=== PATIENT | female | born 1940 | race Caucasian/White ===

== ENCOUNTER 2020-06-03 08:56 | Outpatient (REF) | payer MEDICARE, SELFPAY ==
--- NOTE | 2020-06-03 | US_ITS ---
EXAMINATION: US THYROID CLINICAL INFORMATION: Multinodular goiter. COMPARISON: Ultrasound soft tissue head/neck thyroid dated 10/15/2015 and 11/29/2012. TECHNIQUE: Linear transducer arboleda-scale and color Doppler examination with attention to the region of the thyroid. FINDINGS: SIZE: Measurements of the thyroid lobes and nodules are given in sagittal, anteroposterior and transverse dimensions respectively. Right Thyroid Lobe: 4.9 x 1.8 x 1.1 cm, volume 5.1 mL. Previously 4.0 x 1.1 x 1.1 cm, volume 2.5 mL. Parenchyma: The gland echotexture is heterogeneous. Thyroid vascularity is increased. Left Thyroid Lobe: 4.8 x 1.6 x 1.6 cm, volume 6.4 mL. Previously 4.8 x 1.4 x 1.6 cm, volume 5.8 mL. Parenchyma: The gland echotexture is heterogeneous. Thyroid vascularity is increased. Isthmus: 0.8 cm in maximum AP dimension. Previously 0.5 cm. RIGHT THYROID LOBE: There are 3 nodules seen. 1. Location: Superior. Size: 0.5 x 0.4 x 0.4 cm. Previous: 0.5 x 0.3 x 0.4 cm. Nodule characteristics: Heterogeneously smooth margins. No intranodular flow. Microcalcification. 2. Location: Middle/inferior/medial. Size: 0.5 x 0.3 x 0.5 cm. Previous: 0.5 x 0.3 x 0.5 cm. Nodule characteristics: Complex cystic/hypoechoic with smooth margins. No internal calcification. Intranodular flow is present. 3. Location: Inferior. Size: 2.5 x 1.6 x 1.6 cm. Previous: 0.5 x 0.4 x 0.5 cm. Nodule characteristics: Hyperechoic with central cystic area. Smooth margins. No internal calcification. There is intranodular flow. Of note, the previous evaluation likely solely measured the cystic area which is unchanged. ISTHMUS: There are 3 nodules seen. 1. Location: Inferior. Size: 0.9 x 0.7 x 0.9 cm. Previous: New since the previous study. Nodule characteristics: Heterogeneous with smooth margins and hypoechoic rind. No internal calcification. Intranodular flow present. 2. Location: Inferior. Size: 0.6 x 0.5 x 0.5 cm. Previous: 0.5 x 0.4 x 0.4 cm. Nodule characteristics: Heterogeneously smooth margins. No intranodular flow. Macrocalcification. 3. Location: Inferior. Size: 2.1 x 1.6 x 1.7 cm. Previous: Lucency previous study. Nodule characteristics: Heterogeneous with smooth margins. No internal calcification. Intranodular flow present.. LEFT THYROID LOBE: There are 3 nodules seen. 1. Location: Superior/middle. Size: 1.5 x 1.1 x 1.2 cm. Previous: 1.3 x 1.0 x 1.0 cm. Nodule characteristics: Heterogeneously smooth margins. No internal calcification. Intranodular flow present. 2. Location: Inferior/medial. Size: 1.0 x 0.9 x 1.1 cm. Previous: 0.9 x 0.9 x 1.0 cm. Nodule characteristics: Heterogeneously isoechoic with smooth margins. No internal calcification. There is intranodular flow. 3. Location: Inferior. Size: 1.0 x 0.9 x 1.0 cm. Previous: 0.8 x 0.8 x 0.8 cm. Nodule characteristics: Heterogeneously isoechoic with smooth margins. No internal calcification. There is intranodular flow. NODES: No lymphadenopathy is seen in the tissue surrounding the thyroid gland. IMPRESSION: Multinodular heterogeneous thyroid gland. The previously described nodules are without significant change from previous imaging. There are additional nodules characterized on the current study which may have been present previously but not characterized given the diffuse complex nature of this thyroid gland. Overall there is likely no significant change. If clinically indicated, fine-needle aspiration could be performed of the largest isthmus nodule measuring 2.1 cm. Alternatively, nuclear medicine examination could be performed to evaluate the composition of the nodules to determine if there is an appropriate nodule for sampling.
[2020-06-08 00:01] LABS: N-Telopeptide 28 (see note); NTXCreaRU 70 mg/dL (20-275)
== END 2020-06-03 08:57 | disposition home or self-care (01) ==
LOC: HO.HMGCX 08:56
PROVIDERS: PCP Internal Medicine; Visit Provider Internal Medicine Endocrinology, Diabetes & Metabolism
DX: E04.2 Nontoxic multinodular goiter (principal); M81.0 Age-related osteoporosis without current pathological fracture
CPT/HCPCS: 76536; 82523

== ENCOUNTER 2020-08-18 12:17 | Outpatient (REF) | payer MEDICARE, SELFPAY ==
--- NOTE | 2020-08-18 | XR_ITS ---
EXAMINATION: RIGHT SHOULDER AND RIGHT HIP. CLINICAL INFORMATION: Increasing pain. COMPARISON: None TECHNIQUE: 2 views right hip and 4 views right shoulder. FINDINGS: Right shoulder: The glenohumeral joint space is maintained. Loss of AC joint space with minimal inferior spurring. No visible acute fracture, lytic or sclerotic process seen. The soft tissues are normal. Right hip: There is no visible acute fracture, dislocation or subluxation seen. The joint space is maintained. The soft tissues are normal. XR/XR shoulder RT min 2V IMPRESSION: Mild degenerative changes AC joint. No acute fracture or dislocation right shoulder. Unremarkable right hip exam.
--- NOTE | 2020-08-18 | XR_ITS ---
EXAMINATION: RIGHT SHOULDER AND RIGHT HIP. CLINICAL INFORMATION: Increasing pain. COMPARISON: None TECHNIQUE: 2 views right hip and 4 views right shoulder. FINDINGS: Right shoulder: The glenohumeral joint space is maintained. Loss of AC joint space with minimal inferior spurring. No visible acute fracture, lytic or sclerotic process seen. The soft tissues are normal. Right hip: There is no visible acute fracture, dislocation or subluxation seen. The joint space is maintained. The soft tissues are normal. XR/XR hip RT min 2V IMPRESSION: Mild degenerative changes AC joint. No acute fracture or dislocation right shoulder. Unremarkable right hip exam.
== END 2020-08-18 12:18 | disposition home or self-care (01) ==
LOC: HO.HMGCX 12:17
PROVIDERS: PCP Internal Medicine; Visit Provider Internal Medicine
DX: M25.551 Pain in right hip (principal); M25.511 Pain in right shoulder
CPT/HCPCS: 73030; 73502

== ENCOUNTER 2021-01-05 13:13 | Outpatient (REF) | payer MEDICARE, SELFPAY ==
--- NOTE | ~2021-01-05 | XR_ITS ---
EXAMINATION: RIGHT SHOULDER AND RIGHT HUMERUS. CLINICAL INFORMATION: Status post fall with pain. COMPARISON: Right shoulder 08/18/2020 TECHNIQUE: 2 views right shoulder. 2 views right humerus. FINDINGS: Shoulder: There is a nondisplaced fracture right proximal humerus which does not extend to the articular surface. The glenohumeral joint space in AC joint space is maintained normal. Right humerus: There is a nondisplaced comminuted fracture right humeral neck without extension to the articular surface. Rest of the right humerus is intact. The soft tissues are normal. XR/XR shoulder RT min 2V IMPRESSION: Comminuted right humeral neck fracture without extension are clear surface. The glenohumeral joint space and the AC joint space is intact. Rest of the humerus is unremarkable.
--- NOTE | ~2021-01-05 | XR_ITS ---
EXAMINATION: RIGHT SHOULDER AND RIGHT HUMERUS. CLINICAL INFORMATION: Status post fall with pain. COMPARISON: Right shoulder 08/18/2020 TECHNIQUE: 2 views right shoulder. 2 views right humerus. FINDINGS: Shoulder: There is a nondisplaced fracture right proximal humerus which does not extend to the articular surface. The glenohumeral joint space in AC joint space is maintained normal. Right humerus: There is a nondisplaced comminuted fracture right humeral neck without extension to the articular surface. Rest of the right humerus is intact. The soft tissues are normal. XR/XR humerus RT IMPRESSION: Comminuted right humeral neck fracture without extension are clear surface. The glenohumeral joint space and the AC joint space is intact. Rest of the humerus is unremarkable.
== END 2021-01-05 13:14 | disposition home or self-care (01) ==
LOC: HO.HMGCX 13:13
PROVIDERS: PCP Internal Medicine; Visit Provider Internal Medicine
DX: M25.511 Pain in right shoulder (principal); M79.631 Pain in right forearm
CPT/HCPCS: 73030; 73060

== ENCOUNTER → 2021-01-07 08:50 | Outpatient (BNVA) | payer MEDICARE, SELFPAY | PROVIDERS: Visit Provider Physician Assistant | DX: S42.201A Unspecified fracture of upper end of right humerus, initial encounter for closed fracture (principal) | CPT/HCPCS: 99202 ==

== ENCOUNTER 2021-01-29 07:19 | Outpatient (REF) | payer MEDICARE, SELFPAY ==
--- NOTE | ~2021-01-29 | XR_ITS ---
EXAMINATION: XR SHOULDER, RIGHT CLINICAL INFORMATION: Proximal right humeral fracture. COMPARISON: 01/05/2021 and studies dating back to 08/18/2020. TECHNIQUE: 2 views of the right shoulder. FINDINGS: Proximal right humerus fracture again identified which shows approximately 2 mm of medial displacement of the distal fracture fragment without significant change in appearance from study of 01/05/2021 of the alignment. No dislocation is evident. There is some mild periosteal new bone formation present; however, I cannot say that there is a definite bony union as of yet. There is osteopenia of the proximal humerus. XR/XR shoulder RT min 2V IMPRESSION: Healing right proximal humeral fracture without significant change in alignment.
== END 2021-01-29 07:20 | disposition home or self-care (01) ==
LOC: HO.HOSX 07:19
PROVIDERS: Visit Provider Physician Assistant
DX: S42.201D Unspecified fracture of upper end of right humerus, subsequent encounter for fracture with routine healing (principal)
CPT/HCPCS: 73030; 99212

== ENCOUNTER 2021-02-26 08:05 | Outpatient (REF) | payer MEDICARE, SELFPAY ==
--- NOTE | ~2021-02-26 | XR_ITS ---
EXAMINATION: XR SHOULDER, RIGHT CLINICAL INFORMATION: Fracture COMPARISON: Previous x-ray 01/29/2021 TECHNIQUE: Two views of the right shoulder. FINDINGS: There is a comminuted fracture of the right proximal humerus. Fracture appears nondisplaced on the AP view. There may be mild anterior displacement of the humeral shaft with respect to the head seen on the Y-view. Fracture lines are still seen. There is no significant bony callus formation. Bony structures are unremarkable. XR/XR shoulder RT min 2V IMPRESSION: No change in the comminuted right proximal humerus fracture from previous exams.
== END 2021-02-26 08:06 | disposition home or self-care (01) ==
LOC: HO.HOSX 08:05
PROVIDERS: Visit Provider Physician Assistant
DX: S42.201D Unspecified fracture of upper end of right humerus, subsequent encounter for fracture with routine healing (principal); M25.511 Pain in right shoulder
CPT/HCPCS: 73030; 99212

== ENCOUNTER 2021-04-08 08:15 | Outpatient (REF) | payer MEDICARE, SELFPAY ==
--- NOTE | ~2021-04-08 | XR_ITS ---
EXAMINATION: XR SHOULDER, RIGHT CLINICAL INFORMATION: Pain COMPARISON: 02/26/2021 TECHNIQUE: AP external rotation, Grashey, scapular Y, and axillary views of the right shoulder. FINDINGS: No fracture is again noted with the fracture line slightly less evident on the current study suggesting notable healing. There is no evidence for any acute abnormality joint spaces preserved. XR/XR shoulder RT min 2V IMPRESSION: Endosteal healing with the known fracture less evident on the current study. No new findings otherwise.
== END 2021-04-08 08:16 | disposition home or self-care (01) ==
LOC: HO.HOSX 08:15
PROVIDERS: Visit Provider Orthopaedic Surgery
DX: S42.209D Unspecified fracture of upper end of unspecified humerus, subsequent encounter for fracture with routine healing (principal); X58.XXXD Exposure to other specified factors, subsequent encounter
CPT/HCPCS: 73030; 99212

== ENCOUNTER 2021-06-14 09:00 | Outpatient (RCR) | payer MEDICARE, SELFPAY ==
--- NOTE | 2021-01-13 13:38 | MHC.PT.EP ---
[facility] [place] Office [place] [facility] [place] [facility] [address] Shekhar Bell [address] [phone] F: [phone] F: [phone] F: [phone] F: [phone] Physical Therapy Plan of Care Date of Evaluation: Date of Surgery: Diagnosis: upnspecified fracture of upper end of R humerus Assessment: 80 y/o RHD female referred to PT s/p R nondisplaced humeral fracture on 01/04/2021. Of note, PMH significant for osteoporosis, Parkinson's, and HTN. 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 Examination shows moderate-significant ecchymosis R UE from shoulder to wrist, decreased R shoulder PROM, decreased elbow extension A/PROM, sensation intact and strength not tested due to precautions. She will be driving with her daughter to [place] to bring her sister back home (recently had a CVA) from 01/17-01/26/21. We reviewed humeral fracture precautions extensively. Recommend PT 2x/week for 10 weeks to address impairments, implement HEP, and optimize functional mobility. PT called ortho and left message for any specific restrictions, otherwise will use [facility] Non-operative proximal humeral fx rehab protocol. Frequency and Duration: The patient will be seen 2x/week for 10 weeks Short Term Goals: 4 weeks 1. I with HEP 2. Demonstrate R shoulder AAROM flexion to 120 3. 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 I with HEP and self management of sx 2. Pt will be able to actively reach into overhead cabinet with R UE to get coffee mug 3. Pt will be able to perform grooming with B UE and pain < 3/10 Treatment Plan: Modalities to reduce pain, spasms and effusion. Manual therapy to restore motion and function. Therapeutic exercise to improve strength and flexibility. Neuromuscular re-education for posture and balance. Therapeutic activities to return to functional activities of daily living. Electronically signed by: Denise Manzo PT Please sign and return to therapist. Thank you for your referral.
--- NOTE | 2021-06-14 10:06 | MHC.PT.DC ---
[facility] [place] Office [place] Office [place] Office [address] Shekhar Bell [address] [phone] F: [phone] F: [phone] F: [phone] F: [phone] Physical Therapy Discharge Report Diagnosis: unspecified fracture of upper end of R humerus Date of Surgery: NA Date of Evaluation: 01/13/21 Date of Discharge: 06/14/21 Treatments to Date: 32 Cancellations to Date: 0 No Shows to Date: 0 Discharge Status: Achieved Goals Improved Function Independent with HEP Discharge Summary: Pt has made excellent progress in regards to AROM, pain, and function. She is I with HEP and no further questions. She is d/c from HEP secondary to meeting all goals, SPADI 5/130, I with HEP, and improved function. Electronically signed by: Denise Manzo PT Please sign and return to therapist. Thank you for your referral.
== END 2021-06-14 10:06 | disposition home or self-care (01) ==
LOC: HO.PTCHIC 09:00
PROVIDERS: PCP Internal Medicine; Visit Provider Physician Assistant
DX: S42.201A Unspecified fracture of upper end of right humerus, initial encounter for closed fracture (principal)
CPT/HCPCS: 97110; 97140; 97161

== ENCOUNTER 2021-07-02 09:22 | Outpatient (REF) | payer MEDICARE, SELFPAY ==
--- NOTE | ~2021-07-02 | XR_ITS ---
EXAMINATION: XR CHEST CLINICAL INFORMATION: Weight loss. History of breast cancer. Rule out metastatic disease. COMPARISON: Previous chest x-ray June 2018 TECHNIQUE: 2 views of the chest were obtained. FINDINGS: The cardiac and mediastinal contours are stable. There is left apical pleural thickening that appears unchanged. The lungs are clear. There is no pleural effusion or pneumothorax. There are degenerative changes of the spine. XR/XR chest 2V IMPRESSION: No evidence for acute disease in the chest.
[2021-07-02 10:50] LABS: MANUAL DIFF FLAG NO
[2021-07-02 10:57] LABS: Basophils Percent Auto 0.2 % (0-2); Eosinophils Absolute Auto 0.2 X10*3/uL (0.0-0.4); Eosinophils Percent Auto 4.2 % (0-4); Hemoglobin 11.8 g/dl (12.0-16.0); Imm Gran Abs Auto 0.01 X10*3/uL (0.00-0.03); Imm Gran Pct Auto 0.2 % (0.0-0.4); Lymphocytes Absolute Auto 1.3 X10*3/uL (1.2-4.9); Lymphocytes Percent Auto 31.7 % (20-40); Mean Corpuscular HGB Conc 33.7 g/dl (31.0-35.0); Mean Corpuscular Volume 94.9 fL (80.0-98.0); Mean Platelet Volume 10.9 fL (9.4-12.3); Monocytes Absolute Auto 0.4 X10*3/uL (0.1-1.2); Monocytes Percent Auto 8.7 % (2-11); Neutrophils Absolute Auto 2.2 x10*3/uL (2.0-8.3); Platelet Count 184 X10*3/uL (160-400); Red Blood Count 3.69 X10*6/uL (4.20-5.50); Red Cell Distribution Width 11.9 % (11.0-16.0)
[2021-07-02 11:45] LABS: Alanine Aminotransferase 9 U/L (0-31); Albumin Level 4.4 g/dL (3.5-5.0); Alkaline Phosphatase 62 U/L (39-117); Anion Gap 15 (12-20); Aspartate Amino Transferase 31 U/L (5-31); Bilirubin Total 0.9 mg/dL (0.0-1.0); Blood Urea Nitrogen 16 mg/dL (9-16); C Reactive Protein 0.04 mg/dL (< or = 0.50); Calcium 9.7 mg/dL (8.4-10.2); Carbon Dioxide 31 mmol/L (22-29); Chloride 99 mmol/L (96-108); Estimated Glomerular Filt Rate > 60; Glucose Random 93 mg/dL (60-115); Iron 86 mcg/dL (30-160); Percent Iron Saturation 24 % (15-50); Potassium 3.5 mmol/L (3.3-5.1); Sodium 141 mmol/L (135-145); Total Iron Binding Capacity 352 mcg/dL (228-428); Total Protein 6.8 g/dL (6.5-8.0); Unsaturated Iron Binding 266 ug/dL
[2021-07-02 11:49] LABS: Appearance Urine CLEAR; Color Urine YELLOW; Glucose Urine UA NEG (NEG); Leukocyte Esterase Urine NEG (NEG); Nitrite Urine NEG (NEG); Urine Blood NEG (NEG); Urine Ketones NEG (NEG); Urine Protein NEG (NEG-TRACE)
[2021-07-02 11:51] LABS: Erythrocyte Sedimentation Rate 5 MM/HR (0-20)
[2021-07-02 12:09] LABS: Ferritin 362 ng/mL (10-250); TSH reflex Free T4 0.79 uIU/mL (0.32-4.0)
[2021-07-02 12:19] LABS: Folate > 20.0 ng/mL (> or = 4.0); Vitamin B12 644 pg/mL (200-900)
[2021-07-04 16:12] LABS: Gliadin Deamidated IgA Ab <1.0 U/mL; Gliadin Deamidated IgG Ab <1.0 U/mL; Transglutaminase Ab IgG <1.0 U/mL; Transglutaminase IgA <1.0 U/mL
[2021-07-05 13:11] LABS: IgA 73 mg/dL (70-320); IgG 828 mg/dL (600-1540); IgM 61 mg/dL (50-300)
[2021-07-05 21:47] LABS: Immunoglobulin G Subclass 1 404 mg/dL (382-929); Immunoglobulin G Subclass 2 200 mg/dL (241-700); Immunoglobulin G Subclass 3 16 mg/dL (22-178); Immunoglobulin G Subclass 4 17.9 mg/dL (4-86); Immunoglobulin G Total 701 mg/dL (600-1540)
[2021-07-06 02:32] LABS: Zinc 65 mcg/dL (60-130)
[2021-07-06 14:42] LABS: Vitamin A 74 mcg/dL (38-98)
[2021-07-06 22:07] LABS: Histamine Plasma 2.7 ng/mL (< OR = 1.8)
[2021-07-07 16:17] LABS: Vitamin C 1.6 mg/dL (0.3-2.7)
[2021-07-08 06:26] LABS: Calcitonin <2 pg/mL (<=5)
[2021-07-08 22:41] LABS: Gastrin <15 pg/mL (<=100)
== END 2021-07-02 09:23 | disposition home or self-care (01) ==
LOC: HO.LAB 09:22
PROVIDERS: PCP Internal Medicine; Referring Provider Internal Medicine; Visit Provider Internal Medicine Gastroenterology
DX: K75.81 Nonalcoholic steatohepatitis (NASH) (principal); G89.29 Other chronic pain; R10.33 Periumbilical pain; R63.4 Abnormal weight loss; R19.7 Diarrhea, unspecified; G20 Parkinson's disease; R30.0 Dysuria; Z85.3 Personal history of malignant neoplasm of breast
CPT/HCPCS: 36415; 71046; 80053; 81003; 82180; 82308; 82607; 82728; 82746; 82784; 82941; 83088; 83516; 83520; 83540; 84443; 84590; 84630; 85025; 85652; 86140; Q3014

== ENCOUNTER 2021-07-13 07:30 | Outpatient (REF) | payer MEDICARE, SELFPAY ==
--- NOTE | ~2021-07-13 | CT_ITS ---
EXAMINATION: CT ABDOMEN AND PELVIS WITH CONTRAST CLINICAL INFORMATION: Abnormal weight loss. COMPARISON: Previous CT of the abdomen and pelvis September 2009. TECHNIQUE: Multidetector volumetric images were obtained from the superior aspect of the liver through the pubic symphysis following administration 85 mL of Omnipaque 350 intravenous contrast. Sagittal and coronal reformatted images were obtained on the technologist's workstation. Oral contrast: Yes This CT examination was performed using dose optimization techniques as appropriate, variously including the following: *Automated exposure control *Adjustment of mA and/or kV according to patient size (this includes techniques or standardized protocols for targeted exams where dose is matched to indication/reason for exam; i.e. extremities or head) *Use of iterative reconstruction technique DLP: 178 mGy-cm FINDINGS: LUNG BASES: The visualized lung bases are unremarkable. LIVER, GALLBLADDER, AND BILIARY TREE: The liver is normal in size, shape and attenuation. There is a 1.3 cm low-attenuation lesion high in the left lobe of the liver axial image 9 series 3 suggestive of a cyst. This is minimally increased from 9 mm in size September 2009. No other focal liver lesion is seen. The gallbladder has been removed. There is mild dilatation of the main pancreatic duct measuring 8 mm. This is similar to September 2009 exam and may be normal postcholecystectomy. PANCREAS: The main pancreatic duct appears tortuous. There is mild dilatation of the main pancreatic duct measuring 4 mm in the head of the pancreas. Stable. There is a small low-attenuation probably cystic lesion in the neck of the pancreas measuring 3 mm axial image 24 series 3. Stable from 2010 exam as well. The pancreas is otherwise unremarkable. SPLEEN: Unremarkable. ADRENAL GLANDS: Unremarkable. KIDNEYS AND URETERS: The kidneys are normal in size, shape, and attenuation. No hydronephrosis, hydroureter, or calculi seen. No perinephric stranding. BLADDER: Unremarkable. GASTROINTESTINAL TRACT: Evaluation of the bowel is limited due to paucity of fat. Small and large bowel appears unremarkable. The appendix is unremarkable. The stomach is empty and not well evaluated. ABDOMINAL WALL: No significant hernia is appreciated. LYMPH NODES: Normal. VASCULAR: There is evidence of atherosclerotic disease. PELVIC VISCERA: Unremarkable. OSSEOUS STRUCTURES: There is curvature of the lumbar spine to the right with degenerative changes. There are degenerative changes at the hip joints. CT/CT abdomen pelvis w con IMPRESSION: Limited exam due to paucity of fat. Liver cyst slightly increased from 2010 exam. Postcholecystectomy. Mild dilatation of the common bile duct which may be normal postcholecystectomy. Mild dilatation of the main pancreatic duct in the head of the pancreas and small 3-4 mm probable cyst or cystic lesion in the neck of the pancreas. These findings are stable from 2010 exam. Atherosclerotic disease. Fleischner guidelines were followed.
[2021-07-13] MEDS: Barium Sulfate Oral (Vanilla) 450 ML ORAL.SUSP 900 ML PO (10:34)
[2021-07-13] MEDS: iohexoL 350 MG/ML 100 ML INFUS..BTL IV (10:34)
== END 2021-07-13 07:31 | disposition home or self-care (01) ==
LOC: HO.CT 07:30
PROVIDERS: Visit Provider Internal Medicine Gastroenterology
DX: R19.7 Diarrhea, unspecified (principal); R63.4 Abnormal weight loss; Z85.3 Personal history of malignant neoplasm of breast
CPT/HCPCS: 74177; Q9967

== ENCOUNTER 2021-07-13 08:09 | Outpatient (REF) | payer MEDICARE, SELFPAY ==
[2021-07-17 20:41] LABS: Calprotectin, Fecal 142 mcg/g
[2021-07-18 05:58] LABS: Fecal Fat Qualitative Normal (Normal)
[2021-07-20 19:52] LABS: Pancreatic Elastase-1 430 mcg/g
== END 2021-07-13 08:10 | disposition home or self-care (01) ==
LOC: HO.LNP 08:09
PROVIDERS: Visit Provider Internal Medicine Gastroenterology
DX: R19.7 Diarrhea, unspecified (principal)
CPT/HCPCS: 82656; 82705; 83993; 87329

== ENCOUNTER → 2021-07-27 10:10 | Outpatient (BNVA) | payer MEDICARE, SELFPAY | PROVIDERS: PCP Internal Medicine; Referring Provider Internal Medicine; Visit Provider Internal Medicine Gastroenterology | DX: R19.7 Diarrhea, unspecified (principal); R63.4 Abnormal weight loss | CPT/HCPCS: 99212 ==

== ENCOUNTER 2021-10-13 11:57 | Outpatient (REF) | payer MEDICARE, SELFPAY ==
[2021-10-13 13:09] LABS: Free T4 (Free Thyroxine) 1.34 ng/dL (0.71-1.85); Thyroid Stimulating Hormone 0.53 uIU/mL (0.32-4.0)
[2021-10-14 07:01] LABS: Triiodothyronine T3 Free 2.6 pg/mL (2.3-4.2)
== END 2021-10-13 11:58 | disposition home or self-care (01) ==
LOC: HO.LAB 11:57
PROVIDERS: PCP Internal Medicine; Referring Provider Internal Medicine Endocrinology, Diabetes & Metabolism; Visit Provider Internal Medicine
DX: R53.83 Other fatigue (principal)
CPT/HCPCS: 36415; 84439; 84443; 84481

== ENCOUNTER 2021-11-11 11:10 | Outpatient (REF) | payer MEDICARE, SELFPAY ==
[2021-11-11 12:45] LABS: Cortisol Random 20.9 ug/dL
[2021-11-11 14:37] LABS: Vitamin D 25-OH Total 59.8 ng/mL (>30)
== END 2021-11-11 11:11 | disposition home or self-care (01) ==
LOC: HO.LAB 11:10
PROVIDERS: PCP Internal Medicine; Visit Provider Internal Medicine Endocrinology, Diabetes & Metabolism
DX: M81.0 Age-related osteoporosis without current pathological fracture (principal); R63.4 Abnormal weight loss
CPT/HCPCS: 36415; 82306; 82533

== ENCOUNTER 2021-11-11 11:21 | Day surgery (SDC) | payer MEDICARE, SELFPAY ==
[2021-11-08 09:54] VITALS: BMI 16.1
--- NOTE | 2021-11-10 10:32 | HO.ANESPROP2 ---
Documented by User: Shalini Caraballo NP 11/10/21 10:35 HPI - Anesthesia Eval Consult details Narrative: 81yo F for Upper Endoscopy and Colonoscopy *Mult med allergies* PMFSH Active Problems Active Problems: All Active Problems (Updated 08/16/21 @ 16:35 by Harjinder John MD) Fracture of proximal end of right humerus (Acute) Fracture of proximal humerus with routine healing (Acute) Weight loss (Acute) History of breast cancer (Acute) Diarrhea (Acute) Nausea & vomiting (Acute) Past Medical History Medical History Fracture, wrist, open High blood pressure History of gastrectomy Parkinson disease Surgical History Surgical History H/O pyloroplasty H/O vagotomy History of esophagogastroduodenoscopy (EGD) Hx of arthroscopic knee surgery Hx of cholecystectomy Hx of colonoscopy Hx of hysterectomy Social History Social History Patient Tobacco Use Status: Never used Tobacco Use of substances other than those prescribed or required for medical reasons: No Are you DNR?: No Advance Directives: No Advance Directives Information Provided: Yes Current occupational status: retired Current occupation: rt handed Meds Allergies Allergy/AdvReac Type Severity Reaction Status Date / Time pregabalin [From LYRICA] Allergy Severe CONFUSION Verified 07/27/21 10:19 gabapentin [GABAPENTIN] Allergy Intermediate NAUSEA/VOMI Verified 07/27/21 10:19 TING clarithromycin [From BIAXIN] AdvReac Intermediate NAUSEA & Verified 07/27/21 10:19 VOMITING codeine [CODEINE] AdvReac Intermediate NAUSEA & Verified 07/27/21 10:19 VOMITING fentanyl [From DURAGESIC] AdvReac Intermediate NAUSEA/VOMI Verified 07/27/21 10:19 TING levofloxacin [From LEVAQUIN] AdvReac Intermediate NAUSEA & Verified 07/27/21 10:19 VOMITING Home Medications Medication Instructions Recorded Confirmed Last Taken Type lorazepam 0.5 mg tablet (Ativan) 0.5 mg PO BEDTIME PRN 01/07/21 Unknown History propranolol 80 mg tablet 40 mg PO BID 01/07/21 Unknown History ibuprofen 800 mg tablet 800 mg PO TID 04/08/21 Unknown History carbidopa 25 mg-levodopa 100 mg 1 tab PO TID 07/27/21 Unknown History tablet lorazepam 1 mg tablet 1 mg PO TID 07/27/21 Unknown History losartan 100 1 tab PO DAILY 07/27/21 Unknown History mg-hydrochlorothiazide 25 mg tablet Exam Exam Date and Time: November 10, 2021 1032 Height,Weight and Vital Signs: Height 5 ft 6 in Weight 45.359 kg Pertinent Lab Results Pertinent Lab Results: Laboratory Tests 07/02/21 07/02/21 10:48 10:48 WBC 4.0 L Hgb 11.8 L Hct 35.0 L Plt Count 184 Sodium 141 Potassium 3.5 Chloride 99 Carbon Dioxide 31 H BUN 16 Creatinine 0.84 Assessment and Plan Assessment Anesthesia Assessment: Chart Reviewed Documented by User: Melany Scott MD 11/11/21 11:54 PMFSH Past Medical History Medical History Fracture, wrist, open High blood pressure History of gastrectomy Parkinson disease Functional capacity: independent ambulation Patient : No Family History Family history of problems with anesthesia: No Surgical History Surgical History H/O pyloroplasty H/O vagotomy History of esophagogastroduodenoscopy (EGD) Hx of arthroscopic knee surgery Hx of cholecystectomy Hx of colonoscopy Hx of hysterectomy History of Problems with Anesthesia: No Social History Social History Patient Tobacco Use Status: Never used Tobacco Use of substances other than those prescribed or required for medical reasons: No Are you DNR?: No Advance Directives: No Advance Directives Information Provided: Yes Current occupational status: retired 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 occupation: rt handed Meds Allergies Allergy/AdvReac Type Severity Reaction Status Date / Time pregabalin [From LYRICA] Allergy Severe CONFUSION Verified 07/27/21 10:19 gabapentin [GABAPENTIN] Allergy Intermediate NAUSEA/VOMI Verified 07/27/21 10:19 TING clarithromycin [From BIAXIN] AdvReac Intermediate NAUSEA & Verified 07/27/21 10:19 VOMITING codeine [CODEINE] AdvReac Intermediate NAUSEA & Verified 07/27/21 10:19 VOMITING fentanyl [From DURAGESIC] AdvReac Intermediate NAUSEA/VOMI Verified 07/27/21 10:19 TING levofloxacin [From LEVAQUIN] AdvReac Intermediate NAUSEA & Verified 07/27/21 10:19 VOMITING Home Medications Medication Instructions Recorded Confirmed Last Taken Type lorazepam 0.5 mg tablet (Ativan) 0.5 mg PO BEDTIME PRN 01/07/21 Unknown History propranolol 80 mg tablet 40 mg PO BID 01/07/21 Unknown History ibuprofen 800 mg tablet 800 mg PO TID 04/08/21 Unknown History carbidopa 25 mg-levodopa 100 mg 1 tab PO TID 07/27/21 Unknown History tablet lorazepam 1 mg tablet 1 mg PO TID 07/27/21 Unknown History losartan 100 1 tab PO DAILY 07/27/21 Unknown History mg-hydrochlorothiazide 25 mg tablet Exam Airway Mallampati Class: II TM Dist: >3cm Neck ROM: Full Heart: RRR Lungs: CTA Assessment and Plan Final Anesthetic Review Family History of Problems with Anesthesia: No History of Problems with Anesthesia: No ASA Class: III Final Preanesthetic Review: Meds/Allgs Chart Reviewed and Consent Obtained/Reviewed Patient Risk: Low Procedure Risk: Low Anesthetic Plan Anesthetic Plan: MAC: Disposition: Standard PACU
[2021-11-11 11:29] VITALS: BMI 14.0
--- NOTE | 2021-11-11 11:38 | MHC.SHP ---
Pre-Procedural Eval Section A Date of Service: 11/11/21 Section B Chief Complaint: Diarrhea, Weight loss Relevant Family History (Specify if Yes): No Relevant Social History: None Present Medications: see Short Stay Collaborative assessment Medical History: Significant History (Fracture, wrist, open High blood pressure History of gastrectomy Parkinson disease) History of Previous Operations: Relevant previous surgery/procedure and date(s) (H/O pyloroplasty H/O vagotomy History of esophagogastroduodenoscopy (EGD) Hx of arthroscopic knee surgery Hx of cholecystectomy Hx of colonoscopy Hx of hysterectomy) Allergies: Allergies Allergy/AdvReac Type Severity Reaction Status Date / Time pregabalin [From LYRICA] Allergy Severe CONFUSION Verified 07/27/21 10:19 gabapentin [GABAPENTIN] Allergy Intermediate NAUSEA/VOMI Verified 07/27/21 10:19 TING clarithromycin [From BIAXIN] AdvReac Intermediate NAUSEA & Verified 07/27/21 10:19 VOMITING codeine [CODEINE] AdvReac Intermediate NAUSEA & Verified 07/27/21 10:19 VOMITING fentanyl [From DURAGESIC] AdvReac Intermediate NAUSEA/VOMI Verified 07/27/21 10:19 TING levofloxacin [From LEVAQUIN] AdvReac Intermediate NAUSEA & Verified 07/27/21 10:19 VOMITING Review of Systems Sugical H&P ROS: Negative: Constitution, Cardiovascular, Respiratory, Neurological, Psychiatric, Hem-Onc, Allergic/Immunologic, Gastrointestinal, Genitourinary, Musculoskeletal, Integumentary, Endocrine and Eyes/Ears/Nose/Throat Exam Surgical H&P Exam: Normal: HEENT, Normal: Heart, Normal: Lungs, Normal: Extremities, Normal: Abdomen, Normal: Skin and Normal: Neurological Plan Diagnosis/Plan: Unchanged I have reviewed the history and physical and performed a pertinent physical examination on my patient. No changes have occurred unless specified.
[2021-11-11 11:52] VITALS: BP 129/43; PULSE 54; RESP 16; TEMP 36.9; O2SAT 99
[2021-11-11] MEDS: Lactated Ringers 1,000 ML 100 ML IVCONT (12:00)
--- NOTE | 2021-11-11 12:13 | PM.OP ---
Brief Operative Note Date of Service: 11/11/21 Pre-op diagnosis: diarrhea, weight loss Post-op diagnosis: same Procedure: see op note Surgeon: Harjinder John MD Anesthesia: MAC Was an Foreign Languages Department Chair used for this Procedure?: No Estimated blood loss (mL): 0 Condition: stable Disposition: PACU
--- NOTE | 2021-11-11 12:24 | W.PM.OPN ---
Operative Note Operative Note Date of Service: 11/11/21 Narrative: Operative Information Procedure Description: EGD, Colonoscopy FLEXIBLE TRANSORAL UPPER GASTROINTESTINAL ENDOSCOPY AND COLONOSCOPY PROCEDURE NOTE UPPER ENDOSCOPY Consent: Indications for the procedure and potential complications of bleeding, perforation, reaction to medications and missed diagnosis were discussed with the patient and informed consent was obtained. Instrument: Olympus GIF H 190 J mid size upper endoscope Monitoring: Vital signs and clinical assessment, continuous EKG monitoring, Pulse oximetry, Carbon Dioxide monitoring and blood pressure monitoring were done throughout the procedure. Procedure: The patient was placed in the left lateral decubitis position and pre-procedure medications were administered and a bite block was placed. The endoscope was inserted into the mouth and advanced under direct vision to the third part of duodenum. A careful inspection was made as the upper endoscope was withdrawn including a retroflexed examination of the proximal stomach; Findings and interventions are described below. Findings: Larynx:normal Esophagus: GE junction at 38 cm, diaphragm hiatus at 38 cm, normal mucosa Stomach: Inflammed mucosa with diffuse erythema. Biopsies were obtained. Grade 2 flap valve on retroflexed examination of the cardia. psot surgical changes consistent with bilroth type I anatomy noted. 9-10 mm sessile polyp lesion at anastomosis, removed with cold snare and then one clip applied for hemostasis Duodenum: Normal bulb and descending duodenum, bx taken Intervention: Biopsies as noted above COLONOSCOPY Instrument: Olympus variable stiffness pediatric scope 190L Colonoscopy Monitoring: Vital signs and clinical assessment, continuous EKG monitoring, Pulse oximetry, Carbon Dioxide monitoring and blood pressure monitoring were done throughout the procedure. Colon withdrawal time was 9 minutes. Procedure: The patient was placed in the left lateral decubitis position and pre-procedure medications were administered. After a digital rectal examination of the ano-rectum, the video colonoscope was inserted into the rectum and advanced through the colon to the cecum/TI. The colonoscope was slowly withdrawn in a retrograde panoramic fashion and the colon mucosa was carefully examined including a retroflexed view of the rectum. Findings and interventions are described below. Procedure Difficulty:easy Findings: Terminal Ileum-normal, bx taken Random colon bx taken Cecum:normal Ascending Colon: normal Transverse Colon -normal Descending Colon:normal Sigmoid Colon: normal Rectum: Retroflexion with small internal hemorrhoids, grade I Anorectum - normal Colon preparation: [place] Bowel Preparation Scale Right colon; 3 Transverse colon: 3 Left colon; 3 (0 = Unprepared colon segment with mucosa not seen due to solid stool that cannot be cleared. 1 = Portion of mucosa of the colon segment seen, but other areas of the colon segment not well seen due to staining, residual stool and/or opaque liquid. 2 = Minor amount of residual staining, small fragments of stool and/or opaque liquid, but mucosa of colon segment seen well. 3 = Entire mucosa of colon segment seen well with no residual staining, small fragments of stool or opaque liquid) Impression and Post Procedure Diagnosis: Endoscopy Findings: gastritis gastric polyp Colonoscopy Findings: internal hemorrhoids Plan: Await Pathology results Repeat Colonoscopy for screening not indicated given age unless for other clinical indications. High fiber diet leaflet avoid straining at stool, epsom salts and sitz bath, anusol supps or cream ?trial of urosdiol for bile acid related gastric reflux Above findings were reviewed with the patient and relevant handouts were provided if indicated.
[2021-11-11 12:59] VITALS: BP 99/57; PULSE 68; RESP 16; TEMP 36.2; O2SAT 100
[2021-11-11 13:14] VITALS: BP 130/58; PULSE 63; RESP 16; TEMP 36.1; O2SAT 100
--- NOTE | 2021-11-11 14:13 | HO.POSTANES ---
Post Anesthesia Evaluation Post Anesthesia Evaluation Vital Signs: Vital Signs Temp Pulse Resp BP Pulse Ox 11/11/21 13:14 97 F 63 16 130/58 L 100 11/11/21 12:59 97.1 F 68 16 99/57 L 100 11/11/21 11:52 98.5 F 54 16 129/43 L 99 Anesthesia: Monitored Mental Status: Awake Pain Control: Satisfactory Nausea/Vomiting: None Hydration: Adequate Anesthesia-Related Issues: No Anes. Related Issues
== END 2021-11-11 13:40 | disposition home or self-care (01) ==
PROVIDERS: PCP Internal Medicine; Visit Provider Internal Medicine Gastroenterology
PROC: (CPT 45380; principal; 2021-11-11 12:40)
DX: K64.0 First degree hemorrhoids (principal); R63.4 Abnormal weight loss; Z68.1 Body mass index [BMI] 19.9 or less, adult; K29.50 Unspecified chronic gastritis without bleeding; K31.7 Polyp of stomach and duodenum; Z90.3 Acquired absence of stomach [part of]; K44.9 Diaphragmatic hernia without obstruction or gangrene; I10 Essential (primary) hypertension; G20 Parkinson's disease; Z79.899 Other long term (current) drug therapy; Z88.1 Allergy status to other antibiotic agents; Z88.8 Allergy status to other drugs, medicaments and biological substances; Z90.49 Acquired absence of other specified parts of digestive tract; Z98.890 Other specified postprocedural states
CPT/HCPCS: 45380; 43251; 43239; 88305; 88342

== ENCOUNTER → 2021-11-15 13:32 | Outpatient (BNVA) | payer MEDICARE, SELFPAY | PROVIDERS: PCP Internal Medicine; Referring Provider Internal Medicine; Visit Provider Internal Medicine Gastroenterology | DX: R68.81 Early satiety (principal); R63.4 Abnormal weight loss; R19.7 Diarrhea, unspecified | CPT/HCPCS: 99212 ==

== ENCOUNTER → 2021-12-02 09:31 | Outpatient (BNVA) | payer MEDICARE, SELFPAY | PROVIDERS: PCP Internal Medicine; Visit Provider Dietitian, Registered | DX: R63.4 Abnormal weight loss (principal) | CPT/HCPCS: 97802 ==

== ENCOUNTER → 2021-12-24 10:28 | Outpatient (BNVA) | payer MEDICARE, SELFPAY | PROVIDERS: PCP Internal Medicine; Visit Provider Dietitian, Registered | DX: R63.6 Underweight (principal); Z68.1 Body mass index [BMI] 19.9 or less, adult; R63.4 Abnormal weight loss; Z71.3 Dietary counseling and surveillance | CPT/HCPCS: 97803 ==

== ENCOUNTER → 2021-12-30 07:55 | Outpatient (REF) | payer MEDICARE, SELFPAY ==
--- NOTE | ~2021-12-30 | NM_ITS ---
EXAMINATION: RADIONUCLIDE SOLID FOOD GASTRIC EMPTYING 4-HOUR STUDY CLINICAL INFORMATION: Early satiety. COMPARISON: No previous gastric emptying study is available for comparison. TECHNIQUE: A standard meal consisting of 4 oz of Egg Beaters brand tagged with 770 microcuries Tc-99m Sulfur Colloid, 8 oz water and 2 slices of toast with jelly was administered orally to the patient. Images were obtained using a dual head gamma camera in the anterior and posterior projections over of the stomach immediately post ingestion and at hourly intervals up to 3 hours post ingestion. Images were not obtained at 4 hours due to the minimal retention at 3 hours. The anterior and posterior counts at each time interval were averaged using the geometric mean and expressed as percentage of the immediate post ingestion counts. FINDINGS: There is good visualization of activity in the stomach immediately post ingestion. As the study progresses, there is good clearance of activity from the stomach and visualization of progressively increasing small bowel activity. By the end of the study, there is almost no retention noted in the stomach. Retention in the stomach at each time interval was: 1 hour 6% (normal 37%-90%) 2 hours 3% (normal 30%-60%) 3 hours 2% 4 hours (Not Obtained) (normal 0%-10%) NM/NM gastric emptying study IMPRESSION: No abnormal retention of solid food is noted. Gastric emptying is more rapid than normal, a finding of uncertain clinical significance.
== END ==
LOC: HO.NUCMED 07:55
PROVIDERS: PCP Internal Medicine; Visit Provider Internal Medicine Gastroenterology
DX: R68.81 Early satiety (principal)
CPT/HCPCS: 78264; A9541

== ENCOUNTER → 2022-01-24 10:40 | Outpatient (BNVA) | payer MEDICARE, SELFPAY | PROVIDERS: PCP Internal Medicine; Referring Provider Internal Medicine; Visit Provider Internal Medicine Gastroenterology | DX: Z13.89 Encounter for screening for other disorder (principal) | CPT/HCPCS: Q3014 ==

== ENCOUNTER 2022-01-31 12:10 | Outpatient (REF) | payer MEDICARE, SELFPAY ==
--- NOTE | ~2022-01-31 | XR_ITS ---
EXAMINATION: XR SHOULDER, RIGHT CLINICAL INFORMATION: Right shoulder pain after fall COMPARISON: Right shoulder 04/08/2021 and 01/05/2021 TECHNIQUE: AP external rotation, Grashey, scapular Y, and axillary views of the right shoulder. FINDINGS: Interval healing of previously seen comminuted right humeral neck fracture. There is no shoulder dislocation or recurrent fracture seen. No new fractures are seen. XR/XR shoulder RT min 2V IMPRESSION: No acute finding right shoulder
== END 2022-01-31 12:11 | disposition home or self-care (01) ==
LOC: HO.HMGCX 12:10
PROVIDERS: Visit Provider Internal Medicine
DX: M25.511 Pain in right shoulder (principal); Z91.81 History of falling
CPT/HCPCS: 73030

== ENCOUNTER → 2022-03-29 10:45 | Outpatient (BNVA) | payer MEDICARE, SELFPAY | PROVIDERS: PCP Internal Medicine; Visit Provider Dietitian, Registered | DX: R63.4 Abnormal weight loss (principal); Z98.84 Bariatric surgery status; Z71.3 Dietary counseling and surveillance | CPT/HCPCS: 97803 ==

== ENCOUNTER → 2022-07-01 10:08 | Outpatient (BNVA) | payer MEDICARE, SELFPAY | PROVIDERS: PCP Internal Medicine; Visit Provider Internal Medicine Gastroenterology | DX: R63.4 Abnormal weight loss (principal); R19.7 Diarrhea, unspecified | CPT/HCPCS: 99212 ==

== ENCOUNTER 2022-10-09 17:04 | Emergency (ER) | payer MEDICARE, SELFPAY ==
--- NOTE | ~2022-10-09 | CT_ITS ---
EXAMINATION: CT ABDOMEN AND PELVIS WITH CONTRAST CLINICAL INFORMATION: Lower abdominal pain COMPARISON: 07/13/2021 TECHNIQUE: Multidetector volumetric images were obtained from the superior aspect of the liver through the pubic symphysis following administration 85 mL of Omnipaque 350 intravenous contrast. Sagittal and coronal reformatted images were obtained on the technologist's workstation. Oral contrast: No This CT examination was performed using dose optimization techniques as appropriate, variously including the following: *Automated exposure control *Adjustment of mA and/or kV according to patient size (this includes techniques or standardized protocols for targeted exams where dose is matched to indication/reason for exam; i.e. extremities or head) *Use of iterative reconstruction technique DLP: 278 mGy-cm FINDINGS: LUNG BASES: The visualized lung bases are unremarkable. LIVER, GALLBLADDER, AND BILIARY TREE: Liver cyst minimally more prominent. No new lesions. Mild prominence of the biliary ductal system. Gallbladder surgically absent. Prominence of the intrahepatic and extra hepatic biliary ductal radicals similar. PANCREAS: Pancreatic duct is prominent within the head extending to the neck unchanged. No stones or focal lesion seen. No inflammatory changes. SPLEEN: Unremarkable. ADRENAL GLANDS: Unremarkable. KIDNEYS AND URETERS: The kidneys are normal in size, shape, and attenuation. No hydronephrosis, hydroureter, or calculi seen. No perinephric stranding. BLADDER: Unremarkable. GASTROINTESTINAL TRACT: No definite inflammatory changes. No obstruction. ABDOMINAL WALL: No significant hernia is appreciated. LYMPH NODES: Normal. VASCULAR: Unremarkable. PELVIC VISCERA: Atrophic versus surgically absent. OSSEOUS STRUCTURES: Unremarkable. CT/CT abdomen pelvis w IV con IMPRESSION: No definite abnormality to explain patient's symptoms. Chronic findings as above. Fleischner guidelines were followed.
[2022-10-09 17:13] VITALS: BP 182/65; PULSE 63; RESP 18; TEMP 36.8; O2SAT 97; BMI 15.1
--- NOTE | 2022-10-09 17:15 | ED.GENADULT ---
HPI - General Adult General Chief complaint: Abdominal Pain <JESS Lawson - Last Filed: 10/09/22 17:17> Stated complaint: abd pain <JESS Lawson - Last Filed: 10/09/22 17:17> Time Seen by Provider: 10/09/22 17:49 <JESS Lawson - Last Filed: 10/09/22 17:17> Source: patient, family, RN notes reviewed and old records reviewed <Ryan Sesay - Last Filed: 10/09/22 20:42> Mode of arrival: ambulatory <Ryan Sesay - Last Filed: 10/09/22 20:42> Limitations: no limitations <Ryan Sesay - Last Filed: 10/09/22 20:42> History of Present Illness HPI narrative: 82-year-old male presents for evaluation of diffuse abdominal pain. Patient reports that her symptoms started about 4 hours prior to arrival. She was eating at times She states this started as generalized abdominal pain but now seem to radiate to the left abdomen. She denies any associated symptoms including nausea, vomiting diarrhea, constipation. Patient reports that her bowel habits are fairly labile at baseline. She reports it can be normal for her to have up to 15 bowel movements per day. S denies any black or bloody stool. Patient reports multiple previous abdominal surgeries including cholecystectomy, gastrectomy. Patient rates her pain as 10/10, sharp, constant. She states this positions maker pain worse She denies any chest pain, shortness of breath <Ryan Sesay - Last Filed: 10/09/22 20:42> Related Data Home medications: Home Medications Medication Instructions Recorded Confirmed lorazepam 0.5 mg tablet (Ativan) 0.5 mg PO BEDTIME PRN 01/07/21 carbidopa 25 mg-levodopa 100 mg 1 tab PO TID 07/27/21 tablet losartan 100 1 tab PO DAILY 07/27/21 mg-hydrochlorothiazide 25 mg tablet propranolol 80 mg tablet 80 mg PO BID 01/24/22 alendronate 70 mg tablet 70 mg PO QWEEK 07/01/22 hydrochlorothiazide 25 mg tablet 25 mg PO DAILY 07/01/22 lorazepam 1 mg tablet 1 mg PO TID PRN 07/01/22 potassium chloride 10 mEq 10 meq PO DAILY 07/01/22 tablet,extended release Previous Rx's Medication Instructions Recorded Magic Mouthwash 10 ml PO QID #240 mL 11/18/21 Diphen/Lido/Antacid 1:1:1 240 mL suspension psyllium husk (with sugar) 3.4 1 tbsp PO BID #60 ea 01/24/22 gram oral powder packet (Metamucil (with sugar)) colesevelam 3.75 gram oral powder 3,750 mg PO DAILY #30 ea 02/09/22 packet (WelChol) omeprazole 40 mg capsule,delayed 40 mg PO DAILY #90 caps 04/13/22 release ursodiol 500 mg tablet 500 mg PO BID #180 tabs 05/05/22 aluminum-mag hydroxide-simethicone 10 ml PO QID PRN abdominal pain 10/09/22 200 mg-200 mg-20 mg/5 mL oral susp #355 mL (Maalox Advanced) <JESS Lawson - Last Filed: 10/09/22 17:17> Allergies/adverse reactions: Allergies Allergy/AdvReac Type Severity Reaction Status Date / Time pregabalin [From LYRICA] Allergy Severe CONFUSION Verified 07/01/22 10:11 gabapentin [GABAPENTIN] Allergy Intermediate NAUSEA/VOMI Verified 07/01/22 10:11 TING clarithromycin [From BIAXIN] AdvReac Intermediate NAUSEA & Verified 07/01/22 10:11 VOMITING codeine [CODEINE] AdvReac Intermediate NAUSEA & Verified 07/01/22 10:11 VOMITING fentanyl [From DURAGESIC] AdvReac Intermediate NAUSEA/VOMI Verified 07/01/22 10:11 TING levofloxacin [From LEVAQUIN] AdvReac Intermediate NAUSEA & Verified 07/01/22 10:11 VOMITING <JESS Lawson - Last Filed: 10/09/22 17:17> Review of Systems Constitutional: Constitutional: Reports as per HPI, Denies chills and Denies fatigue <Ryan Sesay - Last Filed: 10/09/22 20:42> Cardiovascular: Cardiovascular: Denies chest pain and Denies dyspnea <Ryan Sesay - Last Filed: 10/09/22 20:42> Respiratory: Respiratory: Denies cough and Denies dyspnea <Ryan Sesay - Last Filed: 10/09/22 20:42> Gastrointestinal: Gastrointestinal: Reports abdominal pain, Denies constipation and Denies vomiting <Ryan Sesay - Last Filed: 10/09/22 20:42> Genitourinary: Genitourinary: Denies dysuria <Ryan Sesay - Last Filed: 10/09/22 20:42> Endocrine: Endocrine: Denies fatigue <Ryan Sesay - Last Filed: 10/09/22 20:42> [facility] Past Medical History Attestation statement: The following information was validated with the patient. <Ryan Sesay - Last Filed: 10/09/22 20:42> Source: old records reviewed, obtained from family and nursing notes reviewed <Ryan Sesay - Last Filed: 10/09/22 20:42> Medical History: Medical History Fracture, wrist, open High blood pressure History of gastrectomy Parkinson disease <JESS Lawson - Last Filed: 10/09/22 17:17> Surgical History: Surgical History H/O pyloroplasty H/O vagotomy History of esophagogastroduodenoscopy (EGD) Hx of arthroscopic knee surgery Hx of cholecystectomy Hx of colonoscopy Hx of hysterectomy <JESS Lawson - Last Filed: 10/09/22 17:17> Social History Social History: Social History Alcohol intake: former Patient Tobacco Use Status: Never used Tobacco Smoked in Last 30 Days: No Use of substances other than those prescribed or required for medical reasons: No Advance Directives: No Advance Directives Information Provided: Yes Current occupational status: retired Current occupation: rt handed <JESS Lawson - Last Filed: 10/09/22 17:17> Physical Exam ED Vital Signs: Vital Signs - 24 hr 10/09/22 17:13 10/09/22 18:33 Temperature 98.2 F Pulse Rate 63 Respiratory Rate 18 20 Blood Pressure 182/65 H Pulse Oximetry 97 Oxygen Delivery Method Room Air BMI result Body Mass Index 15.1 <JESS Lawson - Last Filed: 10/09/22 17:17> Vital Signs - 24 hr 10/09/22 17:13 10/09/22 18:33 Temperature 98.2 F Pulse Rate 63 Respiratory Rate 18 20 Blood Pressure 182/65 H Pulse Oximetry 97 Oxygen Delivery Method Room Air BMI result Body Mass Index 15.1 <Ryan JimBuzz - Last Filed: 10/09/22 20:42> Const General: healthy appearing, comfortable, no acute distress, alert and awake <Ryan OFarrar - Last Filed: 10/09/22 20:42> Nutritional Appearance: well nourished <Ryan Farrar - Last Filed: 10/09/22 20:42> Orientation/consciousness: patient oriented x3 <Ryan JimFarrar - Last Filed: 10/09/22 20:42> Eyes Eyelids: Yes eyelids normal <Ryan JimBuzz - Last Filed: 10/09/22 20:42> Conjunctivae: conjunctivae normal <Ryan OFarrar - Last Filed: 10/09/22 20:42> Sclerae: sclerae normal <Ryan Buzz - Last Filed: 10/09/22 20:42> Corneas: corneas normal <Ryan Farrar - Last Filed: 10/09/22 20:42> Pupils: Equal, round and reactive pupils present <Ryan OFarrar - Last Filed: 10/09/22 20:42> EOM: EOMs intact bilaterally <Ryan OFarrar - Last Filed: 10/09/22 20:42> Resp Effort & Inspection: normal respiratory effort, able to speak in complete sentences, no audible wheezes and not labored <Ryan OBuzz - Last Filed: 10/09/22 20:42> GI Other: Abdomen is soft, diffusely tender with rebound. There is no distention, no pulsatile masses or palpable masses at all. <Ryan OFarrar - Last Filed: 10/09/22 20:42> Palpation (GI): Soft to palpation and Tenderness to palpation present (GI) in the epigastrum, in the LLQ, in the LUQ, in the RUQ and with rebound tenderness <Ryan Sesay - Last Filed: 10/09/22 20:42> Auscultation: normoactive bowel sounds <Ryan Sesay - Last Filed: 10/09/22 20:42> Skin General skin exam: no rashes or lesions noted and elasticity normal <Ryan Sesay - Last Filed: 10/09/22 20:42> Lesions: no lesions <Ryandonna Sesay - Last Filed: 10/09/22 20:42> Rashes: no rashes <Ryandonna Sesay - Last Filed: 10/09/22 20:42> Neuro General: patient oriented x3 <Ryan Sesay - Last Filed: 10/09/22 20:42> Cranial nerves: Yes Equal, round and reactive pupils present <Ryan Sesay - Last Filed: 10/09/22 20:42> Extrem General: Yes full ROM <Ryan Sesay Last Filed: 10/09/22 20:42> Course Course Course Narrative: This is an RME: Additional HPI, ROS, PE not included below will be deferred to primary provider. 82-year-old female presenting with diffuse abdominal pain since 01:00 o'clock, sudden in onset, started after eating peanuts. No history of diverticulitis. Denies nausea vomiting, fevers, chills, chest pain, shortness of breath, headache, vision changes, dizziness. Physical exam with diffuse tenderness. Plan laboratory studies, imaging, urine. <JESS Lawson - Last Filed: 10/09/22 17:17> Reevaluation(s) Reevaluation #1: Patient reports that her pain is gone after receiving fentanyl 25 mcg IV. On further discussion, the patient reports that her partial gastrectomy due to stomach ulcers many years ago. She reports having had a burning esophageal pain several times over the last month, limiting in her severe upper abdominal pain today. Her symptoms are most likely related to peptic ulcer disease. She takes omeprazole 40 mg daily. We will encourage her to increase the omeprazole to 40 mg b.i.d. for the next week, Maalox for breakthrough pain she will follow-up with her GI doctor. The patient's labs were reassuring, CT scan unremarkable. This was all discussed with the patient. She is patient's EKG was sinus rhythm without ischemic changes as well and a troponin was negative. <Ryan Sesay - Last Filed: 10/09/22 20:42> Time: 20:37 <Ryan Sesay - Last Filed: 10/09/22 20:42> Medications Administered Discontinued Medications Generic Name Dose Route Start Last Admin Trade Name Freq PRN Reason Stop Dose Admin Fentanyl 25 mcg 10/09/22 18:12 10/09/22 18:33 Fentanyl Citrate/Pf 100 Mcg/2 Ml Vial IVPUSH 10/09/22 18:13 25 mcg ONCE ONE Administration Protocol Sodium Chloride 500 mls @ 500 mls/hr 10/09/22 18:12 10/09/22 20:14 Ns IV 10/09/22 19:11 Infused .Q1H STA Infusion Iohexol 100 ml 10/09/22 19:39 10/09/22 19:39 Iohexol 350 Mg/Ml 100 Ml Infus..Btl IV 10/09/22 19:40 85 ml ONCE ONE Administration Ondansetron HCl 4 mg 10/09/22 18:12 10/09/22 18:33 Ondansetron Hcl 4 Mg/2 Ml Vial IVPUSH 10/09/22 18:13 4 mg ONCE ONE Administration <JESS Lawson - Last Filed: 10/09/22 17:17> Medications Administered Discontinued Medications Generic Name Dose Route Start Last Admin Trade Name Freq PRN Reason Stop Dose Admin Fentanyl 25 mcg 10/09/22 18:12 10/09/22 18:33 Fentanyl Citrate/Pf 100 Mcg/2 Ml Vial IVPUSH 10/09/22 18:13 25 mcg ONCE ONE Administration Protocol Sodium Chloride 500 mls @ 500 mls/hr 10/09/22 18:12 10/09/22 20:14 Ns IV 10/09/22 19:11 Infused .Q1H STA Infusion Iohexol 100 ml 10/09/22 19:39 10/09/22 19:39 Iohexol 350 Mg/Ml 100 Ml Infus..Btl IV 10/09/22 19:40 85 ml ONCE ONE Administration Ondansetron HCl 4 mg 10/09/22 18:12 10/09/22 18:33 Ondansetron Hcl 4 Mg/2 Ml Vial IVPUSH 10/09/22 18:13 4 mg ONCE ONE Administration <Ryan Sesay - Last Filed: 10/09/22 20:42> Medical Decision Making Medical Decision Making MDM Narrative: 82-year-old male presents for evaluation of sudden onset severe abdominal pain. Her pain was initially diffuse, epigastric but now radiating/lateralizing to the left. She is fairly hypertensive on arrival to 182/65. It is possible this is related to the patient's discomfort, or there is some concern for aortic dissection given her sudden onset of severe pain. We had a CT scan of the abdomen and pelvis. A troponin was ordered, EKG was ordered. A lactate was also added on due to concern for ischemic bowel. The patient has had multiple previous abdominal surgeries. Also some concern for small bowel obstruction. (This time. Patient was hesitant to receive analgesia but is quite uncomfortable. She reports a history of adverse reactions to opiates with nausea vomiting and lightheadedness. She agreed to trial a low-dose of fentanyl we will give her Zofran as well. <Ryan Sesay - Last Filed: 10/09/22 20:42> Differential Diagnosis Small-bowel obstruction Ischemic bowel Constipation Colitis Diverticulitis Abdominal aortic aneurysm Aortic dissection ACS less likely <Ryan Sesay - Last Filed: 10/09/22 20:42> Lab Data Result Diagrams: 10/09/22 17:48 10/09/22 17:48 <JESS Lawson - Last Filed: 10/09/22 17:17> Labs: Lab Results 10/09/22 10/09/22 10/09/22 Range/Units 17:48 17:58 18:39 WBC 12.6 H (4.8-10.8) X10*3/uL RBC 4.29 (4.20-5.50) X10*6/uL Hgb 12.9 (12.0-16.0) g/dl Hct 40.2 (37.0-47.0) % MCV 93.7 (80.0-98.0) fL MCH 30.1 (27.0-33.0) pg MCHC 32.1 (31.0-35.0) g/dl RDW 12.4 (11.0-16.0) % Plt Count 217 (160-400) X10*3/uL MPV 11.2 (9.4-12.3) fL Immature Gran % (Auto) 0.2 (0.0-0.4) % Neut % (Auto) 81.3 H (45-73) % Lymph % (Auto) 10.1 L (20-40) % [place] % (Auto) 6.5 (2-11) % Eos % (Auto) 1.7 (0-4) % Baso % (Auto) 0.2 (0-2) % Lymph # (Auto) 1.3 (1.2-4.9) X10*3/uL [place] # (Auto) 0.8 (0.1-1.2) X10*3/uL Eos # (Auto) 0.2 (0.0-0.4) X10*3/uL Baso # (Auto) 0.0 (0.0-0.2) X10*3/uL Abs Immat Gran (auto) 0.03 (0.00-0.03) X10*3/uL Absolute Neuts (auto) 10.3 H (2.0-8.3) x10*3/uL Absolute Nucleated RBC 0.000 (0.0-0.012) X10*3/uL Nucleated RBC % (auto) 0.0 (0.0-0.2) /100WBC APTT (26.0-36.4) SEC Sodium 141 (135-145) mmol/L Potassium 3.6 (3.3-5.1) mmol/L Chloride 100 (96-108) mmol/L Carbon Dioxide 31 H (22-29) mmol/L Anion Gap 14 (12-20) BUN 19 H (9-16) mg/dL Creatinine 0.78 (0.5-1.4) mg/dL Estim Creat Clear Calc 36.1 Estimated GFR > 60 Random Glucose 94 (60-115) mg/dL Lactic Acid (0.5-2.0) mmol/L Calcium 9.0 D (8.4-10.2) mg/dL Magnesium 1.9 (1.6-2.6) mg/dL Total Bilirubin 0.9 (0.0-1.0) mg/dL AST 30 (5-31) U/L ALT < 6 (0-31) U/L Alkaline Phosphatase 63 (39-117) U/L Troponin I High Sens (<3.5-17.0) ng/L Total Protein 5.8 L (6.5-8.0) g/dL Albumin 3.9 (3.5-5.0) g/dL Lipase 22 (8-78) U/L Urine Color Urine Appearance Urine pH (5.0-9.0) Ur Specific [place] (1.005-1.025) Urine Protein (Neg-Trace) mg/dL Urine Glucose (UA) (Negative) mg/dL Urine Ketones (Negative) mg/dL Urine Blood (Negative) Urine Nitrite (Negative) Ur Leukocyte Esterase (Negative) COVID-19 (MARRY) Negative (Negative) COVID-19 Clin Com See Note Blood Type 10/09/22 10/09/22 10/09/22 Range/Units 18:39 18:39 18:39 WBC (4.8-10.8) X10*3/uL RBC (4.20-5.50) X10*6/uL Hgb (12.0-16.0) g/dl Hct (37.0-47.0) % MCV (80.0-98.0) fL MCH (27.0-33.0) pg MCHC (31.0-35.0) g/dl RDW (11.0-16.0) % Plt Count (160-400) X10*3/uL MPV (9.4-12.3) fL Immature Gran % (Auto) (0.0-0.4) % Neut % (Auto) (45-73) % Lymph % (Auto) (20-40) % [place] % (Auto) (2-11) % Eos % (Auto) (0-4) % Baso % (Auto) (0-2) % Lymph # (Auto) (1.2-4.9) X10*3/uL [place] # (Auto) (0.1-1.2) X10*3/uL Eos # (Auto) (0.0-0.4) X10*3/uL Baso # (Auto) (0.0-0.2) X10*3/uL Abs Immat Gran (auto) (0.00-0.03) X10*3/uL Absolute Neuts (auto) (2.0-8.3) x10*3/uL Absolute Nucleated RBC (0.0-0.012) X10*3/uL Nucleated RBC % (auto) (0.0-0.2) /100WBC APTT 28.1 (26.0-36.4) SEC Sodium (135-145) mmol/L Potassium (3.3-5.1) mmol/L Chloride (96-108) mmol/L Carbon Dioxide (22-29) mmol/L Anion Gap (12-20) BUN (9-16) mg/dL Creatinine (0.5-1.4) mg/dL Estim Creat Clear Calc Estimated GFR Random Glucose (60-115) mg/dL Lactic Acid 0.7 (0.5-2.0) mmol/L Calcium (8.4-10.2) mg/dL Magnesium (1.6-2.6) mg/dL Total Bilirubin (0.0-1.0) mg/dL AST (5-31) U/L ALT (0-31) U/L Alkaline Phosphatase (39-117) U/L Troponin I High Sens 4.0 (<3.5-17.0) ng/L Total Protein (6.5-8.0) g/dL Albumin (3.5-5.0) g/dL Lipase (8-78) U/L Urine Color Urine Appearance Urine pH (5.0-9.0) Ur Specific [place] (1.005-1.025) Urine Protein (Neg-Trace) mg/dL Urine Glucose (UA) (Negative) mg/dL Urine Ketones (Negative) mg/dL Urine Blood (Negative) Urine Nitrite (Negative) Ur Leukocyte Esterase (Negative) COVID-19 (MARRY) (Negative) COVID-19 Clin Com Blood Type 10/09/22 10/09/22 Range/Units 18:39 19:10 WBC (4.8-10.8) X10*3/uL RBC (4.20-5.50) X10*6/uL Hgb (12.0-16.0) g/dl Hct (37.0-47.0) % MCV (80.0-98.0) fL MCH (27.0-33.0) pg MCHC (31.0-35.0) g/dl RDW (11.0-16.0) % Plt Count (160-400) X10*3/uL MPV (9.4-12.3) fL Immature Gran % (Auto) (0.0-0.4) % Neut % (Auto) (45-73) % Lymph % (Auto) (20-40) % [place] % (Auto) (2-11) % Eos % (Auto) (0-4) % Baso % (Auto) (0-2) % Lymph # (Auto) (1.2-4.9) X10*3/uL [place] # (Auto) (0.1-1.2) X10*3/uL Eos # (Auto) (0.0-0.4) X10*3/uL Baso # (Auto) (0.0-0.2) X10*3/uL Abs Immat Gran (auto) (0.00-0.03) X10*3/uL Absolute Neuts (auto) (2.0-8.3) x10*3/uL Absolute Nucleated RBC (0.0-0.012) X10*3/uL Nucleated RBC % (auto) (0.0-0.2) /100WBC APTT (26.0-36.4) SEC Sodium (135-145) mmol/L Potassium (3.3-5.1) mmol/L Chloride (96-108) mmol/L Carbon Dioxide (22-29) mmol/L Anion Gap (12-20) BUN (9-16) mg/dL Creatinine (0.5-1.4) mg/dL Estim Creat Clear Calc Estimated GFR Random Glucose (60-115) mg/dL Lactic Acid (0.5-2.0) mmol/L Calcium (8.4-10.2) mg/dL Magnesium (1.6-2.6) mg/dL Total Bilirubin (0.0-1.0) mg/dL AST (5-31) U/L ALT (0-31) U/L Alkaline Phosphatase (39-117) U/L Troponin I High Sens (<3.5-17.0) ng/L Total Protein (6.5-8.0) g/dL Albumin (3.5-5.0) g/dL Lipase (8-78) U/L Urine Color Yellow Urine Appearance Clear Urine pH 5.5 (5.0-9.0) Ur Specific [place] 1.015 (1.005-1.025) Urine Protein Negative (Neg-Trace) mg/dL Urine Glucose (UA) Negative (Negative) mg/dL Urine Ketones 15 (Negative) mg/dL Urine Blood Negative (Negative) Urine Nitrite Negative (Negative) Ur Leukocyte Esterase Negative (Negative) COVID-19 (MARRY) (Negative) COVID-19 Clin Com Blood Type O Negative <JESS Lawson - Last Filed: 10/09/22 17:17> Lab Results 10/09/22 10/09/22 10/09/22 Range/Units 17:48 17:58 18:39 WBC 12.6 H (4.8-10.8) X10*3/uL RBC 4.29 (4.20-5.50) X10*6/uL Hgb 12.9 (12.0-16.0) g/dl Hct 40.2 (37.0-47.0) % MCV 93.7 (80.0-98.0) fL MCH 30.1 (27.0-33.0) pg MCHC 32.1 (31.0-35.0) g/dl RDW 12.4 (11.0-16.0) % Plt Count 217 (160-400) X10*3/uL MPV 11.2 (9.4-12.3) fL Immature Gran % (Auto) 0.2 (0.0-0.4) % Neut % (Auto) 81.3 H (45-73) % Lymph % (Auto) 10.1 L (20-40) % [place] % (Auto) 6.5 (2-11) % Eos % (Auto) 1.7 (0-4) % Baso % (Auto) 0.2 (0-2) % Lymph # (Auto) 1.3 (1.2-4.9) X10*3/uL [place] # (Auto) 0.8 (0.1-1.2) X10*3/uL Eos # (Auto) 0.2 (0.0-0.4) X10*3/uL Baso # (Auto) 0.0 (0.0-0.2) X10*3/uL Abs Immat Gran (auto) 0.03 (0.00-0.03) X10*3/uL Absolute Neuts (auto) 10.3 H (2.0-8.3) x10*3/uL Absolute Nucleated RBC 0.000 (0.0-0.012) X10*3/uL Nucleated RBC % (auto) 0.0 (0.0-0.2) /100WBC APTT (26.0-36.4) SEC Sodium 141 (135-145) mmol/L Potassium 3.6 (3.3-5.1) mmol/L Chloride 100 (96-108) mmol/L Carbon Dioxide 31 H (22-29) mmol/L Anion Gap 14 (12-20) BUN 19 H (9-16) mg/dL Creatinine 0.78 (0.5-1.4) mg/dL Estim Creat Clear Calc 36.1 Estimated GFR > 60 Random Glucose 94 (60-115) mg/dL Lactic Acid (0.5-2.0) mmol/L Calcium 9.0 D (8.4-10.2) mg/dL Magnesium 1.9 (1.6-2.6) mg/dL Total Bilirubin 0.9 (0.0-1.0) mg/dL AST 30 (5-31) U/L ALT < 6 (0-31) U/L Alkaline Phosphatase 63 (39-117) U/L Troponin I High Sens (<3.5-17.0) ng/L Total Protein 5.8 L (6.5-8.0) g/dL Albumin 3.9 (3.5-5.0) g/dL Lipase 22 (8-78) U/L Urine Color Urine Appearance Urine pH (5.0-9.0) Ur Specific [place] (1.005-1.025) Urine Protein (Neg-Trace) mg/dL Urine Glucose (UA) (Negative) mg/dL Urine Ketones (Negative) mg/dL Urine Blood (Negative) Urine Nitrite (Negative) Ur Leukocyte Esterase (Negative) COVID-19 (MARRY) Negative (Negative) COVID-19 Clin Com See Note Blood Type 10/09/22 10/09/22 10/09/22 Range/Units 18:39 18:39 18:39 WBC (4.8-10.8) X10*3/uL RBC (4.20-5.50) X10*6/uL Hgb (12.0-16.0) g/dl Hct (37.0-47.0) % MCV (80.0-98.0) fL MCH (27.0-33.0) pg MCHC (31.0-35.0) g/dl RDW (11.0-16.0) % Plt Count (160-400) X10*3/uL MPV (9.4-12.3) fL Immature Gran % (Auto) (0.0-0.4) % Neut % (Auto) (45-73) % Lymph % (Auto) (20-40) % [place] % (Auto) (2-11) % Eos % (Auto) (0-4) % Baso % (Auto) (0-2) % Lymph # (Auto) (1.2-4.9) X10*3/uL [place] # (Auto) (0.1-1.2) X10*3/uL Eos # (Auto) (0.0-0.4) X10*3/uL Baso # (Auto) (0.0-0.2) X10*3/uL Abs Immat Gran (auto) (0.00-0.03) X10*3/uL Absolute Neuts (auto) (2.0-8.3) x10*3/uL Absolute Nucleated RBC (0.0-0.012) X10*3/uL Nucleated RBC % (auto) (0.0-0.2) /100WBC APTT 28.1 (26.0-36.4) SEC Sodium (135-145) mmol/L Potassium (3.3-5.1) mmol/L Chloride (96-108) mmol/L Carbon Dioxide (22-29) mmol/L Anion Gap (12-20) BUN (9-16) mg/dL Creatinine (0.5-1.4) mg/dL Estim Creat Clear Calc Estimated GFR Random Glucose (60-115) mg/dL Lactic Acid 0.7 (0.5-2.0) mmol/L Calcium (8.4-10.2) mg/dL Magnesium (1.6-2.6) mg/dL Total Bilirubin (0.0-1.0) mg/dL AST (5-31) U/L ALT (0-31) U/L Alkaline Phosphatase (39-117) U/L Troponin I High Sens 4.0 (<3.5-17.0) ng/L Total Protein (6.5-8.0) g/dL Albumin (3.5-5.0) g/dL Lipase (8-78) U/L Urine Color Urine Appearance Urine pH (5.0-9.0) Ur Specific [place] (1.005-1.025) Urine Protein (Neg-Trace) mg/dL Urine Glucose (UA) (Negative) mg/dL Urine Ketones (Negative) mg/dL Urine Blood (Negative) Urine Nitrite (Negative) Ur Leukocyte Esterase (Negative) COVID-19 ([facility]) (Negative) COVID-19 Clin Com Blood Type 10/09/22 10/09/22 Range/Units 18:39 19:10 WBC (4.8-10.8) X10*3/uL RBC (4.20-5.50) X10*6/uL Hgb (12.0-16.0) g/dl Hct (37.0-47.0) % MCV (80.0-98.0) fL MCH (27.0-33.0) pg MCHC (31.0-35.0) g/dl RDW (11.0-16.0) % Plt Count (160-400) X10*3/uL MPV (9.4-12.3) fL Immature Gran % (Auto) (0.0-0.4) % Neut % (Auto) (45-73) % Lymph % (Auto) (20-40) % [place] % (Auto) (2-11) % Eos % (Auto) (0-4) % Baso % (Auto) (0-2) % Lymph # (Auto) (1.2-4.9) X10*3/uL [place] # (Auto) (0.1-1.2) X10*3/uL Eos # (Auto) (0.0-0.4) X10*3/uL Baso # (Auto) (0.0-0.2) X10*3/uL Abs Immat Gran (auto) (0.00-0.03) X10*3/uL Absolute Neuts (auto) (2.0-8.3) x10*3/uL Absolute Nucleated RBC (0.0-0.012) X10*3/uL Nucleated RBC % (auto) (0.0-0.2) /100WBC APTT (26.0-36.4) SEC Sodium (135-145) mmol/L Potassium (3.3-5.1) mmol/L Chloride (96-108) mmol/L Carbon Dioxide (22-29) mmol/L Anion Gap (12-20) BUN (9-16) mg/dL Creatinine (0.5-1.4) mg/dL Estim Creat Clear Calc Estimated GFR Random Glucose (60-115) mg/dL Lactic Acid (0.5-2.0) mmol/L Calcium (8.4-10.2) mg/dL Magnesium (1.6-2.6) mg/dL Total Bilirubin (0.0-1.0) mg/dL AST (5-31) U/L ALT (0-31) U/L Alkaline Phosphatase (39-117) U/L Troponin I High Sens (<3.5-17.0) ng/L Total Protein (6.5-8.0) g/dL Albumin (3.5-5.0) g/dL Lipase (8-78) U/L Urine Color Yellow Urine Appearance Clear Urine pH 5.5 (5.0-9.0) Ur Specific [place] 1.015 (1.005-1.025) Urine Protein Negative (Neg-Trace) mg/dL Urine Glucose (UA) Negative (Negative) mg/dL Urine Ketones 15 (Negative) mg/dL Urine Blood Negative (Negative) Urine Nitrite Negative (Negative) Ur Leukocyte Esterase Negative (Negative) COVID-19 (MARRY) (Negative) COVID-19 Clin Com Blood Type O Negative <Ryan Sesay - Last Filed: 10/09/22 20:42> Discharge Plan Discharge Clinical Impression: Peptic ulcer <JESS Lawson - Last Filed: 10/09/22 17:17> Patient Disposition: Home, Self-Care <JESS Lawson - Last Filed: 10/09/22 17:17> Instructions: Peptic Ulcer (ED) <JESS Lawson - Last Filed: 10/09/22 17:17> Additional Instructions: Your workup in the emergency room today was reassuring. This included blood work, EKG, imaging. Your cardiac workup was also negative. I feel your symptoms are most likely related to heartburn with her without stomach ulcers. Increase your omeprazole to 40 mg b.i.d. for the next week and take Maalox for breakthrough abdominal pain Follow-up with your GI doctor <JESS Lawson - Last Filed: 10/09/22 17:17> Prescriptions: New alum-mag hydroxide-simeth [Maalox Advanced] 200-200-20 mg/5 mL suspension 10 ml PO QID PRN (Reason: abdominal pain) Qty: 355 0RF Rx Instructions: administer between meals and at bedtime No Action Magic Mouthwash Diphen/Lido/Antacid 1:1:1 240 mL suspension 10 ml PO QID Qty: 240 0RF Rx Instructions: Lidocaine Viscous 2 % 80mL; diphenhydramine 12.5 mg/5 mL 80mL; aluminum-mag hydrox-simeth 232fs-276sv-50fc/5mL 80mL. colesevelam [WelChol] 3.75 gram powder in packet 3,750 mg PO DAILY Qty: 30 1RF Rx Instructions: must dilute powder in liquid before taking omeprazole 40 mg capsule,delayed release(DR/EC) 40 mg PO DAILY Qty: 90 3RF ursodiol 500 mg tablet 500 mg PO BID Qty: 180 3RF lorazepam [Ativan] 0.5 mg tablet 0.5 mg PO BEDTIME PRN propranolol 80 mg tablet 80 mg PO BID losartan-hydrochlorothiazide 100-25 mg tablet 1 tab PO DAILY carbidopa-levodopa 25-100 mg tablet 1 tab PO TID alendronate 70 mg tablet 70 mg PO QWEEK potassium chloride 10 mEq tablet extended release 10 meq PO DAILY hydrochlorothiazide 25 mg tablet 25 mg PO DAILY lorazepam 1 mg tablet 1 mg PO TID PRN Metamucil (with sugar) 3.4 gram powder in packet 1 tbsp PO BID Qty: 60 4RF <JESS Lawson - Last Filed: 10/09/22 17:17>
[2022-10-09 17:53] LABS: MANUAL DIFF FLAG NO
[2022-10-09 17:54] LABS: Basophils Percent Auto 0.2 % (0-2); Eosinophils Absolute Auto 0.2 X10*3/uL (0.0-0.4); Eosinophils Percent Auto 1.7 % (0-4); Hematocrit 40.2 % (37.0-47.0); Hemoglobin 12.9 g/dl (12.0-16.0); Imm Gran Abs Auto 0.03 X10*3/uL (0.00-0.03); Imm Gran Pct Auto 0.2 % (0.0-0.4); Lymphocytes Absolute Auto 1.3 X10*3/uL (1.2-4.9); Lymphocytes Percent Auto 10.1 % (20-40); Mean Corpuscular HGB Conc 32.1 g/dl (31.0-35.0); Mean Corpuscular Hemoglobin 30.1 pg (27.0-33.0); Mean Corpuscular Volume 93.7 fL (80.0-98.0); Mean Platelet Volume 11.2 fL (9.4-12.3); Monocytes Absolute Auto 0.8 X10*3/uL (0.1-1.2); Monocytes Percent Auto 6.5 % (2-11); Neutrophils Absolute Auto 10.3 x10*3/uL (2.0-8.3); Neutrophils Percent Auto 81.3 % (45-73); Platelet Count 217 X10*3/uL (160-400); Red Blood Count 4.29 X10*6/uL (4.20-5.50); Red Cell Distribution Width 12.4 % (11.0-16.0); White Blood Count 12.6 X10*3/uL (4.8-10.8)
--- NOTE | 2022-10-09 18:15 | ECG_ITS ---
Test Reason : ABDOMINAL PAIN Blood Pressure : / mmHG Vent. Rate : 057 BPM Atrial Rate : 057 BPM P-R Int : 200 ms QRS Dur : 072 ms QT Int : 460 ms P-R-T Axes : 066 033 053 degrees QTc Int : 447 ms Sinus bradycardia Otherwise normal ECG No previous ECGs available Referred By: Ryan Sesay Electronically Signed By:CAMILO LUDWIG
[2022-10-09 18:18] LABS: COVID-19 Test Negative (Negative); IDNOW Serial# 55D5AD1C
[2022-10-09 18:33] VITALS: RESP 20
[2022-10-09] MEDS: ondansetron HCL 4 MG/2 ML VIAL IVPUSH (18:33)
[2022-10-09] MEDS: fentaNYL citrate/PF 100 MCG/2 ML VIAL 25 MCG IVPUSH (18:33)
[2022-10-09] MEDS: 0.9 % Sodium Chloride 500 ML IV (18:37)
[2022-10-09 18:58] LABS: Lactic Acid 0.7 mmol/L (0.5-2.0)
[2022-10-09 18:59] LABS: Partial Thromboplastin Time 28.1 SEC (26.0-36.4)
[2022-10-09 19:09] LABS: Alanine Aminotransferase < 6 U/L (0-31); Albumin Level 3.9 g/dL (3.5-5.0); Alkaline Phosphatase 63 U/L (39-117); Anion Gap 14 (12-20); Aspartate Amino Transferase 30 U/L (5-31); Bilirubin Total 0.9 mg/dL (0.0-1.0); Blood Urea Nitrogen 19 mg/dL (9-16); Carbon Dioxide 31 mmol/L (22-29); Chloride 100 mmol/L (96-108); Creatinine Clr Calc Pharmacy 36.1; Estimated Glomerular Filt Rate > 60; Glucose Random 94 mg/dL (60-115); Lipase 22 U/L (8-78); Magnesium 1.9 mg/dL (1.6-2.6); Potassium 3.6 mmol/L (3.3-5.1); Sodium 141 mmol/L (135-145); Total Protein 5.8 g/dL (6.5-8.0)
[2022-10-09 19:28] LABS: Appearance Urine Clear; Color Urine Yellow; Glucose Urine UA Negative (Negative); Leukocyte Esterase Urine Negative (Negative); Nitrite Urine Negative (Negative); PH 5.5 (5.0-9.0); Specific Gravity - Urine 1.015 (1.005-1.025); Urine Blood Negative (Negative); Urine Ketones 15 mg/dL (Negative); Urine Protein Negative (Neg-Trace)
[2022-10-09] MEDS: iohexoL 350 MG/ML 100 ML INFUS..BTL IV (19:39)
== END 2022-10-09 20:58 | disposition home or self-care (01) ==
PROVIDERS: Physician Assistant; Emergency Provider Emergency Medicine; PCP Internal Medicine
DX: K27.9 Peptic ulcer, site unspecified, unspecified as acute or chronic, without hemorrhage or perforation (principal); R10.32 Left lower quadrant pain; Z20.822 Contact with and (suspected) exposure to COVID-19; Z20.828 Contact with and (suspected) exposure to other viral communicable diseases; Z79.899 Other long term (current) drug therapy
CPT/HCPCS: 36415; 74177; 80053; 81003; 83605; 83690; 83735; 84484; 85025; 85730; 86850; 86870; 86900; 86901; 87635; 93005; 99284; J2405; J3010; Q9967

== ENCOUNTER 2022-10-14 12:47 | Outpatient (REF) | payer MEDICARE, SELFPAY ==
[2022-10-14 12:58] LABS: MANUAL DIFF FLAG NO
[2022-10-14 13:30] LABS: Basophils Percent Auto 0.3 % (0-2); Eosinophils Absolute Auto 0.3 X10*3/uL (0.0-0.4); Eosinophils Percent Auto 3.9 % (0-4); Hematocrit 40.9 % (37.0-47.0); Hemoglobin 12.9 g/dl (12.0-16.0); Imm Gran Abs Auto 0.02 X10*3/uL (0.00-0.03); Imm Gran Pct Auto 0.3 % (0.0-0.4); Lymphocytes Absolute Auto 1.4 X10*3/uL (1.2-4.9); Lymphocytes Percent Auto 21.5 % (20-40); Mean Corpuscular HGB Conc 31.5 g/dl (31.0-35.0); Mean Corpuscular Hemoglobin 29.8 pg (27.0-33.0); Mean Corpuscular Volume 94.5 fL (80.0-98.0); Mean Platelet Volume 11.3 fL (9.4-12.3); Monocytes Absolute Auto 0.5 X10*3/uL (0.1-1.2); Monocytes Percent Auto 8.2 % (2-11); Neutrophils Absolute Auto 4.2 x10*3/uL (2.0-8.3); Neutrophils Percent Auto 65.8 % (45-73); Platelet Count 210 X10*3/uL (160-400); Red Blood Count 4.33 X10*6/uL (4.20-5.50); Red Cell Distribution Width 12.3 % (11.0-16.0); White Blood Count 6.4 X10*3/uL (4.8-10.8)
[2022-10-14 13:57] LABS: Cholesterol 212 mg/dL; Glucose Fasting 94 mg/dL (60-99); HDL Cholesterol 126 mg/dL; LDL Cholesterol Calculated 75 mg/dl; Triglycerides 59 mg/dL
[2022-10-14 14:16] LABS: Free T4 (Free Thyroxine) 1.51 ng/dL (0.71-1.85); Vitamin B12 239 pg/mL (200-900); Vitamin D 25-OH Total 38.5 ng/mL (>30)
== END 2022-10-14 12:48 | disposition home or self-care (01) ==
LOC: HO.LAB 12:47
PROVIDERS: PCP Internal Medicine; Visit Provider Internal Medicine
DX: R53.83 Other fatigue (principal); E78.5 Hyperlipidemia, unspecified; Z79.899 Other long term (current) drug therapy
CPT/HCPCS: 36415; 80061; 82306; 82607; 82947; 84439; 84443; 85025

== ENCOUNTER 2022-11-15 12:12 | Outpatient (REF) | payer MEDICARE, SELFPAY | END 2022-11-15 12:13 | disposition home or self-care (01) | LOC: HO.LAB 12:12 | PROVIDERS: PCP Internal Medicine; Visit Provider Internal Medicine | DX: Z86.2 Personal history of diseases of the blood and blood-forming organs and certain disorders involving the immune mechanism (principal) | CPT/HCPCS: 86900; 86901 ==

== ENCOUNTER → 2022-12-30 09:57 | Outpatient (BNVA) | payer MEDICARE, SELFPAY | PROVIDERS: PCP Internal Medicine; Visit Provider Internal Medicine Gastroenterology | DX: R19.7 Diarrhea, unspecified (principal) | CPT/HCPCS: 99212 ==

== ENCOUNTER 2023-04-10 14:52 | Outpatient (REF) | payer MEDICARE, SELFPAY ==
--- NOTE | ~2023-04-10 | XR_ITS ---
EXAMINATION: XR CERVICAL SPINE CLINICAL INFORMATION: Neck pain COMPARISON: None available. TECHNIQUE: 3 views of the cervical spine were obtained. FINDINGS: Bone alignment is normal. No fracture or dislocation. There is degenerative spondylosis and disc space narrowing from C4-C5 to C6-C7. Prevertebral soft tissues are normal. XR/XR cervical spine 3V IMPRESSION: Degenerative changes.
== END 2023-04-10 14:53 | disposition home or self-care (01) ==
LOC: HO.HMGCX 14:52
PROVIDERS: PCP Internal Medicine; Visit Provider Internal Medicine
DX: M19.90 Unspecified osteoarthritis, unspecified site (principal); M54.2 Cervicalgia
CPT/HCPCS: 72040

== ENCOUNTER 2023-04-20 12:29 | Outpatient (REF) | payer MEDICARE, SELFPAY ==
--- NOTE | ~2023-04-20 | MR_ITS ---
EXAMINATION: MR CERVICAL SPINE WITHOUT CONTRAST CLINICAL INFORMATION: Pain, with narrowing of disc space. COMPARISON: Plain films of the cervical spine 04/10/2023. Report of remote MRI scan of the cervical spine 07/09/2011. TECHNIQUE: MRI of the cervical spine was obtained using routine sequences without contrast. FINDINGS: VERTEBRAL BODIES AND PARASPINAL SOFT TISSUES: There is a mild levoscoliosis, demonstrated on prior imaging. There are mild anterolistheses of C2 on C3 and C7 on T1. There is multilevel narrowing of intervertebral disc height between C4-C5 and C6-C7. There are degenerative endplate contour changes at these levels with mild edematous signal. Fatty endplate signal changes are also demonstrated at C4-C5. Vertebral body heights are maintained, and no fractures are demonstrated. There are edematous signal changes in the right facets at C2-C3 and C3-C4. Overall, marrow signal is slightly heterogenous. The right lobe of the thyroid gland is not well demonstrated on these images. CERVICOMEDULLARY JUNCTION AND VISUALIZED POSTERIOR FOSSA: The craniocervical and posterior fossa structures are normal. Accounting for artifact, spinal cord signal appears normal. SPINAL LEVELS: C2-C3: There is severe right and mild left facet arthropathy. There is a shallow posterior disc protrusion, but there is no cord compression or central stenosis. There is mild right foraminal narrowing. C3-C4: There is severe right and mild to moderate left facet arthropathy. There is a small soft disc protrusion posteriorly in the midline which distorts the ventral thecal sac, but there is no cord compression. There is mild central stenosis. There are uncovertebral osteophytes and is moderate right and mild left foraminal narrowing. C4-C5: There is moderate right facet arthropathy with edema in the C4 facets as described above. The left facet joint appears normal. There is a broad-based posterior disc protrusion which is eccentrically more prominent centrally and toward the right and there is effacement of CSF around the cord with minimal flattening of the cord. There is mild to moderate central stenosis. There are uncovertebral osteophytes and there is severe right and moderate left foraminal narrowing. C5-C6: The facet joints appear normal. There is a central and left-sided soft disc protrusion without significant mass effect on the thecal sac and there is no central stenosis or cord compression. There are uncovertebral osteophytes and there is moderate right and mild left foraminal narrowing. C6-C7: The facet joints appear normal. There is a broad-based posterior disc protrusion with mild effacement of CSF ventral to the cord but there is no cord compression or central stenosis. There are uncovertebral osteophytes and there is moderate bilateral foraminal narrowing. C7-T1: The facet joints appear normal. Posterior disc contour is normal and there is no cord compression or central stenosis. The neural foramina are patent bilaterally. MR/MR cervical spine wo con IMPRESSION: 1. There are edematous signal changes in multiple facets in the upper cervical spine on the right, consistent with reactive degenerative changes. 2. At C4-C5 there is moderate right facet arthropathy. There is a broad-based posterior disc protrusion which is eccentrically more prominent centrally and toward the right. There is mild flattening of the cord and there is mild to moderate central stenosis. There is severe right and moderate left foraminal narrowing. 3. At C3-C4 there is facet arthropathy and there is a small soft disc protrusion posteriorly in the midline. There is mild central stenosis. There is moderate right and mild left foraminal narrowing. 4. At C5-C6 there is a central and left-sided soft disc protrusion without cord compression or central stenosis. There is moderate right and mild left foraminal narrowing. 5. At C6-C7 there is a broad-based posterior disc protrusion without cord compression or central stenosis. There is moderate bilateral foraminal narrowing.
== END 2023-04-20 12:30 | disposition home or self-care (01) ==
LOC: HO.MRI 12:29
PROVIDERS: PCP Internal Medicine; Visit Provider Internal Medicine
DX: M54.2 Cervicalgia (principal)
CPT/HCPCS: 72141

== ENCOUNTER 2023-05-05 13:05 | Outpatient (REF) | payer MEDICARE, SELFPAY ==
[2023-05-13 21:38] LABS: Lactoferrin, Fecal, Quant. 27.25 mcg/mL (<7.25)
== END 2023-05-05 13:06 | disposition home or self-care (01) ==
LOC: HO.LNP 13:05
PROVIDERS: Visit Provider Internal Medicine Gastroenterology
DX: K51.50 Left sided colitis without complications (principal)
CPT/HCPCS: 83631

== ENCOUNTER 2023-06-12 08:00 | Outpatient (REF) | payer MEDICARE, SELFPAY ==
[2023-06-12 12:02] LABS: Anion Gap 13 (12-20); Blood Urea Nitrogen 13 mg/dL (9-16); Calcium 9.1 mg/dL (8.4-10.2); Carbon Dioxide 30 mmol/L (22-29); Chloride 104 mmol/L (96-108); Estimated Glomerular Filt Rate > 60; Glucose Random 92 mg/dL (60-115); Potassium 3.7 mmol/L (3.3-5.1); Sodium 143 mmol/L (135-145)
== END 2023-06-12 08:01 | disposition home or self-care (01) ==
LOC: HO.HMGCLDS 08:00
PROVIDERS: PCP Internal Medicine; Visit Provider Internal Medicine Gastroenterology
DX: R19.7 Diarrhea, unspecified (principal)
CPT/HCPCS: 36415; 80048

== ENCOUNTER 2023-06-19 11:55 | Outpatient (REF) | payer MEDICARE, SELFPAY ==
--- NOTE | ~2023-06-19 | XR_ITS ---
EXAMINATION: XR KNEE, RIGHT XR KNEE, LEFT CLINICAL INFORMATION: Bilateral knee pain. History of left subchondroplasty. COMPARISON: 06/20/2016 bilateral knees, 12/21/2016 left knee. 11/14/2016 MRI left knee. TECHNIQUE: AP, lateral, tunnel and sunrise views of bilateral knees. FINDINGS: RIGHT KNEE: Mild medial joint space narrowing. Trace joint effusion. Small quadriceps enthesophyte. Tiny medial marginal osteophytes. LEFT KNEE: Moderate medial joint space narrowing with medial marginal osteophytes. Small quadriceps enthesophyte. Dense, sclerotic material in the proximal medial aspect of the tibia may correlate with subchondroplasty material identified on limited images of fluoroscopy of 12/21/2016. XR/XR knee LT 4V IMPRESSION: Mild degenerative changes left knee. Moderate degenerative changes left knee. Dense, sclerotic material in the proximal medial aspect of the tibia may correlate with subchondroplasty material identified on limited images of fluoroscopy of 12/21/2016. Correlation with clinical/surgical history recommended.
--- NOTE | ~2023-06-19 | XR_ITS ---
EXAMINATION: XR KNEE, RIGHT XR KNEE, LEFT CLINICAL INFORMATION: Bilateral knee pain. History of left subchondroplasty. COMPARISON: 06/20/2016 bilateral knees, 12/21/2016 left knee. 11/14/2016 MRI left knee. TECHNIQUE: AP, lateral, tunnel and sunrise views of bilateral knees. FINDINGS: RIGHT KNEE: Mild medial joint space narrowing. Trace joint effusion. Small quadriceps enthesophyte. Tiny medial marginal osteophytes. LEFT KNEE: Moderate medial joint space narrowing with medial marginal osteophytes. Small quadriceps enthesophyte. Dense, sclerotic material in the proximal medial aspect of the tibia may correlate with subchondroplasty material identified on limited images of fluoroscopy of 12/21/2016. XR/XR knee RT 4V IMPRESSION: Mild degenerative changes left knee. Moderate degenerative changes left knee. Dense, sclerotic material in the proximal medial aspect of the tibia may correlate with subchondroplasty material identified on limited images of fluoroscopy of 12/21/2016. Correlation with clinical/surgical history recommended.
[2023-06-19 12:11] LABS: MANUAL DIFF FLAG NO
[2023-06-19 12:34] LABS: Basophils Percent Auto 0.6 % (0-2); Eosinophils Absolute Auto 0.3 X10*3/uL (0.0-0.4); Eosinophils Percent Auto 5.6 % (0-4); Hematocrit 40.2 % (37.0-47.0); Hemoglobin 13.1 g/dl (12.0-16.0); Imm Gran Abs Auto 0.02 X10*3/uL (0.00-0.03); Imm Gran Pct Auto 0.4 % (0.0-0.4); Lymphocytes Absolute Auto 1.2 X10*3/uL (1.2-4.9); Lymphocytes Percent Auto 22.2 % (20-40); Mean Corpuscular HGB Conc 32.6 g/dl (31.0-35.0); Mean Corpuscular Hemoglobin 30.8 pg (27.0-33.0); Mean Corpuscular Volume 94.4 fL (80.0-98.0); Mean Platelet Volume 10.7 fL (9.4-12.3); Monocytes Absolute Auto 0.5 X10*3/uL (0.1-1.2); Monocytes Percent Auto 9.6 % (2-11); Neutrophils Absolute Auto 3.3 x10*3/uL (2.0-8.3); Neutrophils Percent Auto 61.6 % (45-73); Platelet Count 210 X10*3/uL (160-400); Red Blood Count 4.26 X10*6/uL (4.20-5.50); Red Cell Distribution Width 13.5 % (11.0-16.0); White Blood Count 5.3 X10*3/uL (4.8-10.8)
[2023-06-19 13:25] LABS: Alanine Aminotransferase 22 U/L (0-31); Albumin Level 4.2 g/dL (3.5-5.0); Alkaline Phosphatase 66 U/L (39-117); Anion Gap 15 (12-20); Aspartate Amino Transferase 40 U/L (5-31); Bilirubin Total 0.5 mg/dL (0.0-1.0); Blood Urea Nitrogen 16 mg/dL (9-16); Carbon Dioxide 28 mmol/L (22-29); Chloride 104 mmol/L (96-108); Cholesterol 192 mg/dL (<200); Estimated Glomerular Filt Rate > 60; Glucose Fasting 100 mg/dL (60-99); HDL Cholesterol 117 mg/dL (>40); LDL Cholesterol Calculated 64 mg/dL (<100); Potassium 3.5 mmol/L (3.3-5.1); Sodium 143 mmol/L (135-145); Triglycerides 55 mg/dL (<150)
[2023-06-19 13:26] LABS: Alanine Aminotransferase 21 U/L (0-31); Albumin Level 4.2 g/dL (3.5-5.0); Alkaline Phosphatase 65 U/L (39-117); Anion Gap 14 (12-20); Aspartate Amino Transferase 39 U/L (5-31); Bilirubin Total 0.5 mg/dL (0.0-1.0); Blood Urea Nitrogen 16 mg/dL (9-16); Calcium 9.9 mg/dL (8.4-10.2); Carbon Dioxide 29 mmol/L (22-29); Chloride 104 mmol/L (96-108); Estimated Glomerular Filt Rate > 60; Glucose Random 100 mg/dL (60-115); Phosphorus 3.4 mg/dL (2.7-4.5); Potassium 3.5 mmol/L (3.3-5.1); Sodium 143 mmol/L (135-145)
[2023-06-19 13:45] LABS: Free T4 (Free Thyroxine) 1.32 ng/dL (0.71-1.85); Thyroid Stimulating Hormone 0.86 uIU/mL (0.32-4.0)
[2023-06-21 02:39] LABS: Triiodothyronine T3 Free 2.6 pg/mL (2.3-4.2)
[2023-06-23 18:18] LABS: Parathyroid Hormone Related Pr 12 pg/mL (11-20)
== END 2023-06-19 11:56 | disposition home or self-care (01) ==
LOC: HO.XRAY 11:55
PROVIDERS: Internal Medicine Endocrinology, Diabetes & Metabolism; PCP Internal Medicine; Visit Provider Internal Medicine
DX: Z00.00 Encounter for general adult medical examination without abnormal findings (principal); M25.561 Pain in right knee; M25.562 Pain in left knee; E78.5 Hyperlipidemia, unspecified; Z98.890 Other specified postprocedural states; R73.9 Hyperglycemia, unspecified
CPT/HCPCS: 36415; 73564; 80053; 80061; 82306; 83519; 84100; 84439; 84443; 84481; 85025

== ENCOUNTER 2023-06-20 08:39 | Outpatient (REF) | payer MEDICARE, SELFPAY ==
--- NOTE | ~2023-06-20 | CT_ITS ---
EXAMINATION: CT ENTEROGRAPHY ABDOMEN AND PELVIS WITH CONTRAST CLINICAL INFORMATION: Periumbilical pain COMPARISON: Previous CT of the abdomen and pelvis most recent September 1999 TECHNIQUE: Study performed with oral VoLumen (1350 mL) and 480 mL of water to distend the abdomen. The patient was injected with 85 mL Omnipaque 350 intravenous contrast which was administered without adverse effect. Coronal and sagittal reformatted images were obtained at the technologist's workstation. This CT examination was performed using dose optimization techniques as appropriate, variously including the following: *Automated exposure control *Adjustment of mA and/or kV according to patient size (this includes techniques or standardized protocols for targeted exams where dose is matched to indication/reason for exam; i.e. extremities or head) *Use of iterative reconstruction technique DLP: 179 mGy-cm FINDINGS: GASTROINTESTINAL FINDINGS: Stomach: Well-distended and normal in appearance. Small intestine: Satisfactorily distended and normal in appearance. Large intestine: : Distal colon nondistended and difficult to evaluate. There is increased mucosal enhancement of the distal sigmoid colon and rectum and question mild wall thickening. The appendix is normal. Additional findings: No abnormal enhancement of the vasa recta or significant mesenteric or retroperitoneal lymphadenopathy is seen. No abdominal abscess or fistulous tract demonstrated. ABDOMINAL AND PELVIC CT FINDINGS: Liver, gallbladder, biliary tract: Small cyst high in the dome of the liver. The gallbladder is been removed. No intrahepatic biliary duct dilatation. Mild dilatation of the common bile duct similar to previous exams. Pancreas: Prominent main pancreatic duct in the head of the pancreas measuring 4 to 5 mm similar to previous exams Spleen: Normal Adrenal glands and kidneys: Normal Ureters and bladder: Normal Lymphovascular structures: No enlarged lymph nodes. Atherosclerotic disease. No aneurysm. Bones: Degenerative changes spine and hip joints. Erosive changes of the right posterior superior acetabulum and adjacent soft tissue small fluid collection probably representing joint effusion. There is a joint effusion left hip joint is well..This can be seen on old exams going back to 2020. This probably represents inflammatory arthritis. Mild lumbar scoliosis. Lung bases: Normal No hernia. CT/CT enterography IMPRESSION: Mucosal enhancement of the rectum and distal sigmoid colon and question mild wall thickening. This may represent proctocolitis. Small and large bowel is otherwise unremarkable. Stable liver and pancreatic findings from previous exams. Probable inflammatory arthritis at the right hip joint.
[2023-06-20] MEDS: iohexoL 350 MG/ML 100 ML INFUS..BTL IV (10:37)
== END 2023-06-20 08:40 | disposition home or self-care (01) ==
LOC: HO.CT 08:39
PROVIDERS: PCP Internal Medicine; Visit Provider Internal Medicine Gastroenterology
DX: R10.33 Periumbilical pain (principal)
CPT/HCPCS: 74177; Q9967

== ENCOUNTER 2023-08-11 09:05 | Outpatient (AMB) | payer MEDICARE, SELFPAY ==
--- NOTE | 2023-08-11 09:08 | A.OFFVIS_ITS ---
Intake Vital Signs 08/11/23 09:09 Height 5 ft 6 in Weight 94 lb BMI 15.2 BP 160/76 H Blood Pressure Location Lt brachial Position Sitting Pulse 69 Intake Visit Reasons: 6 month fu Intake Note: Mckenzie presents in the office as a 6 month follow up. CC: She states that she is wondering why she was given 4 abx a day. Digital Composer Required: No Allergies pregabalin [From LYRICA] Allergy (Severe, Verified 08/11/23 09:10) CONFUSION gabapentin [GABAPENTIN] Allergy (Intermediate, Verified 08/11/23 09:10) NAUSEA/VOMITING clarithromycin [From BIAXIN] Adverse Reaction (Intermediate, Verified 08/11/23 09:10) NAUSEA & VOMITING codeine [CODEINE] Adverse Reaction (Intermediate, Verified 08/11/23 09:10) NAUSEA & VOMITING fentanyl [From DURAGESIC] Adverse Reaction (Intermediate, Verified 08/11/23 09:10) NAUSEA/VOMITING levofloxacin [From LEVAQUIN] Adverse Reaction (Intermediate, Verified 08/11/23 09:10) NAUSEA & VOMITING HPI 6 month fu HPI Details 83 yr old f with hx of parkinsons and pr ior vagotomy, and partial gastrectomy 1974 who I am seeing for f/u for weight loss, colitis RECAP Since 10/2020 she has noted increasing weight loss had visited sister in [place] who had a stroke she has a restricted diet due to her prior surgeries, avoids fat foods she has lost about 10-15# she was having diarrhea for 40 yrs but started sinemet for PD 1 yr ago and since then the diarrhea has improved a lot she denies abdominal pain she says she otherwise feels good denies blood in stool no oil droplets or grease in stool, but can float takes ibuprofen prn once in a while CT scan ordered: 06/2021--liver cyst, mild dilated PD and CBC, stable, no acute findings or masses, degen spinal disease, atherosclerosis CXR: no acute pathology, or masses LABS: mild raised histamine, borderline HGB, WCC, histamine, raised fecal eboni, nml panc elastase, neg giardia, neg fecal fat, mild low IgG2, and 3, raised ferritin gastrin and calcitonin were nml rifaxmin never helped her neither did welchol or ursodiol she never felt benefit from ursodiol or welchol after eventually trying EGD/colonoscopy : 10/2021 Endoscopy Findings: gastritis--diffuse gastric polyp Colonoscopy Findings: internal hemorrhoids bx: neg for microscopic colitis GES: rapid emptying on study Fecal lactoferrin-- 04/2023--- 27--commenced on apriso --she did get short course of pred which she felt was very effective for her bowels and joints CTe: inflammatroy arthritis hip possible left sided colonic inflamamtion INTERIM: she is having formed stools she feels fiber was more helpful and started about 2 months ago, she is not convinved that mesalamine helped that much weight is stable appetite is good no nausea or vomiting no abdominal pain EXAM: GENERAL: The patient is well developed and nontoxic. VITAL SIGNS:see workflow HEENT: Nonicteric sclerae, PERRLA, EOMI. Oropharynx clear. Moist mucous membranes. Conjunctivae appear well perfused. No thyroid mass. CHEST: Chest wall is nontender. HEART: Regular rate and rhythm without murmurs. LUNGS: Clear to auscultation bilaterally. ABDOMEN: Soft, positive bowel sounds, tender epigastrium, no organomegaly.no flank tenderness SKIN: No rash, no excessive bruising, petechiae, or purpura. NEUROLOGIC: Cranial nerves II-XII intact without motor/sensory deficit. A/P: 1/ Weight loss, but weight stable at jojo und 100#, stool freq , had raised fecal inflammatory markers , nml TSH, lowish b12,stopped supplements--seems to have stablized now, ? subacute IBD 2/ inflammatory arthropathy ? related to 1/ above or other CTD PLAN: 1/ repeat fecal lacto 2/ cont apriso for meantime, might consi margarita remicade 3/ rheum referral, check CCP and RF, PEMA PFSH Medical History Fracture, wrist, open History of gastrectomy Parkinson disease High blood pressure Surgical History Hx of arthroscopic knee surgery Hx of hysterectomy H/O pyloroplasty H/O vagotomy Hx of cholecystectomy History of esophagogastroduodenoscopy (EGD) Hx of colonoscopy Social History Alcohol intake: former Comment: iv d/nicholas Patient Tobacco Use Status: Never used Tobacco Current occupational status: retired Current occupation: rt handed Physical Exam Vital Signs: Last Vital Signs Pulse 69 08/11/23 09:09 BP 160/76 H 08/11/23 09:09 BMI result Body Mass Index 15.2 Assessment & Plan Assessment & Plan (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 Today K51.50 - Left sided colitis without complications PEMA Reflex Titer and Pattern Today M19.90 - Unspecified osteoarthritis, unspecified site, R79.82 - Elevated C-reactive protein (CRP) Cyclic Citrullinated Peptide Today M19.90 - Unspecified osteoarthritis, unspecified site Complete Blood Count Auto Diff Today M19.90 - Unspecified osteoarthritis, unspecified site Comprehensive Met. Panel Today K75.81 - Nonalcoholic steatohepatitis (BOOKER), M19.90 - Unspecified osteoarthritis, unspecified site C Reactive Protein Today M19.90 - Unspecified osteoarthritis, unspecified site Rheumatoid Factor Today M19.90 - Unspecified osteoarthritis, unspecified site Referrals Rheumatology Referral M19.90 - Unspecified osteoarthritis, unspecified site Medications: Refilled mesalamine ER 1.5 grams (4 x 0.375 gram) PO QAM 120 caps 11RF Coding Level of Care Code Est Pt Level 3 (15526) Diagnoses Inflammatory arthropathy M19.90
[2023-08-11 09:09] VITALS: BP 160/76; PULSE 69; BMI 15.2
== END 2023-08-11 09:45 | disposition home or self-care (01) ==
PROVIDERS: PCP Internal Medicine; Visit Provider Internal Medicine Gastroenterology
DX: M19.90 Unspecified osteoarthritis, unspecified site (principal)
CPT/HCPCS: 99213

== ENCOUNTER 2023-08-11 09:05 | Outpatient (REF) | payer MEDICARE, SELFPAY ==
[2023-08-11 10:18] LABS: MANUAL DIFF FLAG NO
[2023-08-11 10:36] LABS: Basophils Percent Auto 0.4 % (0-2); Eosinophils Absolute Auto 0.2 X10*3/uL (0.0-0.4); Eosinophils Percent Auto 3.2 % (0-4); Hematocrit 42.3 % (37.0-47.0); Hemoglobin 13.6 g/dl (12.0-16.0); Imm Gran Abs Auto 0.05 X10*3/uL (0.00-0.03); Imm Gran Pct Auto 0.7 % (0.0-0.4); Lymphocytes Absolute Auto 1.2 X10*3/uL (1.2-4.9); Lymphocytes Percent Auto 16.1 % (20-40); Mean Corpuscular HGB Conc 32.2 g/dl (31.0-35.0); Mean Corpuscular Hemoglobin 31.3 pg (27.0-33.0); Mean Corpuscular Volume 97.2 fL (80.0-98.0); Mean Platelet Volume 10.4 fL (9.4-12.3); Monocytes Absolute Auto 0.8 X10*3/uL (0.1-1.2); Monocytes Percent Auto 11.4 % (2-11); Neutrophils Percent Auto 68.2 % (45-73); Platelet Count 206 X10*3/uL (160-400); Red Blood Count 4.35 X10*6/uL (4.20-5.50); Red Cell Distribution Width 12.7 % (11.0-16.0); White Blood Count 7.3 X10*3/uL (4.8-10.8)
[2023-08-11 11:19] LABS: Rheumatoid Factor < 13.0 IU/mL (<15.0)
[2023-08-11 11:22] LABS: Alanine Aminotransferase 28 U/L (0-31); Albumin Level 3.9 g/dL (3.5-5.0); Alkaline Phosphatase 58 U/L (39-117); Anion Gap 9 (12-20); Aspartate Amino Transferase 34 U/L (5-31); Bilirubin Total 0.5 mg/dL (0.0-1.0); Blood Urea Nitrogen 18 mg/dL (9-16); C Reactive Protein 0.17 mg/dL (< or = 0.50); Calcium 8.6 mg/dL (8.4-10.2); Carbon Dioxide 32 mmol/L (22-29); Chloride 107 mmol/L (96-108); Estimated Glomerular Filt Rate > 60; Glucose Random 86 mg/dL (60-115); Potassium 3.7 mmol/L (3.3-5.1); Sodium 144 mmol/L (135-145); Total Protein 6.4 g/dL (6.5-8.0)
[2023-08-15 15:22] LABS: Anti Nuclear Antibody Screen NEGATIVE (NEGATIVE)
[2023-08-16 11:54] LABS: Cyclic Citrullinated Peptide <16 UNITS
== END 2023-08-11 09:06 | disposition home or self-care (01) ==
LOC: HO.LAB 09:05
PROVIDERS: PCP Internal Medicine; Visit Provider Internal Medicine Gastroenterology
DX: R79.82 Elevated C-reactive protein (CRP) (principal); K75.81 Nonalcoholic steatohepatitis (NASH); M19.90 Unspecified osteoarthritis, unspecified site
CPT/HCPCS: 36415; 80053; 85025; 86038; 86140; 86200; 86431; 99212

== ENCOUNTER 2023-08-13 16:48 | Inpatient (IN) | payer MEDICARE, SELFPAY ==
--- NOTE | ~2023-08-13 | CT_ITS ---
CT head/brain wo IV con CLINICAL INFORMATION: Reason for Exam Mental status change COMPARISON: No prior CT scan available for comparison. TECHNIQUE: Department standard protocol. This CT examination was performed using dose optimization techniques as appropriate, variously including the following: *Automated exposure control *Adjustment of mA and/or kV according to patient size (this includes techniques or standardized protocols for targeted exams where dose is matched to indication/reason for exam; i.e. extremities or head) *Use of iterative reconstruction technique DLP: 578 mGy-cm FINDINGS: CEREBRAL HEMISPHERES: There is no evidence of intra-axial or extra-axial mass, hemorrhage or acute infarct. BRAIN PARENCHYMA: Normal arboleda-white matter differentiation. SUBDURAL SPACE: No bleed. BASAL GANGLIA AND PINEAL GLAND: Unremarkable VENTRICLES: Symmetric and normal in size. CEREBELLUM AND BRAINSTEM: No space-occupying mass, hemorrhage or acute infarct. CEREBELLOPONTINE ANGLES: No lesion found. ORBITS: No intraorbital mass. VESSELS: Unremarkable SKULL BASE: Unremarkable INCLUDED SINUSES AT SKULL BASE: Clear SKULL AND SKIN: No fracture or bone lesion found. CT/CT head/brain wo IV con IMPRESSION: No CT evidence of intracranial space-occupying mass, bleed or infarct. Normal CT scan does not rule out the possibility of hyperacute infarct in the first 12 hours. If patient symptoms persist may consider correlation with MRI, which is more sensitive for early acute infarct.
--- NOTE | ~2023-08-13 | XR_ITS ---
EXAMINATION: XR CHEST CLINICAL INFORMATION: Altered mental status. COMPARISON: Chest 07/02/2021 TECHNIQUE: Frontal view of the chest was obtained. FINDINGS: The lungs are well-expanded and clear of acute process. There is a nipple shadow in the left lower lobe simulating a nodule. Heart size and pulmonary vascularity is normal. No gross bony abnormality seen. XR/XR chest 1V IMPRESSION: No acute cardiopulmonary process seen.
[2023-08-13 17:02] VITALS: BP 147/78; PULSE 90; O2SAT 97
[2023-08-13 17:09] VITALS: BP 190/92; PULSE 90; RESP 18; TEMP 39.1; O2SAT 98; BMI 34.1
--- NOTE | 2023-08-13 17:09 | ECG_ITS ---
Test Reason : ALTERED MENTAL STSTUS Blood Pressure : / mmHG Vent. Rate : 081 BPM Atrial Rate : 081 BPM P-R Int : 182 ms QRS Dur : 066 ms QT Int : 374 ms P-R-T Axes : 073 014 062 degrees QTc Int : 434 ms Normal sinus rhythm Possible Left atrial enlargement Inferior infarct , age undetermined Abnormal ECG When compared with ECG of 09-OCT-2022 19:16, Inferior infarct is now Present Referred By: Guanako Thompson Electronically Signed By:SHANNAN TORRES MD
--- NOTE | 2023-08-13 17:13 | ED_ITS ---
HPI - Altered Mental Status General Chief Complaint: Altered Mental Status Stated Complaint: Altered mental, dizziness, suspected sepsis, fever Time Seen by Provider: 08/13/23 17:02 Source: patient, family and EMS Mode of arrival: EMS Limitations: altered mental status History of Present Illness HPI narrative: 83-year-old female came in by ambulance for change mental status. Patient with known history of Parkinson's as per patient she lives home with family mostly independently as per patient still drives car, feels bilateral lower extremities weakness and difficulty ambulating with multiple falls, as per EMS family reported that the patient is slightly confused that was not appreciated during the exam. Patient declined headache, no chest pain, no shortness of breath, no abdominal pain, no nausea, vomiting. Granddaughters at the bedside patient was doing fine until 2 nights ago, was complaining of weakness and unable to ambulate patient took 4 of her prescribed Ativan thinking that that will help her symptoms, the patient felt better next day was able to take a shower now family noted that the patient is weak. Related Data Home Medications Medication Instructions Recorded Confirmed lorazepam 0.5 mg tablet (Ativan) 0.5 mg PO BEDTIME PRN 01/07/21 carbidopa 25 mg-levodopa 100 mg 1 tab PO TID 07/27/21 tablet losartan 100 1 tab PO DAILY 07/27/21 mg-hydrochlorothiazide 25 mg tablet propranolol 80 mg tablet 80 mg PO BID 01/24/22 alendronate 70 mg tablet 70 mg PO QWEEK 07/01/22 hydrochlorothiazide 25 mg tablet 25 mg PO DAILY 07/01/22 lorazepam 1 mg tablet 1 mg PO TID PRN 07/01/22 potassium chloride 10 mEq 10 meq PO DAILY 07/01/22 tablet,extended release Previous Rx's Medication Instructions Recorded Magic Mouthwash 10 ml PO QID #240 mL 11/18/21 Diphen/Lido/Antacid 1:1:1 240 mL suspension psyllium husk (with sugar) 3.4 1 tbsp PO BID #60 ea 01/24/22 gram oral powder packet (Metamucil (with sugar)) colesevelam 3.75 gram oral powder 3,750 mg PO DAILY #30 ea 02/09/22 packet (WelChol) aluminum-mag hydroxide-simethicone 10 ml PO QID PRN abdominal pain 10/09/22 200 mg-200 mg-20 mg/5 mL oral susp #355 mL (Maalox Advanced) omeprazole 40 mg capsule,delayed 40 mg PO DAILY #90 caps 02/01/23 release mesalamine 0.375 gram 1.5 g (4 x 0.375 gram) PO QAM #120 08/11/23 capsule,extended release 24 hr caps Allergies Allergy/AdvReac Type Severity Reaction Status Date / Time pregabalin [From LYRICA] Allergy Severe CONFUSION Verified 08/11/23 09:10 gabapentin [GABAPENTIN] Allergy Intermediate NAUSEA/VOMI Verified 08/11/23 09:10 TING clarithromycin [From BIAXIN] AdvReac Intermediate NAUSEA & Verified 08/11/23 09:10 VOMITING codeine [CODEINE] AdvReac Intermediate NAUSEA & Verified 08/11/23 09:10 VOMITING fentanyl [From DURAGESIC] AdvReac Intermediate NAUSEA/VOMI Verified 08/11/23 09:10 TING levofloxacin [From LEVAQUIN] AdvReac Intermediate NAUSEA & Verified 08/11/23 09:10 VOMITING Review of Systems 2 Review of Systems: All other systems are reviewed and are negative Constitutional: Reports as per HPI and Reports no additional constitutional complaints Eyes: Reports as per HPI and Reports no additional eye complaints Reports system reviewed and no additional complaints, except as documented Cardiovascular: Reports as per HPI and Reports no additional cardiovascular complaints Respiratory: Reports as per HPI and Reports no additional respiratory complaints Gastrointestinal: Reports as per HPI and Reports no additional gastrointestinal complaints Genitourinary: Reports no additional female genitourinary complaints Musculoskeletal: Reports no additional musculoskeletal complaints Skin/Breast: Reports system reviewed and no additional complaints, except as docu Psychiatric: Reports no additional psychiatric complaints Endocrine: Reports no additional endocrine complaints Hematologic/Lymphatic: Reports no additional hematologic/lymphatic complaints Allergic/Immunologic: Reports no additional allergic/immunologic complaints Reports system reviewed and no additional complaints, except as documented and Reports Abnormal speech present [facility] Past Medical History Medical History Fracture, wrist, open History of gastrectomy Parkinson disease High blood pressure Surgical History Hx of arthroscopic knee surgery Hx of hysterectomy H/O pyloroplasty H/O vagotomy Hx of cholecystectomy History of esophagogastroduodenoscopy (EGD) Hx of colonoscopy Social History Social History Alcohol intake: former Comment: iv d/nicholas Patient Tobacco Use Status: Never used Tobacco Advance Directives: Yes Advance Directives Information Provided: No Advance Directives on File: No Current occupational status: retired Current occupation: rt handed Physical Exam ED Vital Signs: Vital Signs - 24 hr 08/13/23 17:09 08/13/23 19:12 Temperature 102.4 F H 99.5 F Pulse Rate 90 81 Respiratory Rate 18 22 H Blood Pressure 190/92 H 134/62 Pulse Oximetry 98 96 Oxygen Delivery Method Room Air Room Air BMI result Body Mass Index 34.1 Vital signs have been reviewed and appear to be correct. Blood pressure elevated. Heart rate normal. Respiratory rate normal. Febrile. Oxygen saturation normal. Appearance: Alert. Oriented X3. No acute distress. Head: Normal external exam. Normocephalic. Atraumatic. No [place] signs noted. No raccoon eyes noted Eyes: PERRLA. EOMI. Conjunctiva and sclera normal. Eyelids normal. ENT: TM's Normal. Pharynx normal. Uvula midline. Moist mucous membranes. No trismus noted. No drooling noted. No muffled voice noted. Neck: Normal inspection. Neck supple. FROM. No adenopathy. Thyroid Normal. No meningeal signs. No neck mass noted. CVS: Normal heart rate and rhythm. Heart sound normal. No murmurs noted. Pulses normal throughout. Respiratory: No respiratory distress. Painless inspiration. Breath sounds normal. No wheezes/rales/rhonchi noted. Chest nontender. No accessory muscle usage noted or decreased air movement noted. Abdomen: Soft and nontender. Bowel sounds normal in all 4 quadrants. No distention noted. No organomegaly noted. No visible injury noted. Back: No CVA tenderness. Full range of motion noted. Skin: Skin warm and dry. Normal skin color. Normal skin turgor. No rashes/lesions/lacerations noted. Extremities: No lower extremity edema. Extremities exhibit normal range of motion. Extremities nontender. Neuro: Oriented X 3. Cranial nerve exam: II-XII are grossly intact No motor deficit. No sensory deficit. Reflexes normal. Course Reevaluation(s) Reevaluation #1: 83-year-old female brought in by family for evaluation of generalized weakness and some confusion, patient had a normal neuro exam in the emergency department, no photophobia, no neck stiffness to raise a suspicion for meningitis at this point no indication for LP. Slightly elevated troponin with delta change, consider aspirin and inpatient cardiology consultation. Bandemia concern of underlying infection that is not clear. Time: 19:59 Medications Administered Generic Name Dose Route Start Last Admin Trade Name Freq PRN Reason Stop Dose Admin Enoxaparin Sodium 40 mg 08/13/23 20:00 08/13/23 20:27 Enoxaparin Sodium 40 Mg/0.4 Ml Syringe SUBCUT 40 mg Q24H MARIA D Administration Discontinued Medications Generic Name Dose Route Start Last Admin Trade Name Freq PRN Reason Stop Dose Admin Sodium Chloride 1,000 mls @ 999 mls/hr 08/13/23 17:09 08/13/23 18:00 Ns IV 08/13/23 18:09 Not Given .Q1H1M ONE Ceftriaxone Sodium 1 gm/ 50 mls @ 100 mls/hr 08/13/23 17:09 08/13/23 18:47 Sodium Chloride IV 08/13/23 17:38 Infused ONCE ONE Infusion Sodium Chloride 500 mls @ 500 mls/hr 08/13/23 17:11 08/13/23 18:47 Ns IV 08/13/23 18:08 Infused .Q1H ONE Infusion Medical Decision Making Differential Diagnosis Differential Diagnoses: The differential diagnosis associated with the presentation includes (Intracranial bleed, pneumonia, UTI, pleural effusion, ACS, severe anemia, electrolyte abnormality.) Admission/Observation Consideration of admission/observation: Escalation of care including admission/observation considered Consult Healthcare Provider Management of the patient was discussed with: Hospitalist (Dr. Freire) Lab Data MDM Lab Attestation statement: I reviewed the patient's lab results. 08/13/23 17:21 08/13/23 17:21 Labs: Lab Results 08/13/23 08/13/23 08/13/23 Range/Units 17:21 17:22 18:01 WBC 10.5 (4.8-10.8) X10*3/uL RBC 4.20 (4.20-5.50) X10*6/uL Hgb 13.0 (12.0-16.0) g/dl Hct 39.3 (37.0-47.0) % MCV 93.6 (80.0-98.0) fL MCH 31.0 (27.0-33.0) pg MCHC 33.1 (31.0-35.0) g/dl RDW 12.8 (11.0-16.0) % Plt Count 123 L D (160-400) X10*3/uL MPV 10.9 (9.4-12.3) fL Immature Gran % (Auto) Cancelled Neut % (Auto) Cancelled Lymph % (Auto) Cancelled [place] % (Auto) Cancelled Eos % (Auto) Cancelled Baso % (Auto) Cancelled Lymph # (Auto) Cancelled [place] # (Auto) Cancelled Eos # (Auto) Cancelled Baso # (Auto) Cancelled Abs Immat Gran (auto) Cancelled Absolute Neuts (auto) Cancelled Absolute Nucleated RBC 0.000 (0.0-0.012) X10*3/uL Nucleated RBC % (auto) 0.0 (0.0-0.2) /100WBC Neutrophils % (Manual) 82 H (45-73) % Band Neutrophils % 14 H (3-5) % Lymphocytes % (Manual) 3 L (20-40) % Monocytes % (Manual) 1 L (2-11) % Abs Neuts (Manual) 10.1 H (2.0-8.3) X10*3/uL Lymphocytes # (Manual) 0.3 L (1.2-4.9) X10*3/uL Monocytes # (Manual) 0.1 (0.1-1.2) X10*3/uL Platelet Estimate NORMAL (NORMAL) Plt Morphology Comment NORMAL RBC Morphology NORMAL Smear Tech's Comments MANUAL DIFF Sodium 140 (135-145) mmol/L Potassium 3.6 (3.3-5.1) mmol/L Chloride 103 (96-108) mmol/L Carbon Dioxide 27 (22-29) mmol/L Anion Gap 14 (12-20) BUN 11 (9-16) mg/dL Creatinine 0.80 (0.5-1.4) mg/dL Estim Creat Clear Calc 60.0 Estimated GFR > 60 Random Glucose 124 H (60-115) mg/dL Lactic Acid 1.0 (0.5-2.0) mmol/L Calcium 8.7 (8.4-10.2) mg/dL Total Bilirubin 0.9 (0.0-1.0) mg/dL Direct Bilirubin 0.3 (0.0-0.5) mg/dL AST 27 (5-31) U/L ALT 33 H (0-31) U/L Alkaline Phosphatase 56 (39-117) U/L Troponin I High Sens 58.8 H* D (<3.5-17.0) ng/L B-Natriuretic Peptide 240 H (<100) pg/mL Total Protein 6.3 L (6.5-8.0) g/dL Albumin 3.7 (3.5-5.0) g/dL Lipase 31 (8-78) U/L Urine Color Yellow Urine Appearance Clear Urine pH 5.0 (5.0-9.0) Ur Specific [place] 1.010 (1.005-1.025) Urine Protein Negative (Neg-Trace) mg/dL Urine Glucose (UA) Negative (Negative) mg/dL Urine Ketones Trace (Negative) mg/dL Urine Blood Negative (Negative) Urine Nitrite Negative (Negative) Ur Leukocyte Esterase Negative (Negative) Influenza Type A (PCR) NEGATIVE (Negative) Influenza Type B (PCR) NEGATIVE (Negative) RSV RNA Qual (PCR) NEGATIVE (Negative) SARS-CoV-2 RNA (RT-PCR) NEGATIVE (Negative) Independent Interpretation I performed an independent interpretation of an: EKG (Normal sinus rhythm at 81 beats per minutes, normal intervals, no ST-T changes.), Plain X-Ray (Chest: No acute cardiopulmonary process seen.) and CT Scan (Head: No CT evidence of intracranial space occupying mass, bleed or infarct.) Radiology Impression Discussion of test interpretation with radiology: I have reviewed the radiologist's reading. Discharge Plan Discharge Clinical Impression: Generalized muscle weakness, Elevated troponin, Bandemia, SIRS (systemic inflammatory response syndrome) Patient Disposition: Admitted As Inpatient
[2023-08-13 17:38] LABS: Hematocrit 39.3 % (37.0-47.0); Mean Corpuscular HGB Conc 33.1 g/dl (31.0-35.0); Mean Corpuscular Volume 93.6 fL (80.0-98.0); Mean Platelet Volume 10.9 fL (9.4-12.3); Platelet Count 123 X10*3/uL (160-400); Red Cell Distribution Width 12.8 % (11.0-16.0); White Blood Count 10.5 X10*3/uL (4.8-10.8)
[2023-08-13 17:45] LABS: Alanine Aminotransferase 33 U/L (0-31); Albumin Level 3.7 g/dL (3.5-5.0); Alkaline Phosphatase 56 U/L (39-117); Anion Gap 14 (12-20); Aspartate Amino Transferase 27 U/L (5-31); Bilirubin Direct 0.3 mg/dL (0.0-0.5); Bilirubin Total 0.9 mg/dL (0.0-1.0); Blood Urea Nitrogen 11 mg/dL (9-16); Calcium 8.7 mg/dL (8.4-10.2); Carbon Dioxide 27 mmol/L (22-29); Chloride 103 mmol/L (96-108); Estimated Glomerular Filt Rate > 60; Glucose Random 124 mg/dL (60-115); Lipase 31 U/L (8-78); Potassium 3.6 mmol/L (3.3-5.1); Sodium 140 mmol/L (135-145); Total Protein 6.3 g/dL (6.5-8.0)
[2023-08-13 17:50] LABS: B Type Natriuretic Peptide 240 pg/mL (<100)
[2023-08-13 17:55] LABS: Troponin-I High Sensitivity 58.8 ng/L (<3.5-17.0)
[2023-08-13 17:58] LABS: SLIDE REVIEW MANUAL DIFF
[2023-08-13] MEDS: cefTRIAXone sodium 1 GM in 0.9 % Sodium Chloride 50 ML IV (17:58)
[2023-08-13] MEDS: 0.9 % Sodium Chloride 500 ML IV (17:59)
[2023-08-13 18:03] LABS: Lymphocytes Absolute Manual 0.3 X10*3/uL (1.2-4.9); Lymphocytes Percent Manual 3 % (20-40); Monocytes Absolute Manual 0.1 X10*3/uL (0.1-1.2); Monocytes Percent Manual 1 % (2-11); Neutrophils Absolute Manual 10.1 X10*3/uL (2.0-8.3); Neutrophils Percent Manual 82 % (45-73)
[2023-08-13 18:04] LABS: Platelet Estimate NORMAL (NORMAL); Platelet Morphology Comment NORMAL; RBC Morphology NORMAL
[2023-08-13 18:43] LABS: Band Neutrophils Percent 14 % (3-5)
[2023-08-13 18:57] LABS: Appearance Urine Clear; Color Urine Yellow; Glucose Urine UA Negative (Negative); Leukocyte Esterase Urine Negative (Negative); Nitrite Urine Negative (Negative); Urine Blood Negative (Negative); Urine Ketones Trace mg/dL (Negative); Urine Protein Negative (Neg-Trace)
[2023-08-13 19:12] VITALS: BP 134/62; PULSE 81; RESP 22; TEMP 37.5; O2SAT 96
--- NOTE | 2023-08-13 19:28 | MHC.EDTECH ---
patient placed on purewick due to weakness. ekg done and VSS.
[2023-08-13 20:25] VITALS: BP 123/58; PULSE 81; RESP 20; TEMP 37.7; O2SAT 97
[2023-08-13] MEDS: Enoxaparin Sodium 40 MG/0.4 ML SYRINGE SUBCUT (20:27)
--- NOTE | 2023-08-13 20:54 | P.HPHOSP_ITS ---
History of Present Illness Date of Service: 08/13/23 Attending physician on admission: Maria Freire Chief Complaint: Generalized weakness, fever, chills Pt is an 83-year-old female with a PMH significant for Parkinson's, hx of Guillain-[place] syndrome, osteoporosis, HTN, GERD,?and hx of gastrectomy who presents to the ED for evaluation of generalized weakness, fever, and chills. Family at bedside to help supplement HPI. Patient lives alone and is mostly independent, still capable of making her food, doing her laundry, and driving. However she does get help from daughter who normally visits 5 days a week. Patient normally walks on her own without assistance of either a cane or walker. Two nights prior on Monday she went out to eat with her grandchildren and they report she was in her normal state of health when they dropped her off for the night. On Monday morning when they went to check on her they found her on the floor covered in a blanket. Patient denies fall, but states her knees gave out on her and she was unable to stand up. Family found her slightly confused, speaking slowly, and slurring her words. Patient is prescribed 1 mg Ativan p.r.n., and there is some uncertainty if she took up to 4 mg of Ativan that night thinking this would help her symptoms. Patient became more lucid as the day progressed, but was still weak and unable to ambulate on her own. This afternoon patient suddenly started shaking uncontrollably and this prompted the family to call 911. Patient herself currently complains of lower extremity weakness, but denies any other acute medical complaints. Denies chest pain/pressure, palpitations. No shortness of breath. Denies nausea, vomiting, abdominal pain. Has chronic diarrhea at baseline; denies any change to bowel or bladder habits. Of note, family states patient is under a great deal of stress lately. Patient's son-in-law suffered a pulmonary embolism in [place] and her daughter has been visiting him for the past 10 days. In the ED pt was febrile up to 102.4, tachypneic up to 22, and hypertensive up to 190/92. Labs were significant for elevated neutrophils of 82, bandemia of 14, BNP 240, initial troponin 58.8 with repeat with delta change at 116.9. No leukocytosis, stable H&H. Electrolytes WNL. Renal and hepatic function largely WNL. UA negative for UTI. Influenza type a and B, RSV, COVID testing negative. CXR showed no acute cardiopulmonary process. CT?of head with no evidence of intracranial space-occupying mass, bleed, or infarct. EKG demonstrated normal sinus rhythm without evidence of significant ST elevations depressions. Pt was treated with ceftriaxone and IVF. Pt will be admitted to the hospital for treatment of NSTEMI and sepsis from unknown source. Review of Systems 2 Review of Systems: Generalized weakness Inability to ambulate Fever, chills Altered mental status Denies nausea, vomiting, abdominal pain No change to bowel or bladder habit Denies chest pain/pressure, palpitations [facility] Medical History (Updated 08/13/23 @ 23:02 by JESS Gu) Guillain-[place] syndrome Fracture, wrist, open History of gastrectomy Parkinson disease High blood pressure Surgical History Hx of arthroscopic knee surgery Hx of hysterectomy H/O pyloroplasty H/O vagotomy Hx of cholecystectomy History of esophagogastroduodenoscopy (EGD) Hx of colonoscopy Social History Alcohol intake: former Comment: iv d/nicholas Patient Tobacco Use Status: Never used Tobacco Advance Directives: Yes Advance Directives Information Provided: No Advance Directives on File: No Current occupational status: retired Current occupation: rt handed Meds Allergies Allergy/AdvReac Type Severity Reaction Status Date / Time pregabalin [From LYRICA] Allergy Severe CONFUSION Verified 08/11/23 09:10 gabapentin [GABAPENTIN] Allergy Intermediate NAUSEA/VOMI Verified 08/11/23 09:10 TING amlodipine [From Norvasc] Allergy Unknown Verified 08/13/23 22:48 clarithromycin [From BIAXIN] AdvReac Intermediate NAUSEA & Verified 08/11/23 09:10 VOMITING codeine [CODEINE] AdvReac Intermediate NAUSEA & Verified 08/11/23 09:10 VOMITING fentanyl [From DURAGESIC] AdvReac Intermediate NAUSEA/VOMI Verified 08/11/23 09:10 TING levofloxacin [From LEVAQUIN] AdvReac Intermediate NAUSEA & Verified 08/11/23 09:10 VOMITING Active Medications: Current Medications Acetaminophen (Acetaminophen 325 Mg Tablet) 650 mg PO Q6H PRN PRN Reason: Pain, Mild (Pain Scale 1-3) Enoxaparin Sodium (Enoxaparin Sodium 40 Mg/0.4 Ml Syringe) 40 mg SUBCUT Q24H [facility] Last Admin: 08/13/23 20:27 Dose: 40 mg Melatonin (Melatonin 3 Mg Tablet) 6 mg PO BEDTIME PRN PRN Reason: Insomnia Ondansetron HCl (Ondansetron Hcl 4 Mg/2 Ml Vial) 4 mg IVPUSH Q8H PRN PRN Reason: Nausea and Vomiting Sodium Chloride (0.9 % Sodium Chloride Flush 3 Ml Syringe) 3 ml IVFLUSH QSHIFT [facility] Home Medications Medication Instructions Recorded Confirmed Last Taken Type lorazepam 0.5 mg tablet (Ativan) 1 mg PO BEDTIME PRN Insomnia 01/07/21 08/13/23 Unknown History carbidopa 25 mg-levodopa 100 mg 1 tab PO TID 07/27/21 08/13/23 11/11/21 06:30 History tablet losartan 100 1 tab PO DAILY 07/27/21 Unknown History mg-hydrochlorothiazide 25 mg tablet propranolol 80 mg tablet 80 mg PO BID 01/24/22 08/13/23 Unknown History alendronate 70 mg tablet 70 mg PO QWEEK 07/01/22 08/13/23 Unknown History hydrochlorothiazide 25 mg tablet 25 mg PO DAILY 07/01/22 08/13/23 Unknown History lorazepam 1 mg tablet 1 mg PO TID PRN 07/01/22 Unknown History potassium chloride 10 mEq 10 meq PO DAILY 07/01/22 08/13/23 Unknown History tablet,extended release calcium carbonate 500 mg calcium 500 mg PO DAILY 08/13/23 08/13/23 Unknown History (1,250 mg) chewable tablet (Calcium 500) ferrous sulfate 325 mg (65 mg 65 mg PO DAILY 08/13/23 08/13/23 Unknown History iron) capsule,extended release Physical Exam 2 Vital Signs and Narrative: Vital Signs: Last Vital Signs Temp 99.9 F 08/13/23 20:25 Pulse 81 08/13/23 20:25 Resp 20 08/13/23 20:25 BP 123/58 L 08/13/23 20:25 Pulse Ox 97 08/13/23 20:25 O2 Del Method Room Air 08/13/23 20:25 BMI result Body Mass Index 34.1 Constitutional: Alert, in no acute distress. Thin and frail-looking. Mental Status: Oriented to person, place and time. Eyes: Pupils are equal, round, and reactive to light. Ear, Nose, and Throat: Oropharynx clear, mucous membranes moist. Ears and nose without deformities. Trachea midline. Respiratory: Clear to auscultation bilaterally. No wheezing, rales, or rhonchi. Cardiovascular: S1, S2 regular. No murmurs, rubs, or gallops. Gastrointestinal: Abdomen soft, non-tender, non-distended. Normal bowel sounds. Neurologic: Cranial nerves II-XII are grossly intact bilaterally. No focal neurological deficits, though essential tremor noted of upper extremities. Moves all extremities spontaneously. Global weakness of UE and LE bilaterally. Skin: Warm, dry. Musculoskeletal: No cyanosis or clubbing. Extremities: No edema. Psychiatric: Normal mood and affect. Results Labs 08/13/23 17:21 08/13/23 17:21 Labs: Laboratory Results - last 24 hr 08/13/23 08/13/23 17:21 18:01 MCV 93.6 MCH 31.0 MCHC 33.1 RDW 12.8 Plt Count 123 L D MPV 10.9 Immature Gran % (Auto) Cancelled Neut % (Auto) Cancelled Lymph % (Auto) Cancelled [place] % (Auto) Cancelled Eos % (Auto) Cancelled Baso % (Auto) Cancelled Lymph # (Auto) Cancelled [place] # (Auto) Cancelled Eos # (Auto) Cancelled Baso # (Auto) Cancelled Abs Immat Gran (auto) Cancelled Absolute Neuts (auto) Cancelled Absolute Nucleated RBC 0.000 Nucleated RBC % (auto) 0.0 Neutrophils % (Manual) 82 H Band Neutrophils % 14 H Lymphocytes % (Manual) 3 L Monocytes % (Manual) 1 L Abs Neuts (Manual) 10.1 H Lymphocytes # (Manual) 0.3 L Monocytes # (Manual) 0.1 Platelet Estimate NORMAL Plt Morphology Comment NORMAL RBC Morphology NORMAL Smear Tech's Comments MANUAL DIFF Anion Gap 14 Estim Creat Clear Calc 60.0 Estimated GFR > 60 Random Glucose 124 H Lactic Acid 1.0 Calcium 8.7 Total Bilirubin 0.9 Direct Bilirubin 0.3 AST 27 ALT 33 H Alkaline Phosphatase 56 B-Natriuretic Peptide 240 H Total Protein 6.3 L Albumin 3.7 Lipase 31 Urine Color Yellow Urine Appearance Clear Urine pH 5.0 Ur Specific [place] 1.010 Urine Protein Negative Urine Glucose (UA) Negative Urine Ketones Trace Urine Blood Negative Urine Nitrite Negative Ur Leukocyte Esterase Negative Imaging Radiologist's Impressions: Impressions Head CT 08/13/23 17:52 IMPRESSION: No CT evidence of intracranial space-occupying mass, bleed or infarct. Normal CT scan does not rule out the possibility of hyperacute infarct in the first 12 hours. If patient symptoms persist may consider correlation with MRI, which is more sensitive for early acute infarct. Chest X-Ray 08/13/23 17:59 IMPRESSION: No acute cardiopulmonary process seen. Assessment and Plan (1) SIRS (systemic inflammatory response syndrome): Status: Acute (2) Elevated troponin: Status: Acute (3) Generalized weakness: Status: Acute Plan Pt is an 83-year-old female with a PMH significant for Parkinson's, hx of Guillain-[place] syndrome, osteoporosis, HTN, GERD,?and hx of gastrectomy who presents to the ED for evaluation of generalized weakness, fever, and chills. Pt will be admitted to the hospital for treatment of NSTEMI and sepsis from unknown source. NSTEMI Initial troponin 58.8 with repeat with delta change at 116.9 Patient asymptomatic, EKG without significant ST elevations or depressions Pt given aspirin, therapeutic dose of Lovenox (40mg) Echocardiogram Lipid panel Cardiology consult Monitor on telemetry SIRS criteria Pt meets sepsis criteria: Suspected infection, Fever of 102.4, tachypnea of 22; lactic acid WNL at 1.0 Infectious source unclear: UA negative for UTI, CXR negative for pneumonia, abdominal exam benign Patient tested negative for COVID, RSV, influenza types a and B Will treat empirically with ceftriaxone, started 08/13/2023 Follow cultures Generalized weakness Patient experienced sudden lower leg weakness and inability to ambulate on Monday night Pt with hx of Guillain-[place] syndrome, Parkinson's Unclear etiology: in the setting of septic infection vs neurologic disorder Neurology consult, followed by Dr. Ridley Continue carbidopa levodopa Monitor on telemetry HTN Continue home meds Anxiety/insomnia Continue Ativan GERD/IBS Continue omeprazole Full Code Attending:?Dr. Freire DVT Prophylaxis: Therapeutic-dosed Lovenox Pt will require a hospitalization of at least two nights for treatment of?NSTEMI, generalized weakness, and likely sepsis from an unknown source. Patient will be treated with IV anticoagulation, close cardiac monitoring, IV antibiotics, and specialist consultation. Quality Stroke Does the patient have a stroke diagnosis?: No VTE Prior VTE?: No VTE Risk Level:: Medical - moderate - high VTE Device Contraindication: Treatment Not Indicated VTE Drug Contraindication: N/A - Med Ordered
[2023-08-13 21:07] LABS: Troponin-I High Sensitivity 116.9 ng/L (<3.5-17.0)
[2023-08-13 21:57] LABS: Influenza A PCR NEGATIVE (Negative); Influenza B PCR NEGATIVE (Negative); Resp Syncy Virus RNA Qual PCR NEGATIVE (Negative); SARS COV2 PCR INHOUSE NEGATIVE (Negative)
[2023-08-13 22:39] VITALS: BMI 16.0
[2023-08-14] VITALS (7 sets, daily range): BP systolic 92–129; BP diastolic 44–59; PULSE 68–77; RESP 14–20; TEMP 36.1–37.6; O2SAT 96–98
[2023-08-14] MEDS: Carbidopa/Levodopa 25/100 TABLET 1 TAB PO ×4 (00:12→21:14)
[2023-08-14] MEDS: Aspirin Enteric Coated 325 MG TABLET.DR PO (00:12)
[2023-08-14] MEDS: 0.9 % Sodium Chloride Flush 3 ML SYRINGE IVFLUSH ×4 (00:13→21:15)
--- NOTE | 2023-08-14 01:17 | PC.NURSE ---
Nurse to nurse report sent to [facility] RN Gary via [employer] message.
[2023-08-14 06:32] LABS: Basophils Percent Auto 0.2 % (0-2); Hematocrit 35.7 % (37.0-47.0); Imm Gran Abs Auto 0.02 X10*3/uL (0.00-0.03); Imm Gran Pct Auto 0.3 % (0.0-0.4); Monocytes Percent Auto 10.2 % (2-11); PLT CLUMP 1; Red Cell Distribution Width 12.6 % (11.0-16.0); SCAN SMEAR FLAG 1
[2023-08-14 06:34] LABS: Eosinophils Absolute Auto 0.1 X10*3/uL (0.0-0.4); Hemoglobin 11.6 g/dl (12.0-16.0); Lymphocytes Absolute Auto 1.2 X10*3/uL (1.2-4.9); Lymphocytes Percent Auto 18.4 % (20-40); Mean Corpuscular HGB Conc 32.5 g/dl (31.0-35.0); Mean Corpuscular Hemoglobin 30.4 pg (27.0-33.0); Mean Corpuscular Volume 93.7 fL (80.0-98.0); Mean Platelet Volume 11.2 fL (9.4-12.3); Monocytes Absolute Auto 0.7 X10*3/uL (0.1-1.2); Neutrophils Absolute Auto 4.5 x10*3/uL (2.0-8.3); Neutrophils Percent Auto 68.9 % (45-73); Red Blood Count 3.81 X10*6/uL (4.20-5.50)
[2023-08-14 06:36] LABS: MANUAL DIFF FLAG NO; Platelet Count 112 X10*3/uL (160-400); White Blood Count 6.6 X10*3/uL (4.8-10.8)
[2023-08-14 07:02] LABS: Anion Gap 10 (12-20); Blood Urea Nitrogen 8 mg/dL (9-16); Calcium 8.3 mg/dL (8.4-10.2); Carbon Dioxide 31 mmol/L (22-29); Chloride 103 mmol/L (96-108); Cholesterol 162 mg/dL (<200); Creatinine Clr Calc Pharmacy 39.9; Estimated Glomerular Filt Rate > 60; Glucose Random 93 mg/dL (60-115); HDL Cholesterol 82 mg/dL (>40); LDL Cholesterol Calculated 64 mg/dL (<100); Potassium 3.3 mmol/L (3.3-5.1); Sodium 141 mmol/L (135-145); Triglycerides 82 mg/dL (<150)
[2023-08-14 07:28] LABS: Troponin-I High Sensitivity 52.2 ng/L (<3.5-17.0)
--- NOTE | 2023-08-14 07:56 | PHA.MEDREC ---
Pharmacy Consult ? Medication Reconciliation Pharmacy has completed the medication reconciliation.
--- NOTE | 2023-08-14 08:13 | MHC.CM.PN ---
CM met with Patient and her Daughter/HCP/Inez at bedside and addressed IMM with them (original was given to Patient and a copy has been placed on the chart). Patient lives alone in a condo and she required no services nor DME REGRINDER. Patient has a very involved and supportive family and home vs home with new [facility] is the tentative plan. CM has initiated and will follow for dc planning. PCP is Dr. Salbador Severino.
[2023-08-14] MEDS: Potassium Chloride ER 10 MEQ TABLET.ER PO (09:12)
[2023-08-14] MEDS: Omeprazole 40 MG CAPSULE.DR PO (09:12)
[2023-08-14] MEDS: Propranolol HCL 40 MG TABLET 80 MG PO ×2 (09:12→21:13)
[2023-08-14] MEDS: Ferrous Sulfate 324 MG TABLET.DR PO (09:12)
[2023-08-14] MEDS: Enoxaparin Sodium 40 MG/0.4 ML SYRINGE SUBCUT ×2 (09:13→21:14)
[2023-08-14] MEDS: hydroCHLOROthiazide 25 MG TABLET PO (09:16)
--- NOTE | 2023-08-14 10:22 | PM.CNCAR ---
History of Present Illness History of Present Illness Date of Service: 08/14/23 Requesting physician: Buddy Tracy Consult reason: troponin elevation Chief complaint: fever and AMS Narrative: I was consulted to see Mckenzie in cardiology consultation today for elevated troponins. She is 83-year-old female who came to the hospital because she was not able to walk. She says she suddenly got very weak and was not able to even walk to the bathroom to go to relieve herself. She got very emotional after that. Patient has past medical history of Parkinson's disease, GBS, chronic diarrhea since gastrectomy, question diverticular disease recently with inflammation being treated by GI Service, weight loss over the last year, hypertension. She came to the hospital with above symptoms and also had fever and chills at home. When she came to the hospital she is noted to have elevated temperature, higher respiratory rate, hypertensive in tachycardia. She also noted to have leftward shift of white cell count. Troponins was measured although she does not have any cardiac symptoms which will clear rise and fall in troponin consistent with myocardial injury. She has no significant ischemic EKG changes. Workup so far has been negative for viral syndrome, negative UA and negative chest x-ray. Rest of the blood work is within normal limits. Patient has been admitted with systemic inflammatory response syndrome of unclear etiology and elevated troponins. Review of Systems Constitutional: Constitutional: Reports chills, Reports fever(s) and Reports weakness Eyes: Eyes: Reports no additional eye complaints Cardiovascular: Cardiovascular: Reports no additional cardiovascular complaints Respiratory: Respiratory: Reports no additional respiratory complaints Gastrointestinal: Gastrointestinal: Reports no additional gastrointestinal complaints Genitourinary: Genitourinary: Reports no additional female genitourinary complaints Musculoskeletal: Musculoskeletal: Reports no additional musculoskeletal complaints Integumentary/Breasts: Skin/Breast: Reports system reviewed and no additional complaints, except as docu Neurologic: Reports system reviewed and no additional complaints, except as documented and Reports weakness Psychiatric: Psychiatric: Reports no additional psychiatric complaints Endocrine: Endocrine: Reports no additional endocrine complaints PMFSH Past Medical History Medical History Guillain-Niles syndrome Fracture, wrist, open History of gastrectomy Parkinson disease High blood pressure Surgical History Surgical History Hx of arthroscopic knee surgery Hx of hysterectomy H/O pyloroplasty H/O vagotomy Hx of cholecystectomy History of esophagogastroduodenoscopy (EGD) Hx of colonoscopy Social History Social History Household Members: None Housing: Condominium Do you presently have visiting nurse or other home services: No Alcohol intake: former Comment: iv d/nicholas Patient Tobacco Use Status: Never used Tobacco Advance Directives Date on File: 08/14/23 service: No Current occupational status: retired Current occupation: rt handed Meds Allergies Allergy/AdvReac Type Severity Reaction Status Date / Time pregabalin [From LYRICA] Allergy Severe CONFUSION Verified 08/11/23 09:10 gabapentin [GABAPENTIN] Allergy Intermediate NAUSEA/VOMI Verified 08/11/23 09:10 TING amlodipine [From Norvasc] Allergy Unknown Verified 08/13/23 22:48 clarithromycin [From BIAXIN] AdvReac Intermediate NAUSEA & Verified 08/11/23 09:10 VOMITING codeine [CODEINE] AdvReac Intermediate NAUSEA & Verified 08/11/23 09:10 VOMITING fentanyl [From DURAGESIC] AdvReac Intermediate NAUSEA/VOMI Verified 08/11/23 09:10 TING levofloxacin [From LEVAQUIN] AdvReac Intermediate NAUSEA & Verified 08/11/23 09:10 VOMITING Active Medications: Current Medications Acetaminophen (Acetaminophen 325 Mg Tablet) 650 mg PO Q6H PRN PRN Reason: Pain, Mild (Pain Scale 1-3) Calcium Carbonate (Calcium Carbonate 500 Mg Tablet) 500 mg PO DAILY [facility] Last Admin: 08/14/23 09:12 Dose: 500 mg Carbidopa/Levodopa (Carbidopa/Levodopa 25/100 Tablet) 1 tab PO TID [facility] Last Admin: 08/14/23 09:12 Dose: 1 tab Enoxaparin Sodium (Enoxaparin Sodium 40 Mg/0.4 Ml Syringe) 40 mg SUBCUT BID [facility] Last Admin: 08/14/23 09:13 Dose: 40 mg Ferrous Sulfate (Ferrous Sulfate 324 Mg Tablet.Dr) 324 mg PO DAILY [facility] Last Admin: 08/14/23 09:12 Dose: 324 mg Hydrochlorothiazide (Hydrochlorothiazide 25 Mg Tablet) 25 mg PO DAILY [facility]; Protocol Last Admin: 08/14/23 09:16 Dose: 25 mg Ceftriaxone Sodium 1 gm/ (Sodium Chloride) 50 mls @ 100 mls/hr IV Q24H [facility] Lorazepam (Lorazepam 1 Mg Tablet) 1 mg PO BEDTIME PRN PRN Reason: Insomnia Melatonin (Melatonin 3 Mg Tablet) 6 mg PO BEDTIME PRN PRN Reason: Insomnia Omeprazole (Omeprazole 40 Mg Capsule.Dr) 40 mg PO DAILY [facility] Last Admin: 08/14/23 09:12 Dose: 40 mg Ondansetron HCl (Ondansetron Hcl 4 Mg/2 Ml Vial) 4 mg IVPUSH Q8H PRN PRN Reason: Nausea and Vomiting Potassium Chloride (Potassium Chloride Er 10 Meq Tablet.Er) 10 meq PO DAILY [facility] Last Admin: 08/14/23 09:12 Dose: 10 meq Propranolol HCl (Propranolol Hcl 40 Mg Tablet) 80 mg PO BID [facility]; Protocol Last Admin: 08/14/23 09:12 Dose: 80 mg Sodium Chloride (0.9 % Sodium Chloride Flush 3 Ml Syringe) 3 ml IVFLUSH QSHIFT [facility] Last Admin: 08/14/23 09:12 Dose: 3 ml Home Medications Medication Instructions Recorded Confirmed Last Taken Type lorazepam 0.5 mg tablet (Ativan) 1 mg PO BEDTIME PRN Insomnia 01/07/21 08/13/23 Unknown History carbidopa 25 mg-levodopa 100 mg 1 tab PO TID 07/27/21 08/13/23 11/11/21 06:30 History tablet propranolol 80 mg tablet 80 mg PO BID 01/24/22 08/13/23 Unknown History alendronate 70 mg tablet 70 mg PO QWEEK 07/01/22 08/13/23 Unknown History hydrochlorothiazide 25 mg tablet 25 mg PO DAILY 07/01/22 08/13/23 Unknown History potassium chloride 10 mEq 10 meq PO DAILY 07/01/22 08/13/23 Unknown History tablet,extended release calcium carbonate 500 mg calcium 500 mg PO DAILY 08/13/23 08/13/23 Unknown History (1,250 mg) chewable tablet (Calcium 500) ferrous sulfate 325 mg (65 mg 65 mg PO DAILY 08/13/23 08/13/23 Unknown History iron) capsule,extended release mesalamine 0.375 gram 1.5 g PO QAM PRN Diarrhea 08/14/23 08/14/23 Unknown History capsule,extended release 24 hr Physical Exam Vital Signs: Vital Signs: Last Vital Signs Temp 97 F 08/14/23 07:56 Pulse 76 08/14/23 07:56 Resp 16 08/14/23 07:56 BP 119/58 L 08/14/23 07:56 Pulse Ox 98 08/14/23 07:56 O2 Del Method Room Air 08/14/23 07:56 BMI result Body Mass Index 16.0 Const: General: cooperative, comfortable, no acute distress, alert, awake and anxious Nutritional Appearance: thin Orientation/consciousness: patient oriented x3 HEENT: Head: Yes normocephalic and Yes atraumatic Neck: Neck: Yes trachea midline, Yes supple and Yes no JVD Resp: Effort & Inspection: normal respiratory effort Auscultation: clear to auscultation bilaterally Cardio: Jugular venous distension: no JVD Palpation: normal PMI Rate: regular rate Rhythm: regular rhythm Heart sounds: S1 normal heart sound present, S2 normal heart sound present, no click, no gallops, no murmurs and no rubs GI: Auscultation: normal bowel sounds Skin: General skin exam: no rashes or lesions noted Neuro: General: patient oriented x3 and no focal motor deficits Extrem: General: Yes no clubbing, cyanosis or edema Objective Labs and Meds 08/14/23 06:05 08/14/23 06:05 Lab results: Laboratory Results - last 24 hr 08/13/23 08/13/23 08/13/23 17:21 17:22 18:01 WBC 10.5 RBC 4.20 Hgb 13.0 Hct 39.3 MCV 93.6 MCH 31.0 MCHC 33.1 RDW 12.8 Plt Count 123 L D MPV 10.9 Immature Gran % (Auto) Cancelled Neut % (Auto) Cancelled Lymph % (Auto) Cancelled [place] % (Auto) Cancelled Eos % (Auto) Cancelled Baso % (Auto) Cancelled Lymph # (Auto) Cancelled [place] # (Auto) Cancelled Eos # (Auto) Cancelled Baso # (Auto) Cancelled Abs Immat Gran (auto) Cancelled Absolute Neuts (auto) Cancelled Absolute Nucleated RBC 0.000 Nucleated RBC % (auto) 0.0 Neutrophils % (Manual) 82 H Band Neutrophils % 14 H Lymphocytes % (Manual) 3 L Monocytes % (Manual) 1 L Abs Neuts (Manual) 10.1 H Lymphocytes # (Manual) 0.3 L Monocytes # (Manual) 0.1 Platelet Estimate NORMAL Plt Morphology Comment NORMAL RBC Morphology NORMAL Smear Tech's Comments MANUAL DIFF Sodium 140 Potassium 3.6 Chloride 103 Carbon Dioxide 27 Anion Gap 14 BUN 11 Creatinine 0.80 Estim Creat Clear Calc 60.0 Estimated GFR > 60 Random Glucose 124 H Lactic Acid 1.0 Calcium 8.7 Total Bilirubin 0.9 Direct Bilirubin 0.3 AST 27 ALT 33 H Alkaline Phosphatase 56 Total Creatine Kinase Troponin I High Sens 58.8 H* D B-Natriuretic Peptide 240 H Total Protein 6.3 L Albumin 3.7 Triglycerides Cholesterol LDL Cholesterol, Calc HDL Cholesterol Lipase 31 Urine Color Yellow Urine Appearance Clear Urine pH 5.0 Ur Specific [place] 1.010 Urine Protein Negative Urine Glucose (UA) Negative Urine Ketones Trace Urine Blood Negative Urine Nitrite Negative Ur Leukocyte Esterase Negative Influenza Type A (PCR) NEGATIVE Influenza Type B (PCR) NEGATIVE RSV RNA Qual (PCR) NEGATIVE SARS-CoV-2 RNA (RT-PCR) NEGATIVE 08/13/23 08/13/23 08/14/23 20:31 22:27 06:05 WBC 6.6 RBC 3.81 L Hgb 11.6 L Hct 35.7 L MCV 93.7 MCH 30.4 MCHC 32.5 RDW 12.6 Plt Count 112 L MPV 11.2 Immature Gran % (Auto) 0.3 Neut % (Auto) 68.9 Lymph % (Auto) 18.4 L [place] % (Auto) 10.2 Eos % (Auto) 2.0 Baso % (Auto) 0.2 Lymph # (Auto) 1.2 [place] # (Auto) 0.7 Eos # (Auto) 0.1 Baso # (Auto) 0.0 Abs Immat Gran (auto) 0.02 Absolute Neuts (auto) 4.5 Absolute Nucleated RBC 0.000 Nucleated RBC % (auto) 0.0 Neutrophils % (Manual) Band Neutrophils % Lymphocytes % (Manual) Monocytes % (Manual) Abs Neuts (Manual) Lymphocytes # (Manual) Monocytes # (Manual) Platelet Estimate Plt Morphology Comment RBC Morphology Smear Tech's Comments Sodium 141 Potassium 3.3 Chloride 103 Carbon Dioxide 31 H Anion Gap 10 L BUN 8 L Creatinine 0.73 Estim Creat Clear Calc 39.9 Estimated GFR > 60 Random Glucose 93 Lactic Acid Calcium 8.3 L Total Bilirubin Direct Bilirubin AST ALT Alkaline Phosphatase Total Creatine Kinase 18 L Troponin I High Sens 116.9 H* D 52.2 H* D B-Natriuretic Peptide Total Protein Albumin Triglycerides 82 Cholesterol 162 LDL Cholesterol, Calc 64 HDL Cholesterol 82 Lipase Urine Color Urine Appearance Urine pH Ur Specific [place] Urine Protein Urine Glucose (UA) Urine Ketones Urine Blood Urine Nitrite Ur Leukocyte Esterase Influenza Type A (PCR) Influenza Type B (PCR) RSV RNA Qual (PCR) SARS-CoV-2 RNA (RT-PCR) EKG shows normal sinus rhythm with possible left atrial enlargement with more prominent Q-waves in lead 3 and AVF. Imaging Radiologist's impression: Impressions Head CT 08/13/23 17:52 IMPRESSION: No CT evidence of intracranial space-occupying mass, bleed or infarct. Normal CT scan does not rule out the possibility of hyperacute infarct in the first 12 hours. If patient symptoms persist may consider correlation with MRI, which is more sensitive for early acute infarct. Chest X-Ray 08/13/23 17:59 IMPRESSION: No acute cardiopulmonary process seen. Assessment and Plan (1) Elevated troponin: Status: Acute Elevated troponin this elderly woman with clear rise and fall suggestive myocardial injury. However this does not appear to be a primary acute coronary syndrome event and does not require any anticoagulation. Possibilities include secondary myocardial injury related to underlying significant coronary disease with myocardial stress, stress-induced cardiomyopathy and/or myocardial inflammation related to systemic inflammation. Management of this would be conservative. If blood pressure allows can add metoprolol to her regimen. Can also consider aspirin and statin therapy. Echocardiogram tomorrow should be requested. She should have workup for underlying cause of her fever and chills and systemic inflammatory syndrome and treat that aggressively. Once patient is stable and this primary acute event has resolved can perform outpatient myocardial perfusion imaging. Findings were discussed with her and her daughter at bedside. Will sign of the case. Thank you for allowing me to partake in her care Procedures Date of Service Date of Service: 08/14/23
--- NOTE | 2023-08-14 11:35 | P.PNIM_ITS ---
Subjective Subjective Date of Service: 08/14/23 Interval History: Being followed for fever, weakness and chills, this morning patient is feeling better has been ambulating without assistive device with help of family, denies abdominal pain, no nausea, no vomiting, history of chronic diarrhea unchanged denies urinary symptoms of urgency frequency denies joint pains has history of chronic arthritis involving both hands and sometimes knees, denies fever, no chills, answering questions appropriately. Review of Systems All other system reviewed and negative Physical Exam 2 Vital Signs: Vital Signs: Last Vital Signs Temp 97 F 08/14/23 07:56 Pulse 76 08/14/23 07:56 Resp 16 08/14/23 07:56 BP 119/58 L 08/14/23 07:56 Pulse Ox 98 08/14/23 07:56 O2 Del Method Room Air 08/14/23 07:56 BMI result Body Mass Index 16.0 Const: Other: General awake alert x3, resting comfortably in no acute distress. Neck supple no JVD. CVS regular rate rhythm, Respiratory lungs clear to auscultation, no respiratory distress, no wheeze, no rhonchi. Gastrointestinal abdomen soft, non tender, bowel sounds audible, no guarding , no rigidity. Extremities no edema. Musculoskeletal no joint deformity Neuro nonfocal Skin no rash Psych appropriate affect Objective Data Active Medications Acetaminophen (Acetaminophen 325 Mg Tablet) 650 mg PO Q6H PRN PRN Reason: Pain, Mild (Pain Scale 1-3) Calcium Carbonate (Calcium Carbonate 500 Mg Tablet) 500 mg PO DAILY [facility] Last Admin: 08/14/23 09:12 Dose: 500 mg Documented By: ROCK Carbidopa/Levodopa (Carbidopa/Levodopa 25/100 Tablet) 1 tab PO TID [facility] Last Admin: 08/14/23 09:12 Dose: 1 tab Documented By: ROCK Enoxaparin Sodium (Enoxaparin Sodium 40 Mg/0.4 Ml Syringe) 40 mg SUBCUT BID [facility] Last Admin: 08/14/23 09:13 Dose: 40 mg Documented By: ROCK Ferrous Sulfate (Ferrous Sulfate 324 Mg Tablet.) 324 mg PO DAILY [facility] Last Admin: 08/14/23 09:12 Dose: 324 mg Documented By: ROCK Hydrochlorothiazide (Hydrochlorothiazide 25 Mg Tablet) 25 mg PO DAILY [facility]; Protocol Last Admin: 08/14/23 09:16 Dose: 25 mg Documented By: ROCK Ceftriaxone Sodium 1 gm/ (Sodium Chloride) 50 mls @ 100 mls/hr IV Q24H [facility] Lorazepam (Lorazepam 1 Mg Tablet) 1 mg PO BEDTIME PRN PRN Reason: Insomnia Melatonin (Melatonin 3 Mg Tablet) 6 mg PO BEDTIME PRN PRN Reason: Insomnia Omeprazole (Omeprazole 40 Mg Capsule.Dr) 40 mg PO DAILY [facility] Last Admin: 08/14/23 09:12 Dose: 40 mg Documented By: ROCK Ondansetron HCl (Ondansetron Hcl 4 Mg/2 Ml Vial) 4 mg IVPUSH Q8H PRN PRN Reason: Nausea and Vomiting Potassium Chloride (Potassium Chloride Er 10 Meq Tablet.Er) 10 meq PO DAILY [facility] Last Admin: 08/14/23 09:12 Dose: 10 meq Documented By: ROCK Propranolol HCl (Propranolol Hcl 40 Mg Tablet) 80 mg PO BID [facility]; Protocol Last Admin: 08/14/23 09:12 Dose: 80 mg Documented By: ROCK Sodium Chloride (0.9 % Sodium Chloride Flush 3 Ml Syringe) 3 ml IVFLUSH QSHIFT [facility] Last Admin: 08/14/23 09:12 Dose: 3 ml Documented By: ROCK Labs 08/14/23 06:05 08/14/23 06:05 Labs: Laboratory Results - last 24 hr 08/13/23 08/13/23 08/13/23 17:21 17:22 18:01 MCV 93.6 MCH 31.0 MCHC 33.1 RDW 12.8 Plt Count 123 L D MPV 10.9 Immature Gran % (Auto) Cancelled Neut % (Auto) Cancelled Lymph % (Auto) Cancelled [place] % (Auto) Cancelled Eos % (Auto) Cancelled Baso % (Auto) Cancelled Lymph # (Auto) Cancelled [place] # (Auto) Cancelled Eos # (Auto) Cancelled Baso # (Auto) Cancelled Abs Immat Gran (auto) Cancelled Absolute Neuts (auto) Cancelled Absolute Nucleated RBC 0.000 Nucleated RBC % (auto) 0.0 Neutrophils % (Manual) 82 H Band Neutrophils % 14 H Lymphocytes % (Manual) 3 L Monocytes % (Manual) 1 L Abs Neuts (Manual) 10.1 H Lymphocytes # (Manual) 0.3 L Monocytes # (Manual) 0.1 Platelet Estimate NORMAL Plt Morphology Comment NORMAL RBC Morphology NORMAL Smear Tech's Comments MANUAL DIFF Anion Gap 14 Estim Creat Clear Calc 60.0 Estimated GFR > 60 Random Glucose 124 H Lactic Acid 1.0 Calcium 8.7 Total Bilirubin 0.9 Direct Bilirubin 0.3 AST 27 ALT 33 H Alkaline Phosphatase 56 Total Creatine Kinase B-Natriuretic Peptide 240 H Total Protein 6.3 L Albumin 3.7 Triglycerides Cholesterol LDL Cholesterol, Calc HDL Cholesterol Lipase 31 Urine Color Yellow Urine Appearance Clear Urine pH 5.0 Ur Specific [place] 1.010 Urine Protein Negative Urine Glucose (UA) Negative Urine Ketones Trace Urine Blood Negative Urine Nitrite Negative Ur Leukocyte Esterase Negative Influenza Type A (PCR) NEGATIVE Influenza Type B (PCR) NEGATIVE RSV RNA Qual (PCR) NEGATIVE SARS-CoV-2 RNA (RT-PCR) NEGATIVE 08/13/23 08/14/23 22:27 06:05 MCV 93.7 MCH 30.4 MCHC 32.5 RDW 12.6 Plt Count 112 L MPV 11.2 Immature Gran % (Auto) 0.3 Neut % (Auto) 68.9 Lymph % (Auto) 18.4 L [place] % (Auto) 10.2 Eos % (Auto) 2.0 Baso % (Auto) 0.2 Lymph # (Auto) 1.2 [place] # (Auto) 0.7 Eos # (Auto) 0.1 Baso # (Auto) 0.0 Abs Immat Gran (auto) 0.02 Absolute Neuts (auto) 4.5 Absolute Nucleated RBC 0.000 Nucleated RBC % (auto) 0.0 Neutrophils % (Manual) Band Neutrophils % Lymphocytes % (Manual) Monocytes % (Manual) Abs Neuts (Manual) Lymphocytes # (Manual) Monocytes # (Manual) Platelet Estimate Plt Morphology Comment RBC Morphology Smear Tech's Comments Anion Gap 10 L Estim Creat Clear Calc 39.9 Estimated GFR > 60 Random Glucose 93 Lactic Acid Calcium 8.3 L Total Bilirubin Direct Bilirubin AST ALT Alkaline Phosphatase Total Creatine Kinase 18 L B-Natriuretic Peptide Total Protein Albumin Triglycerides 82 Cholesterol 162 LDL Cholesterol, Calc 64 HDL Cholesterol 82 Lipase Urine Color Urine Appearance Urine pH Ur Specific [place] Urine Protein Urine Glucose (UA) Urine Ketones Urine Blood Urine Nitrite Ur Leukocyte Esterase Influenza Type A (PCR) Influenza Type B (PCR) RSV RNA Qual (PCR) SARS-CoV-2 RNA (RT-PCR) Assessment and Plan (1) Generalized weakness: Status: Acute (2) SIRS (systemic inflammatory response syndrome): Status: Acute (3) Elevated troponin: Status: Acute Plan 83-year-old female with a PMH significant for Parkinson's, hx of Guillain-Gifford syndrome, osteoporosis, HTN, GERD,?and hx of gastrectomy who presents to the ED for evaluation of generalized weakness, fever, and chills. Pt will be admitted to the hospital for treatment of NSTEMI and sepsis from unknown source. Elevated troponin Initial troponin 58.8 with repeat with delta change at 116.9, repeat troponin 52.2 Patient asymptomatic, EKG without significant ST elevations or depressions Follow Echocardiogram, LDL 64, total cholesterol 162 Case discussed with cardio , Dr. Mirza, he recommend echocardiogram and to consider aspirin and statin therapy elevated troponin likely secondary to myocardial injury related to underlying significant coronary disease with myocardial stress, stress-induced cardiomyopathy or myocardial inflammation. Monitor on telemetry SIRS criteria Admitted with Fever of 102.4, tachypnea of 22; lactic acid WNL at 1.0, No source of infection found UA negative for UTI, CXR negative for pneumonia, abdominal exam benign Patient tested negative for COVID, RSV, influenza types a and B Follow blood cultures will obtain respiratory viral panel, continue supportive care Generalized weakness Improving likely in the setting of viral infection and use of Ativan with history of Parkinson's disease Continue carbidopa levodopa PT eval HTN Continue home meds Anxiety/insomnia Continue Ativan GERD/IBS Continue omeprazole Full Code DVT Prophylaxis: Lovenox Pt will require continued inpatient hospitalization generalized weakness, myocardial injury and SIRS from an unknown source. Patient will need close cardiac monitoring, and specialist consultation. Quality Stroke Does the patient have a stroke diagnosis?: No VTE Prior VTE?: No VTE Risk Level:: Medical - moderate - high VTE Device Contraindication: Treatment Not Indicated VTE Drug Contraindication: N/A - Med Ordered
--- NOTE | 2023-08-14 12:44 | P.CNNE_ITS ---
History of Present Illness Data of Consult Service Date: 08/14/23 Primary Care Provider: Salbador Severino MD [facility] Reason for consult: Weakness and sepsis This is an 83-year-old female with a PMH significant for Parkinson's, benign familial tremor, hx of Guillain-[place] syndrome in 1965, idopathic peripheral neuropathy, osteoporosis, HTN, GERD,?and hx of gastrectomy who presents to the ED for evaluation of generalized weakness, fever, and chills. Patient lives alone and is mostly independent, still capable of making her food, doing her laundry, and driving. Patient normally walks on her own without assistance of either a cane or walker. Two nights prior on Monday she went out to eat with her grandchildren in her normal state of health when they dropped her off for the night. On Monday morning when they went to check on her they found her on the floor covered in a blanket. Patient denies fall, but states her knees gave out on her and she was unable to stand up. She was slightly confused, speaking slowly, and slurring her words. Patient is prescribed 1 mg Ativan p.r.n., and she took 4 mg of Ativan that night over a few hours thinking this would help her symptoms. Patient became more lucid as the day progressed, but was still weak and unable to ambulate on her own. On Monday she started shaking uncontrollably and this prompted the family to call 911. Patient herself currently complains of lower extremity weakness, but denies any other acute medical complaints. Denies chest pain/pressure, palpitations. No shortness of breath. Denies nausea, vomiting, abdominal pain. Has chronic diarrhea at baseline; denies any change to bowel or bladder habits. Of note, family states patient is under a great deal of stress lately. Patient's son-in-law suffered a pulmonary embolism in [place] and her daughter has been visiting him for the past 10 days. She was febrile up to 102.4, tachypneic up to 22, and hypertensive up to 190/92. Labs were significant for elevated neutrophils of 82, bandemia of 14, BNP 240, initial troponin 58.8 with repeat with delta change at 116.9. No leukocytosis, stable H&H. Electrolytes WNL. Renal and hepatic function largely WNL. UA negative for UTI. Influenza type a and B, RSV, COVID testing negative. CXR showed no acute cardiopulmonary process. CT?of head with no evidence of intracranial space-occupying mass, bleed, or infarct. Review of Systems 2 Review of Systems: Generalized weakness Inability to ambulate Fever, chills Altered mental status Denies nausea, vomiting, abdominal pain No change to bowel or bladder habit Denies chest pain/pressure, palpitations Constitutional: Constitutional: Reports chills, Reports fever(s) and Reports weakness Eyes: Eyes: Reports no additional eye complaints Cardiovascular: Cardiovascular: Reports no additional cardiovascular complaints Respiratory: Respiratory: Reports no additional respiratory complaints Gastrointestinal: Gastrointestinal: Reports no additional gastrointestinal complaints Musculoskeletal: Musculoskeletal: Reports no additional musculoskeletal complaints Integumentary/Breasts: Skin/Breast: Reports system reviewed and no additional complaints, except as docu Neurologic: Reports system reviewed and no additional complaints, except as documented and Reports weakness Psychiatric: Psychiatric: Reports no additional psychiatric complaints Endocrine: Endocrine: Reports no additional endocrine complaints PMFSH Past Medical History Medical History Guillain-[place] syndrome Fracture, wrist, open History of gastrectomy Parkinson disease High blood pressure Surgical History Surgical History Hx of arthroscopic knee surgery Hx of hysterectomy H/O pyloroplasty H/O vagotomy Hx of cholecystectomy History of esophagogastroduodenoscopy (EGD) Hx of colonoscopy Social History Social History Household Members: None Housing: Condominium Do you presently have visiting nurse or other home services: No Alcohol intake: former Comment: iv d/nicholas Patient Tobacco Use Status: Never used Tobacco Advance Directives Date on File: 08/14/23 service: No Current occupational status: retired Current occupation: rt handed Meds Allergies Allergy/AdvReac Type Severity Reaction Status Date / Time pregabalin [From LYRICA] Allergy Severe CONFUSION Verified 08/11/23 09:10 gabapentin [GABAPENTIN] Allergy Intermediate NAUSEA/VOMI Verified 08/11/23 09:10 TING amlodipine [From Norvasc] Allergy Unknown Verified 08/13/23 22:48 clarithromycin [From BIAXIN] AdvReac Intermediate NAUSEA & Verified 08/11/23 09:10 VOMITING codeine [CODEINE] AdvReac Intermediate NAUSEA & Verified 08/11/23 09:10 VOMITING fentanyl [From DURAGESIC] AdvReac Intermediate NAUSEA/VOMI Verified 08/11/23 09:10 TING levofloxacin [From LEVAQUIN] AdvReac Intermediate NAUSEA & Verified 08/11/23 09:10 VOMITING Active Medications: Current Medications Acetaminophen (Acetaminophen 325 Mg Tablet) 650 mg PO Q6H PRN PRN Reason: Pain, Mild (Pain Scale 1-3) Calcium Carbonate (Calcium Carbonate 500 Mg Tablet) 500 mg PO DAILY [facility] Last Admin: 08/14/23 09:12 Dose: 500 mg Carbidopa/Levodopa (Carbidopa/Levodopa 25/100 Tablet) 1 tab PO TID [facility] Last Admin: 08/14/23 09:12 Dose: 1 tab Enoxaparin Sodium (Enoxaparin Sodium 40 Mg/0.4 Ml Syringe) 40 mg SUBCUT BID [facility] Last Admin: 08/14/23 09:13 Dose: 40 mg Ferrous Sulfate (Ferrous Sulfate 324 Mg Tablet.) 324 mg PO DAILY [facility] Last Admin: 08/14/23 09:12 Dose: 324 mg Hydrochlorothiazide (Hydrochlorothiazide 25 Mg Tablet) 25 mg PO DAILY [facility]; Protocol Last Admin: 08/14/23 09:16 Dose: 25 mg Ceftriaxone Sodium 1 gm/ (Sodium Chloride) 50 mls @ 100 mls/hr IV Q24H [facility] Lorazepam (Lorazepam 1 Mg Tablet) 1 mg PO BEDTIME PRN PRN Reason: Insomnia Melatonin (Melatonin 3 Mg Tablet) 6 mg PO BEDTIME PRN PRN Reason: Insomnia Omeprazole (Omeprazole 40 Mg Capsule.) 40 mg PO DAILY [facility] Last Admin: 08/14/23 09:12 Dose: 40 mg Ondansetron HCl (Ondansetron Hcl 4 Mg/2 Ml Vial) 4 mg IVPUSH Q8H PRN PRN Reason: Nausea and Vomiting Potassium Chloride (Potassium Chloride Er 10 Meq Tablet.Er) 10 meq PO DAILY [facility] Last Admin: 08/14/23 09:12 Dose: 10 meq Propranolol HCl (Propranolol Hcl 40 Mg Tablet) 80 mg PO BID [facility]; Protocol Last Admin: 08/14/23 09:12 Dose: 80 mg Sodium Chloride (0.9 % Sodium Chloride Flush 3 Ml Syringe) 3 ml IVFLUSH QSHIFT [facility] Last Admin: 08/14/23 09:12 Dose: 3 ml Home Medications Medication Instructions Recorded Confirmed Last Taken Type lorazepam 0.5 mg tablet (Ativan) 1 mg PO BEDTIME PRN Insomnia 01/07/21 08/13/23 Unknown History carbidopa 25 mg-levodopa 100 mg 1 tab PO TID 07/27/21 08/13/23 11/11/21 06:30 History tablet propranolol 80 mg tablet 80 mg PO BID 01/24/22 08/13/23 Unknown History alendronate 70 mg tablet 70 mg PO QWEEK 07/01/22 08/13/23 Unknown History hydrochlorothiazide 25 mg tablet 25 mg PO DAILY 07/01/22 08/13/23 Unknown History potassium chloride 10 mEq 10 meq PO DAILY 07/01/22 08/13/23 Unknown History tablet,extended release calcium carbonate 500 mg calcium 500 mg PO DAILY 08/13/23 08/13/23 Unknown History (1,250 mg) chewable tablet (Calcium 500) ferrous sulfate 325 mg (65 mg 65 mg PO DAILY 08/13/23 08/13/23 Unknown History iron) capsule,extended release mesalamine 0.375 gram 1.5 g PO QAM PRN Diarrhea 08/14/23 08/14/23 Unknown History capsule,extended release 24 hr Physical Exam 2 Vital Signs: Vital Signs: Last Vital Signs Temp 98.4 F 08/14/23 11:44 Pulse 73 08/14/23 11:44 Resp 16 08/14/23 11:44 BP 107/51 L 08/14/23 11:44 Pulse Ox 98 08/14/23 11:44 O2 Del Method Room Air 08/14/23 11:44 BMI result Body Mass Index 16.0 Const: Other: General awake alert x3, resting comfortably in no acute distress. Neck supple no JVD. CVS regular rate rhythm, Respiratory lungs clear to auscultation, no respiratory distress, no wheeze, no rhonchi. Gastrointestinal abdomen soft, non tender, bowel sounds audible, no guarding , no rigidity. Extremities no edema. Musculoskeletal no joint deformity Neuro nonfocal Skin no rash Psych appropriate affect General: cooperative, comfortable, no acute distress, alert, awake and anxious Nutritional Appearance: thin Orientation/consciousness: patient oriented x3 HEENT: Head: Yes normocephalic and Yes atraumatic Neck: Neck: Yes trachea midline, Yes supple and Yes no JVD Resp: Effort & Inspection: normal respiratory effort Auscultation: clear to auscultation bilaterally Cardio: Jugular venous distension: no JVD Palpation: normal PMI Rate: r egular rate Rhythm: regular rhythm Heart sounds: S1 normal heart sound present, S2 normal heart sound present, no click, no gallops, no murmurs and no rubs GI: Auscultation: normal bowel sounds Skin: General skin exam: no rashes or lesions noted Neuro: Other: She is alert and oriented x3 with normal speech and language functions. She has pre-existing familial tremor involving her jaw and right hand. Muscle tone and strength are normal. Neck is supple her exam is completely nonfocal, and there is no leg weakness. She was able to make it to the bathroom and back on her own. General: patient oriented x3 and no focal motor deficits Extrem: General: Yes no clubbing, cyanosis or edema Results Labs 08/14/23 06:05 08/14/23 06:05 Labs: Short CBC 08/13/23 08/14/23 Range/Units 17:21 06:05 WBC 10.5 6.6 (4.8-10.8) X10*3/uL Hgb 13.0 11.6 L (12.0-16.0) g/dl Hct 39.3 35.7 L (37.0-47.0) % Plt Count 123 L D 112 L (160-400) X10*3/uL BMP 08/13/23 08/14/23 17:21 06:05 Sodium 140 141 Potassium 3.6 3.3 Chloride 103 103 Carbon Dioxide 27 31 H BUN 11 8 L Creatinine 0.80 0.73 Calcium 8.7 8.3 L Cardiac Enzymes 08/13/23 Range/Units 22:27 Total Creatine Kinase 18 L (26-140) U/L Liver Function 08/13/23 Range/Units 17:21 Total Bilirubin 0.9 (0.0-1.0) mg/dL Direct Bilirubin 0.3 (0.0-0.5) mg/dL AST 27 (5-31) U/L ALT 33 H (0-31) U/L Alkaline Phosphatase 56 (39-117) U/L Albumin 3.7 (3.5-5.0) g/dL Urine 08/13/23 Range/Units 18:01 Urine Color Yellow Urine Appearance Clear Urine pH 5.0 (5.0-9.0) Ur Specific [place] 1.010 (1.005-1.025) Urine Protein Negative (Neg-Trace) mg/dL Urine Glucose (UA) Negative (Negative) mg/dL Assessment and Plan (1) Elevated troponin: Status: Acute Elevated troponin this elderly woman with clear rise and fall suggestive myocardial injury. However this does not appear to be a primary acute coronary syndrome event and does not require any anticoagulation. Possibilities include secondary myocardial injury related to underlying significant coronary disease with myocardial stress, stress-induced cardiomyopathy and/or myocardial inflammation related to systemic inflammation. Management of this would be conservative. If blood pressure allows can add metoprolol to her regimen. Can also consider aspirin and statin therapy. Echocardiogram tomorrow should be requested. She should have workup for underlying cause of her fever and chills and systemic inflammatory syndrome and treat that aggressively. Once patient is stable and this primary acute event has resolved can perform outpatient myocardial perfusion imaging. Findings were discussed with her and her daughter at bedside. Will sign of the case. Thank you for allowing me to partake in her care (2) Generalized weakness: Status: Acute She appears to have had some sort of a viral illness with fever of 102, chills and shaking, and generalized weakness that made it difficult for her to walk. She is now afebrile, and all of her symptoms are resolved. Her slurring of speech and altered mental status was probably related to an overdose of Ativan and which is now out of her system. Her workup has not showwn any evidence of bacterial infection. Neurologically, she is back to her baseline. Recommendations observation for another 24 hours and then she can be discharged on her usuaal medications. Procedures Date of Service Date of Service: 08/14/23
[2023-08-14] MEDS: cefTRIAXone sodium 1 GM in 0.9 % Sodium Chloride 50 ML IV (17:39)
--- NOTE | 2023-08-14 18:28 | PC.NURSE ---
Pt alert and oriented x4. RICHARDS to command with generalized weakness. LSCTA denies SOB or CP, NSR on tele. BS+X4 abdomen soft non-tender denies nausea/vomiting tolerating diet. Voiding without difficulty. OOB with assist per Dr Demarcus araiza for family to ambulate patient to bathroom. Denies pain/discomfort. Per pt feeling better than yesterday. Continues IV antibiotics per order. Respiratory panel sent per order. Family remains at bedside with patient during shift. Will continue to monitor and report changes
[2023-08-14] MEDS: LORazepam 1 MG TABLET PO (22:20)
[2023-08-15 03:56] VITALS: BP 109/44; PULSE 68; RESP 16; TEMP 36.7; O2SAT 98
--- NOTE | 2023-08-15 07:00 | CA_ITS ---
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 The calculated ejection fraction is 63% by biplane method. - There is mildly increased left ventricular wall thickness. - No obvious valvular pathology seen on this study. Findings Procedure Information Contrast agent, definity, is being given per protocol without apparent complications. Left Ventricle Normal left ventricular cavity size. There is mildly increased left ventricular wall thickness. The left ventricular systolic function is normal. The calculated ejection fraction is 63% by biplane method. There is no evidence of regional wall motion abnormalities. Diastolic function is normal for age. Right Ventricle Normal right ventricular cavity size and systolic function. Atria Both atria are normal in size. Aortic Valve There is mild calcification of the aortic valve. There is no aortic valve stenosis. There is no aortic valve regurgitation. Mitral Valve The mitral valve appears normal. There is no mitral valve regurgitation. There is no mitral valve stenosis. Pulmonic Valve The pulmonic valve is likely normal. Tricuspid Valve Normal tricuspid valve structure. There is mild tricuspid valve regurgitation. There is no evidence of pulmonary hypertension. Great Vessels The asc aorta is normal in size. Venous The inferior vena cava is normal in size and collapses greater than 50% with inspiration. Pericardium/Pleural There is a trivial pericardial effusion. Prior Study Comparison No significant change compared to prior study dated: 08/31/2017. Recommendations, Care & Conclusions No obvious valvular pathology seen on this study. Measurements 2D Linear Measurements IVSd: 1.24 0.6-0.9/0.6-1.0 cm LVIDd: 2.95 3.9-5.3/4.2-5.9 cm LVIDd Index: 2.03 2.4-3.2/2.2-3.1 cm/m2 LVIDs: 1.93 2.0-3.6 cm LVPWd: 1.21 0.7-1.1 cm LA Diam: 2.40 2.7-3.8/3.0-4.0 cm LAIDs Index: 1.66 1.5-2.3 cm/m2 LV Mass: 137.06 67-162/88-224 g LV Mass Index: 94.53 43-95/49-115 g/m2 LVOT Diam: 1.90 3.0+(-)1.3 cm 2D Systolic Function EF 4C: 62.70 >55% EF 2C: 63.60 >55% EF BiP: 62.60 >55% Mitral Valve MV Pk E: 0.71 MV PK A: 0.68 MV Decel Time: 191.00 E/A: 1.10 E'Lateral: 3.37 E'Medial: 5.66 E/E' Med: 12.60 E/E' Lat: 21.10 PHT: 56.00 MVA PHT: 3.93 Decel [place]: 3.72 Aortic Valve AoV Pk Jah: 1.28 AoV Mn Jah: 0.83 AoV VTI: 0.28 AoV Pk Grad: 7.00 Aov Mn Grad: 3.00 JESSICA Cont.VTI: 2.21 LVOT LVOT Pk Jah: 0.99 LVOT Mn Jah: 0.66 LVOT VTI: 0.22 LVOT Pk Grad: 4.00 LVOT Mn Grad: 2.00 LVOT Diam: 1.90 LVOT Area: 2.84 Diastolic Function MV Pk E: 0.71 MV Pk A: 0.68 E/A: 1.10 E'Medial: 5.66 E/E' Med: 12.60 E' Laterial: 3.37 E/E' Lat: 21.10 Right Ventricle TAPSE (mm): 28.30 TVS' Jah: 11.40 Tricuspid Valve TR Pk Jah: 2.37 TR Pk Grad: 22.00 RA Press: 3.00 RVSP: 25.00 Great Vessels Aorta Sinus of Valsalva: 2.70 2.0-3.5 cm Ao Asc: 2.50 2.1-3.4 cm Pulmonary Valve PV Pk Jah: 0.90 Peak PV Grad: 3.00 Updated in Other Vendor System with Status of Final Lowell Melvin MD electronically signed on 08/15/2023 10:28:49 AM with status of Final
[2023-08-15 08:00] VITALS: BP 115/57; PULSE 79; RESP 20; TEMP 37.2; O2SAT 99
[2023-08-15] MEDS: Carbidopa/Levodopa 25/100 TABLET 1 TAB PO (08:29)
[2023-08-15] MEDS: 0.9 % Sodium Chloride Flush 3 ML SYRINGE IVFLUSH (08:29)
[2023-08-15] MEDS: Propranolol HCL 40 MG TABLET 80 MG PO (08:29)
[2023-08-15] MEDS: Potassium Chloride ER 10 MEQ TABLET.ER PO (08:29)
[2023-08-15] MEDS: Omeprazole 40 MG CAPSULE.DR PO (08:29)
[2023-08-15] MEDS: Ferrous Sulfate 324 MG TABLET.DR PO (08:29)
[2023-08-15] MEDS: hydroCHLOROthiazide 25 MG TABLET PO (08:29)
[2023-08-15 08:35] LABS: Adenovirus PCR Not Detected (Not Detect.); Bordetella parapertussis PCR Not Detected (Not Detect.); Bordetella pertussis PCR Not Detected (Not Detect.); Chlamydia pneumoniae PCR Not Detected (Not Detect.); Coronavirus 229E PCR Not Detected (Not Detect.); Coronavirus HKU1 PCR Not Detected (Not Detect.); Coronavirus NL63 PCR Not Detected (Not Detect.); Coronavirus OC43 PCR Not Detected (Not Detect.); Human metapneumovirus PCR Not Detected (Not Detect.); Influenza A PCR Not Detected (Not Detect.); Influenza B PCR Not Detected (Not Detect.); Mycoplasma pneumoniae PCR Not Detected (Not Detect.); Parainfluenza 1 PCR Not Detected (Not Detect.); Parainfluenza 2 PCR Not Detected (Not Detect.); Parainfluenza 3 PCR Not Detected (Not Detect.); Parainfluenza 4 PCR Not Detected (Not Detect.); RSV PCR Not Detected (Not Detect.); Rhino/Enterovirus PCR Not Detected (Not Detect.); SARS-CoV-2 PCR Not Detected (Not Detect.)
--- NOTE | 2023-08-15 12:05 | PM.DS ---
DS: Providers Provider Date of Service: 08/15/23 Date of admission: 08/13/23 19:51 Primary care physician: Salbador Severino MD Consults: 08/13/23 21:49 Consult to Cardiology Routine Consulting Provider: [facility] Reason for consultation: NSTEMI 08/13/23 22:49 Consult to Neurology Routine Consulting Provider: [facility] Reason for consultation: Sudden onset lower extremity weakness, hx of GBS and Parkinson's DS: Diagnosis Discharge Diagnosis (1) Elevated troponin: Status: Acute (2) Generalized weakness: Status: Acute DS: Summary Hospital Course Hospital Course: History of presenting illness: Date of Service: 08/13/23 Attending physician on admission: Maria Freire Chief Complaint: Generalized weakness, fever, chills Pt is an 83-year-old female with a PMH significant for Parkinson's, hx of Guillain-[place] syndrome, osteoporosis, HTN, GERD,?and hx of gastrectomy who presents to the ED for evaluation of generalized weakness, fever, and chills. Family at bedside to help supplement HPI. Patient lives alone and is mostly independent, still capable of making her food, doing her laundry, and driving. However she does get help from daughter who normally visits 5 days a week. Patient normally walks on her own without assistance of either a cane or walker. Two nights prior on Monday she went out to eat with her grandchildren and they report she was in her normal state of health when they dropped her off for the night. On Monday morning when they went to check on her they found her on the floor covered in a blanket. Patient denies fall, but states her knees gave out on her and she was unable to stand up. Family found her slightly confused, speaking slowly, and slurring her words. Patient is prescribed 1 mg Ativan p.r.n., and there is some uncertainty if she took up to 4 mg of Ativan that night thinking this would help her symptoms. Patient became more lucid as the day progressed, but was still weak and unable to ambulate on her own. This afternoon patient suddenly started shaking uncontrollably and this prompted the family to call 911. Patient herself currently complains of lower extremity weakness, but denies any other acute medical complaints. Denies chest pain/pressure, palpitations. No shortness of breath. Denies nausea, vomiting, abdominal pain. Has chronic diarrhea at baseline; denies any change to bowel or bladder habits. Of note, family states patient is under a great deal of stress lately. Patient's son-in-law suffered a pulmonary embolism in [place] and her daughter has been visiting him for the past 10 days. In the ED pt was febrile up to 102.4, tachypneic up to 22, and hypertensive up to 190/92. Labs were significant for elevated neutrophils of 82, bandemia of 14, BNP 240, initial troponin 58.8 with repeat with delta change at 116.9. No leukocytosis, stable H&H. Electrolytes WNL. Renal and hepatic function largely WNL. UA negative for UTI. Influenza type a and B, RSV, COVID testing negative. CXR showed no acute cardiopulmonary process. CT?of head with no evidence of intracranial space-occupying mass, bleed, or infarct. EKG demonstrated normal sinus rhythm without evidence of significant ST elevations depressions. Pt was treated with ceftriaxone and IVF. Pt will be admitted to the hospital for treatment of NSTEMI and sepsis from unknown source. Hospital course: 83-year-old female with a PMH significant for Parkinson's, hx of Guillain-[place] syndrome, osteoporosis, HTN, GERD,?and hx of gastrectomy who presents to the ED for evaluation of generalized weakness, fever, and chills. Pt will be admitted to the hospital for treatment of NSTEMI and sepsis from unknown source. Elevated troponin Initial troponin 58.8 with repeat with delta change at 116.9, repeat troponin 52.2, patient had no symptoms of chest pain EKG showed no acute ischemic changes LDL 64, total cholesterol 162, echocardiogram showed no evidence of wall motion abnormality, normal diastolic function and stable EF ,patient seen by Dr. Mirza, he felt elevated troponin likely secondary to myocardial injury related to underlying significant coronary artery disease with myocardial stress, or due to myocardial inflammation, since echo is unremarkable patient asymptomatic she is being discharged home with recommendation to have close outpatient follow-up with PCP and Cardiology as needed. SIRS admitted with Fever of 102.4, tachypnea of 22; lactic acid WNL at 1.0, ,No source of infection found UA negative for UTI, CXR negative for pneumonia, abdominal exam benign Patient tested negative for COVID, RSV, influenza types A and B, respiratory viral panel, blood cultures x2 negative since patient is clinically stable she is being discharged home likely symptoms due to viral syndrome versus extra dosages of Ativan. Generalized weakness improved seen by Physical therapy they recommend no further therapy, Continue carbidopa levodopa HTN Continue home meds Anxiety/insomnia Continue Ativan GERD/IBS Continue omeprazole and mesalamine and f/u with Dr John. Time Attestation Discharge coordination time: Greater than 30 minutes Quality: Safe Use of Opioids Does Pt have an Active Cancer Diagnosis on the Problem List?: No Quality: Stroke Does the patient have a stroke diagnosis?: No Physical Exam Vital Signs: Vital Signs: Last Vital Signs Temp 98.9 F 08/15/23 08:00 Pulse 79 08/15/23 08:00 Resp 20 08/15/23 08:00 BP 115/57 L 08/15/23 08:00 Pulse Ox 99 08/15/23 08:00 O2 Del Method Room Air 08/15/23 08:00 BMI result Body Mass Index 16.0 Const: Other: General awake alert x3, resting comfortably in no acute distress. Neck supple no JVD. CVS regular rate rhythm, Respiratory lungs clear to auscultation, no respiratory distress, no wheeze, no rhonchi. Gastrointestinal abdomen soft, non tender, bowel sounds audible, no guarding , no rigidity. Extremities no edema. Musculoskeletal no joint deformity Neuro non focal Skin no rash Psych appropriate affect DS: Data Data Completed and Pending Labs on day of discharge: Laboratory Results - last 24 hr 08/14/23 15:45 Respiratory Panel Chow See Note Adenovirus (Rapid PCR) Not Detected B.pert (TEM-PCR) Not Detected B.parapertussis DNA PCR Not Detected C. pneumoniae DNA (PCR) Not Detected Coronavirus OC43 (PCR) Not Detected Coronavirus HKU1 (PCR) Not Detected Coronavirus 229E (PCR) Not Detected Coronavirus NL63 (PCR) Not Detected Human Metapneumovir PCR Not Detected Influenza A (RT-PCR) Not Detected Influenza B (RT-PCR) Not Detected M. pneumoniae (PCR) Not Detected Parainfluenza 1 (PCR) Not Detected Parainfluenza 2 (PCR) Not Detected Parainfluenza 3 (PCR) Not Detected Parainfluenza 4 (PCR) Not Detected RSV (PCR) Not Detected Entero/Rhino (PCR) Not Detected SARS-CoV-2 RNA (RT-PCR) Not Detected Preliminary micro results at discharge 08/13/23 17:21 Blood Culture - Preliminary Blood - Venous No growth after 24 hours. 08/13/23 17:23 Blood Culture - Preliminary Blood - Venous No growth after 24 hours. Discharge Plan Discharge Anticipated Discharge Date/Time: 08/15/23 10:32 Patient Disposition: Home, Self-Care Discharge Diagnosis: Generalized weakness SIRS elevated troponin Referrals: Salbador Severino MD [Primary Care Provider] - 1 Week Discharge Medications: Continued omeprazole 40 mg capsule,delayed release(DR/EC) 40 mg PO DAILY Qty: 90 3RF calcium carbonate [Calcium 500] 500 mg calcium (1,250 mg) Tablet,Chewable 500 mg PO DAILY ferrous sulfate 325 mg (65 mg iron) Capsule, Extended Release 65 mg PO DAILY mesalamine 0.375 gram capsule,extended release 24hr 1.5 g PO QAM PRN (Reason: Diarrhea) lorazepam [Ativan] 0.5 mg tablet 1 mg PO BEDTIME PRN (Reason: Insomnia) propranolol 80 mg tablet 80 mg PO BID carbidopa-levodopa 25-100 mg tablet 1 tab PO TID alendronate 70 mg tablet 70 mg PO QWEEK Rx Instructions: Q Monday potassium chloride 10 mEq tablet extended release 10 meq PO DAILY hydrochlorothiazide 25 mg tablet 25 mg PO DAILY Discharge Orders: Discharge Order (Routine); Ordered 08/15/23 Ordered By: Buddy Tracy Diet: Advance to usual diet Activity on Discharge: As tolerated Stand Alone Forms: Patient Portal Discharge page Care Plan Goals: Continue all home medications as before Generalized weakness improved Myocardial stress injury Health Concerns: Hypertension /anxiety/GERD Plan of Treatment: Follow-up with primary care physician call for appointment. Assessment: as above Discharge Date/Time: 08/15/23 11:52
--- NOTE | 2023-08-15 12:08 | MHC.CM.PN ---
Pt medically cleared for D/C home self-care, pts daughter to transport her home.
== END 2023-08-15 11:52 | disposition home or self-care (01) | DRG 948 ==
LOC: HO.ED 20:10 → HO.EDOVER 20:13 → HO.IMC 08-14 00:32
PROVIDERS: Student in an Organized Health Care Education/Training Program; Admitting Provider Student in an Organized Health Care Education/Training Program; Emergency Provider Emergency Medicine; PCP Internal Medicine; Visit Provider Hospitalist
DX: R53.1 Weakness (principal); R65.10 Systemic inflammatory response syndrome (SIRS) of non-infectious origin without acute organ dysfunction; R79.89 Other specified abnormal findings of blood chemistry; G20.A1 Parkinson's disease without dyskinesia, without mention of fluctuations; I10 Essential (primary) hypertension; K21.9 Gastro-esophageal reflux disease without esophagitis; K52.89 Other specified noninfective gastroenteritis and colitis; Z20.822 Contact with and (suspected) exposure to COVID-19; Z79.899 Other long term (current) drug therapy
CPT/HCPCS: 0241U; 36415; 70450; 71045; 80048; 80061; 80076; 81003; 82550; 83605; 83690; 83880; 84484; 85007; 85025; 85027; 87040; 87633; 93005; 93306; 97161; 99222; 99285; J0696; J1650; Q9957

== ENCOUNTER → 2023-08-13 17:09 | Outpatient (BNV) | payer MEDICARE, SELFPAY | PROVIDERS: Admitting Provider Student in an Organized Health Care Education/Training Program; Emergency Provider Emergency Medicine; PCP Internal Medicine; Visit Provider Internal Medicine Cardiovascular Disease | DX: R41.82 Altered mental status, unspecified (principal) | CPT/HCPCS: 93010 ==

== ENCOUNTER 2023-08-13 19:51 | Outpatient (BNV) | payer MEDICARE, SELFPAY | END 2023-08-15 07:00 | PROVIDERS: Admitting Provider Student in an Organized Health Care Education/Training Program; Emergency Provider Emergency Medicine; PCP Internal Medicine; Visit Provider Internal Medicine | DX: I21.4 Non-ST elevation (NSTEMI) myocardial infarction (principal) | CPT/HCPCS: 93306 ==

== ENCOUNTER → 2023-08-13 19:51 | Outpatient (BNV) | payer MEDICARE, SELFPAY | PROVIDERS: Admitting Provider Student in an Organized Health Care Education/Training Program; Emergency Provider Emergency Medicine; PCP Internal Medicine; Visit Provider Student in an Organized Health Care Education/Training Program | DX: R79.89 Other specified abnormal findings of blood chemistry (principal); R53.1 Weakness | CPT/HCPCS: 99223; 99233; 99239 ==

== ENCOUNTER → 2023-08-13 19:51 | Outpatient (BNV) | payer MEDICARE, SELFPAY | PROVIDERS: Admitting Provider Student in an Organized Health Care Education/Training Program; Emergency Provider Emergency Medicine; PCP Internal Medicine; Visit Provider Internal Medicine Cardiovascular Disease | DX: R79.89 Other specified abnormal findings of blood chemistry (principal) | CPT/HCPCS: 99222 ==

== ENCOUNTER 2023-08-16 14:09 | Outpatient (REF) | payer MEDICARE, SELFPAY | END 2023-08-16 14:10 | disposition home or self-care (01) | LOC: HO.HMGCX 14:09 | PROVIDERS: PCP Internal Medicine; Visit Provider Internal Medicine | DX: M54.50 Low back pain, unspecified (principal) | CPT/HCPCS: 72110 ==

== ENCOUNTER 2023-08-17 20:04 | Inpatient (IN) | payer MEDICARE, SELFPAY ==
--- NOTE | ~2023-08-17 | US_ITS ---
EXAMINATION: US VENOUS ULTRASOUND WITH DOPPLER LOWER EXTREMITY, BILATERAL CLINICAL INFORMATION: Fevers, high d-dimer COMPARISON: None available. TECHNIQUE: Ultrasound of the deep veins is performed from the hip to the calf with compression sonography and color and pulse Doppler assessment. Spectral analysis with color-flow imaging is performed. FINDINGS: RIGHT: There is normal venous compression and respiratory variation and augmented flow. The visualized common femoral vein, superficial femoral vein, profunda femoral vein, popliteal vein, and the trifurcation region shows no evidence of deep venous thrombosis. There is no significant popliteal fossa cyst. LEFT: There is normal venous compression and respiratory variation and augmented flow. The visualized common femoral vein, superficial femoral vein, profunda femoral vein, popliteal vein, and the trifurcation region shows no evidence of deep venous thrombosis. There is no significant popliteal fossa cyst. If the patient's symptoms persist, followup ultrasound in 5 days 7 days might be of value to exclude proximal propagation from a non-visualized calf vein. US/US venous duplex LE BI IMPRESSION: No DVT demonstrated in the bilateral lower extremities.
--- NOTE | ~2023-08-17 | CT_ITS ---
EXAMINATION: CT ABDOMEN AND PELVIS WITH CONTRAST CLINICAL INFORMATION: Recurrent fevers with no clear signs of infection. COMPARISON: None available. TECHNIQUE: Multidetector volumetric images were obtained from the superior aspect of the liver through the pubic symphysis following administration 85 mL of Omnipaque 350 intravenous contrast. Sagittal and coronal reformatted images were obtained on the technologist's workstation. Oral contrast: No This CT examination was performed using dose optimization techniques as appropriate, variously including the following: *Automated exposure control *Adjustment of mA and/or kV according to patient size (this includes techniques or standardized protocols for targeted exams where dose is matched to indication/reason for exam; i.e. extremities or head) *Use of iterative reconstruction technique DLP: 189 mGy-cm FINDINGS: DIRECT MAIL MARKETER: Nonobstructive bowel pattern. Right lower quadrant calcification. Left base atelectasis. LUNG BASES: Small right pleural effusion and bibasilar atelectasis, left greater than right. Nonenlarged heart. No pericardial effusion. LIVER, GALLBLADDER, AND BILIARY TREE: The liver is normal in size, shape, and attenuation. Too small to characterize upper right hepatic hypodensities, statistically cysts. No biliary ductal dilatation is present. The gallbladder has been removed. Postcholecystectomy common bile duct measures 8 mm. PANCREAS: 7 mm pancreatic hypodensity, 3:27. Unchanged mild prominence pancreatic head portion of the pancreatic duct. SPLEEN: Unremarkable. ADRENAL GLANDS: Unremarkable. KIDNEYS AND URETERS: The kidneys are symmetrically perfused, right kidney is ptotic.. No hydronephrosis, hydroureter, or the calculi seen. No perinephric stranding. BLADDER: Moderately distended with mild loss. GASTROINTESTINAL TRACT: Stomach is decompressed. Evaluation of bowel significantly limited without oral contrast. No dilated air-fluid small bowel loops. Degenerative mildly thickened small bowel tam not excluded. Appendix not identified with certainty. Mild to moderate fecal retention. ABDOMINAL WALL: No significant hernia is appreciated. LYMPH NODES: Normal. VASCULAR: Atherosclerotic calcifications nonaneurysmal aorta and iliac arteries. Unremarkable inferior vena cava. Patent portal system. PELVIC VISCERA: New pelvic pathology. Phleboliths. PERITONEUM: Small amount of perihepatic and right lower quadrant fluid. Moderate free pelvic fluid. OSSEOUS STRUCTURES: Mild anterolisthesis L3 on L4 with disc space narrowing. No suspicious osseous lesions. CT/CT abdomen pelvis w IV con IMPRESSION: Moderate free pelvic fluid of indeterminate etiology, not previously identified. 7 mm pancreatic hypodensity. Consider pancreatic protocol MRI. Study limited without oral contrast. Mild small bowel wall thickening not excluded. Fleischner guidelines were followed.
--- NOTE | ~2023-08-17 | XR_ITS ---
EXAMINATION: XR CHEST CLINICAL INFORMATION: Fever and chills. COMPARISON: Chest radiograph 08/13/2023 and 07/02/2021. TECHNIQUE: Frontal view of the chest was obtained. FINDINGS: Unchanged mild chronic interstitial thickening and lung hyperexpansion. No new focal airspace opacities, pleural effusion or pneumothorax. Normal heart size. Mild atherosclerotic disease of the aortic arch. No acute osseous findings. XR/XR chest 1V IMPRESSION: 1. No acute cardiopulmonary findings. 2. Chronic interstitial thickening and lung hyperexpansion suggesting underlying COPD/emphysema.
--- NOTE | 2023-08-17 20:11 | ECG_ITS ---
Test Reason : SYNCOPE Blood Pressure : / mmHG Vent. Rate : 076 BPM Atrial Rate : 076 BPM P-R Int : 188 ms QRS Dur : 064 ms QT Int : 380 ms P-R-T Axes : 053 039 069 degrees QTc Int : 427 ms Artifact in tracing Normal sinus rhythm Septal infarct , age undetermined cannot exclude Inferior infarct (cited on or before 13-AUG-2023) Abnormal ECG When compared with ECG of 13-AUG-2023 19:23, Septal infarct is now Present Referred By: Jono Maki Electronically Signed By:CAMILO LUDWIG
[2023-08-17 20:16] VITALS: BP 126/90; PULSE 80; TEMP 38.3; O2SAT 100; BMI 15.9
[2023-08-17] MEDS: Acetaminophen 325 MG TABLET 975 MG PO (20:32)
[2023-08-17] MEDS: 0.9 % Sodium Chloride 1,000 ML 999 ML IVCONT ×2 (20:32→21:35)
[2023-08-17 20:33] LABS: Hematocrit 35.2 % (37.0-47.0); Hemoglobin 11.4 g/dl (12.0-16.0); Mean Corpuscular HGB Conc 32.4 g/dl (31.0-35.0); Mean Corpuscular Hemoglobin 31.1 pg (27.0-33.0); Mean Corpuscular Volume 95.9 fL (80.0-98.0); Mean Platelet Volume 10.6 fL (9.4-12.3); Platelet Count 201 X10*3/uL (160-400); Red Blood Count 3.67 X10*6/uL (4.20-5.50); Red Cell Distribution Width 12.1 % (11.0-16.0)
--- NOTE | 2023-08-17 20:36 | ED_ITS ---
HPI - Syncope General Chief Complaint: Syncope Stated Complaint: 2 ep of syncope, a fib on monitor Time Seen by Provider: 08/17/23 20:07 Source: patient and EMS Mode of arrival: EMS Limitations: no limitations History of Present Illness HPI narrative: Patient with 2 syncopal episodes at home. Patient with just discharged with fever of unknown origin had been doing better until today. Patient started today with shaking chills, had a syncopal event on the toilet and then another on the couch. Patient became febrile at home low grade. Denies other symptoms, patient was concerned that she was in atrial fibrillation MD complaint: loss of consciousness Onset (ago): minute(s) -: second(s) Related Data Home Medications Medication Instructions Recorded Confirmed lorazepam 0.5 mg tablet (Ativan) 1 mg PO BEDTIME PRN Insomnia 01/07/21 08/17/23 carbidopa 25 mg-levodopa 100 mg 1 tab PO TID 07/27/21 08/17/23 tablet propranolol 80 mg tablet 80 mg PO BID 01/24/22 08/17/23 alendronate 70 mg tablet 70 mg PO QWEEK 07/01/22 08/17/23 hydrochlorothiazide 25 mg tablet 25 mg PO DAILY 07/01/22 08/17/23 potassium chloride 10 mEq 10 meq PO DAILY 07/01/22 08/17/23 tablet,extended release calcium carbonate 500 mg calcium 500 mg PO DAILY 08/13/23 08/17/23 (1,250 mg) chewable tablet (Calcium 500) ferrous sulfate 325 mg (65 mg 65 mg PO DAILY 08/13/23 08/17/23 iron) capsule,extended release mesalamine 0.375 gram 1.5 g PO QAM PRN Diarrhea 08/14/23 08/17/23 capsule,extended release 24 hr Previous Rx's Medication Instructions Recorded omeprazole 40 mg capsule,delayed 40 mg PO DAILY #90 caps 02/01/23 release Allergies Allergy/AdvReac Type Severity Reaction Status Date / Time pregabalin [From LYRICA] Allergy Severe CONFUSION Verified 08/11/23 09:10 gabapentin [GABAPENTIN] Allergy Intermediate NAUSEA/VOMI Verified 08/11/23 09:10 TING amlodipine [From Norvasc] Allergy Unknown Verified 08/13/23 22:48 clarithromycin [From BIAXIN] AdvReac Intermediate NAUSEA & Verified 08/11/23 09:10 VOMITING codeine [CODEINE] AdvReac Intermediate NAUSEA & Verified 08/11/23 09:10 VOMITING fentanyl [From DURAGESIC] AdvReac Intermediate NAUSEA/VOMI Verified 08/11/23 09:10 TING levofloxacin [From LEVAQUIN] AdvReac Intermediate NAUSEA & Verified 08/11/23 09:10 VOMITING Review of Systems 2 Review of Systems: Yes all other systems are reviewed and are negative Neurologic: Denies Sensory deficit (Neuro) [facility] Past Medical History Medical History Guillain-[place] syndrome Fracture, wrist, open History of gastrectomy Parkinson disease High blood pressure Surgical History Hx of arthroscopic knee surgery Hx of hysterectomy H/O pyloroplasty H/O vagotomy Hx of cholecystectomy History of esophagogastroduodenoscopy (EGD) Hx of colonoscopy Social History Social History Household Members: None Housing: Condominium Do you presently have visiting nurse or other home services: No Alcohol intake: former Comment: bed exit alarm off per pt / pt daughter request; daughter Roxanna at bedside Patient Tobacco Use Status: Never used Tobacco Smoked in Last 30 Days: No Use of substances other than those prescribed or required for medical reasons: No Advance Directives: Yes Advance Directives Information Provided: No Advance Directives on File: No Advance Directives Date on File: 08/14/23 service: No Current occupational status: retired Current occupation: rt handed Physical Exam 2 Vital Signs: Vital Signs: Last Vital Signs Temp 99.7 F 08/17/23 21:34 Pulse 78 08/17/23 21:34 Resp 20 08/17/23 21:34 BP 95/40 L 08/17/23 21:34 Pulse Ox 98 08/17/23 21:34 O2 Del Method Room Air 08/17/23 21:34 BMI result Body Mass Index 15.9 Const: Other: emaciated female tremulous Orientation/consciousness: oriented to person and patient oriented x3 L imitations: no limitations HEENT: Head: Yes normal to inspection Ears: external ears normal General nose exam: Normal external nose present Mouth: Normal oral and palatal mucosa present and oropharynx normal Throat: Yes posterior oropharynx normal Eyes: General: appearance normal, both eyes and all related structures Neck: Other: supple Neck: Yes normal visual inspection Chest: Chest palpation & inspection: normal inspection of the chest Resp: Auscultation: clear to auscultation bilaterally Cardio: Jugular venous distension: no JVD Rate: regular rate Rhythm: r egular rhythm Heart sounds: S1 normal heart sound present and S2 normal heart sound present GI: Inspection: Yes normal to inspection Palpation (GI): Soft to palpation, nontender and No hepatosplenomegaly present Auscultation: normal bowel sounds : General: Yes no CVA tenderness Back/Spine/Pelvis: Back: no CVA tenderness Skin: General skin exam: no rashes or lesions noted Neuro: General: oriented to person and patient oriented x3 Cranial nerves: Yes CN's II-XII intact bilaterally Motor exam (neuro): 5/5 motor strength present throughout Sensory Exam: No Sensory deficit (Neuro) Extrem: General: Yes normal to inspection Psych: Appearance: grossly normal Medications Administered Generic Name Dose Route Start Last Admin Trade Name Freq PRN Reason Stop Dose Admin Sodium Chloride 1,000 mls @ 999 mls/hr 08/17/23 20:30 08/17/23 20:32 Ns IVCONT 08/17/23 22:30 999 mls/hr .Q1H1M MARIA D Administration Discontinued Medications Generic Name Dose Route Start Last Admin Trade Name Freq PRN Reason Stop Dose Admin Acetaminophen 975 mg 08/17/23 20:18 08/17/23 20:32 Acetaminophen 325 Mg Tablet PO 08/17/23 20:19 975 mg ONCE ONE Administration Medical Decision Making Differential Diagnosis Differential Diagnoses: The differential diagnosis associated with the presentation includes (fever, syncope, uti, pneumonia, COVID, RSV, flu were all considered, in addition to arrythmia) Admission/Observation Consideration of admission/observation: Escalation of care including admission/observation considered (upon arrival patient considered for admission) Consult Healthcare Provider Management of the patient was discussed with: Hospitalist Lab Data 08/17/23 20:26 08/17/23 20:26 Labs: Lab Results 08/17/23 08/17/23 Range/Units 20:26 20:49 WBC 13.0 H (4.8-10.8) X10*3/uL RBC 3.67 L (4.20-5.50) X10*6/uL Hgb 11.4 L (12.0-16.0) g/dl Hct 35.2 L (37.0-47.0) % MCV 95.9 (80.0-98.0) fL MCH 31.1 (27.0-33.0) pg MCHC 32.4 (31.0-35.0) g/dl RDW 12.1 (11.0-16.0) % Plt Count 201 D (160-400) X10*3/uL MPV 10.6 (9.4-12.3) fL Immature Gran % (Auto) Cancelled Neut % (Auto) Cancelled Lymph % (Auto) Cancelled [place] % (Auto) Cancelled Eos % (Auto) Cancelled Baso % (Auto) Cancelled Lymph # (Auto) Cancelled [place] # (Auto) Cancelled Eos # (Auto) Cancelled Baso # (Auto) Cancelled Abs Immat Gran (auto) Cancelled Absolute Neuts (auto) Cancelled Absolute Nucleated RBC 0.000 (0.0-0.012) X10*3/uL Nucleated RBC % (auto) 0.0 (0.0-0.2) /100WBC Neutrophils % (Manual) 60 (45-73) % Band Neutrophils % 32 H (3-5) % Lymphocytes % (Manual) 3 L (20-40) % Monocytes % (Manual) 2 (2-11) % Eosinophils % (Manual) 2 (0-4) % Metamyelocytes % 1 % Abs Neuts (Manual) 12.0 H (2.0-8.3) X10*3/uL Lymphocytes # (Manual) 0.4 L (1.2-4.9) X10*3/uL Monocytes # (Manual) 0.3 (0.1-1.2) X10*3/uL Eosinophils # (Manual) 0.3 (0.0-0.4) X10*3/uL Metamyelocytes # 0.1 X10*3/uL Toxic Granulation PRESENT Toxic Vacuolation PRESENT Platelet Estimate NORMAL (NORMAL) Plt Morphology Comment NORMAL RBC Morphology NORMAL Smear Tech's Comments MANUAL DIFF Sodium 140 (135-145) mmol/L Potassium 3.6 (3.3-5.1) mmol/L Chloride 102 (96-108) mmol/L Carbon Dioxide 26 (22-29) mmol/L Anion Gap 16 (12-20) BUN 19 H (9-16) mg/dL Creatinine 0.83 (0.5-1.4) mg/dL Estim Creat Clear Calc 34.9 Estimated GFR > 60 Random Glucose 135 H (60-115) mg/dL Calcium 8.4 (8.4-10.2) mg/dL Total Bilirubin 0.8 (0.0-1.0) mg/dL AST 158 H (5-31) U/L ALT 13 (0-31) U/L Alkaline Phosphatase 78 (39-117) U/L Troponin I High Sens 18.2 H D (<3.5-17.0) ng/L Total Protein 6.4 L (6.5-8.0) g/dL Albumin 3.5 (3.5-5.0) g/dL Influenza Type A (PCR) NEGATIVE (Negative) Influenza Type B (PCR) NEGATIVE (Negative) RSV RNA Qual (PCR) NEGATIVE (Negative) SARS-CoV-2 RNA (RT-PCR) NEGATIVE (Negative) Independent Interpretation I performed an independent interpretation of an: EKG (sinus [address] or twave changes) and Plain X-Ray (no infiltrate) Independent Historian Clinical information obtained from an independent historian. History obtained from or confirmed by: EMS External Record Review External record reviewed: Inpatient record Chronic Conditions Patient?s care impacted by: Other (parkinsonism) Discharge Plan Discharge Clinical Impression: Fever, Syncope and collapse Patient Disposition: Admitted As Inpatient
[2023-08-17 20:46] LABS: Alanine Aminotransferase 13 U/L (0-31); Albumin Level 3.5 g/dL (3.5-5.0); Alkaline Phosphatase 78 U/L (39-117); Anion Gap 16 (12-20); Aspartate Amino Transferase 158 U/L (5-31); Bilirubin Total 0.8 mg/dL (0.0-1.0); Blood Urea Nitrogen 19 mg/dL (9-16); Calcium 8.4 mg/dL (8.4-10.2); Carbon Dioxide 26 mmol/L (22-29); Chloride 102 mmol/L (96-108); Creatinine Clr Calc Pharmacy 34.9; Estimated Glomerular Filt Rate > 60; Glucose Random 135 mg/dL (60-115); Potassium 3.6 mmol/L (3.3-5.1); Sodium 140 mmol/L (135-145); Total Protein 6.4 g/dL (6.5-8.0)
--- NOTE | 2023-08-17 20:51 | PHA.MEDREC ---
Pharmacy Consult ? Medication Reconciliation Pharmacy has completed the medication reconciliation. Patient recently discharged 08/05/23, utilized discharge summary for med rec. Raulito HutchinsonD
[2023-08-17 20:53] LABS: Troponin-I High Sensitivity 18.2 ng/L (<3.5-17.0)
[2023-08-17 20:59] LABS: SLIDE REVIEW MANUAL DIFF
[2023-08-17 21:02] VITALS: PULSE 76; O2SAT 98
[2023-08-17 21:08] LABS: Neutrophils Percent Manual 60 % (45-73)
[2023-08-17 21:09] LABS: Band Neutrophils Percent 32 % (3-5); Eosinophils Absolute Manual 0.3 X10*3/uL (0.0-0.4); Eosinophils Percent Manual 2 % (0-4); Lymphocytes Absolute Manual 0.4 X10*3/uL (1.2-4.9); Lymphocytes Percent Manual 3 % (20-40); Metamyelocytes Absolute 0.1 X10*3/uL; Metamyelocytes Percent 1 %; Monocytes Absolute Manual 0.3 X10*3/uL (0.1-1.2); Monocytes Percent Manual 2 % (2-11)
[2023-08-17 21:10] LABS: Platelet Estimate NORMAL (NORMAL); Platelet Morphology Comment NORMAL; RBC Morphology NORMAL
[2023-08-17 21:11] LABS: Toxic Granulation PRESENT; Toxic Vacuolation PRESENT
[2023-08-17 21:34] VITALS: BP 95/40; PULSE 78; RESP 20; TEMP 37.6; O2SAT 98
[2023-08-17 21:34] LABS: Influenza A PCR NEGATIVE (Negative); Influenza B PCR NEGATIVE (Negative); Resp Syncy Virus RNA Qual PCR NEGATIVE (Negative); SARS COV2 PCR INHOUSE NEGATIVE (Negative)
[2023-08-17] MEDS: Piperacillin Sodium/Tazobactam 3.375 GM in 0.9 % Sodium Chloride 50 ML IV (22:34)
[2023-08-17 23:05] LABS: Lactic Acid 0.9 mmol/L (0.5-2.0)
--- NOTE | 2023-08-17 23:08 | PC.NURSE ---
delay in ivf infusing d/t pt bending arm. Dr. cervantes made aware med rec done will put in meds. also aware of bp states to continue with fluid admin.
[2023-08-17 23:17] VITALS: BP 99/50; PULSE 70
--- NOTE | 2023-08-17 23:39 | PC.NURSE ---
Took over care from GRETEL Galaviz pt pressure 99/50 provider aware.
[2023-08-17] MEDS: Dextrose 5 % and 0.9 % NaCl 1,000 ML 150 ML IVCONT (23:50)
[2023-08-17 23:54] VITALS: BP 107/51; PULSE 68
--- NOTE | 2023-08-17 23:58 | P.HPHOSP_ITS ---
History of Present Illness Date of Service: 08/17/23 Attending physician on admission: Sergio Grande Chief Complaint: Fevers and 2 witnesed syncopal episodes 83-year-old pleasant white female with past medical history of Parkinson's disease, osteoporosis, hypertension, GERD & s/p gastrectomy with resultant diarrhea who was brought to the emergency room by her family (daughter and granddaughter) for evaluation overall ongoing episodes over shaking chills and 2 syncopal episodes at home today. She was just discharged from hospital on 08/15/2023 after a 2 day stay during which time she had a fever of 102.4 F but with no obvious foci of infection. Her family members state that at discharge, she went to her daughters house and has been doing relatively well and so asked to go back to her house where she lives alone. When they went to check on her later in the day, rosemary started complaining of shaking chills but was afebrile with a documented temperature of 98.7 F. She then asked to be helped to the bathroom but when they went to assist her to get up from her seat, she reportedly passed out, slumped back in the chair and her eyes rolled back into her head. She was out for about 20 seconds and then recovered. She was not confused when she cam around. After a short while, they helped her to the bathroom but once she sat down on the commode, she again passed out and acted very similar to the first time. She was therefore brought to the emergency room where she was found to be febrile on initial evaluation with a temperature of 101.0 F. She has however not been tachycardic or tachypneic. Lab work was notable for a leukocytosis of 13 with 32% bands, anemia with a hematocrit of 35 (down from 42 a week ago) and elevated AST at 158 U/L. Her viral serologies are negative. Admission was requested for further care. 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 Fracture, wrist, open History of gastrectomy Parkinson disease High blood pressure Surgical History Hx of arthroscopic knee surgery Hx of hysterectomy H/O pyloroplasty H/O vagotomy Hx of cholecystectomy History of esophagogastroduodenoscopy (EGD) Hx of colonoscopy Social History Household Members: None Housing: Condominium Do you presently have visiting nurse or other home services: No Alcohol intake: former Comment: bed exit alarm off per pt / pt daughter request; daughter Roxanna at bedside Patient Tobacco Use Status: Never used Tobacco Smoked in Last 30 Days: No Use of substances other than those prescribed or required for medical reasons: No Have you been hit, kicked, punched, or otherwise hurt by someone within the past year? If so, by whom?: No Do you feel safe in your current relationship?: No Is there a partner from a previous relationship who is making you feel unsafe now?: No Are you made to feel afraid or neglected: No Advance Directives: Yes Advance Directives Information Provided: No Advance Directives on File: No Advance Directives Date on File: 08/14/23 Do you have thoughts of harming others: None Do you have a plan to hurt others: No Plan Recently lost weight without trying: Yes How much weight loss: 2-13 pounds Eating poorly because of decreased appetite: Yes Nutrition screen score: 4 Nutrition Risks: Dental problems and Difficulty chewing Patient : No : No Poor oral hygiene: No service: No Current occupational status: retired Current occupation: rt handed Meds Allergies Allergy/AdvReac Type Severity Reaction Status Date / Time pregabalin [From LYRICA] Allergy Severe CONFUSION Verified 08/17/23 22:54 gabapentin [GABAPENTIN] Allergy Intermediate NAUSEA/VOMI Verified 08/17/23 22:54 TING amlodipine [From Norvasc] Allergy Unknown Verified 08/17/23 22:54 clarithromycin [From BIAXIN] AdvReac Intermediate NAUSEA & Verified 08/17/23 22:54 VOMITING codeine [CODEINE] AdvReac Intermediate NAUSEA & Verified 08/17/23 22:54 VOMITING fentanyl [From DURAGESIC] AdvReac Intermediate NAUSEA/VOMI Verified 08/17/23 22:54 TING levofloxacin [From LEVAQUIN] AdvReac Intermediate NAUSEA & Verified 08/17/23 22:54 VOMITING primidone [From Mysoline] AdvReac Nausea and Verified 08/17/23 22:54 Vomiting Home Medications Medication Instructions Recorded Confirmed Last Taken Type lorazepam 0.5 mg tablet (Ativan) 1 mg PO BEDTIME PRN Insomnia 01/07/21 08/17/23 Unknown History carbidopa 25 mg-levodopa 100 mg 1 tab PO TID 07/27/21 08/17/23 11/11/21 06:30 History tablet propranolol 80 mg tablet 80 mg PO BID 01/24/22 08/17/23 Unknown History alendronate 70 mg tablet 70 mg PO QWEEK 07/01/22 08/17/23 Unknown History hydrochlorothiazide 25 mg tablet 25 mg PO DAILY 07/01/22 08/17/23 Unknown History potassium chloride 10 mEq 10 meq PO DAILY 07/01/22 08/17/23 Unknown History tablet,extended release calcium carbonate 500 mg calcium 500 mg PO DAILY 08/13/23 08/17/23 Unknown History (1,250 mg) chewable tablet (Calcium 500) ferrous sulfate 325 mg (65 mg 65 mg PO DAILY 08/13/23 08/17/23 Unknown History iron) capsule,extended release mesalamine 0.375 gram 1.5 g PO QAM PRN Diarrhea 08/14/23 08/17/23 Unknown History capsule,extended release 24 hr Physical Exam 2 Vital Signs and Narrative: Vital Signs: Last Vital Signs Temp 99.7 F 08/17/23 21:34 Pulse 68 08/17/23 23:54 Resp 20 08/17/23 21:34 BP 107/51 L 08/17/23 23:54 Pulse Ox 98 08/17/23 21:34 O2 Del Method Room Air 08/17/23 23:54 BMI result Body Mass Index 15.9 General: Thin appearing elderly white female in bed. Awake and alert. Oriented x 4. No apparent distress Eyes: No pallor or jaundice. PERRLA, EOMI HENT: Moist oral mucus membranes. No oropharyngeal lesions. Neck: Supple. No cervical adenopathy. No JVD Cardiovascular: Regular rate and rhythm. Normal heart sounds. No murmurs, rubs or gallops. No JVD. No peripheral edema. Respiratory: Normal respiratory effort with no accessory muscle use. CTAB. , CTA bilaterally Gastrointestinal: Abdomen is soft, non-tender, non-distended. NABS. No hepatosplenomegaly Extremities: No edema. No calf tenderness. Good peripheral pulses Skin: Warm/Dry. No rashes. No mottling. Capillary refill is < 2 seconds Neurological: AAOx4. Intact speech & cognition. Normal gait & balance. CN II - XII grossly intact but not individually tested. No motor or sensory deficits Hematologic: No bleeding. No ecchymosis. No swollen or tender lymph nodes. Psychiatric: Cooperative. Appropriate mood and affect . Results Labs 08/17/23 20:26 08/17/23 20:26 Labs: Laboratory Results - last 24 hr 08/17/23 08/17/23 08/17/23 20:26 20:49 22:51 MCV 95.9 MCH 31.1 MCHC 32.4 RDW 12.1 Plt Count 201 D MPV 10.6 Immature Gran % (Auto) Cancelled Neut % (Auto) Cancelled Lymph % (Auto) Cancelled [place] % (Auto) Cancelled Eos % (Auto) Cancelled Baso % (Auto) Cancelled Lymph # (Auto) Cancelled [place] # (Auto) Cancelled Eos # (Auto) Cancelled Baso # (Auto) Cancelled Abs Immat Gran (auto) Cancelled Absolute Neuts (auto) Cancelled Absolute Nucleated RBC 0.000 Nucleated RBC % (auto) 0.0 Neutrophils % (Manual) 60 Band Neutrophils % 32 H Lymphocytes % (Manual) 3 L Monocytes % (Manual) 2 Eosinophils % (Manual) 2 Metamyelocytes % 1 Abs Neuts (Manual) 12.0 H Lymphocytes # (Manual) 0.4 L Monocytes # (Manual) 0.3 Eosinophils # (Manual) 0.3 Metamyelocytes # 0.1 Toxic Granulation PRESENT Toxic Vacuolation PRESENT Platelet Estimate NORMAL Plt Morphology Comment NORMAL RBC Morphology NORMAL Smear Tech's Comments MANUAL DIFF Anion Gap 16 Estim Creat Clear Calc 34.9 Estimated GFR > 60 Random Glucose 135 H Lactic Acid 0.9 Calcium 8.4 Total Bilirubin 0.8 AST 158 H ALT 13 Alkaline Phosphatase 78 Total Protein 6.4 L Albumin 3.5 Influenza Type A (PCR) NEGATIVE Influenza Type B (PCR) NEGATIVE RSV RNA Qual (PCR) NEGATIVE SARS-CoV-2 RNA (RT-PCR) NEGATIVE ECG ECG interpretation date: 08/18/23 ECG interpretation time: 07:45 Prior ECG tracings: available for review Interpretation: NSR at 76 bpm with no acute ischemic changes Imaging Radiologist's Impressions: Impressions Chest X-Ray 08/17/23 20:42 IMPRESSION: 1. No acute cardiopulmonary findings. 2. Chronic interstitial thickening and lung hyperexpansion suggesting underlying COPD/emphysema. Assessment and Plan (1) SIRS (systemic inflammatory response syndrome): Status: Acute (2) Syncope and collapse: Status: Acute (3) Generalized weakness: Status: Acute (4) Bandemia: Status: Acute Plan 83-year-old pleasant white female with past medical history of Parkinson's disease, osteoporosis, hypertension, GERD & s/p gastrectomy with resultant diarrhea here with: 1. SIRS - she meets criteria for SIRS with fever, leukocytosis and bandemia but with no clear foci of infection - admit for further work up - consult ID team for assistance with her care 2. Syncope - she had 2 witnessed syncopal episodes - likely with vasovagal syncope - admit for observation 3. Parkinson's disease - resume Sinemet 4. Asthenia - secondary to acute illnesses - encourage OOB Total time managing care of this patient today: 75 minutes. Quality Stroke Does the patient have a stroke diagnosis?: No VTE Prior VTE?: No VTE Risk Level:: Medical - moderate - high VTE Device Contraindication: N/A - Device Ordered VTE Drug Contraindication: N/A - Med Ordered
[2023-08-18] VITALS (7 sets, daily range): BP systolic 100–138; BP diastolic 46–59; PULSE 64–82; RESP 12–20; TEMP 36.4–37.1; O2SAT 95–99; BMI 16.7; BMI 17.8
[2023-08-18] MEDS: LORazepam 1 MG TABLET PO ×2 (00:03→22:21)
[2023-08-18] MEDS: Enoxaparin Sodium 40 MG/0.4 ML SYRINGE SUBCUT ×2 (00:03→22:21)
--- NOTE | 2023-08-18 00:06 | PC.NURSE ---
Medicated per Mar
--- NOTE | 2023-08-18 01:05 | PC.NURSE ---
report written and pt transferred.
[2023-08-18 06:00] LABS: Appearance Urine Clear; Color Urine Dark Yellow; Glucose Urine UA Negative (Negative); Leukocyte Esterase Urine Negative (Negative); Nitrite Urine Negative (Negative); UMIC TRIGGER UACC YES; Urine Blood Negative (Negative); Urine Ketones Trace mg/dL (Negative); Urine Protein 30 (1+) mg/dL (Neg-Trace)
[2023-08-18 06:01] LABS: Bacteria Urine None Seen (None Seen); Hyaline Casts Urine 0-2 /LPF (0-2); RBC Urine 0-2 /HPF (0-2); WBC Urine 0-5 /HPF (0-5)
[2023-08-18 07:39] LABS: Basophils Percent Auto 0.4 % (0-2); Eosinophils Absolute Auto 0.1 X10*3/uL (0.0-0.4); Eosinophils Percent Auto 0.8 % (0-4); Hematocrit 31.8 % (37.0-47.0); Hemoglobin 10.1 g/dl (12.0-16.0); Imm Gran Abs Auto 0.04 X10*3/uL (0.00-0.03); Imm Gran Pct Auto 0.5 % (0.0-0.4); Lymphocytes Absolute Auto 0.3 X10*3/uL (1.2-4.9); Lymphocytes Percent Auto 4.2 % (20-40); MANUAL DIFF FLAG SCAN; Mean Corpuscular HGB Conc 31.8 g/dl (31.0-35.0); Mean Corpuscular Hemoglobin 31.2 pg (27.0-33.0); Mean Corpuscular Volume 98.1 fL (80.0-98.0); Mean Platelet Volume 11.1 fL (9.4-12.3); Monocytes Absolute Auto 0.3 X10*3/uL (0.1-1.2); Monocytes Percent Auto 3.6 % (2-11); Neutrophils Absolute Auto 7.1 x10*3/uL (2.0-8.3); Neutrophils Percent Auto 90.5 % (45-73); Platelet Count 189 X10*3/uL (160-400); Red Blood Count 3.24 X10*6/uL (4.20-5.50); Red Cell Distribution Width 12.3 % (11.0-16.0); SCAN SMEAR FLAG 1; White Blood Count 7.9 X10*3/uL (4.8-10.8)
[2023-08-18 08:03] LABS: SLIDE REVIEW VERIFIED
[2023-08-18 08:06] LABS: Alanine Aminotransferase 90 U/L (0-31); Albumin Level 2.9 g/dL (3.5-5.0); Alkaline Phosphatase 95 U/L (39-117); Anion Gap 10 (12-20); Aspartate Amino Transferase 208 U/L (5-31); Bilirubin Total 0.5 mg/dL (0.0-1.0); Blood Urea Nitrogen 12 mg/dL (9-16); Calcium 7.3 mg/dL (8.4-10.2); Carbon Dioxide 25 mmol/L (22-29); Chloride 109 mmol/L (96-108); Creatinine Clr Calc Pharmacy 41.7; Estimated Glomerular Filt Rate > 60; Glucose Random 125 mg/dL (60-115); Magnesium 2.1 mg/dL (1.6-2.6); Potassium 3.2 mmol/L (3.3-5.1); Sodium 141 mmol/L (135-145); Total Protein 5.1 g/dL (6.5-8.0)
[2023-08-18 08:22] LABS: Thyroid Stimulating Hormone 0.67 uIU/mL (0.32-4.0)
[2023-08-18] MEDS: Potassium Chloride ER 10 MEQ TABLET.ER PO (08:42)
[2023-08-18] MEDS: hydroCHLOROthiazide 25 MG TABLET PO (08:42)
[2023-08-18] MEDS: Omeprazole 40 MG CAPSULE.DR PO (08:42)
[2023-08-18] MEDS: 0.9 % Sodium Chloride Flush 3 ML SYRINGE IVFLUSH ×2 (08:42→16:12)
[2023-08-18] MEDS: Propranolol HCL 40 MG TABLET 80 MG PO ×2 (08:43→20:20)
[2023-08-18] MEDS: Carbidopa/Levodopa 25/100 TABLET 1 TAB PO ×3 (08:43→20:20)
[2023-08-18 09:41] LABS: D Dimer High Sensitivity 1908 NG/ML
--- NOTE | 2023-08-18 12:41 | MHC.CM.PN ---
IMM 08/18/23, EMR REVIEWED, PT ADMITTED W/SYNCOPE/SIRS, PT'S DTR JADA AT BEDSIDE AND REPORTS PT WILL BE RETURNING TO HER HOME ON DC AND PT/DTR OPEN TO VNA SERVICES IF NEEDED. PT REPORTS SHE LIVES ALONE IS INDEP W/ALL CARE, DRIVES AND DENIES USE OF DME/HOME SERVICES AT [facility]EL[facility]. PT VERIFIES COVID VAXED AND BOOSTED X2, PCP ON FILE VERIFIED AND PT'S DTR JADA REPORTS SHE HAS A COPY OF PT'S HCP AT HOME AND WILL EMAIL TO CM. DCP: DC TO DTR'S HOME SELF-CARE VS NEW VNA, FAMILY FOR TRANSPORT
--- NOTE | 2023-08-18 13:29 | MHC.CLN ---
RE: CONSULT PT IS UNDER WT FOR HT UNABLE TO PERFORM NFPE R/T PT GETTING CT SCAN UPON [facility] REPORT PT WITH HX GASTRECTOMY (MANY YEARS AGO). PT WITH CHRONIC DIARRHEA AND SLOW DECLINE IN PO INTAKE AND NONSIGNIFICANT WT LOSS X2 YEARS, HOWEVER PT WITH DX PARKINSONS AND WT LOSS MAY BE EXPECTED. PREVIOUS WT HX REVEALS 44KG (12/30/22) WT UP 7% X 6 MONTHS DIET RX: REGULAR-APPROPRIATE FAMILY REPORTS PT PREFERS TO AVOID DAIRY R/T CAUSES DIARRHEA RECEPTIVE TO TRIAL OF ENSURE SUPPLEMENT AND GELATEIN TO INCREASE KCALS AND PO PROTIEN MONITOR PO INTAKE AND ENCOURAGE SUPPLEMENT SEE FULL CLINICAL NUTRITION ASSESSMENT
[2023-08-18] MEDS: iohexoL 350 MG/ML 75 ML INFUS..BTL 85 ML IV (13:31)
--- NOTE | 2023-08-18 14:36 | P.PNIM_ITS ---
Subjective Subjective Date of Service: 08/18/23 Interval History: Being followed for recurrent fevers and episodes of syncope, this morning patient is sitting comfortably on chair, offers no acute complaints denies urinary URI symptoms, no fevers, no chills, no nausea no vomiting, no abdominal pain, no urinary symptoms of urgency frequency, his chronic diarrhea unchanged, denies any rashes, no joint pains, no sick contacts, no recent travel. Physical Exam 2 Vital Signs: Vital Signs: Last Vital Signs Temp 98.7 F 08/18/23 11:02 Pulse 66 08/18/23 11:02 Resp 20 08/18/23 11:02 BP 100/46 L 08/18/23 11:02 Pulse Ox 99 08/18/23 11:02 O2 Del Method Room Air 08/18/23 11:02 BMI result Body Mass Index 17.8 Const: Other: General awake alert x3, resting comfortably in no acute distress. Neck supple no JVD. CVS regular rate rhythm, Respiratory lungs clear to auscultation, no respiratory distress, no wheeze, no rhonchi. Gastrointestinal abdomen soft, non tender, bowel sounds audible, no guarding , no rigidity. Extremities no edema. Musculoskeletal no joint deformity Neuro non focal Skin no rash Psych appropriate affect Objective Data Active Medications Acetaminophen (Acetaminophen 325 Mg Tablet) 650 mg PO Q6H PRN PRN Reason: Pain, Mild (Pain Scale 1-3) Al Hydroxide/Mg Hydroxide (Magnesium Hydrox/Alum Hydrox 30 Ml Oral.Susp) 30 ml PO Q4H PRN PRN Reason: Heartburn/Nausea Carbidopa/Levodopa (Carbidopa/Levodopa 25/100 Tablet) 1 tab PO TID [facility] Last Admin: 08/18/23 08:43 Dose: 1 tab Documented By: LUANA Enoxaparin Sodium (Enoxaparin Sodium 40 Mg/0.4 Ml Syringe) 40 mg SUBCUT Q24H [facility] Last Admin: 08/18/23 00:03 Dose: 40 mg Documented By: JOSE CARLOS Hydrochlorothiazide (Hydrochlorothiazide 25 Mg Tablet) 25 mg PO DAILY [facility]; Protocol Last Admin: 08/18/23 08:42 Dose: 25 mg Documented By: LUANA Lorazepam (Lorazepam 1 Mg Tablet) 1 mg PO BEDTIME PRN PRN Reason: Insomnia Melatonin (Melatonin 3 Mg Tablet) 6 mg PO BEDTIME PRN PRN Reason: Insomnia Omeprazole (Omeprazole 40 Mg Capsule.Dr) 40 mg PO DAILY@0630 [facility] Last Admin: 08/18/23 08:42 Dose: 40 mg Documented By: LUANA Ondansetron HCl (Ondansetron Hcl 4 Mg/2 Ml Vial) 4 mg IVPUSH Q8H PRN PRN Reason: Nausea and Vomiting Potassium Chloride (Potassium Chloride Er 10 Meq Tablet.Er) 10 meq PO DAILY [facility] Last Admin: 08/18/23 08:42 Dose: 10 meq Documented By: LUANA Propranolol HCl (Propranolol Hcl 40 Mg Tablet) 80 mg PO BID [facility]; Protocol Last Admin: 08/18/23 08:43 Dose: 80 mg Documented By: LUANA Sodium Chloride (0.9 % Sodium Chloride Flush 3 Ml Syringe) 3 ml IVFLUSH QSHIFT [facility] Last Admin: 08/18/23 08:42 Dose: 3 ml Documented By: LUANA Labs 08/18/23 06:52 08/18/23 06:52 Labs: Laboratory Results - last 24 hr 08/17/23 08/17/23 08/17/23 20:26 20:49 22:51 MCV 95.9 MCH 31.1 MCHC 32.4 RDW 12.1 Plt Count 201 D MPV 10.6 Immature Gran % (Auto) Cancelled Neut % (Auto) Cancelled Lymph % (Auto) Cancelled [place] % (Auto) Cancelled Eos % (Auto) Cancelled Baso % (Auto) Cancelled Lymph # (Auto) Cancelled [place] # (Auto) Cancelled Eos # (Auto) Cancelled Baso # (Auto) Cancelled Abs Immat Gran (auto) Cancelled Absolute Neuts (auto) Cancelled Absolute Nucleated RBC 0.000 Nucleated RBC % (auto) 0.0 Neutrophils % (Manual) 60 Band Neutrophils % 32 H Lymphocytes % (Manual) 3 L Monocytes % (Manual) 2 Eosinophils % (Manual) 2 Metamyelocytes % 1 Abs Neuts (Manual) 12.0 H Lymphocytes # (Manual) 0.4 L Monocytes # (Manual) 0.3 Eosinophils # (Manual) 0.3 Metamyelocytes # 0.1 Toxic Granulation PRESENT Toxic Vacuolation PRESENT Platelet Estimate NORMAL Plt Morphology Comment NORMAL RBC Morphology NORMAL Smear Tech's Comments MANUAL DIFF D-Dimer High Sensitivty Anion Gap 16 Estim Creat Clear Calc 34.9 Estimated GFR > 60 Random Glucose 135 H Lactic Acid 0.9 Calcium 8.4 Magnesium Total Bilirubin 0.8 AST 158 H ALT 13 Alkaline Phosphatase 78 Total Protein 6.4 L Albumin 3.5 TSH Urine Color Urine Appearance Urine pH Ur Specific [place] Urine Protein Urine Glucose (UA) Urine Ketones Urine Blood Urine Nitrite Ur Leukocyte Esterase Urine RBC Urine WBC Ur Squamous Epith Cells Urine Bacteria Hyaline Casts Influenza Type A (PCR) NEGATIVE Influenza Type B (PCR) NEGATIVE RSV RNA Qual (PCR) NEGATIVE SARS-CoV-2 RNA (RT-PCR) NEGATIVE 08/18/23 08/18/23 08/18/23 05:20 06:52 08:56 MCV 98.1 H MCH 31.2 MCHC 31.8 RDW 12.3 Plt Count 189 MPV 11.1 Immature Gran % (Auto) 0.5 H Neut % (Auto) 90.5 H Lymph % (Auto) 4.2 L [place] % (Auto) 3.6 Eos % (Auto) 0.8 Baso % (Auto) 0.4 Lymph # (Auto) 0.3 L [place] # (Auto) 0.3 Eos # (Auto) 0.1 Baso # (Auto) 0.0 Abs Immat Gran (auto) 0.04 H Absolute Neuts (auto) 7.1 Absolute Nucleated RBC 0.000 Nucleated RBC % (auto) 0.0 Neutrophils % (Manual) Band Neutrophils % Lymphocytes % (Manual) Monocytes % (Manual) Eosinophils % (Manual) Metamyelocytes % Abs Neuts (Manual) Lymphocytes # (Manual) Monocytes # (Manual) Eosinophils # (Manual) Metamyelocytes # Toxic Granulation Toxic Vacuolation Platelet Estimate Plt Morphology Comment RBC Morphology Smear Tech's Comments VERIFIED D-Dimer High Sensitivty 1908 Anion Gap 10 L Estim Creat Clear Calc 41.7 Estimated GFR > 60 Random Glucose 125 H Lactic Acid Calcium 7.3 L D Magnesium 2.1 Total Bilirubin 0.5 AST 208 H ALT 90 H Alkaline Phosphatase 95 Total Protein 5.1 L Albumin 2.9 L TSH 0.67 Urine Color Dark Yellow Urine Appearance Clear Urine pH 6.0 Ur Specific [place] 1.020 Urine Protein 30 (1+) H Urine Glucose (UA) Negative Urine Ketones Trace Urine Blood Negative Urine Nitrite Negative Ur Leukocyte Esterase Negative Urine RBC 0-2 Urine WBC 0-5 Ur Squamous Epith Cells 3-5 Urine Bacteria None Seen Hyaline Casts 0-2 Influenza Type A (PCR) Influenza Type B (PCR) RSV RNA Qual (PCR) SARS-CoV-2 RNA (RT-PCR) Assessment and Plan (1) Syncope and collapse: Status: Acute (2) SIRS (systemic inflammatory response syndrome): Status: Acute Plan 83-year-old pleasant white female with past medical history of Parkinson's disease, osteoporosis, hypertension, GERD & s/p gastrectomy with resultant diarrhea here with: 1. SIRS - meet criteria for SIRS with fever, leukocytosis and bandemia but with no clear foci of infection, negative COVID RSV and flu Recently discharged from [facility] on [facility] with similar presentation of fever of 102 no source of infection was found,UA negative for UTI, CXR negative for pneumonia, abdominal exam benign, Patient tested negative for COVID, RSV, influenza types a and B - consult ID team for assistance with her care Had no recurrent fevers chills, WBC normalized, tachycardia tachypnea resolved Noted to have worsening LFTs will obtain CT abdomen and pelvis, low albumin likely due to poor by mouth intake 2. Syncope - had 2 witnessed syncopal episodes likely vasovagal syncope, continue telemetry check orthostatic blood pressures 3. Parkinson's disease - resume Sinemet 4. Generalized weakness - secondary to acute illnesses, encourage OOB 5. HTN Soft blood pressure will hold hydrochlorothiazide continue propranolol and follow BP 6. Anxiety/insomnia Continue Ativan 7. GERD/IBS Continue omeprazole 8. Mild hypo kalemia due to poor by mouth intake, on diuretics, will replete and follow labs Full Code DVT Prophylaxis: Lovenox Pt will require continued inpatient hospitalization generalized weakness, SIRS from an unknown source. Patient will need specialist consultation. Quality Stroke Does the patient have a stroke diagnosis?: No VTE Prior VTE?: No VTE Risk Level:: Medical - moderate - high VTE Device Contraindication: N/A - Device Ordered VTE Drug Contraindication: N/A - Med Ordered
[2023-08-18] MEDS: Potassium Chloride ER 20 MEQ TAB.ER.PRT PO (16:00)
[2023-08-18] MEDS: Melatonin 3 MG TABLET 6 MG PO (20:20)
--- NOTE | 2023-08-19 | P.CNID_ITS ---
History of Present Illness Data of Consult Service Date: 08/18/23 Requesting physician: Buddy Tracy Primary Care Provider: Salbador Severino MD HPI Reason for consult: encephalopathy She presents with confusion and weakness. She has no new medication. Extensive study for infecion negative. Review of Systems 2 Review of Systems: Yes all other systems are reviewed and are negative PMFSH Past Medical History Medical History SIRS (systemic inflammatory response syndrome) Guillain-Russell syndrome Fracture, wrist, open History of gastrectomy Parkinson disease High blood pressure Family History Family history: reviewed and not pertinent Surgical History Surgical History Hx of arthroscopic knee surgery Hx of hysterectomy H/O pyloroplasty H/O vagotomy Hx of cholecystectomy History of esophagogastroduodenoscopy (EGD) Hx of colonoscopy Social History Social History Household Members: None Housing: Condominium Do you presently have visiting nurse or other home services: No Alcohol intake: former Comment: bed exit alarm off per pt / pt daughter request; daughter Roxanna at bedside Patient Tobacco Use Status: Never used Tobacco Smoked in Last 30 Days: No Use of substances other than those prescribed or required for medical reasons: No Currently Displaying Signs/Symptoms of Drug Intoxication Withdrawal: No Have you been hit, kicked, punched, or otherwise hurt by someone within the past year? If so, by whom?: No Do you feel safe in your current relationship?: No Is there a partner from a previous relationship who is making you feel unsafe now?: No Are you made to feel afraid or neglected: No Advance Directives: Yes Advance Directives Information Provided: No Advance Directives on File: No Advance Directives Date on File: 08/14/23 Do you have thoughts of harming others: None Do you have a plan to hurt others: No Plan Recently lost weight without trying: Yes How much weight loss: 2-13 pounds Eating poorly because of decreased appetite: Yes Nutrition screen score: 4 Nutrition Risks: Dental problems and Difficulty chewing Patient : No : No Poor oral hygiene: No service: No Current occupational status: retired Current occupation: rt handed Meds Allergies Allergy/AdvReac Type Severity Reaction Status Date / Time pregabalin [From LYRICA] Allergy Severe CONFUSION Verified 08/17/23 22:54 gabapentin [GABAPENTIN] Allergy Intermediate NAUSEA/VOMI Verified 08/17/23 22:54 TING amlodipine [From Norvasc] Allergy Unknown Verified 08/17/23 22:54 clarithromycin [From BIAXIN] AdvReac Intermediate NAUSEA & Verified 08/17/23 22:54 VOMITING codeine [CODEINE] AdvReac Intermediate NAUSEA & Verified 08/17/23 22:54 VOMITING fentanyl [From DURAGESIC] AdvReac Intermediate NAUSEA/VOMI Verified 08/17/23 22:54 TING levofloxacin [From LEVAQUIN] AdvReac Intermediate NAUSEA & Verified 08/17/23 22:54 VOMITING primidone [From Mysoline] AdvReac Nausea and Verified 08/17/23 22:54 Vomiting Active Medications: Current Medications Acetaminophen (Acetaminophen 325 Mg Tablet) 650 mg PO Q6H PRN PRN Reason: Pain, Mild (Pain Scale 1-3) Al Hydroxide/Mg Hydroxide (Magnesium Hydrox/Alum Hydrox 30 Ml Oral.Susp) 30 ml PO Q4H PRN PRN Reason: Heartburn/Nausea Carbidopa/Levodopa (Carbidopa/Levodopa 25/100 Tablet) 1 tab PO TID [facility] Last Admin: 08/18/23 20:20 Dose: 1 tab Enoxaparin Sodium (Enoxaparin Sodium 40 Mg/0.4 Ml Syringe) 40 mg SUBCUT Q24H [facility] Last Admin: 08/18/23 22:21 Dose: 40 mg Lorazepam (Lorazepam 1 Mg Tablet) 1 mg PO BEDTIME PRN PRN Reason: Insomnia Last Admin: 08/18/23 22:21 Dose: 1 mg Melatonin (Melatonin 3 Mg Tablet) 6 mg PO BEDTIME PRN PRN Reason: Insomnia Last Admin: 08/18/23 20:20 Dose: 6 mg Omeprazole (Omeprazole 40 Mg Capsule.Dr) 40 mg PO DAILY@0630 [facility] Last Admin: 08/18/23 08:42 Dose: 40 mg Ondansetron HCl (Ondansetron Hcl 4 Mg/2 Ml Vial) 4 mg IVPUSH Q8H PRN PRN Reason: Nausea and Vomiting Potassium Chloride (Potassium Chloride Er 10 Meq Tablet.Er) 10 meq PO DAILY [facility] Last Admin: 08/18/23 08:42 Dose: 10 meq Propranolol HCl (Propranolol Hcl 40 Mg Tablet) 80 mg PO BID [facility]; Protocol Last Admin: 08/18/23 20:20 Dose: 80 mg Sodium Chloride (0.9 % Sodium Chloride Flush 3 Ml Syringe) 3 ml IVFLUSH QSHIFT [facility] Last Admin: 08/18/23 16:12 Dose: 3 ml Home Medications Medication Instructions Recorded Confirmed Last Taken Type lorazepam 0.5 mg tablet (Ativan) 1 mg PO BEDTIME PRN Insomnia 01/07/21 08/17/23 Unknown History carbidopa 25 mg-levodopa 100 mg 1 tab PO TID 07/27/21 08/17/23 11/11/21 06:30 History tablet propranolol 80 mg tablet 80 mg PO BID 01/24/22 08/17/23 Unknown History alendronate 70 mg tablet 70 mg PO QWEEK 07/01/22 08/17/23 Unknown History hydrochlorothiazide 25 mg tablet 25 mg PO DAILY 07/01/22 08/17/23 Unknown History potassium chloride 10 mEq 10 meq PO DAILY 07/01/22 08/17/23 Unknown History tablet,extended release calcium carbonate 500 mg calcium 500 mg PO DAILY 08/13/23 08/17/23 Unknown History (1,250 mg) chewable tablet (Calcium 500) ferrous sulfate 325 mg (65 mg 65 mg PO DAILY 08/13/23 08/17/23 Unknown History iron) capsule,extended release mesalamine 0.375 gram 1.5 g PO QAM PRN Diarrhea 08/14/23 08/17/23 Unknown History capsule,extended release 24 hr Physical Exam 2 Vital Signs: Vital Signs: Last Vital Signs Temp 97.8 F 08/18/23 23:46 Pulse 64 08/18/23 23:46 Resp 18 08/18/23 23:46 BP 115/51 L 08/18/23 23:46 Pulse Ox 98 08/18/23 23:46 O2 Del Method Room Air 08/18/23 23:46 BMI result Body Mass Index 17.8 Results Labs 08/18/23 06:52 08/18/23 06:52 Labs: Short CBC 08/18/23 Range/Units 06:52 WBC 7.9 (4.8-10.8) X10*3/uL Hgb 10.1 L (12.0-16.0) g/dl Hct 31.8 L (37.0-47.0) % Plt Count 189 (160-400) X10*3/uL BMP 08/18/23 06:52 Sodium 141 Potassium 3.2 L Chloride 109 H Carbon Dioxide 25 BUN 12 Creatinine 0.73 Calcium 7.3 L D Liver Function 08/18/23 Range/Units 06:52 Total Bilirubin 0.5 (0.0-1.0) mg/dL AST 208 H (5-31) U/L ALT 90 H (0-31) U/L Alkaline Phosphatase 95 (39-117) U/L Albumin 2.9 L (3.5-5.0) g/dL Urine 08/18/23 Range/Units 05:20 Urine Color Dark Yellow Urine Appearance Clear Urine pH 6.0 (5.0-9.0) Ur Specific [place] 1.020 (1.005-1.025) Urine Protein 30 (1+) H (Neg-Trace) mg/dL Urine Glucose (UA) Negative (Negative) mg/dL Microbiology Microbiology Results: Microbiology 08/17/23 20:49 Blood - Venous Blood Culture - Preliminary No growth after 24 hours. 08/17/23 20:26 Blood - Venous Blood Culture - Preliminary No growth after 24 hours. Assessment and Plan (1) Syncope and collapse: Status: Acute (2) Fever: Status: Acute Fever has been repeating to 102 every several days She has no obvious infection despite good searching. Possible autoimmune or vasculitis or PMR Plan Check Hepatitis C with increased LFTs. Check MRI abdomen with contrast look for biliary duct obstruction. Check echo results.
[2023-08-19 03:09] VITALS: BP 127/55; PULSE 59; RESP 18; TEMP 36.4; O2SAT 98
[2023-08-19] MEDS: Omeprazole 40 MG CAPSULE.DR PO (05:49)
[2023-08-19 06:26] LABS: Alanine Aminotransferase 33 U/L (0-31); Albumin Level 2.9 g/dL (3.5-5.0); Alkaline Phosphatase 77 U/L (39-117); Anion Gap 11 (12-20); Aspartate Amino Transferase 71 U/L (5-31); Bilirubin Direct 0.1 mg/dL (0.0-0.5); Bilirubin Total 0.3 mg/dL (0.0-1.0); Blood Urea Nitrogen 8 mg/dL (9-16); Carbon Dioxide 26 mmol/L (22-29); Chloride 108 mmol/L (96-108); Creatinine Clr Calc Pharmacy 45.5; Estimated Glomerular Filt Rate > 60; Glucose Random 93 mg/dL (60-115); Sodium 142 mmol/L (135-145); Total Protein 5.2 g/dL (6.5-8.0)
--- NOTE | 2023-08-19 06:47 | PC.NURSE ---
notified that potassium level this morning is 3.0
[2023-08-19 06:50] LABS: Erythrocyte Sedimentation Rate 27 MM/HR (0-20)
[2023-08-19 07:48] VITALS: BP 131/59; PULSE 62
[2023-08-19 07:53] VITALS: BP 129/61; PULSE 60; RESP 20; TEMP 36.7; O2SAT 98
[2023-08-19] MEDS: Carbidopa/Levodopa 25/100 TABLET 1 TAB PO (08:18)
[2023-08-19] MEDS: Potassium Chloride ER 20 MEQ TAB.ER.PRT 40 MEQ PO (08:18)
[2023-08-19] MEDS: Propranolol HCL 40 MG TABLET 80 MG PO (08:18)
[2023-08-19] MEDS: Potassium Chloride ER 10 MEQ TABLET.ER PO (08:19)
[2023-08-19] MEDS: 0.9 % Sodium Chloride Flush 3 ML SYRINGE IVFLUSH (08:19)
[2023-08-19 08:34] VITALS: BP 136/64; BP 148/67; PULSE 63; PULSE 65
[2023-08-19 11:44] VITALS: BP 135/59; PULSE 56; RESP 20; TEMP 36.9; O2SAT 100
--- NOTE | 2023-08-19 14:46 | P.DS_ITS ---
DS: Providers Provider Date of Service: 08/19/23 Date of admission: 08/17/23 22:11 Primary care physician: Salbador Severino MD Consults: 08/18/23 07:44 Consult to Infectious Diseases Routine Consulting Provider: [facility] Infectious Disease Reason for consultation: SIRS. No clear focus of infection Has provider been notified: No DS: Diagnosis Discharge Diagnosis (1) Syncope and collapse: Status: Acute (2) Fever: Status: Acute DS: Summary Hospital Course Hospital Course: History of presenting illness: Date of Service: 08/17/23 Attending physician on admission: Sergio Grande Chief Complaint: Fevers and 2 witnesed syncopal episodes 83-year-old pleasant white female with past medical history of Parkinson's disease, osteoporosis, hypertension, GERD & s/p gastrectomy with resultant diarrhea who was brought to the emergency room by her family (daughter and granddaughter) for evaluation overall ongoing episodes over shaking chills and 2 syncopal episodes at home today. She was just discharged from hospital on 08/15/2023 after a 2 day stay during which time she had a fever of 102.4 F but with no obvious foci of infection. Her family members state that at discharge, she went to her daughters house and has been doing relatively well and so asked to go back to her house where she lives alone. When they went to check on her later in the day, rosemary started complaining of shaking chills but was afebrile with a documented temperature of 98.7 F. She then asked to be helped to the bathroom but when they went to assist her to get up from her seat, she reportedly passed out, slumped back in the chair and her eyes rolled back into her head. She was out for about 20 seconds and then recovered. She was not confused when she cam around. After a short while, they helped her to the bathroom but once she sat down on the commode, she again passed out and acted very similar to the first time. She was therefore brought to the emergency room where she was found to be febrile on initial evaluation with a temperature of 101.0 F. She has however not been tachycardic or tachypneic. Lab work was notable for a leukocytosis of 13 with 32% bands, anemia with a hematocrit of 35 (down from 42 a week ago) and elevated AST at 158 U/L. Her viral serologies are negative. Admission was requested for further care. Hospital course: 83-year-old pleasant white female with past medical history of Parkinson's disease, osteoporosis, hypertension, GERD & s/p gastrectomy with resultant diarrhea here with 2 episodes of syncope and fever, patient recently discharged from [facility] on 08/15 with similar symptoms and had extensive negative workup no source of infection was found it was felt to be viral syndrome however 2 days after discharge patient felt weak had fever up to 102 and had 2 episodes of brief syncope consistent with vasovagal episodes while on commode, orthostatic blood pressures stable, patient noted to have elevated LFTs therefo re CT abdomen and pelvis was obtained that showed a 7 mm pancreatic hypodensity and free fluid in pelvis, patient had no symptoms of nausea, vomiting ,abdominal pain, no change in chronic diarrhea, repeat LFTs trending down, patient seen by infectious disease she recommended Hep C antibody that is pending, but since patient is clinically stable with no recurrent fevers, wbc normalized, she is being discharged home with strong recommendation to have outpatient follow-up with PCP and abdominal MRI with pancreatic protocol was recommended by radiologist that can be obtained as outpatient, Doppler lower extremities negative, Patient had recent negative COVID, RSV influenza type a and B , reassured patient and recommended to return to check with recurrent symptoms, rest drink plenty of fluids. 1. SIRS 2. Syncope 3. Parkinson's disease continue Sinemet 4. Generalized weakness resolved seem to be at baseline encouraged rest fluids 5. HTN Soft blood pressure recommend to DC hydrochlorothiazide, continue propranolol and follow BP , resume hydrochlorothiazide 12.5 if noted to have systolic BP greater than 140 6. Anxiety/insomnia Continue Ativan 7. GERD/IBS Continue omeprazole 8. Mild hypo kalemia due to poor by mouth intake, on diuretics, repleted. Time Attestation Discharge coordination time: Greater than 30 minutes Quality: Safe Use of Opioids Does Pt have an Active Cancer Diagnosis on the Problem List?: No Quality: Stroke Does the patient have a stroke diagnosis?: No Physical Exam Vital Signs: Vital Signs: Last Vital Signs Temp 98.5 F 08/19/23 11:44 Pulse 56 08/19/23 11:44 Resp 20 08/19/23 11:44 BP 135/59 L 08/19/23 11:44 Pulse Ox 100 08/19/23 11:44 O2 Del Method Room Air 12/30/23 11:44 BMI result Body Mass Index 17.8 Const: Other: General awake alert x3, resting comfortably in no acute distress. Neck supple no JVD. CVS regular rate rhythm, Respiratory lungs clear to auscultation, no respiratory distress, no wheeze, no rhonchi. Gastrointestinal abdomen soft, non tender, bowel sounds audible, no guarding , no rigidity. Extremities no edema. Musculoskeletal no joint deformity Neuro non focal Skin no rash Psych appropriate affect DS: Data Data Completed and Pending Labs on day of discharge: Laboratory Results - last 24 hr 08/19/23 05:45 ESR 27 H Hold Purple Top SEE NOTE Sodium 142 Potassium 3.0 L Chloride 108 Carbon Dioxide 26 Anion Gap 11 L BUN 8 L Creatinine 0.67 Estim Creat Clear Calc 45.5 Estimated GFR > 60 Random Glucose 93 Calcium 8.0 L D Total Bilirubin 0.3 Direct Bilirubin 0.1 AST 71 H ALT 33 H Alkaline Phosphatase 77 Total Protein 5.2 L Albumin 2.9 L Preliminary micro results at discharge 08/17/23 20:49 Blood Culture - Preliminary Blood - Venous No growth after 24 hours. 08/17/23 20:26 Blood Culture - Preliminary Blood - Venous No growth after 24 hours. Discharge Plan Discharge Anticipated Discharge Date/Time: 08/19/23 14:43 Patient Disposition: Home, Self-Care Discharge Diagnosis: Syncope Referrals: Salbador Severino MD [Primary Care Provider] - 1 Week Discharge Medications: Continued omeprazole 40 mg capsule,delayed release(DR/EC) 40 mg PO DAILY Qty: 90 3RF calcium carbonate [Calcium 500] 500 mg calcium (1,250 mg) Tablet,Chewable 500 mg PO DAILY ferrous sulfate 325 mg (65 mg iron) Capsule, Extended Release 65 mg PO DAILY mesalamine 0.375 gram capsule,extended release 24hr 1.5 g PO QAM PRN (Reason: Diarrhea) lorazepam [Ativan] 0.5 mg tablet 1 mg PO BEDTIME PRN (Reason: Insomnia) propranolol 80 mg tablet 80 mg PO BID Rx Instructions: pt states prescribed TID not BID carbidopa-levodopa 25-100 mg tablet 1 tab PO TID alendronate 70 mg tablet 70 mg PO QWEEK Rx Instructions: Q Monday Discontinued potassium chloride 10 mEq tablet extended release 10 meq PO DAILY hydrochlorothiazide 25 mg tablet 25 mg PO DAILY Discharge Orders: Discharge Order (Routine); Ordered 08/19/23 Ordered By: Buddy Tracy Diet: Advance to usual diet Activity on Discharge: As tolerated Stand Alone Forms: Patient Portal Discharge page Care Plan Goals: Recurrent fevers/syncope resolved No source of infection found Rest/plenty of fluids Tylenol for pain and fever Return to check with recurrent symptoms of high-grade fevers/syncope DC hydrochlorothiazide and resume if noted to have systolic BP greater than 140 at low dose 12.5 mg/and resume potassium MRI abdomen with pancreatic protocol recommended by Radiology, follow-up with PCP for outpatient study Health Concerns: Continue all home medications Plan of Treatment: Follow-up with primary care physician Assessment: as above
--- NOTE | 2023-08-19 14:54 | MHC.CM.PN ---
Patient has been medically cleared for dc to home today, self care. IMM addressed yesterday.
[2023-08-21 04:06] LABS: ~HepC Num1 0.05 S/CO (0.00-0.79); ~Hepatitis C Antibody Nonreactive (Nonreactive)
== END 2023-08-19 15:28 | disposition home or self-care (01) | DRG 312 ==
LOC: HO.ED 21:33 → HO.EDOVER 22:21 → HO.IMC 08-18 00:14
PROVIDERS: Admitting Provider Internal Medicine; Emergency Provider Emergency Medicine; PCP Internal Medicine; Visit Provider Hospitalist
DX: R55 Syncope and collapse (principal); R65.10 Systemic inflammatory response syndrome (SIRS) of non-infectious origin without acute organ dysfunction; G20.A1 Parkinson's disease without dyskinesia, without mention of fluctuations; K21.9 Gastro-esophageal reflux disease without esophagitis; K58.0 Irritable bowel syndrome with diarrhea; E87.6 Hypokalemia; F41.9 Anxiety disorder, unspecified; G47.00 Insomnia, unspecified; Z20.822 Contact with and (suspected) exposure to COVID-19; Z79.899 Other long term (current) drug therapy
CPT/HCPCS: 0241U; 36415; 71045; 74177; 80048; 80053; 80076; 81001; 81003; 83605; 83735; 84443; 84484; 85007; 85025; 85027; 85379; 85652; 86803; 87040; 93005; 93970; 99285; J1650; J2543; Q9967

== ENCOUNTER → 2023-08-17 20:11 | Outpatient (BNV) | payer MEDICARE, SELFPAY | PROVIDERS: Admitting Provider Internal Medicine; Emergency Provider Emergency Medicine; PCP Internal Medicine; Visit Provider Internal Medicine | DX: R65.10 Systemic inflammatory response syndrome (SIRS) of non-infectious origin without acute organ dysfunction (principal) | CPT/HCPCS: 93010 ==

== ENCOUNTER → 2023-08-17 22:11 | Outpatient (BNV) | payer MEDICARE, SELFPAY | PROVIDERS: Admitting Provider Internal Medicine; Emergency Provider Emergency Medicine; PCP Internal Medicine; Visit Provider Internal Medicine | DX: R55 Syncope and collapse (principal); R50.9 Fever, unspecified | CPT/HCPCS: 99222 ==

== ENCOUNTER → 2023-08-17 22:11 | Outpatient (BNV) | payer MEDICARE, SELFPAY | PROVIDERS: Admitting Provider Internal Medicine; Emergency Provider Emergency Medicine; PCP Internal Medicine; Visit Provider Internal Medicine | DX: R55 Syncope and collapse (principal); R50.9 Fever, unspecified | CPT/HCPCS: 99223; 99233; 99239 ==

== ENCOUNTER 2023-08-22 10:44 | Outpatient (REF) | payer MEDICARE, SELFPAY ==
[2023-08-22 13:16] LABS: MANUAL DIFF FLAG NO
[2023-08-22 13:20] LABS: Basophils Percent Auto 0.5 % (0-2); Eosinophils Absolute Auto 0.3 X10*3/uL (0.0-0.4); Eosinophils Percent Auto 4.3 % (0-4); Hematocrit 31.9 % (37.0-47.0); Hemoglobin 10.1 g/dl (12.0-16.0); Imm Gran Abs Auto 0.03 X10*3/uL (0.00-0.03); Imm Gran Pct Auto 0.5 % (0.0-0.4); Lymphocytes Absolute Auto 0.9 X10*3/uL (1.2-4.9); Lymphocytes Percent Auto 13.8 % (20-40); Mean Corpuscular HGB Conc 31.7 g/dl (31.0-35.0); Mean Corpuscular Hemoglobin 30.7 pg (27.0-33.0); Mean Platelet Volume 10.4 fL (9.4-12.3); Monocytes Absolute Auto 0.6 X10*3/uL (0.1-1.2); Monocytes Percent Auto 9.5 % (2-11); Neutrophils Absolute Auto 4.6 x10*3/uL (2.0-8.3); Neutrophils Percent Auto 71.4 % (45-73); Platelet Count 306 X10*3/uL (160-400); Red Blood Count 3.29 X10*6/uL (4.20-5.50); Red Cell Distribution Width 12.2 % (11.0-16.0); White Blood Count 6.5 X10*3/uL (4.8-10.8)
[2023-08-22 13:34] LABS: Alanine Aminotransferase 25 U/L (0-31); Albumin Level 3.3 g/dL (3.5-5.0); Alkaline Phosphatase 74 U/L (39-117); Amylase 39 U/L (28-100); Anion Gap 10 (12-20); Aspartate Amino Transferase 32 U/L (5-31); Bilirubin Total 0.4 mg/dL (0.0-1.0); Blood Urea Nitrogen 10 mg/dL (9-16); C Reactive Protein 3.53 mg/dL (< or = 0.50); Calcium 8.4 mg/dL (8.4-10.2); Carbon Dioxide 27 mmol/L (22-29); Chloride 108 mmol/L (96-108); Estimated Glomerular Filt Rate > 60; Glucose Random 83 mg/dL (60-115); Lipase 37 U/L (8-78); Potassium 3.1 mmol/L (3.3-5.1); Sodium 142 mmol/L (135-145); Total Protein 5.7 g/dL (6.5-8.0)
[2023-08-22 14:00] LABS: Erythrocyte Sedimentation Rate 30 MM/HR (0-20)
== END 2023-08-22 10:45 | disposition home or self-care (01) ==
LOC: HO.HMGCLDS 10:44
PROVIDERS: PCP Internal Medicine; Visit Provider Internal Medicine
DX: R53.83 Other fatigue (principal); D64.9 Anemia, unspecified
CPT/HCPCS: 36415; 80053; 82150; 83690; 85025; 85652; 86140

== ENCOUNTER 2023-09-20 11:54 | Outpatient (REF) | payer MEDICARE, SELFPAY ==
[2023-09-20 13:15] LABS: Anion Gap 14 (12-20); Blood Urea Nitrogen 13 mg/dL (9-16); Calcium 9.3 mg/dL (8.4-10.2); Carbon Dioxide 33 mmol/L (22-29); Chloride 101 mmol/L (96-108); Estimated Glomerular Filt Rate > 60; Glucose Random 98 mg/dL (60-115); Potassium 3.6 mmol/L (3.3-5.1); Sodium 144 mmol/L (135-145)
== END 2023-09-20 11:55 | disposition home or self-care (01) ==
LOC: HO.LAB 11:54
PROVIDERS: PCP Internal Medicine; Visit Provider Nurse Practitioner
DX: R53.1 Weakness (principal)
CPT/HCPCS: 36415; 80048

== ENCOUNTER → 2023-09-28 08:23 | Outpatient (REF) | payer MEDICARE, SELFPAY ==
--- NOTE | ~2023-09-28 | NM_ITS ---
Lexiscan Myocardial perfusion study Indication: Syncope, assess for coronary disease and ischemia Technique: The patient was brought in for a Lexiscan perfusion study on 09/28/2023 and was injected 0.4 mg of Lexiscan intravenously. Within a minute of this injection 25 mCi of sestamibi was given intravenously. Images were obtained using the SPECT gamma camera interlaced with the gating device. Images were obtained in supine position. Resting perfusion study was performed on 09/29/2023. Patient was administered 25 mCi of sestamibi intravenously at rest. Images were then obtained in supine position. Images were processed with the software and compared side to side in short axis, horizontal long axis and vertical long axis views. Total DLP 73mGy-cm. Findings: Raw acquisition reviewed. The stress perfusion study showed no significant perfusion abnormality. Both uncorrected as well as CT attenuation corrected images were reviewed. The gated study shows normal LV systolic function on visual evaluation. LV cavity is normal in size. The gated study shows normal wall thickening and contraction of segments. Resting study shows no significant perfusion abnormality. Gating at rest reveals normal wall motion with normal ejection fraction on visual evaluation. The findings are consistent with no clear evidence of any ischemia or infarction. NM/NM cardiolite stress test Impression: 1. Myocardial perfusion imaging study shows normal myocardial perfusion. 2. Gated LVEF is normal on visual evaluation. 3. Transient ischemic dilatation not present. EKG component of the test reported separately.
--- NOTE | 2023-09-28 08:27 | CA_ITS ---
Acquisition Time: 2023-09-28 09:12:56 Total Exercise Time: 00:02:00 Test Indications: SYNCOPE Medications: SEE H Protocol: LEXISCAN Max HR: 085 BPM 62% of Pred: 135 BPM Max BP: 132/072 mmHG Max Work Load: 1.0 METS Pharmacological stress test with Lexiscan injection while sitting and kickingher legs, without anginal symptoms, without arrhyhthmias, with normotensive response to injection, with nondiagnoisitic EKGs. Aminophylline 75mg IVP given to reverse Lexiscan. Nuclear images pending. Test reviewed with Dr. Melvin. Referred By: Dian Nation Overread By: Lottie Melo
== END ==
LOC: HO.CARD 08:23
PROVIDERS: PCP Internal Medicine; Visit Provider Internal Medicine Cardiovascular Disease
DX: I21.4 Non-ST elevation (NSTEMI) myocardial infarction (principal); R79.89 Other specified abnormal findings of blood chemistry; R53.1 Weakness
CPT/HCPCS: 78452; 93017; A9500; J0280; J2785

== ENCOUNTER → 2023-09-28 08:27 | Outpatient (BNV) | payer MEDICARE, SELFPAY | PROVIDERS: PCP Internal Medicine; Visit Provider Nurse Practitioner | DX: I21.4 Non-ST elevation (NSTEMI) myocardial infarction (principal) | CPT/HCPCS: 78452; 93016; 93018 ==

== ENCOUNTER 2023-10-02 13:04 | Outpatient (AMB) | payer MEDICARE, SELFPAY ==
[2023-10-02 13:08] VITALS: BP 120/74; PULSE 67; BMI 16.0
--- NOTE | 2023-10-02 13:08 | MHC.OFFVIS ---
Intake Vital Signs 10/02/23 13:08 Height 5 ft 4 in Weight 93 lb 7.616 oz BMI 16.0 BP 120/74 Blood Pressure Location Lt brachial Position Sitting Pulse 67 Pulse Source Pulse Oximeter Intake Visit Reasons: f/u after testing Allergies pregabalin [From LYRICA] Allergy (Severe, Verified 10/02/23 13:11) CONFUSION gabapentin [GABAPENTIN] Allergy (Intermediate, Verified 10/02/23 13:11) NAUSEA/VOMITING amlodipine [From Norvasc] Allergy (Verified 10/02/23 13:11) Unknown clarithromycin [From BIAXIN] Adverse Reaction (Intermediate, Verified 10/02/23 13:11) NAUSEA & VOMITING codeine [CODEINE] Adverse Reaction (Intermediate, Verified 10/02/23 13:11) NAUSEA & VOMITING fentanyl [From DURAGESIC] Adverse Reaction (Intermediate, Verified 10/02/23 13:11) NAUSEA/VOMITING levofloxacin [From LEVAQUIN] Adverse Reaction (Intermediate, Verified 10/02/23 13:11) NAUSEA & VOMITING primidone [From Mysoline] Adverse Reaction (Verified 10/02/23 13:11) Nausea and Vomiting Medication List - Last Reconciled 10/02/23 by ANNA Sierra alendronate 70 mg PO QWEEK ascorbate calcium (vitamin C) 500 mg PO DAILY calcium carbonate (Calcium 500) 500 mg PO DAILY carbidopa-levodopa 25-100 mg 1 tab PO TID ferrous sulfate ER 65 mg PO DAILY lorazepam (Ativan) 1 mg PO BEDTIME PRN mesalamine ER 1.5 grams PO QAM PRN omeprazole 40 mg PO DAILY propranolol 80 mg PO BID HPI f/u after testing HPI Details Mckenzie is an 83-year-old female with no prior cardiac history who was admitted to [facility] in July with weakness, brief loss of consciousness and found to have viral syndrome, elevated troponins, likely consistent with secondary NSTEMI in the setting illness. She had echocardiogram and outpatient stress test and now presents for follow-up. Today she reports that she has been doing generally well since her hospital discharge. She is still experiencing some fatigue. She says her breathing is back to normal. She does not have any chest discomfort at rest or with activity. No heart palpitations, lightheadedness, presyncope, syncope, falls. No PND, orthopnea or edema. She is taking her meds as directed. She is scheduled for cervical spine surgery with Dr. Jose in 2 days. Daughter is present. [facility] Medical History SIRS (systemic inflammatory response syndrome) Guillain-Hemet syndrome Fracture, wrist, open History of gastrectomy Parkinson disease High blood pressure Surgical History Hx of arthroscopic knee surgery Hx of hysterectomy H/O pyloroplasty H/O vagotomy Hx of cholecystectomy History of esophagogastroduodenoscopy (EGD) Hx of colonoscopy Social History Household Members: None Housing: Condominium Do you presently have visiting nurse or other home services: No Alcohol intake: former Comment: bed exit alarm off per pt / pt daughter request; daughter Roxanna at bedside Patient Tobacco Use Status: Never used Tobacco Advance Directives Date on File: 08/14/23 service: No Current occupational status: retired Current occupation: rt handed Review of Systems Const All systems reviewed & are unremarkable except as noted in HPI and below Reports fatigue and Reports weight loss ENT Denies dizziness Card Denies chest pain, Denies chest pain at rest, Denies chest pain with activity, Denies rapid heart rate, Denies pedal edema, Denies edema, Denies leg edema, Denies lightheadedness, Denies palpitations, Denies dyspnea, Denies dyspnea on exertion and Denies orthopnea Resp Denies cough, Denies dyspnea and Denies dyspnea on exertion GI Denies hematochezia and Denies change in stool character Musc Denies abnormal gait, Reports limited range of motion (neck pain), Denies muscle cramps, Denies muscle weakness, Denies numbness, Denies radiating pain into limb, Denies stiffness and Denies tingling Neuro Denies abnormal gait, Denies dizziness, Denies numbness and Denies tingling Endo Reports fatigue and Denies palpitations Physical Exam Vital Signs: Last Vital Signs Pulse 67 10/02/23 13:08 BP 120/74 10/02/23 13:08 BMI result Body Mass Index 16.0 Const Other: thin built General: cooperative, healthy appearing, comfortable and no acute distress Orientation/consciousness: patient oriented x3 Neck Neck: Yes normal visual inspection and Yes no JVD Resp Effort & Inspection: normal respiratory effort Auscultation: clear to auscultation bilaterally, no crackles, no rales, no rhonchi and no wheezes Cardio Jugular venous distension: no JVD Rate: regular rate Rhythm: regular rhythm Heart sounds: S1 normal heart sound present, S2 normal heart sound present, no murmurs and no rubs Skin General skin exam: no rashes or lesions noted Neuro General: patient oriented x3 Extrem General: Yes normal to inspection and No no pedal edema Psych Appearance: grossly normal Mental Status: mental status grossly normal Speech and movement: Normal speech and movement present Assessment & Plan Assessment & Plan (1) Elevated troponin: Code(s): R79.89 - Other specified abnormal findings of blood chemistry Plan: [facility] [place] [facility] admission July 2023 with weakness, presyncope. She was found to have viral illness and troponin elevation up to 116 with rise and fall consistent with secondary NSTEMI. An echocardiogram was done on 08/15/2023 showing EF 63%, mild increase in the LV wall thickness, no regional wall motion abnormalities. She was started on aspirin and continued on propanolol. As outpatient she underwent a nuclear stress test on 09/29/2023 showing normal myocardial perfusion imaging. She has been doing well with no anginal sounding symptoms. No definitive diagnosis of CAD. Will have her continue on aspirin. She is not on statin however lipids well controlled without it. Continue propranolol. Signs and symptoms of angina reviewed with her. Cardiology office visit in 4-5 months, sooner if needed, to evaluate symptoms and for recurrent syncope (2) Syncope and collapse: Code(s): R55 - Syncope and collapse Plan: Brief loss of consciousness prior to [facility] admission in July. Patient had weakness, fever and viral illness. No reported arrhythmia noted on cardiac monitoring. Echocardiogram showed normal EF. She was taken off her hydrochlorothiazide. She has had no recurrent episodes since her hospital discharge. She tells me that her ankles were starting to swell and blood pressure started to rise so she restarted hydrochlorothiazide. She believes the syncope was related to her illness at that time. She was not having any syncope prior to that time and has not had any since then. Instructed to sit/lay down if she was to become presyncopal. Maintain good hydration. (3) NSTEMI (non-ST elevated myocardial infarction): Code(s): I21.4 - Non-ST elevation (NSTEMI) myocardial infarction Plan: Troponin elevation consistent with cardiac stress/injury. Testing most supportive of secondary NSTEMI related to viral illness. No reports of anginal symptoms. Continue on aspirin. She is not on statin. Labs done 08/14/2023 with no statin use showed LDL 64. She is on propranolol. No reports of anginal sounding symptoms. No med changes made (4) SIRS (systemic inflammatory response syndrome): Code(s): R65.10 - Systemic inflammatory response syndrome (SIRS) of non-infectious origin without acute organ dysfunction Plan: Resolved (5) Hospital discharge follow-up: Code(s): Z09 - Encounter for follow-up examination after completed treatment for conditions other than malignant neoplasm Plan: Hospital admission x2 in July (6) Preop cardiovascular exam: Code(s): Z01.810 - Encounter for preprocedural cardiovascular examination Plan: Preop for cervical spine surgery with Dr. Jose on 10/04/2023. Her aspirin is currently on hold. Cardiac testing as above. Patient is low to intermediate cardiac risk to proceed with surgery. Call/consult Cardiology if needed. Plan Time spent on chart review, documentation, interview and assessment Coding Level of Care Code Est Pt Level 4 (12556) Diagnoses Elevated troponin R79.89 Syncope and collapse R55 NSTEMI (non-ST elevated myocardial infarction) I21.4 SIRS (systemic inflammatory response syndrome) R65.10 Hospital discharge follow-up Z09 Preop cardiovascular exam Z01.810 Time Spent (min) 28
== END 2023-10-02 13:41 | disposition home or self-care (01) ==
PROVIDERS: PCP Internal Medicine; Visit Provider Nurse Practitioner Family
DX: R79.89 Other specified abnormal findings of blood chemistry (principal); R55 Syncope and collapse; I21.4 Non-ST elevation (NSTEMI) myocardial infarction; R65.10 Systemic inflammatory response syndrome (SIRS) of non-infectious origin without acute organ dysfunction; Z09 Encounter for follow-up examination after completed treatment for conditions other than malignant neoplasm; Z01.810 Encounter for preprocedural cardiovascular examination
CPT/HCPCS: 99214

== ENCOUNTER → 2023-10-02 13:04 | Outpatient (BNVA) | payer MEDICARE, SELFPAY | PROVIDERS: PCP Internal Medicine; Visit Provider Nurse Practitioner Family | DX: Z01.810 Encounter for preprocedural cardiovascular examination (principal); Z09 Encounter for follow-up examination after completed treatment for conditions other than malignant neoplasm; R79.89 Other specified abnormal findings of blood chemistry; R55 Syncope and collapse; R65.10 Systemic inflammatory response syndrome (SIRS) of non-infectious origin without acute organ dysfunction; I21.4 Non-ST elevation (NSTEMI) myocardial infarction | CPT/HCPCS: 99212 ==

== ENCOUNTER 2023-12-01 09:43 | Outpatient (REF) | payer MEDICARE, SELFPAY ==
[2023-12-01 10:44] LABS: MANUAL DIFF FLAG NO
[2023-12-01 12:19] LABS: Basophils Percent Auto 0.4 % (0-2); Hematocrit 41.3 % (37.0-47.0); Hemoglobin 13.4 g/dl (12.0-16.0); Imm Gran Abs Auto 0.02 X10*3/uL (0.00-0.03); Imm Gran Pct Auto 0.4 % (0.0-0.4); Mean Corpuscular HGB Conc 32.4 g/dl (31.0-35.0); Mean Corpuscular Hemoglobin 29.6 pg (27.0-33.0); Mean Corpuscular Volume 91.2 fL (80.0-98.0); Mean Platelet Volume 11.5 fL (9.4-12.3); Monocytes Absolute Auto 0.4 X10*3/uL (0.1-1.2); Monocytes Percent Auto 8.7 % (2-11); Neutrophils Absolute Auto 3.3 x10*3/uL (2.0-8.3); Neutrophils Percent Auto 69.5 % (45-73); Platelet Count 205 X10*3/uL (160-400); Red Blood Count 4.53 X10*6/uL (4.20-5.50); Red Cell Distribution Width 13.8 % (11.0-16.0); White Blood Count 4.7 X10*3/uL (4.8-10.8)
[2023-12-01 13:02] LABS: Alanine Aminotransferase 16 U/L (0-31); Alkaline Phosphatase 64 U/L (39-117); Anion Gap 13 (12-20); Aspartate Amino Transferase 28 U/L (5-31); Bilirubin Total 0.5 mg/dL (0.0-1.0); Blood Urea Nitrogen 15 mg/dL (9-16); C Reactive Protein < 0.04 mg/dL (< or = 0.50); Calcium 9.2 mg/dL (8.4-10.2); Carbon Dioxide 32 mmol/L (22-29); Chloride 101 mmol/L (96-108); Estimated Glomerular Filt Rate > 60; Glucose Random 82 mg/dL (60-115); Sodium 143 mmol/L (135-145); Total Protein 6.8 g/dL (6.5-8.0)
== END 2023-12-01 09:44 | disposition home or self-care (01) ==
LOC: HO.LAB 09:43
PROVIDERS: PCP Internal Medicine; Visit Provider Internal Medicine Gastroenterology
DX: K75.81 Nonalcoholic steatohepatitis (NASH) (principal); R19.7 Diarrhea, unspecified; Z74.09 Other reduced mobility
CPT/HCPCS: 36415; 80053; 85025; 86140; 99212

== ENCOUNTER 2023-12-01 09:43 | Outpatient (AMB) | payer MEDICARE, SELFPAY ==
--- NOTE | 2023-12-01 09:46 | MHC.OFFVIS ---
Intake Vital Signs 12/01/23 09:56 Height 5 ft 4 in Weight 88 lb 2.958 oz BMI 15.1 BP 157/68 H Blood Pressure Location Lt brachial Position Sitting Pulse 62 Intake Visit Reasons: 4 month follow up Intake Note: Mckenzie presents in the office as a 4 month follow up. CC: She states she got a new insurance and she wont be able to continue to come here. 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 Allergies pregabalin [From LYRICA] Allergy (Severe, Verified 12/01/23 09:56) CONFUSION gabapentin [GABAPENTIN] Allergy (Intermediate, Verified 12/01/23 09:56) NAUSEA/VOMITING amlodipine [From Norvasc] Allergy (Verified 12/01/23 09:56) Unknown clarithromycin [From BIAXIN] Adverse Reaction (Intermediate, Verified 12/01/23 09:56) NAUSEA & VOMITING codeine [CODEINE] Adverse Reaction (Intermediate, Verified 12/01/23 09:56) NAUSEA & VOMITING fentanyl [From DURAGESIC] Adverse Reaction (Intermediate, Verified 12/01/23 09:56) NAUSEA/VOMITING levofloxacin [From LEVAQUIN] Adverse Reaction (Intermediate, Verified 12/01/23 09:56) NAUSEA & VOMITING primidone [From Mysoline] Adverse Reaction (Verified 12/01/23 09:56) Nausea and Vomiting HPI 4 month follow up HPI Details 83 yr old f with hx of parkinsons and prior vagotomy, and partial gastrectomy 1974 who I am seeing for f/u for weight loss, colitis RECAP Since 10/2020 she has noted increasing weight loss had visited sister in [place] who had a stroke she has a restricted diet due to her prior surgeries, avoids fat foods she has lost about 10-15# she was having diarrhea for 40 yrs but started sinemet for PD 1 yr ago and since then the diarrhea has improved a lot she denies abdominal pain she says she otherwise feels good denies blood in stool no oil droplets or grease in stool, but can float takes ibuprofen prn once in a while CT scan ordered: 06/2021--liver cyst, mild dilated PD and CBC, stable, no acute findings or masses, degen spinal disease, atherosclerosis CXR: no acute pathology, or masses LABS: mild raised histamine, borderline HGB, WCC, histamine, raised fecal eboni, nml panc elastase, neg giardia, neg fecal fat, mild low IgG2, and 3, raised ferritin gastrin and calcitonin were nml rifaxmin never helped her neither did welchol or ursodiol she never felt benefit from ursodiol or welchol after eventually trying EGD/colonoscopy : 10/2021 Endoscopy Findings: gastritis--diffuse gastric polyp Colonoscopy Findings: internal hemorrhoids bx: neg for microscopic colitis GES: rapid emptying on study Fecal lactoferrin-- 04/2023--- 27--commenced on apriso --she did get short course of pred which she felt was very effective for her bowels and joints CTe: inflammatory arthritis hip possible left sided colonic inflammation Labs: neg PEMA, CCP and RF, CRP 3 INTERIM: stools are formed and soft weight is stable appetite is good no nausea or vomiting no abdominal pain she feels joints are not that bad, didnt see rheumatology she has issues with mobility and getting out fo the car etc EXAM: GENERAL: The patient is well developed and nontoxic. VITAL SIGNS:see workflow HEENT: Nonicteric sclerae, PERRLA, EOMI. Oropharynx clear. Moist mucous membranes. Conjunctivae appear well perfused. No thyroid mass. CHEST: Chest wall is nontender. HEART: Regular rate and rhythm without murmurs. LUNGS: Clear to auscultation bilaterally. ABDOMEN: Soft, positive bowel sounds, tender epigastrium, no organomegaly.no flank tenderness SKIN: No rash, no excessive bruising, petechiae, or purpura. NEUROLOGIC: Cranial nerves II-XII intact without motor/sensory deficit. intention tremor A/P: 1/ Weight loss, but weight stable at around 100#, stool freq , had raised fecal inflammatory markers , nml TSH, lowish b12,stopped supplements--seems to have stablized now, ? subacute IBD PLAN: 1/ repeat fecal lacto--see if has improved --if not maybe humira or remicade 2/ cont apriso for meantime, 3/ consider re referral rheum --PT referral for mobility issues [facility] Medical History SIRS (systemic inflammatory response syndrome) Guillain-[place] syndrome Fracture, wrist, open History of gastrectomy Parkinson disease High blood pressure Surgical History Hx of arthroscopic knee surgery Hx of hysterectomy H/O pyloroplasty H/O vagotomy Hx of cholecystectomy History of esophagogastroduodenoscopy (EGD) Hx of colonoscopy Social History Household Members: None Housing: Condominium Do you presently have visiting nurse or other home services: No Alcohol intake: former Comment: bed exit alarm off per pt / pt daughter request; daughter Roxanna at bedside Patient Tobacco Use Status: Never used Tobacco Advance Directives Date on File: 08/14/23 service: No Current occupational status: retired Current occupation: rt handed Physical Exam Vital Signs: Last Vital Signs Pulse 62 12/01/23 09:56 BP 157/68 H 12/01/23 09:56 BMI result Body Mass Index 15.1 Assessment & Plan Assessment & Plan (1) Diarrhea: Code(s): R19.7 - Diarrhea, unspecified Plan: see above (2) Poor mobility: Code(s): Z74.09 - Other reduced mobility Plan: see above Orders: Orders Complete Blood Count Auto Diff Today R19.7 - Diarrhea, unspecified C Reactive Protein Today R19.7 - Diarrhea, unspecified Comprehensive Met. Panel Today K75.81 - Nonalcoholic steatohepatitis (BOOKER), R19.7 - Diarrhea, unspecified PT Evaluation and Treatment Today Z74.09 - Other reduced mobility Medications: New mesalamine ER 1.5 grams (4 x 0.375 gram) PO QAM PRN 90 caps 2RF Diarrhea Refilled omeprazole 40 mg PO DAILY 90 caps 3RF Coding Level of Care Code Est Pt Level 3 (51394) Diagnoses Diarrhea R19.7 Poor mobility Z74.09
[2023-12-01 09:56] VITALS: BP 157/68; PULSE 62; BMI 15.1
== END 2023-12-01 10:15 | disposition home or self-care (01) ==
PROVIDERS: PCP Internal Medicine; Visit Provider Internal Medicine Gastroenterology
DX: R19.7 Diarrhea, unspecified (principal); Z74.09 Other reduced mobility
CPT/HCPCS: 99213

== ENCOUNTER 2024-02-08 | Outpatient (REF) | payer MEDICARE, SELFPAY ==
[2024-02-14 19:49] LABS: Lactoferrin, Fecal, Quant. 26.96 mcg/mL (<7.25)
== END 2024-02-08 00:01 | disposition home or self-care (01) ==
LOC: HO.LNP
PROVIDERS: Visit Provider Internal Medicine Gastroenterology
DX: K51.50 Left sided colitis without complications (principal); R19.7 Diarrhea, unspecified
CPT/HCPCS: 83631

== ENCOUNTER 2024-02-08 08:53 | Outpatient (AMB) | payer MEDICARE, SELFPAY ==
[2024-02-08 09:00] VITALS: BP 110/70; PULSE 63; BMI 15.1
--- NOTE | 2024-02-08 09:00 | A.OFFVIS_ITS ---
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 Allergies pregabalin [From LYRICA] Allergy (Severe, Verified 12/01/23 09:56) CONFUSION gabapentin [GABAPENTIN] Allergy (Intermediate, Verified 12/01/23 09:56) NAUSEA/VOMITING amlodipine [From Norvasc] Allergy (Verified 12/01/23 09:56) Unknown clarithromycin [From BIAXIN] Adverse Reaction (Intermediate, Verified 12/01/23 09:56) NAUSEA & VOMITING codeine [CODEINE] Adverse Reaction (Intermediate, Verified 12/01/23 09:56) NAUSEA & VOMITING fentanyl [From DURAGESIC] Adverse Reaction (Intermediate, Verified 12/01/23 09:56) NAUSEA/VOMITING levofloxacin [From LEVAQUIN] Adverse Reaction (Intermediate, Verified 12/01/23 09:56) NAUSEA & VOMITING primidone [From Mysoline] Adverse Reaction (Verified 12/01/23 09:56) Nausea and Vomiting Medication List - Last Reconciled 02/08/24 by Jez Harrison MD carbidopa-levodopa 25-100 mg 1 tab PO TID ferrous sulfate ER 65 mg PO DAILY hydrochlorothiazide 25 mg PO DAILY lorazepam (Ativan) 1 mg PO BEDTIME PRN mesalamine ER 1.5 grams (4 x 0.375 gram) PO QAM PRN omeprazole 40 mg PO DAILY oxybutynin chloride ER 10 mg PO DAILY potassium chloride ER 10 mEq PO DAILY propranolol 80 mg PO BID HPI Comments Details: Mckenzie comes for follow-up. She has had no cardiovascular symptoms. Her only concern is currently her weight. She says she has not able to keep any food down related to her vagotomy. She denies any exertional chest pain. He denies any lightheadedness, syncope. Maintain adequate hydration. Blood pressures been well controlled. [facility] Medical History NSTEMI (non-ST elevated myocardial infarction) SIRS (systemic inflammatory response syndrome) Guillain-[place]ora syndrome Fracture, wrist, open History of gastrectomy Parkinson disease High blood pressure Surgical History Hx of arthroscopic knee surgery Hx of hysterectomy H/O pyloroplasty H/O vagotomy Hx of cholecystectomy History of esophagogastroduodenoscopy (EGD) Hx of colonoscopy Social History Household Members: None Housing: Condominium Do you presently have visiting nurse or other home services: No Alcohol intake: former Comment: bed exit alarm off per pt / pt daughter request; daughter Roxanna at bedside Patient Tobacco Use Status: Never used Tobacco Advance Directives Date on File: 08/14/23 service: No Current occupational status: retired Current occupation: rt handed Review of Systems Const Denies chills, Denies fatigue, Denies fever(s), Denies frequent falls, Denies weakness, Denies weight gain and Denies weight loss ENT Denies dizziness Card Denies chest pain, Denies leg edema, Denies lightheadedness, Denies palpitations, Denies dyspnea, Denies dyspnea on exertion, Denies orthopnea and Denies other (loss of consciousness) Resp Denies cough, Denies dyspnea and Denies dyspnea on exertion GI Denies hematochezia and Denies change in stool character Musc Denies abnormal gait, Denies muscle weakness, Denies numbness, Denies radiating pain into limb and Denies tingling Neuro Denies abnormal gait, Denies dizziness, Denies frequent falls, Denies numbness, Denies tingling and Denies weakness Endo Denies fatigue and Denies palpitations Physical Exam Vital Signs: Last Vital Signs Pulse 63 02/08/24 09:00 BP 110/70 02/08/24 09:00 BMI result Body Mass Index 15.1 Const Other: thin built General: cooperative, healthy appearing, comfortable and no acute distress Nutritional Appearance: underweight Orientation/consciousness: patient oriented x3 Neck Neck: Yes normal visual inspection and Yes no JVD Resp Effort & Inspection: normal respiratory effort Auscultation: clear to auscultation bilaterally, no crackles, no rales, no rhonchi and no wheezes Cardio Jugular venous distension: no JVD Rate: regular rate Rhythm: regular rhythm Heart sounds: S1 normal heart sound present, S2 normal heart sound present, no murmurs and no rubs Skin General skin exam: no rashes or lesions noted Neuro General: patient oriented x3 Extrem General: Yes normal to inspection and No no pedal edema Psych Appearance: grossly normal Mental Status: mental status grossly normal Speech and movement: Normal speech and movement present Assessment & Plan Assessment & Plan (1) High blood pressure: Code(s): I10 - Essential (primary) hypertension Category: Medical Plan: Patient with prior high blood pressure syncopal event with acute viral syndrome most likely due to hypovolemia. This has not recurred. She is currently back on hydrochlorothiazide. Advised to maintain adequate oral hydration. Maintain blood pressure checks at home. Has had a secondary NSTEMI related to a viral syndrome with no evidence of ischemia by myocardial perfusion imaging. No further workup is indicated. Continue current therapy. Will follow up in the clinic if need be. Thank you for allowing me to partake in her care Coding Level of Care Code Est Pt Level 3 (67918) Diagnoses High blood pressure I10
== END 2024-02-08 09:52 | disposition home or self-care (01) ==
PROVIDERS: PCP Internal Medicine; Visit Provider Internal Medicine Cardiovascular Disease
DX: I10 Essential (primary) hypertension (principal)
CPT/HCPCS: 99213

== ENCOUNTER → 2024-02-08 08:53 | Outpatient (BNVA) | payer MEDICARE, SELFPAY | PROVIDERS: PCP Internal Medicine; Visit Provider Internal Medicine Cardiovascular Disease | DX: I10 Essential (primary) hypertension (principal) | CPT/HCPCS: 99212 ==

== ENCOUNTER 2024-04-23 15:18 | Outpatient (REF) | payer MEDICARE, SELFPAY ==
--- NOTE | ~2024-04-23 | XR_ITS ---
EXAMINATION: XR SHOULDER, RIGHT CLINICAL INFORMATION: Right shoulder pain and swelling. COMPARISON: Right shoulder radiographs dated 01/31/2022. TECHNIQUE: AP internal rotation, AP external rotation, and scapular Y views of the right shoulder. FINDINGS: Healed proximal humeral fracture in unchanged anatomic alignment. No acute fracture or dislocation. Mild acromioclavicular osteoarthritis, unchanged. No concerning lytic or blastic osseous lesion. No abnormal soft tissue calcification. XR/XR shoulder RT min 2V IMPRESSION: 1. Healed proximal humeral fracture in unchanged anatomic alignment. 2. Mild acromioclavicular osteoarthritis, unchanged. Electronically signed by: Gaurav Amaral MD 04/29/2024 09:51 PM EDT
== END 2024-04-23 15:19 | disposition home or self-care (01) ==
LOC: HO.HMGCX 15:18
PROVIDERS: PCP Internal Medicine; Visit Provider Internal Medicine
DX: R60.0 Localized edema (principal); M25.511 Pain in right shoulder
CPT/HCPCS: 73030

== ENCOUNTER 2024-05-03 09:54 | Outpatient (REF) | payer MEDICARE, SELFPAY ==
[2024-05-03 10:49] LABS: MANUAL DIFF FLAG NO
[2024-05-03 11:20] LABS: Basophils Percent Auto 0.3 % (0-2); Hematocrit 43.1 % (37.0-47.0); Hemoglobin 14.4 g/dl (12.0-16.0); Imm Gran Abs Auto 0.04 X10*3/uL (0.00-0.03); Imm Gran Pct Auto 0.5 % (0.0-0.4); Lymphocytes Absolute Auto 1.7 X10*3/uL (1.2-4.9); Lymphocytes Percent Auto 21.7 % (20-40); Mean Corpuscular HGB Conc 33.4 g/dl (31.0-35.0); Mean Corpuscular Volume 92.7 fL (80.0-98.0); Monocytes Absolute Auto 0.8 X10*3/uL (0.1-1.2); Monocytes Percent Auto 10.8 % (2-11); Neutrophils Absolute Auto 5.2 x10*3/uL (2.0-8.3); Neutrophils Percent Auto 66.7 % (45-73); Platelet Count 229 X10*3/uL (160-400); Red Blood Count 4.65 X10*6/uL (4.20-5.50); Red Cell Distribution Width 12.7 % (11.0-16.0); White Blood Count 7.8 X10*3/uL (4.8-10.8)
[2024-05-03 11:31] LABS: Alanine Aminotransferase 29 U/L (0-31); Albumin Level 3.9 g/dL (3.5-5.0); Alkaline Phosphatase 58 U/L (39-117); Anion Gap 14 (12-20); Aspartate Amino Transferase 24 U/L (5-31); Bilirubin Total 0.8 mg/dL (0.0-1.0); Blood Urea Nitrogen 22 mg/dL (9-16); C Reactive Protein < 0.10 mg/dL (< or = 0.50); Calcium 9.7 mg/dL (8.4-10.2); Carbon Dioxide 30 mmol/L (22-29); Chloride 103 mmol/L (96-108); Estimated Glomerular Filt Rate 60; Glucose Random 99 mg/dL (60-115); Magnesium 1.9 mg/dL (1.6-2.6); Potassium 3.4 mmol/L (3.3-5.1); Sodium 144 mmol/L (135-145); Total Protein 6.3 g/dL (6.5-8.0)
[2024-05-03 11:52] LABS: HBS Num1 189.56 mIU/mL (0-7.99); HBc Num1 0.06 S/CO (0.00-0.79); HBsAGNum1 0.19 S/CO (0.00-0.99); Hepatitis A Antibody IgM 0.42 Index (0-0.79); Hepatitis B Core Antibody Nonreactive (Nonreactive); Hepatitis B Surface Antigen Negative (Negative); ~HepC Num1 0.05 S/CO (0.00-0.79); ~Hepatitis A Antibody IgM Nonreactive (Nonreactive); ~Hepatitis B Surface Antibody REACTIVE (Nonreactive); ~Hepatitis C Antibody Nonreactive (Nonreactive)
[2024-05-03 12:14] LABS: Erythrocyte Sedimentation Rate 2 MM/HR (0-20)
[2024-05-06 22:28] LABS: TS Negative Control Passed; TS Panel A 0; TS Panel B 0; TS Positive Control Passed; TSpotTB Negative (Negative)
== END 2024-05-03 09:55 | disposition home or self-care (01) ==
LOC: HO.LAB 09:54
PROVIDERS: PCP Internal Medicine; Visit Provider Internal Medicine Gastroenterology
DX: K52.9 Noninfective gastroenteritis and colitis, unspecified (principal); K75.81 Nonalcoholic steatohepatitis (NASH); Z79.899 Other long term (current) drug therapy
CPT/HCPCS: 36415; 80053; 83735; 85025; 85652; 86140; 86481; 86704; 86706; 86709; 86803; 87340; 99212

== ENCOUNTER 2024-05-03 09:54 | Outpatient (AMB) | payer MEDICARE, SELFPAY ==
--- NOTE | 2024-05-03 09:59 | A.OFFVIS_ITS ---
Vital Signs 05/03/24 10:01 Height 5 ft 4 in Weight 86 lb 2.958 oz BMI 14.8 BP 141/64 H Blood Pressure Location Lt brachial Position Sitting Pulse 54 Intake Visit Reasons: 5 month follow up Intake Note: Mckenzie presents in the office as a 5 month follow up. CC: Having issues getting her mesalamine - states she gets 21 day supply and is unable to get 30 days worth. Every month she have to call - she takes 4 for 31 days. Unable to get 30 day supply with any refills - per the pharmacy patient says. Allergies pregabalin [From LYRICA] Allergy (Severe, Verified 05/03/24 10:01) CONFUSION gabapentin [GABAPENTIN] Allergy (Intermediate, Verified 05/03/24 10:01) NAUSEA/VOMITING amlodipine [From Norvasc] Allergy (Verified 05/03/24 10:01) Unknown clarithromycin [From BIAXIN] Adverse Reaction (Intermediate, Verified 05/03/24 10:01) NAUSEA & VOMITING codeine [CODEINE] Adverse Reaction (Intermediate, Verified 05/03/24 10:01) NAUSEA & VOMITING fentanyl [From DURAGESIC] Adverse Reaction (Intermediate, Verified 05/03/24 10 :01) NAUSEA/VOMITING levofloxacin [From LEVAQUIN] Adverse Reaction (Intermediate, Verified 05/03/24 10:01) NAUSEA & VOMITING primidone [From Mysoline] Adverse Reaction (Verified 05/03/24 10:01) Nausea and Vomiting HPI HPI 5 month follow up: Details: 83 yr old f with hx of parkinsons and prior vagotomy, and partial gastrectomy 1974 who I am seeing for f/u for weight loss, colitis RECAP Since 10/2020 she has noted increasing weight loss had visited sister in [place] who had a stroke she has a restricted diet due to her prior surgeries, avoids fat foods she has lost about 10-15# she was having diarrhea for 40 yrs but started sinemet for PD 1 yr ago and since then the diarrhea has improved a lot she denies abdominal pain she says she otherwise feels good denies blood in stool no oil droplets or grease in stool, but can float takes ibuprofen prn once in a while CT scan ordered: 06/2021--liver cyst, mild dilated PD and CBC, stable, no acute findings or masses, degen spinal disease, atherosclerosis CXR: no acute pathology, or masses LABS: mild raised histamine, borderline HGB, WCC, histamine, raised fecal eboni, nml panc elastase, neg giardia, neg fecal fat, mild low IgG2, and 3, raised ferritin gastrin and calcitonin were nml rifaxmin never helped her neither did welchol or ursodiol she never felt benefit from ursodiol or welchol after eventually trying EGD/colonoscopy : 10/2021 Endoscopy Findings: gastritis--diffuse gastric polyp Colonoscopy Findings: internal hemorrhoids bx: neg for microscopic colitis GES: rapid emptying on study Fecal lactoferrin-- 04/2023--- 27--commenced on apriso --she did get short course of pred which she felt was very effective for her bowels and joints CTe: inflammatory arthritis hip possible left sided colonic inflammation Labs: neg PEMA, CCP and RF, CRP 3 fecal lactoferrin: 02/11-- INTERIM: she had one episode of heartburn but none since stools are formed, and soft she still has some occ diarrhea she has sore arm, seeing PCP she feels her weight is stable although low mobility is good right now EXAM: GENERAL: The patient is well developed and nontoxic. VITAL SIGNS:see workflow HEENT: Nonicteric sclerae, PERRLA, EOMI. Oropharynx clear. Moist mucous membranes. Conjunctivae appear well perfused. No thyroid mass. CHEST: Chest wall is nontender. HEART: Regular rate and rhythm without murmurs. LUNGS: Clear to auscultation bilaterally. ABDOMEN: Soft, positive bowel sounds, tender epigastrium, no organomegaly.no flank tenderness SKIN: No rash, no excessive bruising, petechiae, or purpura. NEUROLOGIC: Cranial nerves II-XII intact without motor/sensory deficit. intention tremor A/P: 1/ Weight loss, raised lactoferrin ?subacute IBD, on mesalamine PLAN: 1/ repeat fecal lacto now and CRP--see if has improved --if not maybe humira or remicade, entyvio 2/ cont apriso for meantime, 3/ check TB spot and Hep serologies [facility] Medical History NSTEMI (non-ST elevated myocardial infarction) SIRS (systemic inflammatory response syndrome) Guillain-[place] syndrome Fracture, wrist, open History of gastrectomy Parkinson disease High blood pressure Surgical History Hx of arthroscopic knee surgery Hx of hysterectomy H/O pyloroplasty H/O vagotomy Hx of cholecystectomy History of esophagogastroduodenoscopy (EGD) Hx of colonoscopy Social History Household Members: None Housing: Condominium Do you presently have visiting nurse or other home services: No Alcohol intake: former Comment: bed exit alarm off per pt / pt daughter request; daughter Roxanna at bedside Patient Tobacco Use Status: Never used Tobacco Advance Directives Date on File: 08/14/23 service: No Current occupational status: retired Current occupation: rt handed Physical Exam Vital Signs: Last Vital Signs Pulse 54 05/03/24 10:01 BP 141/64 H 05/03/24 10:01 BMI result Body Mass Index 14.8 Assessment & Plan Assessment & Plan (1) Colitis: Code(s): K52.9 - Noninfective gastroenteritis and colitis, unspecified Category: Medical Plan: see above Orders: Orders C Reactive Protein Today K52.9 - Noninfective gastroenteritis and colitis, unspecified Hepatitis A,B,C Profile Today K52.9 - Noninfective gastroenteritis and colitis, unspecified Complete Blood Count Auto Diff Today K52.9 - Noninfective gastroenteritis and colitis, unspecified Comprehensive Met. Panel Today K52.9 - Noninfective gastroenteritis and colitis, unspecified, K75.81 - Nonalcoholic steatohepatitis (BOOKER) Lactoferrin, Fecal, Quant. Today K51.50 - Left sided colitis without complications, K52.9 - Noninfective gastroenteritis and colitis, unspecified Erythrocyte Sedimentation Rate Today K52.9 - Noninfective gastroenteritis and colitis, unspecified Magnesium Today K52.9 - Noninfective gastroenteritis and colitis, unspecified T Spot TB Today K52.9 - Noninfective gastroenteritis and colitis, unspecified Medications: Changed From mesalamine ER 1.5 grams (4 x 0.375 gram) PO QAM PRN 120 caps 2RF Diarrhea To mesalamine ER 1.5 grams (4 x 0.375 gram) PO QAM 360 caps 2RF Diarrhea Coding Level of Care Code Est Pt Level 3 (75338) Diagnoses Colitis K52.9
[2024-05-03 10:01] VITALS: BP 141/64; PULSE 54; BMI 14.8
== END 2024-05-03 10:44 | disposition home or self-care (01) ==
PROVIDERS: PCP Internal Medicine; Visit Provider Internal Medicine Gastroenterology
DX: K52.9 Noninfective gastroenteritis and colitis, unspecified (principal)
CPT/HCPCS: 99213

== ENCOUNTER 2024-05-14 12:17 | Outpatient (REF) | payer MEDICARE, SELFPAY ==
[2024-05-22 14:08] LABS: Lactoferrin, Fecal, Quant. 71.01 mcg/mL (<7.25)
== END 2024-05-14 12:18 | disposition home or self-care (01) ==
LOC: HO.LNP 12:17
PROVIDERS: Visit Provider Internal Medicine Gastroenterology
DX: K51.50 Left sided colitis without complications (principal); K52.9 Noninfective gastroenteritis and colitis, unspecified
CPT/HCPCS: 83631

== ENCOUNTER 2024-06-28 08:40 | Outpatient (AMB) | payer MEDICARE, SELFPAY ==
--- NOTE | 2024-06-28 08:43 | MHC.OFFVIS ---
Intake Visit Reasons: discuss biosimilar ok per dr. solis Intake Note: Mckenzie presents as a telehealth today with her daughter to discuss the biosimilar medications discussed previously with irma. Aviation Consultant Required: No Allergies pregabalin [From LYRICA] Allergy (Severe, Verified 06/28/24 08:41) CONFUSION gabapentin [GABAPENTIN] Allergy (Intermediate, Verified 06/28/24 08:41) NAUSEA/VOMITING amlodipine [From Norvasc] Allergy (Verified 06/28/24 08:41) Unknown clarithromycin [From BIAXIN] Adverse Reaction (Intermediate, Verified 06/28/24 08:41) NAUSEA & VOMITING codeine [CODEINE] Adverse Reaction (Intermediate, Verified 06/28/24 08:41) NAUSEA & VOMITING fentanyl [From DURAGESIC] Adverse Reaction (Intermediate, Verified 06/28/24 08:41) NAUSEA/VOMITING levofloxacin [From LEVAQUIN] Adverse Reaction (Intermediate, Verified 06/28/24 08:41) NAUSEA & VOMITING primidone [From Mysoline] Adverse Reaction (Verified 06/28/24 08:41) Nausea and Vomiting HPI HPI discuss biosimilar ok per dr. solis: Details: 83 yr old f with hx of parkinsons and prior vagotomy, and partial gastrectomy 1974 who I am seeing for f/u for weight loss, colitis RECAP Since 10/2020 she has noted increasing weight loss had visited sister in [place] who had a stroke she has a restricted diet due to her prior surgeries, avoids fat foods she has lost about 10-15# she was having diarrhea for 40 yrs but started sinemet for PD 1 yr ago and since then the diarrhea has improved a lot she denies abdominal pain she says she otherwise feels good denies blood in stool no oil droplets or grease in stool, but can float takes ibuprofen prn once in a while CT scan ordered: 06/2021--liver cyst, mild dilated PD and CBC, stable, no acute findings or masses, degen spinal disease, atherosclerosis CXR: no acute pathology, or masses LABS: mild raised histamine, borderline HGB, WCC, histamine, raised fecal eboni, nml panc elastase, neg giardia, neg fecal fat, mild low IgG2, and 3, raised ferritin gastrin and calcitonin were nml rifaxmin never helped her neither did welchol or ursodiol she never felt benefit from ursodiol or welchol after eventually trying EGD/colonoscopy : 10/2021 Endoscopy Findings: gastritis--diffuse gastric polyp Colonoscopy Findings: internal hemorrhoids bx: neg for microscopic colitis GES: rapid emptying on study Fecal lactoferrin-- 04/2023--- 27--commenced on apriso --she did get short course of pred which she felt was very effective for her bowels and joints CTe: inflammatory arthritis hip possible left sided colonic inflammation Labs: neg PEMA, CCP and RF, CRP 3 fecal lactoferrin: 02/11-- 24 then repeated at 69 INTERIM: call today to reivew treatment plan budesonide denied by insurance reviewed risks and benefits of remicade cancer, infection her main complaints is fatigue prob from chronic inflammation EXAM: GENERAL: The patient is well developed and nontoxic. A/P: 1/ Weight loss, raised lactoferrin ?subacute IBD, on mesalamine not working PLAN: 1/after discussion she is wiling to try remicade --will ask insurance [facility] Medical History NSTEMI (non-ST elevated myocardial infarction) SIRS (systemic inflammatory response syndrome) Guillain-[place] syndrome Fracture, wrist, open History of gastrectomy Parkinson disease High blood pressure Surgical History Hx of arthroscopic knee surgery Hx of hysterectomy H/O pyloroplasty H/O vagotomy Hx of cholecystectomy History of esophagogastroduodenoscopy (EGD) Hx of colonoscopy Social History Household Members: None Housing: Condominium Do you presently have visiting nurse or other home services: No Alcohol intake: former Comment: bed exit alarm off per pt / pt daughter request; daughter Roxanna at bedside Patient Tobacco Use Status: Never used Tobacco Advance Directives Date on File: 08/14/23 service: No Current occupational status: retired Current occupation: rt handed Telehealth Telehealth Telehealth Platform: [employer] Location of provider rendering services: practice address Location of patient: address on file Patient Identification confirmed using: Name, : Yes Telehealth method: video Patient verbally consented to treatment: Yes Patient verbally consented to billing insurance company: Yes Patient informed of any privacy concerns related to visit: Yes Minutes spent on Phone/Video with Pt.: 13 Assessment & Plan Assessment & Plan (1) Colitis: Code(s): K52.9 - Noninfective gastroenteritis and colitis, unspecified Category: Medical Plan: see above Coding Level of Care Code Tele Est Pt Level 3 (04231) Diagnoses Colitis K52.9
== END 2024-06-28 11:40 | disposition home or self-care (01) ==
LOC: HO.HGI 08:40
PROVIDERS: PCP Internal Medicine; Visit Provider Internal Medicine Gastroenterology
DX: K52.9 Noninfective gastroenteritis and colitis, unspecified (principal)
CPT/HCPCS: 99213

== ENCOUNTER 2024-08-06 09:56 | Outpatient (AMB) | payer MEDICARE, SELFPAY ==
--- NOTE | 2024-08-06 10:01 | MHC.OFFVIS ---
Intake Visit Reasons: PVD Dr Severino Intake Note: Patient presents for PVD per Dr Severino. Asked patient if she has any pain , swelling , numbness or cramping to which she replied sometimes . Accompanied by: Daughter Allergies pregabalin [From LYRICA] Allergy (Severe, Verified 08/06/24 10:04) CONFUSION gabapentin [GABAPENTIN] Allergy (Intermediate, Verified 08/06/24 10:04) NAUSEA/VOMITING amlodipine [From Norvasc] Allergy (Verified 08/06/24 10:04) Unknown clarithromycin [From BIAXIN] Adverse Reaction (Intermediate, Verified 08/06/24 10:04) NAUSEA & VOMITING codeine [CODEINE] Adverse Reaction (Intermediate, Verified 08/06/24 10:04) NAUSEA & VOMITING fentanyl [From DURAGESIC] Adverse Reaction (Intermediate, Verified 08/06/24 10:04) NAUSEA/VOMITING levofloxacin [From LEVAQUIN] Adverse Reaction (Intermediate, Verified 08/06/24 10:04) NAUSEA & VOMITING primidone [From Mysoline] Adverse Reaction (Verified 08/06/24 10:04) Nausea and Vomiting HPI HPI PVD Dr Severino: Details: Mckenzie, a pleasant 84 yo frail appearing female patient, is presenting today with her daughter for a referral from Dr Severino for abnormal findings on a home test for PAD. She was found on volume plethysmography to have ABIs on the right lower extremity of 0.18. The pt is asymptomatic. She denies any claudication complaints. She states her insurance company performs these tests at home yearly. She denies any lower extremity pain or swelling. She denies any pain with walking/completing her walks. She has never smoked and is not a diabetic. There is no family hx of PAD, DVTs, or coagulation disorders. [facility] Medical History NSTEMI (non-ST elevated myocardial infarction) SIRS (systemic inflammatory response syndrome) Guillain-[place] syndrome Fracture, wrist, open History of gastrectomy Parkinson disease High blood pressure Surgical History Hx of arthroscopic knee surgery Hx of hysterectomy H/O pyloroplasty H/O vagotomy Hx of cholecystectomy History of esophagogastroduodenoscopy (EGD) Hx of colonoscopy Social History Household Members: None Housing: Condominium Do you presently have visiting nurse or other home services: No Alcohol intake: former Comment: bed exit alarm off per pt / pt daughter request; daughter Roxanna at bedside Patient Tobacco Use Status: Never used Tobacco Advance Directives Date on File: 08/14/23 service: No Current occupational status: retired Current occupation: rt handed Review of Systems Const Reports as per HPI and Denies weakness ENT Reports Normal hearing present and Denies dizziness Card Reports as per HPI, Denies chest pain, Denies chest pain at rest, Denies chest pain with activity, Denies dyspnea and Denies dyspnea on exertion Resp Reports as per HPI, Denies cough, Denies dyspnea and Denies dyspnea on exertion GI Reports as per HPI, Denies abdominal pain, Denies nausea and Denies vomiting Musc Denies numbness Skin/Breast Reports as per HPI, Denies erythema and Denies wounds Neuro Reports Normal hearing present, Denies dizziness, Denies numbness, Denies Sensory deficit (Neuro) and Denies weakness Psych Reports no additional complaints Endo Reports no additional complaints Physical Exam Const General: healthy appearing and no acute distress Orientation/consciousness: patient oriented x3 HEENT Head: Yes normal to inspection Ears: hearing grossly normal bilaterally Mouth: Normal oral and palatal mucosa present Resp Effort & Inspection: normal respiratory effort and able to speak in complete sentences Auscultation: clear to auscultation bilaterally Cardio Jugular venous distension: no JVD Rate: regular rate Rhythm: regular rhythm Heart sounds: S1 normal heart sound present and S2 normal heart sound present Bruits: no abdominal aortic bruits, no carotid bruits, no femoral bruits and no renal bruits Peripheral pulses: Peripheral pulses 2+ throughout GI Inspection: Yes normal to inspection Palpation (GI): No Abdominal aortic bruit present Skin General skin exam: no rashes or lesions noted Wounds: no wounds Hair: normal Neuro General: patient oriented x3 Cranial nerves: Yes Normal hearing present Cognition (Neuro): normal cognition Gait exam (Neuro): Normal gait present Motor exam (neuro): 5/5 motor strength present throughout Sensory Exam: No Sensory deficit (Neuro) Extrem Other: Palpable DP pulses. No discoloration noted of the lower extremities. General: Yes normal to inspection, Yes full ROM, Yes capillary refill normal and Yes normal gait Assessment & Plan Assessment & Plan (1) Peripheral artery disease: Code(s): I73.9 - Peripheral vascular disease, unspecified Category: Medical Plan: Mckenzie is presenting today with her daughter for a referral from Dr Severino for findings on a home test, which revealed an NANI of the right lower extremity of 0.18. The pt is asymptomatic. She denies any claudication concerns/complaints. We will order a bilateral arterial duplex with ABIs. We will have her follow up with us after the test is completed. If there are any questions or concerns, please do not hesitate to reach out to our office. Orders: Orders US arterial duplex LE 1 Week I73.9 - Peripheral vascular disease, unspecified Coding Level of Care Code New Pt Level 4 (02992) Diagnoses Peripheral artery disease I73.9
== END 2024-08-06 10:22 | disposition home or self-care (01) ==
PROVIDERS: PCP Internal Medicine; Visit Provider Physician Assistant Surgical
DX: I73.9 Peripheral vascular disease, unspecified (principal)
CPT/HCPCS: 99204

== ENCOUNTER → 2024-08-06 09:56 | Outpatient (BNVA) | payer MEDICARE, SELFPAY | PROVIDERS: PCP Internal Medicine; Visit Provider Physician Assistant Surgical | DX: I73.9 Peripheral vascular disease, unspecified (principal) | CPT/HCPCS: 99202 ==

== ENCOUNTER 2024-08-29 09:54 | Outpatient (REF) | payer MEDICARE, SELFPAY ==
--- NOTE | ~2024-08-29 | US_ITS ---
CLINICAL HISTORY: I73.9 - Peripheral vascular disease, unspecified Bilateral lower extremity arterial duplex ultrasound Comparison: None . Findings: Biphasic flow noted throughout the bilateral lower extremities. Calcified plaque noted on cross-sectional images. There is no significant velocity alteration demonstrated. Impression: No significant velocity-altering stenosis. Bilateral ankle-brachial indices Comparison: None Findings: Pressure tracings obtained in the arms and ankles. Right NANI: Posterior tibial: 1.3 Dorsalis pedis: 1.2 Left NANI: Posterior tibial: 1.5 Dorsalis pedis: 1.2 Impression: Normal ankle-brachial indices This document has been electronically signed by: Ajith Alaniz MD on 08/30/2024 20:20:34
[2024-09-04 15:52] LABS: Lactoferrin, Fecal, Quant. 27.62 mcg/mL (<7.25)
[2024-09-06 04:23] LABS: Calprotectin, Fecal 310 mcg/g
== END 2024-08-29 09:55 | disposition home or self-care (01) ==
LOC: HO.US 09:54
PROVIDERS: Internal Medicine; PCP Internal Medicine; Visit Provider Physician Assistant Surgical
DX: K52.9 Noninfective gastroenteritis and colitis, unspecified (principal); I73.9 Peripheral vascular disease, unspecified
CPT/HCPCS: 83631; 83993; 93922; 93925

== ENCOUNTER → 2024-08-29 09:56 | Outpatient (BNV) | payer MEDICARE, SELFPAY | PROVIDERS: PCP Internal Medicine; Visit Provider Radiology Diagnostic Radiology | DX: I73.9 Peripheral vascular disease, unspecified (principal) | CPT/HCPCS: 93922 ==

== ENCOUNTER 2024-09-12 09:59 | Outpatient (AMB) | payer MEDICARE, SELFPAY ==
[2024-09-12 10:08] VITALS: BMI 14.8
--- NOTE | 2024-09-12 10:08 | A.OFFVIS_ITS ---
Vital Signs 09/12/24 10:08 Height 5 ft 4 in Weight 86 lb BMI 14.8 Intake Visit Reasons: follow up arterial US 08/30/2024 Intake Note: follow up arterial US 08/30/24 s/p at home testing via insurance company that showed low NANI's Accompanied by: Self / Same As Patient Allergies pregabalin [From LYRICA] Allergy (Severe, Verified 09/12/24 10:11) CONFUSION gabapentin [GABAPENTIN] Allergy (Intermediate, Verified 09/12/24 10:11) NAUSEA/VOMITING amlodipine [From Norvasc] Allergy (Verified 09/12/24 10:11) Unknown clarithromycin [From BIAXIN] Adverse Reaction (Intermediate, Verified 09/12/24 10:11) NAUSEA & VOMITING codeine [CODEINE] Adverse Reaction (Intermediate, Verified 09/12/24 10:11) NAUSEA & VOMITING fentanyl [From DURAGESIC] Adverse Reaction (Intermediate, Verified 09/12/24 10:11) NAUSEA/VOMITING levofloxacin [From LEVAQUIN] Adverse Reaction (Intermediate, Verified 09/12/24 10:11) NAUSEA & VOMITING primidone [From Mysoline] Adverse Reaction (Verified 09/12/24 10:11) Nausea and Vomiting HPI HPI follow up arterial US 08/30/2024: Details: Very pleasant but frail 84-year-old female presents for evaluation regarding peripheral vascular disease. This all began as a workup by insurance Moped for peripheral vascular disease. Upon discussion with her she denies any significant discomfort on ambulation. She does report difficulty maintaining her weight. She over the past few years has decreased significantly in weight. At baseline she was about 120 lb and has gone down as low as 77 lb. At the current time she is 86 lb. Otherwise reports she is doing fairly well. She has no difficulty ambulating. She now presents for follow-up with noninvasive testing. [facility] Medical History NSTEMI (non-ST elevated myocardial infarction) SIRS (systemic inflammatory response syndrome) Guillain-[place] syndrome Fracture, wrist, open History of gastrectomy Parkinson disease High blood pressure Surgical History Hx of arthroscopic knee surgery Hx of hysterectomy H/O pyloroplasty H/O vagotomy Hx of cholecystectomy History of esophagogastroduodenoscopy (EGD) Hx of colonoscopy Social History Household Members: None Housing: Condominium Do you presently have visiting nurse or other home services: No Alcohol intake: former Comment: bed exit alarm off per pt / pt daughter request; daughter Roxanna at bedside Patient Tobacco Use Status: Never used Tobacco Advance Directives Date on File: 08/14/23 service: No Current occupational status: retired Current occupation: rt handed Review of Systems Const All systems reviewed & are unremarkable except as noted in HPI and below Reports no additional complaints ENT Reports Normal hearing present Card Denies chest pain, Denies chest pain at rest, Denies chest pain with activity and Denies pedal edema Resp Denies cough GI Denies abdominal pain Musc Denies abnormal gait, Denies muscle cramps and Denies radiating pain into limb Skin/Breast Denies skin ulcer and Denies wounds Neuro Reports Normal hearing present and Denies abnormal gait Psych Reports no additional complaints Physical Exam Vital Signs: BMI result Body Mass Index 14.8 Const General: cooperative, healthy appearing and comfortable Orientation/consciousness: oriented to person, oriented to place and oriented to time HEENT Head: Yes normal to inspection Neck Neck: Yes normal visual inspection Carotids: no bruits Chest Chest palpation & inspection: normal inspection of the chest Resp Effort & Inspection: normal respiratory effort and able to speak in complete sentences Auscultation: clear to auscultation bilaterally, no crackles, no rales, no rhonchi and no wheezes Cardio Rate: regular rate Rhythm: regular rhythm Heart sounds: S1 normal heart sound present and S2 normal heart sound present Bruits: no carotid bruits Peripheral pulses: Peripheral pulses 2+ throughout GI Inspection: Yes normal to inspection Skin Wounds: no wounds Hair: normal Neuro General: oriented to person, oriented to place and oriented to time Cranial nerves: Yes CN's II-XII intact bilaterally and Yes Normal hearing present Cognition (Neuro): normal cognition Motor exam (neuro): 5/5 motor strength present throughout Extrem Other: venous exam: No significant superficial varicosities or spider telangiectasias, minimal edema General: No clubbing, No cyanosis and No edema Psych Appearance: grossly normal Mental Status: mental status grossly normal Speech and movement: Normal speech and movement present Results Reviewed Results Reviewed: Ultrasound testing dated 08/29/2024 demonstrates ANNI on the right of 1.3 and on the left of 1.5 with normal waveforms. Written report and images were reviewed. Assessment & Plan Assessment & Plan (1) Peripheral artery disease: Code(s): I73.9 - Peripheral vascular disease, unspecified Category: Medical Plan: In short patient has no evidence of arterial disease. Arterial testing was within normal limits and I do believe the mobile ultrasound may be an artifactual false-positive. Routine risk factor modification was discussed with the patient. She will follow up with us on an as-needed basis. Thank you for allowing us to assist in her care. Coding Level of Care Code Est Pt Level 4 (12517) Diagnoses Peripheral artery disease I73.9
== END 2024-09-12 10:31 | disposition home or self-care (01) ==
PROVIDERS: PCP Internal Medicine; Visit Provider Surgery Vascular Surgery
DX: I73.9 Peripheral vascular disease, unspecified (principal)
CPT/HCPCS: 99214

== ENCOUNTER → 2024-09-12 09:59 | Outpatient (BNVA) | payer MEDICARE, SELFPAY | PROVIDERS: PCP Internal Medicine; Visit Provider Surgery Vascular Surgery | DX: I73.9 Peripheral vascular disease, unspecified (principal) | CPT/HCPCS: 99212 ==

== ENCOUNTER 2024-10-04 15:53 | Outpatient (REF) | payer MEDICARE, SELFPAY ==
--- NOTE | ~2024-10-04 | XR_ITS ---
EXAMINATION: XR SHOULDER, RIGHT CLINICAL INFORMATION: Right shoulder pain. COMPARISON: 04/23/2024, 01/31/2022. TECHNIQUE: AP external rotation, Grashey, scapular Y, and axillary views of the right shoulder. FINDINGS: Normal bone mineralization. No fracture, dislocation, or suspicious bone lesion. Normal alignment. Healed fracture of the surgical neck of the humerus. The glenohumeral joint demonstrates mild to moderate degenerative arthritis. There is mild to moderate superior surface spurring of the AC joint. There is a downsloping postero-lateral acromion. No undersurface spurring. The subacromial space is preserved. Remainder of the soft tissue and bony structures appear normal. XR/XR shoulder RT min 2V IMPRESSION: 1. No acute bony abnormalities. 2. Healed surgical neck fracture. 3. Mild to moderate degenerative arthritis in the AC joint and glenohumeral joint. Electronically signed by: Bereket Melo MD 10/08/2024 11:17 AM VALE
--- OUTSIDE RECORDS SUMMARY | 2024-10-04 15:56 | XMS_ITS | Clinical Summary ---
Author Organization [facility] Address [address] [place] [address] Phone Care Team Providers Care Director Selection And Administration Name Role Phone Unavailable Primary Care Provider Unavailabl e Social History Tobacco Use Types Packs/Day Years Used Date Smoking Tobacco: Never Assessed Comments Unknown Sex and Gender Information Value Date Recorded Sex Assigned at Not on file Legal Sex Female 1:16 PM EST Gender Identity Not on file Sexual Orientation Not on file Plan of Treatment Health Maintenance Due Date Last Done Comments DTaP,Tdap,and Td Vaccines (1 - Tdap) 1957 Pneumococcal Vaccine: 50+ Years (1 of 1 - PCV) 1988 Zoster Vaccines (1 of 2) 1988 RSV Immunization Patients 60 + Years Old (1 - 1-dose 75+ series) 2013 Depression Screening 07/19/2022 Falls Risk Assessment 07/19/2022 Medicare Annual Wellness Visit 07/19/2022 Social Influencers of Health Screening 07/19/2022 COVID-19 Vaccine ( - 2023-2 5 season) 2024 Influenza Vaccine (#1) 2024 Osteoporosis Screening (Bone Density Screening) 06/08/2033 06/08/2023, 05/20/2020, 12/01/2017 HIB Vaccines Aged Out No longer eligi ble based on patient's age to complete this topic HPV Vaccines Aged Out No longer eligi ble based on patient's age to complete this topic Hepatitis A Vaccines Aged Out No long er eligible based on patient's age to complete this topic Hepatitis B Vaccines Aged Out No long er eligible based on patient's age to complete this topic IPV Vaccines Aged Out No longer eligi ble based on patient's age to complete this topic MMR Vaccines Aged Out No longer eligi ble based on patient's age to complete this topic Meningococcal ACWY Vaccine Aged Out N o longer eligible based on patient's age to complete this topic Meningococcal B Vacine Aged Out No lo nger eligible based on patient's age to complete this topic RSV Immunization Patients Under 20 months Aged Out No longer eligible b ased on patient's age to complete this topic Varicella Vaccines Aged Out No longer eligible based on patient's age to complete this topic Procedures Procedure Name Priority Date/Time Associated Diagnosis Comments [facility] DEXA AXIAL SKELETON Routine 06/08/2023 10:23 AM EDT Encounter for screening for osteoporosis from Last 3 Months or Most Recently Relevant to Health Maintenance Results * [facility] DEXA AXIAL SKELETON (06/08/2023 10:23 AM EDT) Anatomical Region Laterality Modality Mammography 06/08/2023 9:55 AM EDT Narrative 06/08/2023 10:23 AM EDT [facility] Diagnostic Imaging Department [address] [place] [address] Patient: ??WALT CABELLO ?/Age/Sex: 1940 - 82 - F Unit#: ??[id number] ? Location/Status: ??SPDIMAM/REG CLI ? Mnemonic/Ordering Site: ??MAMDEXAAX/SPMAM Ordering Physician: ??SALBADOR SEVERINO MD [facility] Dexa Axial Skeleton - 06/08/23 - 1016 Report Status:Signed HISTORY: ??The patient is an 82-year-old postmenopausal female with clinical concern for metabolic bone disease. FINDINGS: ??Dual energy x-ray absorptiometry of the lumbar spine and femurs is performed. The mean bone mineral density at L1-2 is 0.741 gm/cm2 which is 64% of that of young normals and 87% of that of age matched controls. This yields a T- score of -3.5 and a Z-score of -0.9 which is diagnostic of osteoporosis. The mean bone mineral density of the femurs bilaterally is 0.649 gm/cm2 which is 64% of that of young normals and 99% of that of age matched controls. ??This yields a T-score of -2.8 and a Z-score of -0.1 which is diagnostic of osteoporosis. ??The T-score of the right femoral neck is -2.5 and that of the left femoral neck is -3.3 which is diagnostic of osteoporosis. IMPRESSION: 1. Osteoporosis. ??There has been a decrease of 4.3% in bone mineral density in the lumbar spine since the prior examination of 05/20/2020. ??There has been a decrease of 0.8% in bone mineral density in the right femur and a decrease of 4.7% in bone mineral density in the left femur. 2. FRAX analysis yields a 10-year probability of major osteoporotic fracture of 30.2% and a 10-year probability of hip fracture of 13.9%. Code 75145 Dictating Physician: ??APRYL BAILON MD Electronically Signed by: ??APRYL BAILON MD Dic Date/Time: ??06/08/23 1022 Sign date/Time: ??06/08/23 1023 Procedure Note Apryl Bailon MD - 09/26/2023 [facility] Diagnostic Imaging Department [address] [place] [address] Patient: WALT CABELLO /Age/Sex: 1940 - 82 - F Unit#: [id number] Location/Status: SPDIMAM/REG CLI Mnemonic/Ordering Site: MAMDEXAAX/SPMAM Ordering Physician: SALBADOR SEVERINO MD [facility] Dexa Axial Skeleton - 06/08/23 - 1016 Report Status:Signed HISTORY: The patient is an 82-year-old postmenopausal female withclinical concern for metabolic bone disease. FINDINGS: Dual energy x-ray absorptiometry of the lumbar spine and femursis performed. The mean bone mineral density at L1-2 is 0.741 gm/cm2 which is64% of that of young normals and 87% of that of age matched controls. This yieldsa T- score of -3.5 and a Z-score of -0.9 which is diagnostic of osteoporosis. The mean bone mineral density of the femurs bilaterally is 0.649 gm/yy1mhsvx is 64% of that of young normals and 99% of that of age matched controls.This yields a T-score of -2.8 and a Z-score of -0.1 which is diagnostic of osteoporosis. The T-score of the right femoral neck is -2.5 and that ofthe left femoral neck is -3.3 which is diagnostic of osteoporosis. IMPRESSION: 1. Osteoporosis. There has been a decrease of 4.3% in bone mineraldensity in the lumbar spine since the prior examination of 05/20/2020. There has kira decrease of 0.8% in bone mineral density in the right femur and a decreaseof 4.7% in bone mineral density in the left femur. 2. FRAX analysis yields a 10-year probability of major osteoporoticfracture of 30.2% and a 10-year probability of hip fracture of 13.9%. Code 11190 Dictating Physician: APRYL BAILON MD Electronically Signed by: APRYL BAILON MD Dic Date/Time: 06/08/23 1022 Sign date/Time: 06/08/23 1023 Salbador Severino MD IMG BI PROCEDURES Final Result from Last 3 Months or Most Recently Relevant to Health Maintenance Insurance [employer] [place] MEDICARE ADVANTAGE
== END 2024-10-04 15:54 | disposition home or self-care (01) ==
LOC: HO.HMGCX 15:53
PROVIDERS: PCP Internal Medicine; Visit Provider Internal Medicine
DX: M25.511 Pain in right shoulder (principal)
CPT/HCPCS: 73030

== ENCOUNTER → 2024-10-04 15:59 | Outpatient (BNV) | payer MEDICARE, SELFPAY | PROVIDERS: PCP Internal Medicine; Visit Provider Radiology Diagnostic Radiology | DX: M25.511 Pain in right shoulder (principal); M19.011 Primary osteoarthritis, right shoulder; S42.201D Unspecified fracture of upper end of right humerus, subsequent encounter for fracture with routine healing | CPT/HCPCS: 73030 ==

== ENCOUNTER 2024-12-20 08:12 | Outpatient (REF) | payer MEDICARE, SELFPAY ==
--- NOTE | ~2024-12-20 | XR_ITS ---
XR KNEE GERA 3V HISTORY: Knee Pain. History of left knee subchondroplasty. COMPARISON: 06/19/2023. Fluoroscopy 12/21/2016. TECHNIQUE: AP view bilateral knees standing, lateral and patellofemoral views bilateral knees. FINDINGS: RIGHT KNEE: No fracture, dislocation, or suspicious bone lesion. Normal alignment. Moderate medial and mild lateral and patellofemoral compartment osteoarthrosis. Bilateral medial and lateral compartment chondrocalcinosis. Mild spurring of the tibial spines. No evidence of knee joint effusion. Soft tissues appear normal. LEFT KNEE: No fracture, dislocation, or suspicious bone lesion. Normal alignment. Densely sclerotic region in the medial tibial metaphysis consistent with subchondroplasty material. Moderate to severe medial compartment joint space narrowing with mild marginal osteophytic spurs and mild subchondral sclerosis of the tibial plateau. Mild changes in the lateral and patellofemoral compartments. Mild spurring of the tibial spines. Subtle chondrocalcinosis is present. No evidence of knee joint effusion. Soft tissues appear normal. XR/XR Knee Gera 3V IMPRESSION: LEFT KNEE: 1. There is a densely sclerotic region in the medial proximal tibial metaphysis, which was present on prior knee radiographs 06/19/2023 and appears unchanged. This is consistent with subchondroplasty material (iatrogenic). 2. Moderate to severe medial compartment osteoarthritis. Mild lateral and patellofemoral compartment arthritis. 3. Subtle chondrocalcinosis present. This suggests CPPD. 4. No joint effusion. RIGHT KNEE: 1. Moderate medial and mild lateral and patellofemoral compartment osteoarthrosis. 2. Subtle chondrocalcinosis present. This suggests CPPD. 3. No joint effusion. Electronically signed by: Bereket Melo MD 12/20/2024 02:15 PM EDT
--- OUTSIDE RECORDS SUMMARY | 2024-12-20 08:21 | XMS_ITS | Clinical Summary ---
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 Name Role Phone Unavailable Primary Care Provider [...] Vaccines (1 of 2) 1988 RSV Immunization Adult Patients (1 - 1-dose 75+ series) 2013 Depression Screening 07/19/2022 Falls Risk Assessment 07/19/2022 Medicare Annual Wellness Visit 07/19/2022 Social Influencers of Health Screening 07/19/2022 COVID-19 Vaccine ( - 2023-2 5 season) 2024 Influenza Vaccine (Season Ended) 2025 Osteoporosis Screening (Bone Density Screening) 06/08/2033 06/08/2023, [...] age to complete this topic Meningococcal B Vaccine Aged Out No l onger eligible based on patient's age to complete this topic RSV Immunization Patients Under 20 months Aged Out No longer eligible b ased on patient's age to complete this topic Varicella Vaccines Aged Out No longer eligible based on patient's age to complete this topic Procedures Procedure Name Priority Date/Time Associated Diagnosis Comments [facility] DEXA AXIAL SKELETON Routine 06/08/2023 10:23 AM EDT Encounter for screening for osteoporosis from Last 3 Months or Most Recently Relevant to Health Maintenance Results * [facility] DEXA AXIAL SKELETON (06/08/2023 10:23 AM EDT) Anatomical Region Laterality Modality Mammography 06/08/2023 9:55 AM EDT Narrative 06/08/2023 10:23 AM EDT [facility] Diagnostic Imaging Department [address] [place] [address] Patient: ??WALT CABELLO ?/Age/Sex: 1940 - 82 - F Unit#: ??[id number] ? Location/Status: ??SPDIMAM/REG CLI ? Mnemonic/Ordering Site: [...] probability of hip fracture of 13.9%. Code 96493 Dictating Physician: ??APRYL BAILON MD Electronically Signed by: ??APRYL BAILON MD Dic Date/Time: ??06/08/23 1022 Sign date/Time: ??06/08/23 1023 Procedure Note Apryl Bailon MD - 09/26/2023 [facility] Diagnostic Imaging Department [address] [place] [address] Patient: WALT CABELLO /Age/Sex: 1940 - 82 - F Unit#: [id number] Location/Status: SPDIMAM/REG CLI Mnemonic/Ordering Site: MAMDEXAAX/SPMAM Ordering Physician: SALBADOR SEVERINO MD [facility] Dexa Axial Skeleton - 06/08/23 - 1016 [...] density of the femurs bilaterally is 0.649 gm/sy1ivygg is 64% of that of young normals [...] probability of hip fracture of 13.9%. Code 01220 Dictating Physician: APRYL BAILON MD Electronically Signed by: APRYL BAILON MD Dic Date/Time: 06/08/23 1022 Sign date/Time: 06/08/23 1023 Salbador Severino MD IMG BI PROCEDURES Final Result from Last 3 Months or Most Recently Relevant to Health Maintenance Insurance [employer]
== END 2024-12-20 08:13 | disposition home or self-care (01) ==
LOC: HO.HOSX 08:12
DX: M25.561 Pain in right knee (principal); M25.562 Pain in left knee; M17.0 Bilateral primary osteoarthritis of knee
CPT/HCPCS: 20610; 73562; 99202; J1010; J2003

== ENCOUNTER 2024-12-20 09:01 | Outpatient (AMB) | payer MEDICARE, SELFPAY ==
--- NOTE | 2024-12-20 09:07 | A.OFFVIS_ITS ---
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 Patient reports her pain is located at the anterior aspect of knee. States when knee pain is present she will have pain in her groins. States with bending down she has discomfort. Her pain is equal in both of knees. Hx of bilateral knee injections which would provide her with some relief. Finds some relief with taking Tylenol extra strength, she is unable to take Motrin due to GI upsets. Hx of left knee surgery. Allergies pregabalin [From LYRICA] Allergy (Severe, Verified 12/20/24 09:20) CONFUSION gabapentin [GABAPENTIN] Allergy (Intermediate, Verified 12/20/24 09:20) NAUSEA/VOMITING amlodipine [From Norvasc] Allergy (Verified 12/20/24 09:20) Unknown clarithromycin [From BIAXIN] Adverse Reaction (Intermediate, Verified 12/20/24 09:20) NAUSEA & VOMITING codeine [CODEINE] Adverse Reaction (Intermediate, Verified 12/20/24 09:20) NAUSEA & VOMITING fentanyl [From DURAGESIC] Adverse Reaction (Intermediate, Verified 12/20/24 09:20) NAUSEA/VOMITING levofloxacin [From LEVAQUIN] Adverse Reaction (Intermediate, Verified 12/20/24 09:20) NAUSEA & VOMITING primidone [From Mysoline] Adverse Reaction (Verified 12/20/24 09:20) Nausea and Vomiting HPI 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 Patient reports her pain is located at the anterior aspect of knee. States when knee pain is present she will have pain in her groins. States with bending down she has discomfort. Her pain is equal in both of knees. Hx of bilateral knee injections which would provide her with some relief. Finds some relief with taking Tylenol extra strength, she is unable to take Motrin due to GI upsets. Hx of left knee surgery. FORMERLY [facility], 1928–1983 Medical History NSTEMI (non-ST elevated myocardial infarction) SIRS (systemic inflammatory response syndrome) Guillain-[place] syndrome Fracture, wrist, open History of gastrectomy Parkinson disease High blood pressure Surgical History Hx of arthroscopic knee surgery Hx of hysterectomy H/O pyloroplasty H/O vagotomy Hx of cholecystectomy History of esophagogastroduodenoscopy (EGD) Hx of colonoscopy Social History Household Members: None Housing: Condominium Do you presently have visiting nurse or other home services: No Alcohol intake: former Comment: bed exit alarm off per pt / pt daughter request; daughter Roxanna at bedside Patient Tobacco Use Status: Never used Tobacco Advance Directives Date on File: 08/14/23 service: No Current occupational status: retired Current occupation: rt handed Review of Systems Const All systems reviewed & are unremarkable except as noted in HPI and below Physical Exam Vital Signs: BMI result Body Mass Index 14.4 Extrem Other: Patient's bilateral knees normal to inspection No erythema, ecchymosis, edema noted No lacerations, abrasions, open areas No evidence of infection Patient reports no tenderness to palpation of the medial joint line, lateral joint line, posterior knee, patella, quad tendon, patellar tendon, or elsewhere in the bilateral knees Patient was able to extend bilateral knees fully and flex bilateral knees to approximately 120 degrees Negative Gabrielle's bilaterally Distal sensation intact Capillary refill brisk Office Procedures AMB Joint Injection/Aspiration Joint Injection/Aspiration Primary Site: left knee Prep: site was prepped using aseptic technique, ethochloride spray was applied and injection warnings given Injected: 80 mg of, DepoMedrol, with 8 mL of and 1% plain lidocaine Approach Used: anterolateral Procedure: The patient tolerated the procedure well and there was some relief with the local anesthesia Coding 09675 - Large joint Procedure code (CPT) selection complete AMB Joint Injection/Aspiration Joint Injection/Aspiration Primary Site: right knee Prep: site was prepped using aseptic technique, ethochloride spray was applied and injection warnings given Injected: 80 mg of, DepoMedrol, with 8 mL of and 1% plain lidocaine Approach Used: anterolateral Procedure: The patient tolerated the procedure well and there was some relief with the local anesthesia Coding 87694 - Large joint Procedure code (CPT) selection complete Results Reviewed Results Reviewed: X-rays obtained in the office today and independently reviewed by me, Michael Myles PA-C, demonstrate moderate arthritis of the medial compartment of the right knee and severe arthritis of the medial compartment of the left knee. Assessment & Plan Assessment & Plan (1) Bilateral primary osteoarthritis of knee: Code(s): M17.0 - Bilateral primary osteoarthritis of knee Category: Medical Plan 1. Bilateral knee osteoarthritis Patient is educated about this condition Patient is educated about the treatment options available Patient would like to proceed with steroid injection at this time The risks and benefits of a steroid injection including but not limited to risk of damage to blood vessels, nerves, tendons, infection, skin bleaching, failure to improve symptoms, increased pain, and possible need for further injections or other intervention were discussed with the patient and the patient wishes to proceed with the steroid injection. Once consent was obtained, I aseptically prepped the area over the anterolateral joint line of the bilateral knees. I then injected the area over the lateral epicondyle with a combination of 80 mg of dexamethasone and 8 mL of 1% lidocaine. The patient tolerated the procedure well with no complications. If the patient continues to experience symptoms over the following few weeks or months, they can make an appointment to return and discuss alternative treatment measures, such as physical therapy. Follow-up prn Orders: Orders XR Knee Gera 3V Today M25.569 - Pain in unspecified knee Coding Level of Care Code New Pt Level 3 (02459) Diagnoses Bilateral primary osteoarthritis of knee M17.0 CPT Codes Coding - 76983 Large joint: 94822 - Large joint ([id number]) Coding - 77043 Large joint: 90231 - Large joint ([id number])
[2024-12-20 09:22] VITALS: BMI 14.4
--- OUTSIDE RECORDS SUMMARY | 2024-12-20 09:31 | XMS_ITS | Clinical Summary ---
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 Name Role Phone Unavailable Primary Care Provider [...] Procedure Name Priority Date/Time Associated Diagnosis Comments [facility] DEXA AXIAL SKELETON Routine 06/08/2023 10:23 AM EDT Encounter for screening for osteoporosis from Last 3 Months or Most Recently Relevant to Health Maintenance Results * [facility] DEXA AXIAL SKELETON (06/08/2023 10:23 AM EDT) Anatomical Region Laterality Modality Mammography 06/08/2023 9:55 AM EDT Narrative 06/08/2023 10:23 AM EDT [facility] Diagnostic Imaging Department [address] [place] [address] Patient: ??WALT CABELLO ?/Age/Sex: 1940 - 82 - F Unit#: ??[id number] ? Location/Status: ??SPDIMAM/REG CLI ? Mnemonic/Ordering Site: [...] probability of hip fracture of 13.9%. Code 98283 Dictating Physician: ??APRYL BAILON MD Electronically Signed by: ??APRYL BAILON MD Dic Date/Time: ??06/08/23 1022 Sign date/Time: ??06/08/23 1023 Procedure Note Apryl Bailon MD - 09/26/2023 [facility] Diagnostic Imaging Department [address] [place] [address] Patient: WALT CABELLO /Age/Sex: 1940 - 82 - F Unit#: [id number] Location/Status: SPDIMAM/REG CLI Mnemonic/Ordering Site: MAMDEXAAX/SPMAM Ordering Physician: SALBADOR SEVERINO MD [facility] Dexa Axial Skeleton - 06/08/23 - [...] density of the femurs bilaterally is 0.649 gm/yb2zinbb is 64% of that of young normals [...] probability of hip fracture of 13.9%. Code 65875 Dictating Physician: APRYL BAILON MD Electronically Signed by: APRYL BAILON MD Dic Date/Time: 06/08/23 1022 Sign date/Time: 06/08/23 1023 Salbador Severino MD IMG BI PROCEDURES Final Result from Last 3 Months or Most Recently Relevant to Health Maintenance Insurance [employer] [place]IC[place]AGE
== END 2024-12-20 10:06 | disposition home or self-care (01) ==
LOC: HO.HOS 09:02
PROVIDERS: PCP Internal Medicine
DX: M17.0 Bilateral primary osteoarthritis of knee (principal)
CPT/HCPCS: 20610; 99203

== ENCOUNTER → 2024-12-20 09:07 | Outpatient (BNV) | payer MEDICARE, SELFPAY | PROVIDERS: Visit Provider Radiology Diagnostic Radiology | DX: M17.0 Bilateral primary osteoarthritis of knee (principal); M11.261 Other chondrocalcinosis, right knee; M11.262 Other chondrocalcinosis, left knee | CPT/HCPCS: 73562 ==

== ENCOUNTER 2024-12-23 12:02 | Outpatient (AMB) | payer MEDICARE, SELFPAY ==
--- NOTE | 2024-12-23 12:04 | MHC.OFFVIS ---
Vital Signs 12/23/24 12:07 Height 5 ft 6 in Weight 88 lb 2.958 oz BMI 14.2 BP 150/69 H Blood Pressure Location Lt brachial Position Sitting Pulse 49 L Intake Visit Reasons: 4 month follow up Intake Note: cMkenzie presents in the office as a 4 month follow up. CC: She states she is feeling good and she wants to know why the remicade is not working for her. Allergies pregabalin [From LYRICA] Allergy (Severe, Verified 12/23/24 12:08) CONFUSION gabapentin [GABAPENTIN] Allergy (Intermediate, Verified 12/23/24 12:08) NAUSEA/VOMITING amlodipine [From Norvasc] Allergy (Verified 12/23/24 12:08) Unknown clarithromycin [From BIAXIN] Adverse Reaction (Intermediate, Verified 12/23/24 12:08) NAUSEA & VOMITING codeine [CODEINE] Adverse Reaction (Intermediate, Verified 12/23/24 12:08) NAUSEA & VOMITING fentanyl [From DURAGESIC] Adverse Reaction (Intermediate, Verified 12/23/24 12:08) NAUSEA/VOMITING levofloxacin [From LEVAQUIN] Adverse Reaction (Intermediate, Verified 12/23/24 12:08) NAUSEA & VOMITING primidone [From Mysoline] Adverse Reaction (Verified 12/23/24 12:08) Nausea and Vomiting HPI HPI 4 month follow up: Details: 84 yr old f with hx of parkinsons and prior vagotomy, and partial gastrectomy 1974 who I am seeing for f/u for weight loss, colitis RECAP Since 10/2020 she has noted increasing weight loss had visited sister in [place] who had a stroke she has a restricted diet due to her prior surgeries, avoids fat foods she has lost about 10-15# she was having diarrhea for 40 yrs but started sinemet for PD 1 yr ago and since then the diarrhea has improved a lot she denies abdominal pain she says she otherwise feels good denies blood in stool no oil droplets or grease in stool, but can float takes ibuprofen prn once in a while CT scan ordered: 06/2021--liver cyst, mild dilated PD and CBC, stable, no acute findings or masses, degen spinal disease, atherosclerosis CXR: no acute pathology, or masses LABS: mild raised histamine, borderline HGB, WCC, histamine, raised fecal eboni, nml panc elastase, neg giardia, neg fecal fat, mild low IgG2, and 3, raised ferritin gastrin and calcitonin were nml rifaxmin never helped her neither did welchol or ursodiol she never felt benefit from ursodiol or welchol after eventually trying EGD/colonoscopy : 10/2021 Endoscopy Findings: gastritis--diffuse gastric polyp Colonoscopy Findings: internal hemorrhoids bx: neg for microscopic colitis GES: rapid emptying on study Fecal lactoferrin-- 04/2023--- 27--commenced on apriso --she did get short course of pred which she felt was very effective for her bowels and joints CTe: inflammatory arthritis hip possible left sided colonic inflammation Labs: neg PEMA, CCP and RF, CRP 3 fecal lactoferrin: 02/11-- 26 then repeated at 69 INTERIM: she still has lack of energy, fatigue no abdominal pain appetite is fair she can stop mesalamine EXAM: GENERAL: The patient is well developed and nontoxic. VITAL SIGNS:see workflow HEENT: Nonicteric sclerae, PERRLA, EOMI. Oropharynx clear. Moist mucous membranes. Conjunctivae appear well perfused. No thyroid mass. CHEST: Chest wall is nontender. HEART: Regular rate and rhythm without murmurs. LUNGS: Clear to auscultation bilaterally. ABDOMEN: Soft, positive bowel sounds, nontender, no organomegaly.no flank tenderness SKIN: No rash, no excessive bruising, petechiae, or purpura. NEUROLOGIC: Cranial nerves II-XII intact without motor/sensory deficit. Psych: normal affect A/P: 1/ Weight loss, raised lactoferrin thought to be due to IBD, on remicade now PLAN: 1/cont with remicade, check labs and fecal lactoferrin [facility] Medical History NSTEMI (non-ST elevated myocardial infarction) SIRS (systemic inflammatory response syndrome) Guillain-[place] syndrome Fracture, wrist, open History of gastrectomy Parkinson disease High blood pressure Surgical History Hx of arthroscopic knee surgery Hx of hysterectomy H/O pyloroplasty H/O vagotomy Hx of cholecystectomy History of esophagogastroduodenoscopy (EGD) Hx of colonoscopy Social History Household Members: None Housing: Condominium Do you presently have visiting nurse or other home services: No Alcohol intake: former Comment: bed exit alarm off per pt / pt daughter request; daughter Roxanna at bedside Patient Tobacco Use Status: Never used Tobacco Advance Directives Date on File: 08/14/23 service: No Current occupational status: retired Current occupation: rt handed Physical Exam Vital Signs: Last Vital Signs Pulse 49 L 12/23/24 12:07 BP 150/69 H 12/23/24 12:07 BMI result Body Mass Index 14.2 Assessment & Plan Assessment & Plan (1) IBD (inflammatory bowel disease): Code(s): K52.9 - Noninfective gastroenteritis and colitis, unspecified Category: Medical Plan: as above Orders: Orders C Reactive Protein Today K52.9 - Noninfective gastroenteritis and colitis, unspecified Complete Blood Count Auto Diff Today K52.9 - Noninfective gastroenteritis and colitis, unspecified Lactoferrin, Fecal, Quant. Today K51.50 - Left sided colitis without complications, K52.9 - Noninfective gastroenteritis and colitis, unspecified Comprehensive Met. Panel Today K52.9 - Noninfective gastroenteritis and colitis, unspecified, K75.81 - Nonalcoholic steatohepatitis (BOOKER) Erythrocyte Sedimentation Rate Today K52.9 - Noninfective gastroenteritis and colitis, unspecified Coding Level of Care Code Est Pt Level 3 (36879) Diagnoses IBD (inflammatory bowel disease) K52.9
[2024-12-23 12:07] VITALS: BP 150/69; PULSE 49; BMI 14.2
--- OUTSIDE RECORDS SUMMARY | 2024-12-23 13:41 | XMS_ITS | Clinical Summary ---
Author Organization [facility] Address [address] [place] [address] Phone Care Team Providers Care Director Of Player Personnel Name Role Phone Unavailable Primary Care Provider [...] Procedure Name Priority Date/Time Associated Diagnosis Comments [facility] DEXA AXIAL SKELETON Routine 06/08/2023 10:23 AM EDT Encounter for screening for osteoporosis from Last 3 Months or Most Recently Relevant to Health Maintenance Results * [facility] DEXA AXIAL SKELETON (06/08/2023 10:23 AM EDT) Anatomical Region Laterality Modality Mammography 06/08/2023 9:55 AM EDT Narrative 06/08/2023 10:23 AM EDT [facility] Diagnostic Imaging Department [address] [place] [address] Patient: ??WALT CABELLO ?/Age/Sex: 1940 - 82 - F Unit#: ??[id number] ? Location/Status: ??SPDIMAM/REG CLI ? Mnemonic/Ordering Site: [...] probability of hip fracture of 13.9%. Code 12465 Dictating Physician: ??APRYL BAILON MD Electronically Signed by: ??APRYL BAILON MD Dic Date/Time: ??06/08/23 1022 Sign date/Time: ??06/08/23 1023 Procedure Note Apryl Bailon MD - 09/26/2023 [facility] Diagnostic Imaging Department [address] [place] [address] Patient: WALT CABELLO /Age/Sex: 1940 - 82 - F Unit#: [id number] Location/Status: SPDIMAM/REG CLI Mnemonic/Ordering Site: MAMDEXAAX/SPMAM Ordering Physician: SALBADOR SEVERINO MD [facility] Dexa Axial Skeleton - 06/08/23 - [...] density of the femurs bilaterally is 0.649 gm/oo1srvaj is 64% of that of young normals [...] probability of hip fracture of 13.9%. Code 32266 Dictating Physician: APRYL BAILON MD Electronically Signed by: APRYL BAILON MD Dic Date/Time: 06/08/23 1022 Sign date/Time: 06/08/23 1023 Salbador Severino MD IMG BI PROCEDURES Final Result from Last 3 Months or Most Recently Relevant to Health Maintenance Insurance [employer] [place]
== END 2024-12-23 12:32 | disposition home or self-care (01) ==
LOC: HO.HGI 12:03
PROVIDERS: PCP Internal Medicine; Visit Provider Internal Medicine Gastroenterology
DX: K52.9 Noninfective gastroenteritis and colitis, unspecified (principal)
CPT/HCPCS: 99213

== ENCOUNTER 2024-12-23 12:02 | Outpatient (REF) | payer MEDICARE, SELFPAY ==
[2024-12-23 12:50] LABS: MANUAL DIFF FLAG NO
[2024-12-23 14:00] LABS: Basophils Percent Auto 0.1 % (0-2); Eosinophils Percent Auto 0.1 % (0-4); Hemoglobin 12.4 g/dl (12.0-16.0); Imm Gran Abs Auto 0.03 X10*3/uL (0.00-0.03); Imm Gran Pct Auto 0.4 % (0.0-0.4); Lymphocytes Percent Auto 13.9 % (20-40); Mean Corpuscular HGB Conc 32.6 g/dl (31.0-35.0); Mean Corpuscular Hemoglobin 30.4 pg (27.0-33.0); Mean Corpuscular Volume 93.1 fL (80.0-98.0); Mean Platelet Volume 11.1 fL (9.4-12.3); Monocytes Absolute Auto 0.8 X10*3/uL (0.1-1.2); Monocytes Percent Auto 11.7 % (2-11); Neutrophils Absolute Auto 5.2 x10*3/uL (2.0-8.3); Neutrophils Percent Auto 73.8 % (45-73); Platelet Count 194 X10*3/uL (160-400); Red Blood Count 4.08 X10*6/uL (4.20-5.50); Red Cell Distribution Width 12.9 % (11.0-16.0); White Blood Count 7.1 X10*3/uL (4.8-10.8)
--- OUTSIDE RECORDS SUMMARY | 2024-12-23 14:07 | XMS_ITS | Clinical Summary ---
Author Organization [facility] Address [address] [place] [address] Phone Care Team Providers Care Brass Finisher Name Role Phone Unavailable Primary Care Provider [...] Procedure Name Priority Date/Time Associated Diagnosis Comments [facility] DEXA AXIAL SKELETON Routine 06/08/2023 10:23 AM EDT Encounter for screening for osteoporosis from Last 3 Months or Most Recently Relevant to Health Maintenance Results * [facility] DEXA AXIAL SKELETON (06/08/2023 10:23 AM EDT) Anatomical Region Laterality Modality Mammography 06/08/2023 9:55 AM EDT Narrative 06/08/2023 10:23 AM EDT [facility] Diagnostic Imaging Department [address] [place] [address] Patient: ??WALT CABELLO ?/Age/Sex: 1940 - 82 - F Unit#: ??[id number] ? Location/Status: ??SPDIMAM/REG CLI ? Mnemonic/Ordering Site: [...] probability of hip fracture of 13.9%. Code 17678 Dictating Physician: ??APRYL BAILON MD Electronically Signed by: ??APRYL BAILON MD Dic Date/Time: ??06/08/23 1022 Sign date/Time: ??06/08/23 1023 Procedure Note Apryl Bailon MD - 09/26/2023 [facility] Diagnostic Imaging Department [address] [place] [address] Patient: WALT CABELLO /Age/Sex: 1940 - 82 - F Unit#: [id number] Location/Status: SPDIMAM/REG CLI Mnemonic/Ordering Site: MAMDEXAAX/SPMAM Ordering Physician: SALBADOR SEVERINO MD [facility] Dexa Axial Skeleton - 06/08/23 - 1016 [...] density of the femurs bilaterally is 0.649 gm/qg4mgpam is 64% of that of young normals [...] probability of hip fracture of 13.9%. Code 56706 Dictating Physician: APRYL BAILON MD Electronically Signed by: APRYL BAILON MD Dic Date/Time: 06/08/23 1022 Sign date/Time: 06/08/23 1023 Salbador Severino MD IMG BI PROCEDURES Final Result from Last 3 Months or Most Recently Relevant to Health Maintenance Insurance [employer]
[2024-12-23 14:23] LABS: Alanine Aminotransferase < 6 U/L (0-31); Albumin Level 3.6 g/dL (3.5-5.0); Alkaline Phosphatase 51 U/L (39-117); Anion Gap 11 (12-20); Aspartate Amino Transferase 48 U/L (5-31); Bilirubin Total 0.5 mg/dL (0.0-1.0); Blood Urea Nitrogen 27 mg/dL (9-16); C Reactive Protein < 0.10 mg/dL (< or = 0.50); Calcium 8.6 mg/dL (8.4-10.2); Carbon Dioxide 31 mmol/L (22-29); Chloride 102 mmol/L (96-108); Estimated Glomerular Filt Rate > 60; Glucose Random 89 mg/dL (60-115); Potassium 3.4 mmol/L (3.3-5.1); Sodium 141 mmol/L (135-145); Total Protein 6.3 g/dL (6.5-8.0)
[2024-12-23 14:40] LABS: Erythrocyte Sedimentation Rate 3 MM/HR (0-20)
== END 2024-12-23 12:03 | disposition home or self-care (01) ==
LOC: HO.LAB 12:02
PROVIDERS: PCP Internal Medicine; Visit Provider Internal Medicine Gastroenterology
DX: K52.9 Noninfective gastroenteritis and colitis, unspecified (principal); K75.81 Nonalcoholic steatohepatitis (NASH)
CPT/HCPCS: 36415; 80053; 85025; 85652; 86140; 99212

== ENCOUNTER 2024-12-28 10:22 | Outpatient (REF) | payer MEDICARE, SELFPAY ==
[2024-12-28 14:10] LABS: MANUAL DIFF FLAG NO
[2024-12-28 14:14] LABS: Basophils Percent Auto 0.5 % (0-2); Hematocrit 43.1 % (37.0-47.0); Hemoglobin 13.6 g/dl (12.0-16.0); Imm Gran Abs Auto 0.01 X10*3/uL (0.00-0.03); Imm Gran Pct Auto 0.2 % (0.0-0.4); Lymphocytes Absolute Auto 1.3 X10*3/uL (1.2-4.9); Lymphocytes Percent Auto 22.4 % (20-40); Mean Corpuscular HGB Conc 31.6 g/dl (31.0-35.0); Mean Corpuscular Hemoglobin 29.8 pg (27.0-33.0); Mean Corpuscular Volume 94.3 fL (80.0-98.0); Mean Platelet Volume 10.9 fL (9.4-12.3); Monocytes Absolute Auto 0.6 X10*3/uL (0.1-1.2); Monocytes Percent Auto 10.1 % (2-11); Neutrophils Absolute Auto 3.9 x10*3/uL (2.0-8.3); Neutrophils Percent Auto 66.8 % (45-73); Platelet Count 222 X10*3/uL (160-400); Red Blood Count 4.57 X10*6/uL (4.20-5.50); White Blood Count 5.9 X10*3/uL (4.8-10.8)
[2024-12-28 14:32] LABS: Alanine Aminotransferase 32 U/L (0-31); Albumin Level 3.9 g/dL (3.5-5.0); Alkaline Phosphatase 53 U/L (39-117); Anion Gap 13 (12-20); Aspartate Amino Transferase 34 U/L (5-31); Bilirubin Total 0.6 mg/dL (0.0-1.0); Blood Urea Nitrogen 17 mg/dL (9-16); Calcium 9.3 mg/dL (8.4-10.2); Carbon Dioxide 34 mmol/L (22-29); Chloride 100 mmol/L (96-108); Cholesterol 214 mg/dL (<200); Estimated Glomerular Filt Rate > 60; Glucose Fasting 95 mg/dL (60-99); HDL Cholesterol 116 mg/dL (>40); LDL Cholesterol Calculated 87 mg/dL (<100); Potassium 3.6 mmol/L (3.3-5.1); Sodium 143 mmol/L (135-145); Total Protein 6.7 g/dL (6.5-8.0); Triglycerides 59 mg/dL (<150)
[2024-12-28 14:51] LABS: Free T4 (Free Thyroxine) 1.53 ng/dL (0.71-1.85); Thyroid Stimulating Hormone 0.95 uIU/mL (0.32-4.0)
== END 2024-12-28 10:23 | disposition home or self-care (01) ==
LOC: HO.HMGCLDS 10:22
PROVIDERS: PCP Internal Medicine; Referring Provider Internal Medicine Gastroenterology; Visit Provider Internal Medicine
DX: E03.9 Hypothyroidism, unspecified (principal); R53.83 Other fatigue; E78.5 Hyperlipidemia, unspecified
CPT/HCPCS: 36415; 80053; 80061; 82306; 84439; 84443; 85025

== ENCOUNTER 2025-01-01 10:00 | Outpatient (REF) | payer MEDICARE, SELFPAY ==
--- OUTSIDE RECORDS SUMMARY | 2025-01-01 15:31 | XMS_ITS | Clinical Summary ---
Author Organization [facility] Address [address] [place] [address] Phone Care Team Providers Care Head Animal Keeper Name Role Phone Unavailable Primary Care Provider [...] Procedure Name Priority Date/Time Associated Diagnosis Comments [facility] DEXA AXIAL SKELETON Routine 06/08/2023 10:23 AM EDT Encounter for screening for osteoporosis from Last 3 Months or Most Recently Relevant to Health Maintenance Results * [facility] DEXA AXIAL SKELETON (06/08/2023 10:23 AM EDT) Anatomical Region Laterality Modality Mammography 06/08/2023 9:55 AM EDT Narrative 06/08/2023 10:23 AM EDT [facility] Diagnostic Imaging Department [address] [place] [address] Patient: ??WALT CABELLO ?/Age/Sex: 1940 - 82 - F Unit#: ??[id number] ? Location/Status: ??SPDIMAM/REG CLI ? Mnemonic/Ordering Site: [...] probability of hip fracture of 13.9%. Code 42613 Dictating Physician: ??APRYL BAILON MD Electronically Signed by: ??APRYL BAILON MD Dic Date/Time: ??06/08/23 1022 Sign date/Time: ??06/08/23 1023 Procedure Note Apryl Bailon MD - 09/26/2023 [facility] Diagnostic Imaging Department [address] [place] [address] Patient: WALT CABELLO /Age/Sex: 1940 - 82 - F Unit#: [id number] Location/Status: SPDIMAM/REG CLI Mnemonic/Ordering Site: MAMDEXAAX/SPMAM Ordering Physician: SALBADOR SEVERINO MD [facility] Dexa Axial Skeleton - 06/08/23 - [...] density of the femurs bilaterally is 0.649 gm/ho2mozvd is 64% of that of young normals [...] probability of hip fracture of 13.9%. Code 77384 Dictating Physician: APRYL BAILON MD Electronically Signed by: APRYL BAILON MD Dic Date/Time: 06/08/23 1022 Sign date/Time: 06/08/23 1023 Salbador Severino MD IMG BI PROCEDURES Final Result from Last 3 Months or Most Recently Relevant to Health Maintenance Insurance [employer]
[2025-01-08 15:54] LABS: Lactoferrin, Fecal, Quant. 36.28 mcg/mL (<7.25)
== END 2025-01-01 10:01 | disposition home or self-care (01) ==
LOC: HO.HMGCLNP 10:00
PROVIDERS: Visit Provider Internal Medicine Gastroenterology
DX: K51.50 Left sided colitis without complications (principal); K52.9 Noninfective gastroenteritis and colitis, unspecified
CPT/HCPCS: 83631

== ENCOUNTER 2025-01-03 11:23 | Outpatient (REF) | payer MEDICARE, SELFPAY ==
--- OUTSIDE RECORDS SUMMARY | 2025-01-03 11:44 | XMS_ITS | Clinical Summary ---
Author Organization [facility] Address [address] [place] [address] Phone Care Team Providers Care Manager Fraud Name Role Phone Unavailable Primary Care Provider [...] Procedure Name Priority Date/Time Associated Diagnosis Comments [facility] DEXA AXIAL SKELETON Routine 06/08/2023 10:23 AM EDT Encounter for screening for osteoporosis from Last 3 Months or Most Recently Relevant to Health Maintenance Results * [facility] DEXA AXIAL SKELETON (06/08/2023 10:23 AM EDT) Anatomical Region Laterality Modality Mammography 06/08/2023 9:55 AM EDT Narrative 06/08/2023 10:23 AM EDT [facility] Diagnostic Imaging Department [address] [place] [address] Patient: ??WALT CABELLO ?/Age/Sex: 1940 - 82 - F Unit#: ??[id number] ? Location/Status: ??SPDIMAM/REG CLI ? Mnemonic/Ordering Site: [...] probability of hip fracture of 13.9%. Code 07155 Dictating Physician: ??APRYL BAILON MD Electronically Signed by: ??APRYL BAILON MD Dic Date/Time: ??06/08/23 1022 Sign date/Time: ??06/08/23 1023 Procedure Note Apryl Bailon MD - 09/26/2023 [facility] Diagnostic Imaging Department [address] [place] [address] Patient: WALT CABELLO /Age/Sex: 1940 - 82 - F Unit#: [id number] Location/Status: SPDIMAM/REG CLI Mnemonic/Ordering Site: MAMDEXAAX/SPMAM Ordering Physician: SALBADOR SEVERINO MD [facility] Dexa Axial Skeleton - 06/08/23 - 1016 [...] density of the femurs bilaterally is 0.649 gm/nd3tpggh is 64% of that of young normals [...] probability of hip fracture of 13.9%. Code 89766 Dictating Physician: APRYL BAILON MD Electronically Signed by: APRYL BAILON MD Dic Date/Time: 06/08/23 1022 Sign date/Time: 06/08/23 1023 Salbador Severino MD IMG BI PROCEDURES Final Result from Last 3 Months or Most Recently Relevant to Health Maintenance Insurance [employer]
[2025-01-03 13:41] LABS: Iron 85 mcg/dL (30-160); Percent Iron Saturation 29 % (15-50); Total Iron Binding Capacity 289 mcg/dL (228-428); Unsaturated Iron Binding 204 ug/dL
[2025-01-03 13:55] LABS: Ferritin 321 ng/mL (10-250)
[2025-01-03 14:10] LABS: Folate > 20.0 ng/mL (> or = 4.0); Vitamin B12 342 pg/mL (200-900)
== END 2025-01-03 11:24 | disposition home or self-care (01) ==
LOC: HO.HMGCLDS 11:23
PROVIDERS: PCP Internal Medicine; Visit Provider Internal Medicine
DX: R53.83 Other fatigue (principal); D64.9 Anemia, unspecified
CPT/HCPCS: 36415; 82607; 82728; 82746; 83540

== ENCOUNTER 2025-03-03 12:24 | Outpatient (REF) | payer MEDICARE, SELFPAY ==
[2025-03-03 14:03] LABS: Appearance Urine Cloudy; Glucose Urine UA Negative (Negative); PH 6.0 (5.0-9.0); Specific Gravity - Urine 1.020 (1.005-1.025); UMIC TRIGGER UACC YES
[2025-03-03 14:11] LABS: UACC Culture Trigger YES
== END 2025-03-03 12:25 | disposition home or self-care (01) ==
LOC: HO.LNP 12:24
PROVIDERS: PCP Internal Medicine; Visit Provider Internal Medicine Gastroenterology
DX: K51.50 Left sided colitis without complications (principal); K52.9 Noninfective gastroenteritis and colitis, unspecified; R30.0 Dysuria; R63.4 Abnormal weight loss
CPT/HCPCS: 81001; 81003; 87086; 87088; 87186; 99212

== ENCOUNTER 2025-03-03 12:24 | Outpatient (AMB) | payer MEDICARE, SELFPAY ==
--- NOTE | 2025-03-03 12:26 | MHC.OFFVIS ---
Vital Signs 03/03/25 12:37 Height 5 ft 3 in Weight 87 lb BMI 15.4 BP 145/62 H Blood Pressure Location Lt brachial Position Sitting Pulse 56 Intake Visit Reasons: 2m Intake Note: Mckenzie presents in the office as a 2 month follow up. CC: States that her levels are high and remicade does not seem to be working - next one is tomorrow. Engineering Officer Required: No Allergies pregabalin (From LYRICA) Allergy (Severe, Verified 03/03/25 12:38) CONFUSION gabapentin (GABAPENTIN) Allergy (Intermediate, Verified 03/03/25 12:38) NAUSEA/VOMITING amlodipine (From Norvasc) Allergy (Verified 03/03/25 12:38) Unknown clarithromycin (From BIAXIN) Adverse Reaction (Intermediate, Verified 03/03/25 12:38) NAUSEA & VOMITING codeine (CODEINE) Adverse Reaction (Intermediate, Verified 03/03/25 12:38) NAUSEA & VOMITING fentanyl (From DURAGESIC) Adverse Reaction (Intermediate, Verified 03/03/25 12:38) NAUSEA/VOMITING levofloxacin (From LEVAQUIN) Adverse Reaction (Intermediate, Verified 03/03/25 12:38) NAUSEA & VOMITING primidone (From Mysoline) Adverse Reaction (Verified 03/03/25 12:38) Nausea and Vomiting HPI HPI 2m: Details: 84 yr old f with hx of parkinsons and prior vagotomy, and partial gastrectomy 1974 who I am seeing for f/u for weight loss, colitis RECAP Since 10/2020 she has noted increasing weight loss had visited sister in [place] who had a stroke she has a restricted diet due to her prior surgeries, avoids fat foods she has lost about 10-15# she was having diarrhea for 40 yrs but started sinemet for PD 1 yr ago and since then the diarrhea has improved a lot she denies abdominal pain she says she otherwise feels good denies blood in stool no oil droplets or grease in stool, but can float takes ibuprofen prn once in a while CT scan ordered: 06/2021--liver cyst, mild dilated PD and CBC, stable, no acute findings or masses, degen spinal disease, atherosclerosis CXR: no acute pathology, or masses LABS: mild raised histamine, borderline HGB, WCC, histamine, raised fecal eboni, nml panc elastase, neg giardia, neg fecal fat, mild low IgG2, and 3, raised ferritin gastrin and calcitonin were nml rifaxmin never helped her neither did welchol or ursodiol she never felt benefit from ursodiol or welchol after eventually trying EGD/colonoscopy : 10/2021 Endoscopy Findings: gastritis--diffuse gastric polyp Colonoscopy Findings: internal hemorrhoids bx: neg for microscopic colitis GES: rapid emptying on study Fecal lactoferrin-- 04/2023--- 27--commenced on apriso --she did get short course of pred which she felt was very effective for her bowels and joints CTe: inflammatory arthritis hip possible left sided colonic inflammation Labs: neg PEMA, CCP and RF, CRP 3 fecal lactoferrin: elevated 01/12 INTERIM: she still has lack of energy, fatigue--been getting remicade no abdominal pain appetite is fair stool freq is reduced but still has lack of energy -no blood in stools EXAM: GENERAL: The patient is thin VITAL SIGNS:see workflow HEENT: Nonicteric sclerae, PERRLA, EOMI. Oropharynx clear. Moist mucous membranes. Conjunctivae appear well perfused. No thyroid mass. CHEST: Chest wall is nontender. HEART: Regular rate and rhythm without murmurs. LUNGS: Clear to auscultation bilaterally. ABDOMEN: Soft, positive bowel sounds, nontender, no organomegaly.no flank tenderness SKIN: No rash, no excessive bruising, petechiae, or purpura. NEUROLOGIC: Cranial nerves II-XII intact without motor/sensory deficit. Psych: normal affect A/P: 1/ Weight loss, raised lactoferrin thought to be due to IBD, on remicade now PLAN: 1/cont with remicade, check labs and level and fecal lactoferrin/ c diff and GI stool panel 2/ she is worried abt urine burning, will get [facility] Medical History NSTEMI (non-ST elevated myocardial infarction) SIRS (systemic inflammatory response syndrome) Guillain-[place] syndrome Fracture, wrist, open History of gastrectomy Parkinson disease High blood pressure Surgical History Hx of arthroscopic knee surgery Hx of hysterectomy H/O pyloroplasty H/O vagotomy Hx of cholecystectomy History of esophagogastroduodenoscopy (EGD) Hx of colonoscopy Social History Household Members: None Housing: Condominium Do you presently have visiting nurse or other home services: No Alcohol intake: former Comment: bed exit alarm off per pt / pt daughter request; daughter Roxanna at bedside Patient Tobacco Use Status: Never used Tobacco Advance Directives Date on File: 08/14/23 service: No Current occupational status: retired Current occupation: rt handed Assessment & Plan Assessment & Plan (1) Colitis: Code(s): K52.9 - Noninfective gastroenteritis and colitis, unspecified Category: Medical Plan: as above Orders: Orders GI Panel Today R19.7 - Diarrhea, unspecified Lactoferrin, Fecal, Quant. Today K51.50 - Left sided colitis without complications C Reactive Protein Today K52.9 - Noninfective gastroenteritis and colitis, unspecified UA CC w/rflx Micro + Cult Today R30.0 - Dysuria CDiff Gene PCR Today R19.7 - Diarrhea, unspecified Coding Level of Care Code Est Pt Level 4 (52630) Diagnoses Colitis K52.9
[2025-03-03 12:37] VITALS: BP 145/62; PULSE 56; BMI 15.4
--- OUTSIDE RECORDS SUMMARY | 2025-03-03 13:19 | XMS_ITS | Patient Health Record ---
Author Organization [facility] Address [address] [place] [address] Care Team Providers Care Consumer Loan Underwriter Name Role Phone Nikhil Mckeon Unavailable [phone] Reason For Referral No Information Plan Of Treatment No Information
--- OUTSIDE RECORDS SUMMARY | 2025-03-03 13:19 | XMS_ITS | Clinical Summary ---
Author Organization [facility] Address [address] [place] [address] Phone Care Team Providers Care Support Dba Name Role Phone Unavailable Primary Care Provider [...] Influencers of Health Screening 07/19/2022 COVID-19 Vaccine (1 - 2023-2 5 season) 2024 Influenza Vaccine (#1) 2025 Osteoporosis Screening (Bone Density Screening) 06/08/2033 [...] Procedure Name Priority Date/Time Associated Diagnosis Comments [facility] DEXA AXIAL SKELETON Routine 06/08/2023 10:23 AM EDT Encounter for screening for osteoporosis from Last 3 Months or Most Recently Relevant to Health Maintenance Results * [facility] DEXA AXIAL SKELETON (06/08/2023 10:23 AM EDT) Anatomical Region Laterality Modality Mammography 06/08/2023 9:55 AM EDT Narrative 06/08/2023 10:23 AM EDT [facility] Diagnostic Imaging Department [address] [place] [address] Patient: WALT CABELLO /Age/Sex: 1940 - 82 - F Unit#: [id number] Location/Status: SPDIMAM/REG CLI Mnemonic[facility]ing [facility] Ordering Physician: SALBADOR SEVERINO MD [facility] Dexa Axial Skeleton - 06/08/23 - 1016 Report Status:Signed HISTORY: The patient is an 82-year-old postmenopausal female with clinical concern for metabolic bone disease. FINDINGS: Dual [...] 99% of that of age matched controls. This yields a T-score of -2.8 and a [...] the prior examination of 05/20/2020. There has been a decrease of 0.8% in bone mineral density in the right femur and a decrease of 4.7% in bone mineral density in the left femur. 2. FRAX analysis yields a 10-year probability of major osteoporotic fracture of 30.2% and a 10-year probability of hip fracture of 13.9%. Code 38311 Dictating Physician: APRYL BAILON MD Electronically Signed by: APRYL BAILON MD Dic Date/Time: 06/08/23 1022 Sign date/Time: 06/08/23 1023 Procedure Note Apryl Bailon MD - 09/26/2023 [facility] Diagnostic Imaging Department [address] [place] [address] Patient: WALT CABELLO/Age/Sex: 1940 - 82 - F Unit#: [id number] Location/Status: SPDIMA/REG CLI [facility] Ordering Physician: SALBADOR SEVERINO MD [facility] Dexa [...] density of the femurs bilaterally is 0.649 gm/yq9iysxa is 64% of that of young normals [...] probability of hip fracture of 13.9%. Code 59580 Dictating Physician: APRYL BAILON MD Electronically Signed by: APRYL BAILON MD [facility] Date/Time: 06/08/23 1022 Sign date/Time: 06/08/23 1023 Salbador Severino MD IMG BI PROCEDURES Final Result from Last 3 Months or Most Recently Relevant to Health Maintenance Insurance [employer] [place]
== END 2025-03-03 13:06 | disposition home or self-care (01) ==
PROVIDERS: PCP Internal Medicine; Visit Provider Internal Medicine Gastroenterology
DX: K52.9 Noninfective gastroenteritis and colitis, unspecified (principal)
CPT/HCPCS: 99214

== ENCOUNTER 2025-03-04 08:37 | Outpatient (REF) | payer MEDICARE, SELFPAY ==
--- OUTSIDE RECORDS SUMMARY | 2025-03-04 08:44 | XMS_ITS | Patient Health Record ---
Author Organization [facility] Address [address] [place] [address] Care Team Providers Care Guitar Repairer Name Role Phone Nikhil Mckeon Unavailable [phone] Reason For Referral No Information Plan Of Treatment No Information
--- OUTSIDE RECORDS SUMMARY | 2025-03-04 08:44 | XMS_ITS | Clinical Summary ---
Author Organization [facility] Address [address] [place] [address] Phone Care Team Providers Care Manager Critical Care Unit Name Role Phone Unavailable Primary Care Provider [...] Procedure Name Priority Date/Time Associated Diagnosis Comments [facility] DEXA AXIAL SKELETON Routine 06/08/2023 10:23 AM EDT Encounter for screening for osteoporosis from Last 3 Months or Most Recently Relevant to Health Maintenance Results * [facility] DEXA AXIAL SKELETON (06/08/2023 10:23 AM EDT) Anatomical Region Laterality Modality Mammography 06/08/2023 9:55 AM EDT Narrative 06/08/2023 10:23 AM EDT [facility] Diagnostic Imaging Department [address] [place] [address] Patient: WALT CABELLO /Age/Sex: 1940 - 82 - F Unit#: [id number] Location/Status: SPDIMAM/REG CLI Mnemonic/[facility]ing [facility] Ordering Physician: SALBADOR SEVERINO MD [facility] Dexa Axial Skeleton - 06/08/23 [...] probability of hip fracture of 13.9%. Code 06529 Dictating Physician: APRYL BAILON MD Electronically Signed by: APRYL BAILON MD Dic Date/Time: 06/08/23 1022 Sign date/Time: 06/08/23 1023 Procedure Note Apryl Bailon MD - 09/26/2023 [facility] Diagnostic Imaging Department [address] [place] [address] Patient: WATL CABELLO/Age/Sex: 1940 - 82 - F Unit#: [id number] Location/Status: SPDIMA/REG CLI Mnemonic/[facility]ing [facility] Ordering Physician: SALBADOR SEVERINO MD [facility] Dexa [...] density of the femurs bilaterally is 0.649 gm/kc1knwje is 64% of that of young normals [...] probability of hip fracture of 13.9%. Code 67841 Dictating Physician: APRYL BAILON MD Electronically Signed by: APRYL BAILON MD [facility] Date/Time: 06/08/23 1022 Sign date/Time: 06/08/23 1023 Salbador Severino MD IMG BI PROCEDURES Final Result from Last 3 Months or Most Recently Relevant to Health Maintenance Insurance [employer] [employer]IC[place]AGE
[2025-03-04 13:12] LABS: E. coli EAEC Not Detected (Not Detect.); E. coli EPEC Not Detected (Not Detect.); E. coli ETEC Not Detected (Not Detect.); E. coli STEC Not Detected (Not Detect.); Shigella sp./EIEC Not Detected (Not Detect.)
[2025-03-04 13:17] LABS: CDiff Gene PCR NEGATIVE (Negative)
[2025-03-07 20:57] LABS: Lactoferrin, Fecal, Quant. 79.94 mcg/mL (<7.25)
== END 2025-03-04 08:38 | disposition home or self-care (01) ==
LOC: HO.LAB 08:37
PROVIDERS: PCP Internal Medicine; Visit Provider Internal Medicine Gastroenterology
DX: K52.9 Noninfective gastroenteritis and colitis, unspecified (principal); K51.50 Left sided colitis without complications
CPT/HCPCS: 80230; 82542; 83631; 86140; 87493; 87507

== ENCOUNTER 2025-03-04 09:00 | Outpatient (RCR) | payer MEDICARE, SELFPAY ==
[2024-10-01] VITALS (8 sets, daily range): BP systolic 125–135; BP diastolic 49–54; PULSE 53–61; RESP 16; TEMP 36.9; O2SAT 99
[2024-10-15] VITALS (8 sets, daily range): BP systolic 106–139; BP diastolic 47–53; PULSE 54–60; RESP 14; TEMP 37.3; O2SAT 100
[2024-10-15] MEDS: SODIUM CHLORIDE 0.9% IV (12:21)
[2024-10-15] MEDS: INFLIXIMAB IV (12:21)
[2024-11-12 10:07] VITALS: BP 112/51; PULSE 69; RESP 18; TEMP 36.7; O2SAT 100
[2024-11-12 10:56] VITALS: BP 96/47; PULSE 59
[2024-11-12] MEDS: INFLIXIMAB IV (10:56)
[2024-11-12] MEDS: SODIUM CHLORIDE 0.9% IV (10:56)
[2024-11-12 11:07] VITALS: BP 80/37; PULSE 69
[2024-11-12 11:20] VITALS: BP 93/38; PULSE 67
[2024-11-12 12:15] VITALS: BP 97/62; PULSE 75
[2024-11-12 12:48] VITALS: BP 108/48; PULSE 67
[2025-01-07] VITALS (7 sets, daily range): BP systolic 94–127; BP diastolic 40–55; PULSE 51–62; RESP 16; TEMP 36.2; O2SAT 100
[2025-01-07] MEDS: INFLIXIMAB IV (10:20)
[2025-01-07] MEDS: SODIUM CHLORIDE 0.9% IV (10:20)
[2025-03-04 09:00] VITALS: BP 136/52; PULSE 58; RESP 16; TEMP 36.6; O2SAT 100
[2025-03-04] MEDS: INFLIXIMAB IV (09:25)
[2025-03-04] MEDS: SODIUM CHLORIDE 0.9% IV (09:25)
[2025-03-04 09:27] VITALS: BP 129/57; PULSE 54
[2025-03-04 09:50] VITALS: BP 105/48; PULSE 56
[2025-03-04 09:57] VITALS: BP 116/47; PULSE 55
[2025-03-04 10:30] VITALS: BP 121/44; PULSE 55
[2025-03-04 11:05] VITALS: BP 105/51; PULSE 60
== END 2025-04-18 10:20 | disposition home or self-care (01) ==
LOC: HO.INF 09:00
PROVIDERS: Visit Provider Internal Medicine Gastroenterology
DX: K52.9 Noninfective gastroenteritis and colitis, unspecified (principal)
CPT/HCPCS: 96365; 96366; J1745

== ENCOUNTER 2025-03-10 12:29 | Outpatient (AMB) | payer MEDICARE, SELFPAY ==
[2025-03-10 12:36] VITALS: BP 156/76; PULSE 50; TEMP 36.5; O2SAT 97; BMI 14.3
--- NOTE | 2025-03-10 12:36 | AM.OFFWIN_ITS ---
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: No Is last menstrual period known: No Post menopausal: Yes Patient : No Allergies pregabalin (From LYRICA) Allergy (Severe, Verified 03/03/25 12:38) CONFUSION ciprofloxacin (From Cipro) Allergy (Intermediate, Verified 03/10/25 12:45) Itching gabapentin (GABAPENTIN) Allergy (Intermediate, Verified 03/03/25 12:38) NAUSEA/VOMITING amlodipine (From Norvasc) Allergy (Verified 03/03/25 12:38) Unknown clarithromycin (From BIAXIN) Adverse Reaction (Intermediate, Verified 03/03/25 12:38) NAUSEA & VOMITING codeine (CODEINE) Adverse Reaction (Intermediate, Verified 03/03/25 12:38) NAUSEA & VOMITING fentanyl (From DURAGESIC) Adverse Reaction (Intermediate, Verified 03/03/25 12:38) NAUSEA/VOMITING levofloxacin (From LEVAQUIN) Adverse Reaction (Intermediate, Verified 03/03/25 12:38) NAUSEA & VOMITING primidone (From Mysoline) Adverse Reaction (Verified 03/03/25 12:38) Nausea and Vomiting HPI HPI Comments History of Present Illness Details History of Present Illness - The patient is an 84-year-old female p resenting with severe right buttock pain suspected to be sciatica. - The pain began approximately three and a half weeks ago, initially thought to be self-limiting. - The pain is localized to the right but tock and extends partially down the back of the leg, causing significant difficulty in walking, sitting, and sleeping. - The patient attempted to manage the pa in with CBD cream and Icy Hot, which provided no relief. - Hydrocodone was taken for pain relief, resulting in dizziness and nausea. - No prior physical therapy has been und ertaken for this condition. - The patient has not experienced any nu mbness in the foot or pain extending past the knee. - She has no trauma or falls. - She is wanting an MRI before she has P T. - She called pain management and was lashawn d that she needs an MRI before she can be seen. - She is waiting for a PCP appt. - She denies back pain, leg pain, numbne ss, tingling, CP, SOB, abd pain, dysuria, hematuria, rashes or lesions. Physical Exam General: Cooperative, healthy appearing, comfortable, no acute distress and well developed Neck: Normal visual inspection and Yes full ROM Respiratory: Normal respiratory effort and able to speak in complete sentences. Clear to auscultation bilaterally Cardiovascular: Regular rate and rhythm. Normal S1 and S2 GI: Normal to inspection. Soft to palpation and nontender. No CVA tenderness noted. Skin: No rashes or lesions noted Neuro: Patient oriented x3. Sensation is intact. Back: No midline spinous tenderness noted in the lumbar region. No step offs noted. No TTP of the lumbar paraspinous muscles on the Left. TTP of the left SI joint. Flexion and extension is intact. Negative SLR noted. Extremities: FROM of the right hip. FROM of the right knee. Strength is 5/5 on the LE. Ambulates with steady gait. Patient was informed and verbally consented to the use of an ambient scribe for clinic note documentation during this visit. [facility] Medical History NSTEMI (non-ST elevated myocardial infarction) SIRS (systemic inflammatory response syndrome) Guillain-[place] syndrome Fracture, wrist, open History of gastrectomy Parkinson disease High blood pressure Surgical History Hx of arthroscopic knee surgery Hx of hysterectomy H/O pyloroplasty H/O vagotomy Hx of cholecystectomy History of esophagogastroduodenoscopy (EGD) Hx of colonoscopy Social History Household Members: None Housing: Condominium Do you presently have visiting nurse or other home services: No Alcohol intake: former Comment: bed exit alarm off per pt / pt daughter request; daughter Roxanna at bedside Patient Tobacco Use Status: Never used Tobacco Advance Directives Date on File: 08/14/23 service: No Current occupational status: retired Current occupation: rt handed Review of Systems Const All systems reviewed & are unremarkable except as noted in HPI and below Physical Exam Vital Signs: Last Vital Signs Temp 97.7 F 03/10/25 12:36 Pulse 50 03/10/25 12:36 BP 156/76 H 03/10/25 12:36 Pulse Ox 97 03/10/25 12:36 Oxygen Delivery Method Room Air 03/10/25 12:36 BMI result Body Mass Index 14.3 Assessment & Plan Assessment & Plan (1) Sciatica of right side: Code(s): M54.31 - Sciatica, right side Plan Most likely sciatica vs arthritis vs strain vs bursitis Plan - Order hip x-rays to rule out any underlying issues contributing to the pain. - Consider referral to physical therapy for pain management and mobility improvement. - Discuss the potential use of muscle relaxants as an alternative to hydrocodone for pain relief. - Will give her a prednisone burst for 5 days - activities as tolerated - follow up with her PCP Orders: Orders XR hip RT w PEL1V Today M25.551 - Pain in right hip Medications: New cyclobenzaprine 5 mg PO Q8H PRN 21 tabs 0RF Muscle Spasm 7 days prednisone 40 mg (2 x 20 mg) PO DAILY 10 tabs 0RF Coding Level of Care Code Est Pt Level 4 (82159) Diagnoses Sciatica of right side M54.31
--- OUTSIDE RECORDS SUMMARY | 2025-03-10 13:14 | XMS_ITS | Patient Health Record ---
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
--- OUTSIDE RECORDS SUMMARY | 2025-03-10 13:14 | XMS_ITS | Clinical Summary ---
Author Organization [facility] Address [address] [place] [address] Phone Care Team Providers Care Organic Search Lead Name Role Phone Unavailable Primary Care Provider [...] Patients (1 - 1-dose 75+ series) 2013 Falls Risk Assessment 07/19/2022 Medicare Annual Wellness Visit 07/19/2022 Social Influencers of Health Screening 07/19/2022 COVID-19 Vaccine (1 - 2023-2 5 season) 2024 Depression Screening 08/21/2024 Influenza Vaccine (#1) 2025 Osteoporosis Screening (Bone [...] Procedure Name Priority Date/Time Associated Diagnosis Comments [facility] DEXA AXIAL SKELETON Routine 06/08/2023 10:23 AM EDT Encounter for screening for osteoporosis from Last 3 Months or Most Recently Relevant to Health Maintenance Results * [facility] DEXA AXIAL SKELETON (06/08/2023 10:23 AM EDT) Anatomical Region Laterality Modality Mammography 06/08/2023 9:55 AM EDT Narrative 06/08/2023 10:23 AM EDT [facility] Diagnostic Imaging Department [address] [place] [address] Patient: WALT CABELLO /Age/Sex: 1940 - 82 - F Unit#: [id number] Location/Status: SPDIMAM/REG CLI Mnemonic[facility] Ordering Physician: SALBADOR SEVERINO MD [facility] Dexa Axial Skeleton - 06/08/23 [...] probability of hip fracture of 13.9%. Code 06977 Dictating Physician: APRYL BAILON MD Electronically Signed by: APRYL BAILON MD Dic Date/Time: 06/08/23 1022 Sign date/Time: 06/08/23 1023 Procedure Note Apryl Bailon MD - 09/26/2023 [facility] Diagnostic Imaging Department [address] [place] [address] Patient: WALT CABELLO/Age/Sex: 1940 - 82 - F Unit#: [id number] Location/Status: SPDIMA/REG CLI Mnemonic/[facility] Ordering Physician: SALBADOR SEVERINO MD [...] density of the femurs bilaterally is 0.649 gm/df0uivni is 64% of that of young normals [...] probability of hip fracture of 13.9%. Code 98028 Dictating Physician: APRYL BAILON MD Electronically Signed by: APRYL BAILON MD [facility] Date/Time: 06/08/23 1022 Sign date/Time: 06/08/23 1023 Salbador Severino MD IMG BI PROCEDURES Final Result from Last 3 Months or Most Recently Relevant to Health Maintenance Insurance [employer]
--- OUTSIDE RECORDS SUMMARY | 2025-03-10 13:14 | XMS_ITS | Clinical Summary ---
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 3 Active LORazepam (ATIVAN) 1 MG tablet Take 1 mg by mouth as needed. 3 Active hydroCHLOROthiazi de (HYDRODIURIL) 25 MG tablet Take 1 tablet by mouth every morning. 3 Active carbidopa-levodop a (SINEMET) 25-100 mg per tablet Take 1 tablet by mouth 3 (three) times a day. 3 Active potassium chloride (KLOR-CON) 10 MEQ ER tablet Take 10 mEq by mouth daily. Active cholecalciferol, vitamin D3, (VITAMIN D3) 25 mcg (1,000 unit) capsule Take 1,000 Units by mouth daily. Active calcium citrate 250 mg calcium Tab Take 1 tablet by mouth daily. 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 Bisphosphonate x > 10 yrs, d/c 2012, fx shoulder, resumed alendronate 2021 Assessment & Plan (06/20/2024 4:20 PM EDT): Clinically stable. No falls or fractures. Getting calcium in via diet and supplements. Seeing dentist regularly. Last bone density showed some decline, but had not been on rx for most of the intervening time. Will repeat next year. Will check turnover markers with next labs to help ensure she is absorbing rx. Assessment & Plan (06/15/2023 4:44 PM EDT): Clinically stable. No falls or fractures. Getting calcium in via diet and supplements. Seeing dentist regularly. Will call for recent bone density. Will include labs when has labs for yearly physical w/ PCP. Multinodular goiter Overview (06/15/2023): Negative antibodies, stable u/s 2017 Assessment & Plan (06/20/2024 4:20 PM EDT): No compressive symptoms. Exam stable. Will check TFTs w/ upcoming labs. Will continue to monitor exam. Assessment & Plan (06/15/2023 4:45 PM EDT): No compressive symptoms. Exam stable. Will check TFTs w/ upcoming labs. Will continue to monitor exam. Essential hypertension Parkinson disease Sjogren's disease Peptic ulcer disease IBS (irritable bowel syndrome) History of [place] I operation Overview (06/15/2023): Pyloroplasty Vagotomy Dumping syndrome Osteoarthritis Vitamin B12 deficiency Iron deficiency Family History Medical History Relation Comments Breast cancer Mother Breast cancer Sister 1 Breast cancer Sister 2 Relation Status Comments Mother Sister 1 Sister 2 Alive Social History Tobacco Use Types Packs/Day Years Used Date Smoking Tobacco: Never Smokeless Tobacco: Never Tobacco Cessation:Counseling Given: Not Answered Alcohol Use Standard Drinks/Week Comments Yes 10 (1 standard drink = 0.6 oz pu re alcohol) Education Answer Date Recorded Are you interested in more education? Not on andrzej e 03/21/2023 Are you concerned about learning? Not on file 03/21/2023 No 03/21/2023 No 03/21/2023 Digital Access Answer Date Recorded No 03/21/2023 No 03/21/2023 Reliable internet access at home? Not on file 03/21/2023 Device with a working camera? Not on file Comments Unknown Sex and Gender Information Value Date Recorded Sex Assigned at Not on file Legal Sex Female 12:14 PM EDT Gender Identity Not on file Sexual Orientation Not on file Last Filed Vital Signs Vital Sign Reading Time Taken Comments Blood Pressure 100/60 06/20/2024 8:55 AM EDT Pulse 71 06/20/2024 8:55 AM EDT Temperature 36.5 C (97.7 F) 06/15/2023 2:19 PM EDT Respiratory Rate - - Oxygen Saturation 99% 06/20/2024 8:55 AM EDT Inhaled Oxygen Concentration - - Weight 39.6 kg (87 lb 4.8 oz) 06/20/2024 8:55 AM EDT Height 164.4 cm (5' 4.72 ) 06/20/2024 8:55 AM ED T Body Mass Index 14.65 06/20/2024 8:55 AM EDT Plan of Treatment Upcoming Encounters Date Type Department Care Team (Late st Contact Info) Description 06/20/2025 10:20 AM EDT Office Visit [facility] [address] [place] [address] [place] [address] Krissy Willis MD [address] [place] [id number] 08/25/2025 8:00 AM EST Office Visit [facility] [address] [place] [address] Dmitri Srinivasan MD [address] [place] [address], [address] [place]var[place] [address] [email or web address] Health Maintenance Due Date Last Done Comments Adult Td,Tdap Booster 1940 DEPRESSION SCREENING 1950 PNEUMOCOCCAL VACCINES (50+ y ears) (1 of 1 - PCV) 1988 ZOSTER VACCINES (1 of 2) 1988 RSV VACCINE (1 - 1-dose 75+ series) 2013 COVID-19 VACCINE ( - 2023-2 5 season) 2024 POTASSIUM LEVEL 07/03/2025 07/03/2024 OSTEOPOROSIS SCREENING INITI AL (ONE-TIME) Completed 06/20/2024 HEPATITIS A VACCINES Aged Out No long er eligible based on patient's age to complete this topic HIB VACCINES Aged Out No longer eligi ble based on patient's age to complete this topic MENINGOCOCCAL VACCINES (ACWY) Aged Out No longer eligible based on patient's age to complete this topic MENINGOCOCCAL VACCINES (B) Aged Out N o longer eligible based on patient's age to complete this topic Medical Devices Not on file Procedures Procedure Name Priority Date/Time Associated Diagnosis Comments COMPREHENSIVE METABOLIC PANEL Routine 07/03/2024 9:17 AM EST Age-related osteoporosis without current pathological fracture BD DXA MONITORING Routine 06/20/2024 9:3 1 AM EDT Age-related osteoporosis without current pathological fracture from Last 3 Months or Most Recently Relevant to Health Maintenance Results * (ABNORMAL) Comprehensive metabolic panel (07/03/2024 9:17 AM EST) SODIUM 142 133 - 146 mmol/L [facility] POTASSIUM 3.5 3.3 - 5.1 mmol/L [facility] CHLORIDE 102 96 - 108 mmol/L [facility] CO2 34 21 - 35 mmol/L [facility] BUN 17 6 - 19 mg/dL [facility] CREATININE 0.70 0.5 - 1.5 mg/dL [facility] GLUCOSE 92 70 - 99 mg/dL [facility] ALBUMIN 3.8(L) 3.9 - 4.8 g/dL [facility] TOTAL PROTEIN 6.0(L) 6.5 - 8.0 g/dL [facility] CALCIUM 8.5 8.4 - 10.3 mg/dL [facility] ALKALINE PHOSPHATASE 50 39 - 117 U/L [facility] TOTAL BILIRUBIN 0.6 0.0 - 1.2 mg/dL [facility] AST 28 0 - 37 U/L [facility] ALT 18 0 - 40 U/L [facility] GLOBULIN 2.2 1 - 4.8 g/dL [facility] EGFR 84 >59 mL/min/1.7 3m2 [facility] Comment:Estimated glomerular filtration rate calculated using the CKD-EPI refit equation. ANION GAP 10 10 - 20 mmol/L [facility] Blood 07/03/2024 9:17 AM EST 07/03/2024 9:22 AM EST Krissy Willis MD LAB BLOOD ORDERABLES F inal Result Performing Organization Address City/State/[facility] Co de Phone Number [address] [phone] from Last 3 Months or Most Recently Relevant to Health Maintenance Insurance BLUE [employer]OSS [place] MEDICARE PPO [place] [address] [place] [address] MEDICARE PPO BLUE REPLACEMENT MEDICARE PPO BLUE REPLACEMENT MEDICARE PPO BLUE REPLACEMENT MEDICARE PPO BLUE REPLACEMENT [employer] [place] BLUE REPLACEMENT Care Teams Quarry Plant Crusher Operator Relationship Specialty Start Date End Date Salbador Severino MD [address] [place] [id number] PCP - General Internal Medicine 03/21/23 Additional Source Comments The information contained in this document represents components of the legal health record. It is not the complete legal health record.[facility]
== END 2025-03-10 14:09 | disposition home or self-care (01) ==
PROVIDERS: PCP Internal Medicine; Visit Provider Physician Assistant Medical
DX: M54.31 Sciatica, right side (principal)

== ENCOUNTER 2025-03-10 12:29 | Outpatient (REF) | payer MEDICARE, SELFPAY ==
--- NOTE | ~2025-03-10 | XR_ITS ---
EXAMINATION: XR HIP, RIGHT CLINICAL INFORMATION: M25.551 - Pain in right hip COMPARISON: 08/18/2020 TECHNIQUE: Two views of the right hip. FINDINGS: No fracture, dislocation, or suspicious bone lesion. Normal joint alignment bilaterally. Mild to moderate right and mild left hip joint osteoarthrosis. Normal femoral head contours without evidence of AVN. Normal acetabular coverage bilaterally. No soft tissue abnormalities aside from vascular calcifications. XR/XR hip RT w PEL1V IMPRESSION: Mild to moderate degenerative arthritis right hip joint. Electronically signed by: Bereket Melo MD 03/10/2025 01:57 PM EDT
== END 2025-03-10 12:30 | disposition home or self-care (01) ==
LOC: HO.HMGCX 12:29
PROVIDERS: PCP Internal Medicine; Visit Provider Physician Assistant Medical
DX: M24.151 Other articular cartilage disorders, right hip (principal)
CPT/HCPCS: 73502; 99212

== ENCOUNTER → 2025-03-10 13:43 | Outpatient (BNV) | payer MEDICARE, SELFPAY | PROVIDERS: PCP Internal Medicine; Visit Provider Radiology Diagnostic Radiology | DX: M16.11 Unilateral primary osteoarthritis, right hip (principal) | CPT/HCPCS: 73502 ==

== ENCOUNTER 2025-03-13 13:40 | Outpatient (AMB) | payer MEDICARE, SELFPAY ==
--- NOTE | 2025-03-13 13:38 | A.OFFPC_ITS ---
Vital Signs 03/13/25 13:47 Height 5 ft 5.47 in Weight 86 lb 8 oz BMI 14.2 BP 140/62 H Blood Pressure Location Lt brachial Position Sitting Respiration 16 Pulse 52 Pulse Source Pulse Oximeter Temp 97.4 F Temp Source Temporal Artery Scan Pulse Oximetry (%) 99 Oxygen Delivery Method Room Air Intake Visit Reasons: establish care/ requesting MRI Morphologist Required: No Accompanied by: Daughter Allergies pregabalin (From LYRICA) Allergy (Severe, Verified 03/13/25 14:14) CONFUSION ciprofloxacin (From Cipro) Allergy (Intermediate, Verified 03/13/25 14:14) Itching gabapentin (GABAPENTIN) Allergy (Intermediate, Verified 03/13/25 14:14) NAUSEA/VOMITING amlodipine (From Norvasc) Allergy (Verified 03/13/25 14:14) Unknown clarithromycin (From BIAXIN) Adverse Reaction (Intermediate, Verified 03/13/25 14:14) NAUSEA & VOMITING codeine (CODEINE) Adverse Reaction (Intermediate, Verified 03/13/25 14:14) NAUSEA & VOMITING fentanyl (From DURAGESIC) Adverse Reaction (Intermediate, Verified 03/13/25 14:14) NAUSEA/VOMITING levofloxacin (From LEVAQUIN) Adverse Reaction (Intermediate, Verified 03/13/25 14:14) NAUSEA & VOMITING primidone (From Mysoline) Adverse Reaction (Verified 03/13/25 14:14) Nausea and Vomiting Medication List - Last Reconciled 03/13/25 by Miladis Moeller PA-C adalimumab inject two - 40 mg/0.8 mL pens on Days 1 and 2; inject two - 40 mg/0.8 mL pens on Day15 of therapy subcut adalimumab inject one - 40 mg/0.4 mL pen every 2 weeks subcut alendronate mg PO baclofen 10 mg PO TID PRN carbidopa-levodopa 25-100 mg 1 tab PO TID ferrous sulfate ER 65 mg PO DAILY hydrochlorothiazide 25 mg PO DAILY lorazepam 1 mg PO BEDTIME PRN omeprazole 40 mg PO DAILY oxybutynin chloride ER 10 mg PO DAILY potassium chloride ER (Klor-Con M) 10 mEq PO DAILY prednisone 40 mg (2 x 20 mg) PO DAILY propranolol 80 mg PO TID Tobacco use date assessed: 03/13/25 Fall risk assessment: No Falls in past year Last assessed Fall Risk: 03/13/25 Dental Screening Dental Screen Date: 03/13/25 Did you have a dental visit in the last 12 months?: Yes Did you have a dental problem in the last 6 months where you did not have access to dental care?: No Was dental information given to patient?: Patient has dentist HPI establish care/ requesting MRI HPI Details The patient is an 84-year-old female presenting for a new patient appointment presenting with sciatica and associated pain. The sciatica has been present for approximately three and a half weeks, with the pain radiating from the buttock care home down the leg. The pain has worsened over the last four days, significantly affecting mobility and sleep. 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 She has been experiencing weight loss and difficulty gaining weight, with high lactoferritin levels noted in stool tests. She has been receiving Remicade infusions, but recent tests indicate that the treatment is not effective. The patient has a significant history of breast cancer, having undergone two lumpectomies on the right side. There is a family history of breast cancer, including her mother and two aunts. The patient has been diagnosed with Parkinson's disease and is currently under the care of a neurologist. She is on medication for Parkinson's, including Carbidopa-Levodopa. The patient has a history of osteoarthritis, which was confirmed by recent x- rays showing arthritis in the hip and pelvis. She has been prescribed prednisone for sciatica, but it has not provided significant relief. The patient is also managing hypertension and GERD, for which she is on hydrochlorothiazide and omeprazole, respectively. She has a history of low potassium, for which she takes potassium supplements. She reports a history of insomnia is currently on lorazepam 1 mg t.i.d. although only takes it at bedtime therefore will reduced her lorazepam 1 mg to bedtime only from t.i.d.. Patient and daughter agreeable with this. Social History - Family status: Lives with daughter, jacqueline camilo is involved in her care [facility] Medical History (Updated 03/13/25 @ 16:24 by Miladis Moeller PA-C) Hypokalemia GERD (gastroesophageal reflux disease) Chronic diarrhea Sciatica, right side History of mammogram (~05/2024) Right hip pain Right buttock pain Lower back pain NSTEMI (non-ST elevated myocardial infarction) SIRS (systemic inflammatory response syndrome) Guillain-Aspers syndrome Fracture, wrist, open History of gastrectomy Parkinson disease High blood pressure Surgical History Hx of arthroscopic knee surgery Hx of hysterectomy H/O pyloroplasty H/O vagotomy Hx of cholecystectomy History of esophagogastroduodenoscopy (EGD) Hx of colonoscopy (~10/22/21) Family History Mother Breast cancer Congestive heart failure Arthritis Social History Household Members: None Housing: Condominium Do you presently have visiting nurse or other home services: No Alcohol intake: current Alcohol intake frequency: 0-2 drinks per day Alcohol type: wine Patient Tobacco Use Status: Never used Tobacco Advance Directives Date on File: 08/14/23 service: No Current occupational status: retired Cognitive needs: No Hearing needs: No Vision needs: Yes (rx glasses) Questionnaire PHQ-9 Over the last 2 weeks, how often have you been bothered by any of the following problems? 1. Little interest or pleasure in doing things: not at all 2. Feeling down, depressed, or hopeless: not at all 3. Trouble falling or staying asleep, or sleeping too much: not at all 4. Feeling tired or having little energy: not at all 5. Poor appetite or overeating: not at all 6. Feeling bad about yourself - or that you are a failure or have let yourself or your family down: not at all 7. Trouble concentrating on things, such as reading the newspaper or watching television: not at all 8. Moving or speaking so slowly that other people could have noticed. Or the opposite - being so fidgety or restless that you have been moving around a lot more than usual: not at all 9. Thoughts that you would be better off or of hurting yourself in some way: not at all Total score: 0 Depression Screening Interpretation: Negative Depression Screening Done: Yes 69173 - PHQ-9 Billing: Yes Source: Developed by Drs. Nikhil L. MartinezMckenzie villarreal, Ben Eugene and colleagues, with an educational benny from [employer]. Thrive Questionnaire Date Thrive assessed: 03/13/25 I am a: Patient What is your living situation today?: I have a steady place to live Within the past 12 months, did the food you bought not last and you didn't have the money to get more?: Never true Within the past 12 months, did you worry whether your food would run out before you got money to buy more?: Never true Do you have trouble paying for medicines?: No Do you have trouble getting transportation to medical appointments?: No Do you have trouble paying your heating and electricity bill?: No Do you have trouble taking care of your child, family member or friend?: No Do you have trouble with day-to-day activities such as bathing, preparing meals, shopping, managing finances, etc.?: No Are you currently unemployed and looking for a job?: No Are you interested in more education?: No Please select the resources that you would like help with: None Currently or been in a relationship where the following occur: No concerns reported THRIVE Score: 0 AUDIT C Alcohol Use Questionnaire (AUDIT-C) 1. How often do you have a drink containing alcohol?: 4 or more times a week 2. How many drinks containing alcohol do you have on a typical day when you are drinking?: 1 or 2 3. How often do you have six or more drinks on one occasion?: Never Total Score: 4 Score Reviewed/Action Taken: No HEATHER-7 AMB Questionnaire HEATHER-7 Date HEATHER - 7 assessed: 03/13/25 Feeling nervous, anxious, or on edge: 0 = Not at all Not being able to stop or control worryin = Not at all Worrying too much about different things: 0 = Not at all Trouble relaxin = Not at all Being so restless that it is hard to sit still: 0 = Not at all Becoming easily annoyed or irritable: 0 = Not at all Feeling afraid as if something awful might happen: 0 = Not at all Total HEATHER-7 score (0-4 normal; 5-9 mild; 10-14 moderate; 15-21 severe): 0 Source: Developed by Mckenzie Watts Kurt Kroenke and colleagues, with an educational benny from [employer]. HEATHER-7 Assessment Billing HEATHER-7 Assessment Tool: HAETHER-7 Assessment 06299 Review of Systems Const Details: - Musculoskeletal: Reports pain in the buttock radiating care home down the leg, denies recent falls or injuries - Neurological: Denies numbness or tingling - Gastrointestinal: Reports chronic diarrhea, denies recent changes - General: Denies fever Physical exam (Primary Care) Vital Signs: Last Vital Signs Temp 97.4 F 03/13/25 13:47 Pulse 52 03/13/25 13:47 Resp 16 03/13/25 13:47 BP 140/62 H 03/13/25 13:47 Pulse Ox 99 03/13/25 13:47 Oxygen Delivery Method Room Air 03/13/25 13:47 Care Plan Goal for BP management: <140/90 at Goal BMI result Body Mass Index 14.2 BMI Assessment/Plan discussion: Low BMI Low, Plan discussed: lifestyle, increase calorie intake and dietary Tobacco/Smoking Status: Tobacco use Status Tobacco use date assessed 03/13/25 03/13/25 13:47 Patient Tobacco Use Status Never used Tobacco 03/13/25 14:04 PHQ-9: PHQ-9 Score PHQ-9: Total score 0 03/13/25 16:25 Depression Screening Interpretation: Negative Thrive Assessment: Date of Thrive Assessment Date Thrive assessed 03/13/25 03/13/25 13:47 Currently or been in a relationship where the following occur: No concerns reported Const Other: Appearance: Alert. Oriented X3. No acute distress. Head: Normal external exam. Normocephalic. Atraumatic. Eyes: Pupils are equal, round, and reactive to light. Extraocular movements intact. Conjunctiva and sclera normal. Eyelids normal. Throat: Pharynx normal. Uvula midline. Moist mucous membranes. Neck: Normal inspection. Neck supple. Full range of motion. Cardiovascular: Normal heart rate and rhythm. Heart sound normal. No murmurs noted. Pulses normal throughout. Respiratory: No respiratory distress. Painless inspiration. Breath sounds normal. No wheezes/rales/rhonchi noted. Chest nontender. No accessory muscle usage noted or decreased air movement noted. Abdomen: Soft and nontender. No distention noted. No organomegaly noted. Back: No costovertebral angle tenderness. Full range of motion noted. Mild tenderness to palpation to the right buttocks piriformis muscle. No obvious lesions, mid thoracic or lumbar tenderness step-offs or deformities or signs of infection. Normal steady gait. Neuro intact bilaterally and distally on all 4 extremities. Negative straight leg raise bilaterally. Skin: Skin warm and dry. Normal skin color. Normal skin turgor. No rashes/lesions/lacerations noted. Extremities: No lower extremity edema. Extremities exhibit normal range of motion. Neuro: Oriented X 3. No motor deficit. No sensory deficit. Reflexes normal. Results Reviewed Results Reviewed: - Labs: CBC normal, kidney function normal, BUN 17, sodium and potassium normal, ferritin 321, AST 34, ALT 32 - Cholesterol: Total cholesterol 214, LDL 87, HDL 116 - Vitamin levels: Vitamin D and B12 normal - Thyroid: Normal - Imaging: X-rays show arthritis in hip and pelvis - Colonoscopy (2021): Internal hot polyps, gastritis, gastric polyps Coding Level of Care Code New Pt Level 4 (87168) Complex EM visit Add On G2211 Diagnoses Sciatica, right side M54.31 Chronic diarrhea K52.9 Parkinson disease G20 High blood pressure I10 GERD (gastroesophageal reflux disease) K21.9 Hypokalemia E87.6 Additional Codes HEATHER-7 Assessment Billing - HEATHER-7 Assessment Tool: HEATHER-7 Assessment 58199 ([id number]) PHQ-9 - 35787 - PHQ-9 Billing: Yes ([id number]) Time Spent (min) 50 Assessment & Plan Assessment & Plan (1) Sciatica, right side: Code(s): M54.31 - Sciatica, right side Category: Medical Plan: The patient will receive a Toradol injection for immediate pain relief, followed by a prescription for oral Toradol and additional prednisone for five days. Physical therapy is recommended to help alleviate symptoms through targeted exercises and stretches. An MRI has been ordered to further evaluate the condition, although it may take up to a month to schedule. (2) Chronic diarrhea: Code(s): K52.9 - Noninfective gastroenteritis and colitis, unspecified Category: Medical Plan: The patient is awaiting insurance approval for a new injection treatment, as Remicade infusions have not been effective. She will apply to a program for financial assistance similar to the one used for Remicade. (3) Parkinson disease: Code(s): G20 - Parkinson's disease Category: Medical Plan: The patient is under the care of a neurologist and continues on Carbidopa- Levodopa therapy. (4) High blood pressure: Code(s): I10 - Essential (primary) hypertension Category: Medical Plan: The patient is currently on hydrochlorothiazide for blood pressure management. (5) GERD (gastroesophageal reflux disease): Code(s): K21.9 - Gastro-esophageal reflux disease without esophagitis Category: Medical Plan: The patient is on omeprazole for management of GERD symptoms. (6) Hypokalemia: Code(s): E87.6 - Hypokalemia Category: Medical Plan: The patient is taking potassium supplements to manage her low potassium levels. Plan Plan Patient was informed and verbally consented to the use of an ambient scribe for clinic note documentation during this visit. 1. Sciatica The patient will receive a Toradol injection for immediate pain relief, followed by a prescription for oral Toradol and additional prednisone for five days. Physical therapy is recommended to help alleviate symptoms through targeted exercises and stretches. An MRI has been ordered to further evaluate the condition, although it may take up to a month to schedule. 2. Irreversible Diarrhea Post-Gastrectomy And Vagotomy The patient is awaiting insurance approval for a new injection treatment, as Remicade infusions have not been effective. She will apply to a program for financial assistance similar to the one used for Remicade. 3. Osteoarthritis The patient has been advised to continue with current management, including the use of NSAIDs as needed for pain relief. 4. Parkinson's Disease The patient is under the care of a neurologist and continues on Carbidopa- Levodopa therapy. 5. Hypertension The patient is currently on hydrochlorothiazide for blood pressure management. 6. Gerd The patient is on omeprazole for management of GERD symptoms. 7. Low Potassium The patient is taking potassium supplements to manage her low potassium levels. During the visit, I discussed the management of the patient's sciatica, including the use of Toradol injections and prednisone for pain relief. I re commended physical therapy to help alleviate symptoms and explained that an MRI would be ordered to further evaluate the condition, although scheduling may take some time. We also discussed the patient's ongoing treatment for irreversible diarrhea, including the need for insurance approval for a new injection treatment and potential financial assistance programs. Orders: Orders PT Evaluation and Treatment Today M25.551 - Pain in right hip, M54.50 - Low back pain, unspecified, M79.18 - Myalgia, other site MR lumbar spine wo con Today M25.551 - Pain in right hip, M54.50 - Low back pain, unspecified, M79.18 - Myalgia, other site AMB Ketorolac Injection Today M54.31 - Sciatica, right side Medications: New ketorolac First dose given in the primary care office by IM injection and patient tolerated well 10 mg PO Q8H 5 days 15 tabs 0RF Pain prednisone 40 mg (2 x 20 mg) PO DAILY 5 days 10 tabs 0RF prednisone 40 mg (2 x 20 mg) PO DAILY 10 tabs 0RF 5 days ketorolac First dose given in the primary care office by IM injection and patient duane ated well 10 mg PO Q8H 5 days 15 tabs 0RF Pain ketorolac First dose given in the primary care office by IM injection and patient tolerated well 10 mg PO Q8H 5 days 15 tabs 0RF Pain ketorolac 30 mg IM ONCE 1 mL 0RF back pain M54.31 - Sciatica, right side Patient Instructions: - Take Toradol as prescribed for pain relief. - Continue prednisone for five more days. - Attend physical therapy sessions as scheduled. - Await contact for MRI scheduling and attend the appointment when scheduled. - Apply for financial assistance for the new injection treatment if needed.
--- OUTSIDE RECORDS SUMMARY | 2025-03-13 13:43 | XMS_ITS | Clinical Summary ---
Author Organization [facility] Address [address] [place] [address] Phone Care Team Providers Care Restaurant Hourly Manager Name Role Phone Unavailable Primary Care Provider [...] Procedure Name Priority Date/Time Associated Diagnosis Comments [facility] DEXA AXIAL SKELETON Routine 06/08/2023 10:23 AM EDT Encounter for screening for osteoporosis from Last 3 Months or Most Recently Relevant to Health Maintenance Results * [facility] DEXA AXIAL SKELETON (06/08/2023 10:23 AM EDT) Anatomical Region Laterality Modality Mammography 06/08/2023 9:55 AM EDT Narrative 06/08/2023 10:23 AM EDT [facility] Diagnostic Imaging Department [address] [place] [address] Patient: WALT CABELLO /Age/Sex: 1940 - 82 - F Unit#: [id number] Location/Status: SPDIMAM/REG CLI Mnemonic[facility] Ordering Physician: SALBADOR SEVERINO MD [facility] [...] probability of hip fracture of 13.9%. Code 03790 Dictating Physician: APRYL BAILON MD Electronically Signed by: APRYL BAILON MD Dic Date/Time: 06/08/23 1022 Sign date/Time: 06/08/23 1023 Procedure Note Apryl Bailon MD - 09/26/2023 [facility] Diagnostic Imaging Department [address] [place] [id number] Patient: WALT CABELLO/Age/Sex: 1940 - 82 - F Unit#: [id number] Location/Status: SPDIMA/REG CLI Mnemonic/[facility] Ordering Physician: SALBADOR SEVERINO MD [...] density of the femurs bilaterally is 0.649 gm/oz0fwsah is 64% of that of young normals [...] probability of hip fracture of 13.9%. Code 26835 Dictating Physician: APRYL BAILON MD Electronically Signed by: APRYL BAILON MD [facility] Date/Time: 06/08/23 1022 Sign date/Time: 06/08/23 1023 Salbador Severino MD IMG BI PROCEDURES Final Result from Last 3 Months or Most Recently Relevant to Health Maintenance Insurance [employer] [place] MEDICARE ADVANTAGE
--- OUTSIDE RECORDS SUMMARY | 2025-03-13 13:43 | XMS_ITS | Clinical Summary ---
Author Organization [facility] Address [address] [address] Phone Care Team Providers Care Assistant Strength Coach Name Role Phone Salbadro Severino MD Primary Care Provider [phone] Allergies Active Allergy Reactions Criticality Noted Date [...] 10:20 AM EDT Office Visit [facility] [address] [place] [address] [place] [address] Krissy Willis MD [address] [place] [id number] 08/25/2025 8:00 AM EST Office Visit [facility] [address] [place] [address] Dmitri Srinivasan MD [address] [place] [address], [address] JOSEFA Alvarado [address] [email or web address] Health Maintenance Due Date Last Done [...] EST) SODIUM 142 133 - 146 mmol/L [facility] POTASSIUM 3.5 3.3 - 5.1 mmol/L [facility] CHLORIDE 102 96 - 108 mmol/L [facility] CO2 34 21 - 35 mmol/L [facility] BUN 17 6 - 19 mg/dL [facility] CREATININE 0.70 0.5 - 1.5 mg/dL [facility] GLUCOSE 92 70 - 99 mg/dL [facility] ALBUMIN 3.8(L) 3.9 - 4.8 g/dL [facility] TOTAL PROTEIN 6.0(L) 6.5 - 8.0 g/dL [facility] CALCIUM 8.5 8.4 - 10.3 mg/dL [facility] ALKALINE PHOSPHATASE 50 39 - 117 U/L [facility] TOTAL BILIRUBIN 0.6 0.0 - 1.2 mg/dL [facility] AST 28 0 - 37 U/L [facility] ALT 18 0 - 40 U/L [facility] GLOBULIN 2.2 1 - 4.8 g/dL [facility] EGFR 84 >59 mL/min/1.7 3m2 [facility] Comment:Estimated glomerular filtration rate calculated using the CKD-EPI refit equation. ANION GAP 10 10 - 20 mmol/L [facility] Blood 07/03/2024 9:17 AM EST 07/03/2024 9:22 AM EST Krissy Willis MD LAB BLOOD ORDERABLES F inal Result Performing Organization Address City/State/[facility] Co de Phone Number [address] [address] from Last 3 Months or Most Recently Relevant to Health Maintenance Insurance [employer] [place]IC[place] PPO [place] [address] [place] [address] MEDICARE PPO BLUE REPLACEMENT MEDICARE PPO BLUE REPLACEMENT MEDICARE PPO BLUE REPLACEMENT MEDICARE PPO BLUE REPLAC[place] [employer] [place] BLUE REPLACEMENT Care Teams Assistant Strength Coach Relationship Specialty Start Date End Date Salbador Severino MD [address] [place] [id number] PCP - General Internal Medicine 03/21/23 Additional Source Comments The information contained in this document represents components of the legal health record. It is not the complete legal health record.[facility]
[2025-03-13 13:47] VITALS: BP 140/62; PULSE 52; RESP 16; TEMP 36.3; O2SAT 99; BMI 14.2
== END 2025-03-13 14:42 | disposition home or self-care (01) ==
LOC: HO.HMCSH 13:41
PROVIDERS: PCP Internal Medicine; Visit Provider Physician Assistant Medical
DX: M54.31 Sciatica, right side (principal); K52.9 Noninfective gastroenteritis and colitis, unspecified; G20.A1 Parkinson's disease without dyskinesia, without mention of fluctuations; I10 Essential (primary) hypertension; K21.9 Gastro-esophageal reflux disease without esophagitis; E87.6 Hypokalemia

== ENCOUNTER → 2025-03-13 13:40 | Outpatient (BNVA) | payer MEDICARE, SELFPAY | PROVIDERS: PCP Internal Medicine; Visit Provider Physician Assistant Medical | DX: M54.31 Sciatica, right side (principal); K52.9 Noninfective gastroenteritis and colitis, unspecified; G20.A1 Parkinson's disease without dyskinesia, without mention of fluctuations; I10 Essential (primary) hypertension; K21.9 Gastro-esophageal reflux disease without esophagitis; E87.6 Hypokalemia; Z79.899 Other long term (current) drug therapy; Z13.31 Encounter for screening for depression; Z13.39 Encounter for screening examination for other mental health and behavioral disorders | CPT/HCPCS: 96127; 99202 ==

== ENCOUNTER 2025-03-20 09:40 | Outpatient (AMB) | payer MEDICARE, SELFPAY ==
[2025-03-20 09:40] VITALS: BP 140/67; PULSE 78; RESP 14; TEMP 36.6; O2SAT 97; BMI 14.3
--- NOTE | 2025-03-20 09:40 | A.OFFPC_ITS ---
Vital Signs 03/20/25 09:40 Height 5 ft 5.47 in Weight 87 lb BMI 14.3 BP 140/67 H Blood Pressure Location Rt brachial Position Sitting Respiration 14 Pulse 78 Pulse Source Pulse Oximeter Temp 97.8 F Temp Source Temporal Artery Scan Pulse Oximetry (%) 97 Oxygen Delivery Method Room Air Intake Visit Reasons: 1 week follow up Manager Data Warehouse Required: No Accompanied by: daughter Allergies pregabalin (From LYRICA) Allergy (Severe, Verified 03/20/25 11:10) CONFUSION ciprofloxacin (From Cipro) Allergy (Intermediate, Verified 03/20/25 11:10) Itching gabapentin (GABAPENTIN) Allergy (Intermediate, Verified 03/20/25 11:10) NAUSEA/VOMITING amlodipine (From Norvasc) Allergy (Verified 03/20/25 11:10) Unknown clarithromycin (From BIAXIN) Adverse Reaction (Intermediate, Verified 03/20/25 11:10) NAUSEA & VOMITING codeine (CODEINE) Adverse Reaction (Intermediate, Verified 03/20/25 11:10) NAUSEA & VOMITING fentanyl (From DURAGESIC) Adverse Reaction (Intermediate, Verified 03/20/25 11:10) NAUSEA/VOMITING levofloxacin (From LEVAQUIN) Adverse Reaction (Intermediate, Verified 03/20/25 11:10) NAUSEA & VOMITING primidone (From Mysoline) Adverse Reaction (Verified 03/20/25 11:10) Nausea and Vomiting Medication List - Last Reconciled 03/20/25 by Miladis Moeller PA-C adalimumab inject two - 40 mg/0.8 mL pens on Days 1 and 2; inject two - 40 mg/0.8 mL pens on Day15 of therapy subcut adalimumab inject one - 40 mg/0.4 mL pen every 2 weeks subcut alendronate mg PO carbidopa-levodopa 25-100 mg 1 tab PO TID cyclobenzaprine 10 mg PO Q8H diclofenac sodium 75 mg PO BID ferrous sulfate ER 65 mg PO DAILY hydrochlorothiazide 25 mg PO DAILY lorazepam 1 mg PO BEDTIME PRN omeprazole 40 mg PO DAILY oxybutynin chloride ER 10 mg PO DAILY potassium chloride ER (Klor-Con M) 10 mEq PO DAILY propranolol 80 mg PO TID Tobacco use date assessed: 03/13/25 Dental Screening Dental Screen Date: 03/13/25 HPI 1 week follow up HPI Details The patient is an 84-year-old female presenting with exacerbation of sciatica symptoms. The sciatica pain had subsided following a Toradol injection but returned with increased severity two days ago. The patient missed a dose of prednisone, which may have contributed to the recurrence of symptoms. The patient has a history of shoulder arthritis, which was noted during the visit. The patient also reports having Raynaud's phenomenon, characterized by discoloration of the toes, but denies associated pain. The patient has been evaluated for peripheral artery disease, with previous arterial testing showing results within normal limits. Social History - Denies history of smoking. [facility] Medical History Hypokalemia GERD (gastroesophageal reflux disease) Chronic diarrhea Sciatica, right side History of mammogram (~05/2024) Right hip pain Right buttock pain Lower back pain NSTEMI (non-ST elevated myocardial infarction) SIRS (systemic inflammatory response syndrome) Guillain-Linch syndrome Fracture, wrist, open History of gastrectomy Parkinson disease High blood pressure Surgical History Hx of arthroscopic knee surgery Hx of hysterectomy H/O pyloroplasty H/O vagotomy Hx of cholecystectomy History of esophagogastroduodenoscopy (EGD) Hx of colonoscopy (~10/22/21) Family History Mother Breast cancer Congestive heart failure Arthritis Social History Household Members: None Housing: Condominium Do you presently have visiting nurse or other home services: No Alcohol intake: current Alcohol intake frequency: 0-2 drinks per day Alcohol type: wine Patient Tobacco Use Status: Never used Tobacco Advance Directives Date on File: 08/14/23 service: No Current occupational status: retired Cognitive needs: No Hearing needs: No Vision needs: Yes (rx glasses) Questionnaire PHQ-9 Over the last 2 weeks, how often have you been bothered by any of the following problems? 1. Little interest or pleasure in doing things: not at all 2. Feeling down, depressed, or hopeless: not at all 3. Trouble falling or staying asleep, or sleeping too much: not at all 4. Feeling tired or having little energy: not at all 5. Poor appetite or overeating: not at all 6. Feeling bad about yourself - or that you are a failure or have let yourself or your family down: not at all 7. Trouble concentrating on things, such as reading the newspaper or watching television: not at all 8. Moving or speaking so slowly that other people could have noticed. Or the opposite - being so fidgety or restless that you have been moving around a lot more than usual: not at all 9. Thoughts that you would be better off or of hurting yourself in some way: not at all Total score: 0 Depression Screening Interpretation: Negative Depression Screening Done: Yes 33003 - PHQ-9 Billing: Yes Source: Developed by Drs. Nikhil Henriquez, Mckenzie Bryson, Ben Euegne and colleagues, with an educational benny from [employer]. Thrive Questionnaire Date Thrive assessed: 03/13/25 I am a: Patient What is your living situation today?: I have a steady place to live Within the past 12 months, did the food you bought not last and you didn't have the money to get more?: Never true Within the past 12 months, did you worry whether your food would run out before you got money to buy more?: Never true Do you have trouble paying for medicines?: No Do you have trouble getting transportation to medical appointments?: No Do you have trouble paying your heating and electricity bill?: No Do you have trouble taking care of your child, family member or friend?: No Do you have trouble with day-to-day activities such as bathing, preparing meals, shopping, managing finances, etc.?: No Are you currently unemployed and looking for a job?: No Are you interested in more education?: No Please select the resources that you would like help with: None Currently or been in a relationship where the following occur: No concerns reported THRIVE Score: 0 AUDIT C Alcohol Use Questionnaire (AUDIT-C) 1. How often do you have a drink containing alcohol?: 4 or more times a week 2. How many drinks containing alcohol do you have on a typical day when you are drinking?: 1 or 2 3. How often do you have six or more drinks on one occasion?: Never Total Score: 4 Score Reviewed/Action Taken: No HEATHER-7 AMB Questionnaire HETAHER-7 Date HEATHER - 7 assessed: 03/13/25 Feeling nervous, anxious, or on edge: 0 = Not at all Not being able to stop or control worryin = Not at all Worrying too much about different things: 0 = Not at all Trouble relaxin = Not at all Being so restless that it is hard to sit still: 0 = Not at all Becoming easily annoyed or irritable: 0 = Not at all Feeling afraid as if something awful might happen: 0 = Not at all Total HEATHER-7 score (0-4 normal; 5-9 mild; 10-14 moderate; 15-21 severe): 0 Source: Developed by Drs. Nikhil Henriquez, Mckenzie Bryson, Ben Eugene and colleagues, with an educational benny from [employer]. HEATHER-7 Assessment Billing HEATHER-7 Assessment Tool: HEATHER-7 Assessment 05648 Review of Systems Const Details: - Musculoskeletal: Reports exacerbation of sciatica symptoms, denies falls. - Neurological: Denies numbness or incontinence. - General: Denies fever. - Vascular: Reports Raynaud's phenomenon, denies pain associated with discoloration. All systems reviewed & are unremarkable except as noted in HPI and below Physical exam (Primary Care) Vital Signs: Last Vital Signs Temp 97.8 F 03/20/25 09:40 Pulse 78 03/20/25 09:40 Resp 14 03/20/25 09:40 BP 149/67 H 03/20/25 09:40 Pulse Ox 97 03/20/25 09:40 Oxygen Delivery Method Room Air 03/20/25 09:40 Care Plan Goal for BP management: <140/90 BMI result Body Mass Index 14.3 BMI Assessment/Plan discussion: Low BMI Low, Plan discussed: lifestyle, increase calorie intake and dietary Tobacco/Smoking Status: Tobacco use Status Tobacco use date assessed 03/13/25 03/20/25 09:42 Patient Tobacco Use Status Never used Tobacco 03/20/25 09:42 PHQ-9: PHQ-9 Score PHQ-9: Total score 0 03/20/25 10:08 Depression Screening Interpretation: Negative Thrive Assessment: Date of Thrive Assessment Date Thrive assessed 03/13/25 03/20/25 09:42 Currently or been in a relationship where the following occur: No concerns reported Const Other: Appearance: Alert. Oriented X3. No acute distress. Head: Normal external exam. Normocephalic. Atraumatic. Eyes: Pupils are equal, round, and reactive to light. Extraocular movements intact. Conjunctiva and sclera normal. Eyelids normal. Throat: Pharynx normal. Uvula midline. Moist mucous membranes. Neck: Normal inspection. Neck supple. Full range of motion. Cardiovascular: Normal heart rate and rhythm. Respiratory: No respiratory distress. Painless inspiration. Back: Tender to palpation to lower buttocks. No mid lumbar tenderness step- offs or deformities. No signs of infection or rashes noted. Full range of motion noted. Skin: Skin warm and dry. Normal skin color. Normal skin turgor. No rashes/lesions/lacerations noted. Extremities: No lower extremity edema. Extremities exhibit normal range of motion. No calf tenderness is noted. Neuro: Oriented X 3. No motor deficit. No sensory deficit. Reflexes normal. No numbness reported. No falls noted. Normal steady gait noted. Results Reviewed Results Reviewed: - Imaging: Previous arterial testing within normal limits for peripheral artery disease. Coding Level of Care Code Est Pt Level 4 (69745) Complex EM visit Add On G2211 Diagnoses Lower back pain M54.50 Sciatica, right side M54.31 Shoulder pain M25.519 Peripheral artery disease I73.9 Additional Codes HEATHER-7 Assessment Billing - HEATHER-7 Assessment Tool: HEATHER-7 Assessment 02590 ([id number]) PHQ-9 - 60538 - PHQ-9 Billing: Yes ([id number]) Assessment & Plan Assessment & Plan (1) Lower back pain: Code(s): M54.50 - Low back pain, unspecified Category: Medical Plan: The patient received a Toradol injection for sciatica, which initially alleviated the pain, but symptoms returned after missing a dose of prednisone. A muscle relaxant, Cyclobenzaprine, was prescribed, and physical therapy was ordered but not yet initiated. An MRI is pending insurance approval to further evaluate the condition. (2) Sciatica, right side: Code(s): M54.31 - Sciatica, right side Category: Medical Plan: The patient received a Toradol injection for sciatica, which initially alleviated the pain, but symptoms returned after missing a dose of prednisone. A muscle relaxant, Cyclobenzaprine, was prescribed, and physical therapy was ordered but not yet initiated. An MRI is pending insurance approval to further evaluate the condition. (3) Shoulder pain: Code(s): M25.519 - Pain in unspecified shoulder Category: Medical Plan: The patient has a history of shoulder arthritis, managed with NSAIDs, specifically Voltaren (Diclofenac). (4) Peripheral artery disease: Code(s): I73.9 - Peripheral vascular disease, unspecified Category: Medical Plan: The patient has been evaluated for peripheral artery disease, with arterial testing showing results within normal limits. Plan Plan Patient was informed and verbally consented to the use of an ambient scribe for clinic note documentation during this visit. 1. Sciatica The patient received a Toradol injection for sciatica, which initially alleviated the pain, but symptoms returned after missing a dose of prednisone. A muscle relaxant, Cyclobenzaprine, was prescribed, and physical therapy was ordered but not yet initiated. An MRI is pending insurance approval to further evaluate the condition. 2. Shoulder Arthritis The patient has a history of shoulder arthritis, managed with NSAIDs, specifically Voltaren (Diclofenac). 3. Raynaud's Phenomenon The patient reports Raynaud's phenomenon with discoloration of the toes but no associated pain. 4. Peripheral Artery Disease The patient has been evaluated for peripheral artery disease, with arterial testing showing results within normal limits. I discussed with the patient the management of her sciatica, including the use of a muscle relaxant and the pending MRI for further evaluation. We also reviewed her shoulder arthritis management with NSAIDs and addressed her Raynaud's phenomenon and peripheral artery disease, ensuring she understands the current status and follow-up plans. Orders: Orders AMB Ketorolac Injection Today M25.519 - Pain in unspecified shoulder, M25.551 - Pain in right hip, M54.31 - Sciatica, right side, M54.50 - Low back pain, unspecified, M79.18 - Myalgia, other site Medications: New ketorolac 30 mg IM ONCE 1 mL 0RF back pain M25.519 - Pain in unspecified shoulder, M25.551 - Pain in right hip, M54.31 - Sciatica, right side, M54.50 - Low back pain, unspecified, M79.18 - Myalgia, other site cyclobenzaprine 10 mg PO Q8H 30 tabs 0RF Patient Instructions: - Continue taking Voltaren as prescribed for shoulder arthritis. - Use the prescribed muscle relaxant as directed for sciatica. - Await contact from physical therapy and follow up on MRI approval. - Monitor symptoms and report any significant changes or worsening.
--- OUTSIDE RECORDS SUMMARY | 2025-03-20 10:07 | XMS_ITS | Clinical Summary ---
Author Organization [facility] Address [address] [place] [address] Phone Care Team Providers Care Supervisor Steffen House Name Role Phone Unavailable Primary Care Provider [...] Procedure Name Priority Date/Time Associated Diagnosis Comments [facility] DEXA AXIAL SKELETON Routine 06/08/2023 10:23 AM EDT Encounter for screening for osteoporosis from Last 3 Months or Most Recently Relevant to Health Maintenance Results * [facility] DEXA AXIAL SKELETON (06/08/2023 10:23 AM EDT) Anatomical Region Laterality Modality Mammography 06/08/2023 9:55 AM EDT Narrative 06/08/2023 10:23 AM EDT [facility] Diagnostic Imaging Department [address] [place] [address] Patient: WALT CABELLO /Age/Sex: 1940 - 82 - F Unit#: [id number] Location/Status: SPDIMAM/REG CLI Mnemonic[facility] Ordering Physician: SALBADOR SEVERINO MD [facility] Dexa Axial Skeleton - [...] probability of hip fracture of 13.9%. Code 84763 Dictating Physician: APRYL BAILON MD Electronically Signed by: APRYL BAILON MD Dic Date/Time: 06/08/23 1022 Sign date/Time: 06/08/23 1023 Procedure Note Apryl Bailon MD - 09/26/2023 [facility] Diagnostic Imaging Department [address] [place] [address] Patient: WALT CABELLO/Age/Sex: 1940 - 82 - F Unit#: [id number] Location/Status: SPDIMA/REG CLI Mnemonic[facility] Ordering Physician: SALBADOR SEVERINO MD Enrique Dexa [...] density of the femurs bilaterally is 0.649 gm/hl8ccrit is 64% of that of young normals [...] probability of hip fracture of 13.9%. Code 17493 Dictating Physician: APRYL BAILON MD Electronically Signed by: APRYL BAILON MD [facility] Date/Time: 06/08/23 1022 Sign date/Time: 06/08/23 1023 Salbador Severino MD IMG BI PROCEDURES Final Result from Last 3 Months or Most Recently Relevant to Health Maintenance Insurance [employer] [place]IC[place]
--- OUTSIDE RECORDS SUMMARY | 2025-03-20 10:07 | XMS_ITS | Patient Health Record ---
Author Organization [facility] Address [address] [place] [phone] Care Team Providers Care Support Worker Name Role Phone Nikhil Mckeon Unavailable [phone] Reason For Referral No Information Plan Of Treatment No Information
--- OUTSIDE RECORDS SUMMARY | 2025-03-20 10:07 | XMS_ITS | Clinical Summary ---
Author Organization [facility] Address [address] [address] Phone Care Team Providers Care Stator Plate Washer Name Role Phone Salbador Severino MD Primary Care Provider +1- [phone] Allergies Active Allergy Reactions Criticality Noted Date [...] 10:20 AM EDT Office Visit [facility] [address] [place] [address] [place] [address] Krissy Willis MD [address] [place] [address] 08/25/2025 8:00 AM EST Office Visit [facility] [address] [place] [address] Dmitri Srinivasan MD [address] [place] [address], [address] [place] [address] [email or web address] Health Maintenance Due Date Last Done Comments [...] EST) SODIUM 142 133 - 146 mmol/L [facility] POTASSIUM 3.5 3.3 - 5.1 mmol/L [facility] CHLORIDE 102 96 - 108 mmol/L [facility] CO2 34 21 - 35 mmol/L [facility] BUN 17 6 - 19 mg/dL [facility] CREATININE 0.70 0.5 - 1.5 mg/dL [facility] GLUCOSE 92 70 - 99 mg/dL [facility] ALBUMIN 3.8(L) 3.9 - 4.8 g/dL [facility] TOTAL PROTEIN 6.0(L) 6.5 - 8.0 g/dL [facility] CALCIUM 8.5 8.4 - 10.3 mg/dL [facility] ALKALINE PHOSPHATASE 50 39 - 117 U/L [facility] TOTAL BILIRUBIN 0.6 0.0 - 1.2 mg/dL [facility] AST 28 0 - 37 U/L [facility] ALT 18 0 - 40 U/L [facility] GLOBULIN 2.2 1 - 4.8 g/dL [facility] EGFR 84 >59 mL/min/1.7 3m2 [facility] Comment:Estimated glomerular filtration rate calculated using the CKD-EPI refit equation. ANION GAP 10 10 - 20 mmol/L [facility] Blood 07/03/2024 9:17 AM EST 07/03/2024 9:22 AM EST Krissy Willis MD LAB BLOOD ORDERABLES F inal Result Performing Organization Address City/State/[facility] Co de Phone Number [address] [address] from Last 3 Months or Most Recently Relevant to Health Maintenance Insurance [employer] [place] P[place] BLUE REPLACEMENT [address] [place] [address] MEDICARE PPO BLUE REPLACEMENT MEDICARE PPO BLUE REPLACEMENT MEDICARE PPO BLUE REPLACEMENT MEDICARE PPO BLUE REPLAC[place] Care Teams Stator Plate Washer Relationship Specialty Start Date End Date Salbador Severino MD [address] [place] [id number] PCP - General Internal Medicine 03/21/23 Additional Source Comments The information contained in this document represents components of the legal health record. It is not the complete legal health record.[facility]
== END 2025-03-20 10:25 | disposition home or self-care (01) ==
LOC: HO.HMCSH 09:41
PROVIDERS: PCP Internal Medicine; Visit Provider Physician Assistant Medical
DX: M54.50 Low back pain, unspecified (principal); M54.31 Sciatica, right side; M25.519 Pain in unspecified shoulder; I73.9 Peripheral vascular disease, unspecified

== ENCOUNTER → 2025-03-20 09:40 | Outpatient (BNVA) | payer MEDICARE, SELFPAY | PROVIDERS: PCP Internal Medicine; Visit Provider Physician Assistant Medical | DX: M54.31 Sciatica, right side (principal); I73.00 Raynaud's syndrome without gangrene; I73.9 Peripheral vascular disease, unspecified | CPT/HCPCS: 96127; 99212 ==

== ENCOUNTER 2025-04-18 14:15 | Outpatient (REF) | payer MEDICARE, SELFPAY ==
--- NOTE | ~2025-04-18 | US_ITS ---
EXAMINATION: US TRIPLEX LOWER EXTREMITY, BILATERAL CLINICAL INFORMATION: Bilateral lower extremity edema COMPARISON: None available. TECHNIQUE: Color-flow triplex imaging with spectral analysis and compression Doppler were performed on the bilateral lower extremities. FINDINGS: Respiratory variation, normal compression and augmented flow are noted throughout the bilateral lower extremities. The visualized common femoral vein, superficial femoral vein, profunda femoral vein, popliteal vein and midcalf peroneal and posterior tibial venous segments show no evidence of deep venous thrombosis bilaterally. There is no Paez's cyst. US/US venous duplex LE BI IMPRESSION: No evidence of deep venous thrombosis involving the bilateral lower extremities. Electronically signed by: Bereket Melo MD 04/18/2025 03:01 PM EDT
--- NOTE | ~2025-04-18 | XR_ITS ---
EXAMINATION: XR CHEST CLINICAL INFORMATION: R60.0 - Localized edema COMPARISON: 08/09/2023. TECHNIQUE: 2 views of the chest were obtained. FINDINGS: The cardiac, hilar, and mediastinal contours are normal. Aortic mural calcifications. The lungs are diffusely hyperaerated, with flattened hemidiaphragms. Stable scarring in the right upper lung. Lungs are otherwise clear bilaterally. There is no pneumothorax or pleural effusion. There is no focal osseous or soft tissue abnormality. XR/XR chest 2V IMPRESSION: COPD. No active superimposed disease. Electronically signed by: Bereket Melo MD 04/18/2025 02:48 PM EDT
--- OUTSIDE RECORDS SUMMARY | 2025-04-18 14:18 | XMS_ITS | Clinical Summary ---
Author Organization [facility] Address [address] [place] [address] Phone Care Team Providers Care Administrative Medical Director Name Role Phone Unavailable Primary Care Provider [...] Procedure Name Priority Date/Time Associated Diagnosis Comments [facility] DEXA AXIAL SKELETON Routine 06/08/2023 10:23 AM EDT Encounter for screening for osteoporosis from Last 3 Months or Most Recently Relevant to Health Maintenance Results * [facility] DEXA AXIAL SKELETON (06/08/2023 10:23 AM EDT) Anatomical Region Laterality Modality Mammography 06/08/2023 9:55 AM EDT Narrative 06/08/2023 10:23 AM EDT [facility] Diagnostic Imaging Department [address] [place] [address] Patient: WALT CABELLO /Age/Sex: 1940 - 82 - F Unit#: [id number] Location/Status: SPDIMAM/REG CLI Mnemonic[facility] Ordering Physician: SALBADOR SEVERINO MD [facility] Dexa Axial Skeleton - 06/08/23 - 1016 [...] probability of hip fracture of 13.9%. Code 37827 Dictating Physician: APRYL BAILON MD Electronically Signed by: APRYL BAILON MD Dic Date/Time: 06/08/23 1022 Sign date/Time: 06/08/23 1023 Procedure Note Apryl Bailon MD - 09/26/2023 [facility] Diagnostic Imaging Department [address] [place] [address] Patient: WALT CABELLO/Age/Sex: 1940 - 82 - F Unit#: [id number] Location/Status: SPDIMA/REG CLI Mnemonic[facility] Ordering Physician: SALBADOR SEVERINO MD Enrique [...] density of the femurs bilaterally is 0.649 gm/ff7kartt is 64% of that of young normals [...] probability of hip fracture of 13.9%. Code 69189 Dictating Physician: APRYL BAILON MD Electronically Signed by: APRYL BAILON MD [facility] Date/Time: 06/08/23 1022 Sign date/Time: 06/08/23 1023 Salbador Severino MD IMG BI PROCEDURES Final Result from Last 3 Months or Most Recently Relevant to Health Maintenance Insurance [employer] [place]
--- OUTSIDE RECORDS SUMMARY | 2025-04-18 14:18 | XMS_ITS | Clinical Summary ---
Author Organization [facility] Address [address] [address] Phone Care Team Providers Care Financial Risk Manager Name Role Phone Salbador Severino MD Primary Care Provider +1- [phone] Allergies Active Allergy Reactions Criticality Noted Date [...] AM EDT Office Visit [facility] [address] [place] [address] [place] [address] Krissy Willis MD [address] [place] [address] 08/25/2025 8:00 AM EST Office Visit [facility] [address] [place] [address] Dmitri Srinivasan MD [address] [place] [address], [address] [place] [address] [email or web address] Health Maintenance Due Date Last Done [...] EST) SODIUM 142 133 - 146 mmol/L [facility] POTASSIUM 3.5 3.3 - 5.1 mmol/L [facility] CHLORIDE 102 96 - 108 mmol/L [facility] CO2 34 21 - 35 mmol/L [facility] BUN 17 6 - 19 mg/dL [facility] CREATININE 0.70 0.5 - 1.5 mg/dL [facility] GLUCOSE 92 70 - 99 mg/dL [facility] ALBUMIN 3.8(L) 3.9 - 4.8 g/dL [facility] TOTAL PROTEIN 6.0(L) 6.5 - 8.0 g/dL [facility] CALCIUM 8.5 8.4 - 10.3 mg/dL [facility] ALKALINE PHOSPHATASE 50 39 - 117 U/L [facility] TOTAL BILIRUBIN 0.6 0.0 - 1.2 mg/dL [facility] AST 28 0 - 37 U/L [facility] ALT 18 0 - 40 U/L [facility] GLOBULIN 2.2 1 - 4.8 g/dL [facility] EGFR 84 >59 mL/min/1.7 3m2 [facility] Comment:Estimated glomerular filtration rate calculated using the CKD-EPI refit equation. ANION GAP 10 10 - 20 mmol/L [facility] Blood 07/03/2024 9:17 AM EST 07/03/2024 9:22 AM EST Krissy Willis MD LAB BLOOD ORDERABLES F inal Result Performing Organization Address City/State/[facility] Co de Phone Number [address] [address] from Last 3 Months or Most Recently Relevant to Health Maintenance Insurance [employer] [place] PPO BLUE [place]AC[place] [address] [address] MEDICARE PPO BLUE REPLACEMENT MEDICARE PPO BLUE REPLACEMENT MEDICARE PPO BLUE REPLACEMENT MEDICARE PPO BLUE REPLAC[place] [employer] [place] Care Teams Financial Risk Manager Relationship Specialty Start Date End Date Salbador Severino MD [address] [place] [phone] PCP - General Internal Medicine 03/21/23 Additional Source Comments The information contained in this document represents components of the legal health record. It is not the complete legal health record.[facility]
--- OUTSIDE RECORDS SUMMARY | 2025-04-18 14:18 | XMS_ITS | Patient Health Record ---
Author Organization [facility] Address [address] [place] [phone] Care Team Providers Care Lithographic Printing Machinist Name Role Phone Nikhil Mckeon Unavailable [phone] Reason For Referral No Information Plan Of Treatment No Information
--- OUTSIDE RECORDS SUMMARY | 2025-04-18 14:18 | XMS_ITS | Encounter Summary ---
Author Organization [facility] Address [address] [facility] [address] [place] [address] Phone Care Team Providers Care Backbreaker Name Role Phone Salbador Severino MD Primary Care Provider +1- [phone] Encounter Details Date Type Department Care Team (Late Contact Info) Description 06/16/2023 Ancillary Orders [facility],Outside Imaging [address] [place] [address] System, Provider [place] In, [place] [address] Social History Tobacco Use Types Packs/Day Years Used Date Smoking Tobacco: Never Smokeless Tobacco: Never Alcohol Use Standard Drinks/Week Comments Yes 10 [...] on file Sexual Orientation Not on file documented as of this encounter Plan of Treatment Upcoming Encounters Date Type Department Care Team (Late Contact Info) Description 06/20/2025 10:20 AM EDT Office Visit [facility] [address] [place] [address] Krissy Willis MD 22 [facility] 3rd [place] [address] 08/25/2025 8:00 AM EST Office Visit [facility] Medicine [address] [place] [address] Dmitri Srinivasan MD 234 [facility], [address] [place] [address] [email or web address] documented as of this encounter Results * DXA Outside (No Interpretation) (06/08/2023 12:00 AM EDT) Narrative SYSTEMGENERATED, DOCUMENTATION - 06/16/2023 4:52 PM EDT This study is for PACS storage only and not for interpretation. us Provider Not In System PhD IMG OUTSIDE IMAGING W /OUT INTERPRETATION Final Result * DXA Outside (No Interpretation) (05/20/2020 12:00 AM EDT) Narrative SYSTEMGENERATED, DOCUMENTATION - 06/16/2023 4:58 PM EDT This study is for PACS storage only and not for interpretation. us Provider Not In System PhD IMG OUTSIDE IMAGING W /OUT INTERPRETATION Final Result * DXA Outside (No Interpretation) (12/01/2017 12:00 AM EDT) Narrative SYSTEMGENERATED, DOCUMENTATION - 06/16/2023 5:05 PM EDT This study is for PACS storage only and not for interpretation. us Provider Not In System PhD IMG OUTSIDE IMAGING W /OUT INTERPRETATION Final Result documented in this encounter Visit Diagnoses Not on filedocumented in this encounter Care Teams Backbreaker Relationship Specialty Start Date End Date Salbador Severino MD [address] [place] [address] PCP - General Internal Medicine 03/21/23 documented as of this encounter Additional Source Comments The information contained in this document represents components of the legal health record. It is not the complete legal health record.[facility]
[2025-04-18 15:25] LABS: MANUAL DIFF FLAG NO
[2025-04-18 15:43] LABS: Hematocrit 35.4 % (37.0-47.0); Hemoglobin 11.6 g/dl (12.0-16.0); Imm Gran Abs Auto 0.01 X10*3/uL (0.00-0.03); Imm Gran Pct Auto 0.2 % (0.0-0.4); Lymphocytes Absolute Auto 1.3 X10*3/uL (1.2-4.9); Mean Corpuscular HGB Conc 32.8 g/dl (31.0-35.0); Mean Corpuscular Hemoglobin 30.7 pg (27.0-33.0); Mean Corpuscular Volume 93.7 fL (80.0-98.0); NRBC Abs Auto 0.000 X10*3/uL (0.0-0.012); NRBC Pct Auto 0.0 /100WBC (0.0-0.2); Platelet Count 202 X10*3/uL (160-400); Red Blood Count 3.78 X10*6/uL (4.20-5.50); White Blood Count 5.3 X10*3/uL (4.8-10.8)
[2025-04-18 16:06] LABS: B Type Natriuretic Peptide 156 pg/mL (<100)
[2025-04-18 16:20] LABS: Alanine Aminotransferase 7 U/L (0-31); Albumin Level 3.5 g/dL (3.5-5.0); Alkaline Phosphatase 47 U/L (39-117); Anion Gap 12 (12-20); Aspartate Amino Transferase 34 U/L (5-31); Blood Urea Nitrogen 17 mg/dL (9-16); Calcium 8.8 mg/dL (8.4-10.2); Carbon Dioxide 32 mmol/L (22-29); Chloride 103 mmol/L (96-108); Estimated Glomerular Filt Rate > 60; Potassium 3.0 mmol/L (3.3-5.1); Sodium 144 mmol/L (135-145); Total Protein 5.7 g/dL (6.5-8.0)
== END 2025-04-18 14:16 | disposition home or self-care (01) ==
LOC: HO.US 14:15
PROVIDERS: PCP Internal Medicine; Visit Provider Physician Assistant Medical
DX: Z00.00 Encounter for general adult medical examination without abnormal findings (principal); R60.0 Localized edema
CPT/HCPCS: 36415; 71046; 80053; 83880; 85025; 93970

== ENCOUNTER → 2025-04-18 14:20 | Outpatient (BNV) | payer MEDICARE, SELFPAY | PROVIDERS: PCP Internal Medicine; Visit Provider Radiology Diagnostic Radiology | DX: R22.43 Localized swelling, mass and lump, lower limb, bilateral (principal); J44.9 Chronic obstructive pulmonary disease, unspecified | CPT/HCPCS: 71046; 93970 ==

== ENCOUNTER 2025-04-23 11:46 | Outpatient (REF) | payer MEDICARE, SELFPAY ==
[2025-04-23 13:23] LABS: Anion Gap 10 (12-20); Blood Urea Nitrogen 14 mg/dL (9-16); Calcium 8.7 mg/dL (8.4-10.2); Carbon Dioxide 33 mmol/L (22-29); Chloride 102 mmol/L (96-108); Estimated Glomerular Filt Rate > 60; Potassium 3.2 mmol/L (3.3-5.1); Sodium 142 mmol/L (135-145)
--- OUTSIDE RECORDS SUMMARY | 2025-04-23 14:10 | XMS_ITS | Clinical Summary ---
Author Organization [facility] Address [address] [place] [address] Phone Care Team Providers Care Drive Away Driver Name Role Phone Unavailable Primary Care Provider [...] Procedure Name Priority Date/Time Associated Diagnosis Comments [facility] DEXA AXIAL SKELETON Routine 06/08/2023 10:23 AM EDT Encounter for screening for osteoporosis from Last 3 Months or Most Recently Relevant to Health Maintenance Results * [facility] DEXA AXIAL SKELETON (06/08/2023 10:23 AM EDT) Anatomical Region Laterality Modality Mammography 06/08/2023 9:55 AM EDT Narrative 06/08/2023 10:23 AM EDT [facility] Diagnostic Imaging Department [address] [place] [address] Patient: WALT CABELLO /Age/Sex: 1940 - 82 - F Unit#: [id number] Location/Status: SPDIMAM/REG CLI Mnemonic/[facility] Ordering Physician: SALBADOR SEVERINO MD [facility] Dexa Axial Skeleton - 06/08/23 - [...] probability of hip fracture of 13.9%. Code 38394 Dictating Physician: APRYL BAILON MD Electronically Signed by: APRYL BAILON MD Dic Date/Time: 06/08/23 1022 Sign date/Time: 06/08/23 1023 Procedure Note Apryl Bailon MD - 09/26/2023 [facility] Diagnostic Imaging Department [address] [place] [address] Patient: WALT CABELLO/Age/Sex: 1940 - 82 - F Unit#: [id number] Location/Status: SPDIMA/REG CLI Mnemonic/[facility] Ordering Physician: SALABDOR SEVERINO MD Enrique Dexa Axial Skeleton - [...] density of the femurs bilaterally is 0.649 gm/ws1kcybu is 64% of that of young normals [...] probability of hip fracture of 13.9%. Code 43247 Dictating Physician: APRYL BAILON MD Electronically Signed by: APRYL BAILON MD [facility] Date/Time: 06/08/23 1022 Sign date/Time: 06/08/23 1023 Salbador Severino MD IMG BI PROCEDURES Final Result from Last 3 Months or Most Recently Relevant to Health Maintenance Insurance [employer] [place] MEDICARE ADVANTAGE
--- OUTSIDE RECORDS SUMMARY | 2025-04-23 14:10 | XMS_ITS | Encounter Summary ---
Author Organization [facility] Address [address] [facility] [address] [place] [address] Phone Care Team Providers Care Big Data Engineer Name Role Phone Salbador Severino MD Primary Care Provider +1- [phone] Encounter Details Date Type Department Care Team (Late Contact Info) Description 06/16/2023 Ancillary Orders [facility],Outside Imaging [address] [place] [address] System, Provider Not In, [place] [address] Social History Tobacco Use Types Packs/Day Years [...] AM EDT Office Visit [facility] [address] [place] [address] Krissy Willis MD 22 [facility] 3rd [place] [address] 08/25/2025 8:00 AM EST Office Visit [facility] Medicine [address] [place] [address] Dmitri Srinivasan MD 234 [facility], [address] [place] [address] [email or web address] documented as of this encounter Results * [...] on filedocumented in this encounter Care Teams Big Data Engineer Relationship Specialty Start Date End Date Salbador Severino MD [address] [place] [address] PCP - General Internal Medicine 03/21/23 documented as of this encounter Additional Source Comments The information contained in this document represents components of the legal health record. It is not the complete legal health record.[facility]
--- OUTSIDE RECORDS SUMMARY | 2025-04-23 14:10 | XMS_ITS | Clinical Summary ---
Author Organization [facility] Address [address] [address] Phone Care Team Providers Care [employer] Hat Open Stack Administrator Name Role Phone Salbador Severino MD Primary Care Provider +1- [phone] Allergies Active Allergy Reactions Criticality Noted Date [...] 10:20 AM EDT Office Visit [facility] [address] [place] [address] [place] [address] Krissy Willis MD [address] [place] [address] 08/25/2025 8:00 AM EST Office Visit [facility] [address] [place] [address] Dmitri Srinivasan MD [address] [place] [address], [address] [place] [address] [email or web address] Health Maintenance Due Date Last Done [...] EST) SODIUM 142 133 - 146 mmol/L [facility] POTASSIUM 3.5 3.3 - 5.1 mmol/L [facility] CHLORIDE 102 96 - 108 mmol/L [facility] CO2 34 21 - 35 mmol/L [facility] BUN 17 6 - 19 mg/dL [facility] CREATININE 0.70 0.5 - 1.5 mg/dL [facility] GLUCOSE 92 70 - 99 mg/dL [facility] ALBUMIN 3.8(L) 3.9 - 4.8 g/dL [facility] TOTAL PROTEIN 6.0(L) 6.5 - 8.0 g/dL [facility] CALCIUM 8.5 8.4 - 10.3 mg/dL [facility] ALKALINE PHOSPHATASE 50 39 - 117 U/L [facility] TOTAL BILIRUBIN 0.6 0.0 - 1.2 mg/dL [facility] AST 28 0 - 37 U/L [facility] ALT 18 0 - 40 U/L [facility] GLOBULIN 2.2 1 - 4.8 g/dL [facility] EGFR 84 >59 mL/min/1.7 3m2 [facility] Comment:Estimated glomerular filtration rate calculated using the CKD-EPI refit equation. ANION GAP 10 10 - 20 mmol/L [facility] Blood 07/03/2024 9:17 AM EST 07/03/2024 9:22 AM EST Krissy Willis MD LAB BLOOD ORDERABLES F inal Result Performing Organization Address City/State/[facility] Co de Phone Number [address] [address] from Last 3 Months or Most Recently Relevant to Health Maintenance Insurance [employer] [place] MEDICARE PPO BLUE [place] [address] [place] [address] MEDICARE PPO BLUE REPLACEMENT MEDICARE PPO BLUE REPLACEMENT MEDICARE PPO BLUE REPLACEMENT MEDICARE PPO BLUE REPLAC[place] [place] BLUE REPLACEMENT Care Teams [employer] Open Stack Administrator Relationship Specialty Start Date End Date Salbador Severino MD [address] [place] [id number] PCP - General Internal Medicine 03/21/23 Additional Source Comments The information contained in this document represents components of the legal health record. It is not the complete legal health record.[facility]
== END 2025-04-23 11:47 | disposition home or self-care (01) ==
LOC: HO.HMGCLDS 11:46
PROVIDERS: PCP Internal Medicine; Visit Provider Physician Assistant Medical
DX: E87.6 Hypokalemia (principal)
CPT/HCPCS: 36415; 80048

== ENCOUNTER 2025-04-30 13:10 | Outpatient (REF) | payer MEDICARE, SELFPAY ==
--- OUTSIDE RECORDS SUMMARY | 2025-05-01 16:16 | XMS_ITS | Encounter Summary ---
Author Organization [facility] Address [address] [facility] [address] [place] [address] Phone Care Team Providers Care Ware Cleaner Name Role Phone Salbador Severino MD Primary Care Provider +1- [phone] Encounter Details Date Type Department Care Team (Late Contact Info) Description 06/16/2023 Ancillary Orders [facility],Outside Imaging [address] [place] [address] System, Provider [place] In, [place] [address] Social History Tobacco Use Types Packs/Day Years [...] AM EDT Office Visit [facility] [address] [place] [address] Krissy Willis MD 22 [facility] [address]rd [place] [address] 08/25/2025 8:00 AM EST Office Visit [facility] Medicine [address] [place] [address] Dmitri Srinivasan MD 234 [facility], [address] [place] [address] [email or web address] documented as of this [...] on filedocumented in this encounter Care Teams Ware Cleaner Relationship Specialty Start Date End Date Salbador Severino MD [address] [place] [address] PCP - General Internal Medicine 03/21/23 documented as of this encounter Additional Source Comments The information contained in this document represents components of the legal health record. It is not the complete legal health record.[facility]
--- OUTSIDE RECORDS SUMMARY | 2025-05-01 16:16 | XMS_ITS | Clinical Summary ---
Author Organization [facility] Address [address] [place] [address] Phone Care Team Providers Care Life Enrichment Director Name Role Phone Unavailable Primary Care [...] Procedure Name Priority Date/Time Associated Diagnosis Comments [facility] DEXA AXIAL SKELETON Routine 06/08/2023 10:23 AM EDT Encounter for screening for osteoporosis from Last 3 Months or Most Recently Relevant to Health Maintenance Results * [facility] DEXA AXIAL SKELETON (06/08/2023 10:23 AM EDT) Anatomical Region Laterality Modality Mammography 06/08/2023 9:55 AM EDT Narrative 06/08/2023 10:23 AM EDT [facility] Diagnostic Imaging Department [address] [place] [address] Patient: WALT CABELLO /Age/Sex: 1940 - 82 - F Unit#: [id number] Location/Status: SPDIMAM/REG CLI Mnemonic/[facility] Ordering Physician: SALBADOR SEVERINO MD [facility] Dexa Axial Skeleton - 06/08/23 - [...] probability of hip fracture of 13.9%. Code 07108 Dictating Physician: APRYL BAILON MD Electronically Signed by: APRYL BAILON MD Dic Date/Time: 06/08/23 1022 Sign date/Time: 06/08/23 1023 Procedure Note Apryl Bailon MD - 09/26/2023 [facility] Diagnostic Imaging Department [address] [place] [address] Patient: WALT CABELLO/Age/Sex: 1940 - 82 - F Unit#: [id number] Location/Status: SPDIMA/REG CLI Mnemonic[facility] Ordering Physician: SALBADOR SEVERINO MD Enrique [...] density of the femurs bilaterally is 0.649 gm/bk8vklsx is 64% of that of young normals [...] probability of hip fracture of 13.9%. Code 91222 Dictating Physician: APRYL BAILON MD Electronically Signed by: APRYL BAILON MD [facility] Date/Time: 06/08/23 1022 Sign date/Time: 06/08/23 1023 Salbador Severino MD IMG BI PROCEDURES Final Result from Last 3 Months or Most Recently Relevant to Health Maintenance Insurance [employer] - [place] MEDICARE ADVANTAGE
--- OUTSIDE RECORDS SUMMARY | 2025-05-01 16:16 | XMS_ITS | Patient Health Record ---
Author Organization [facility] Address [address] [place] [address] Care Team Providers Care Is Technician Name Role Phone Nikhil Mckeon Unavailable [phone] Reason For Referral No Information Plan Of Treatment No Information
--- OUTSIDE RECORDS SUMMARY | 2025-05-01 16:16 | XMS_ITS | Clinical Summary ---
Author Organization [facility] Address [address] [address] Phone Care Team Providers Care Credit Director Name Role Phone Salbador Severino MD Primary Care Provider +1- [phone] Allergies Active Allergy Reactions Criticality Noted Date [...] AM EDT Office Visit [facility] [address] [place] [address] [place] [address] Krissy Willis MD [address] [place] [address] 08/25/2025 8:00 AM EST Office Visit [facility] [address] [place] [address] Dmitri Srinivasan MD [address] [place] [address], [address] [place] [address] [email or web address] Health Maintenance Due Date Last Done Comments Adult Td,Tdap Booster 1940 DEPRESSION SCREENING 1950 PNEUMOCOCCAL VACCINES (50+ y ears) (1 of 1 - PCV) 1988 ZOSTER VACCINES (1 of 2) 1988 RSV VACCINE (1 - 1-dose 75+ series) 2013 INFLUENZA VACCINE (#1) 2025 COVID-19 VACCINE (1 - 2023-2 5 season) 2025 POTASSIUM LEVEL 07/03/2025 07/03/2024 OSTEOPOROSIS SCREENING INITI [...] EST) SODIUM 142 133 - 146 mmol/L [facility] POTASSIUM 3.5 3.3 - 5.1 mmol/L [facility] CHLORIDE 102 96 - 108 mmol/L [facility] CO2 34 21 - 35 mmol/L [facility] BUN 17 6 - 19 mg/dL [facility] CREATININE 0.70 0.5 - 1.5 mg/dL [facility] GLUCOSE 92 70 - 99 mg/dL [facility] ALBUMIN 3.8(L) 3.9 - 4.8 g/dL [facility] TOTAL PROTEIN 6.0(L) 6.5 - 8.0 g/dL [facility] CALCIUM 8.5 8.4 - 10.3 mg/dL [facility] ALKALINE PHOSPHATASE 50 39 - 117 U/L [facility] TOTAL BILIRUBIN 0.6 0.0 - 1.2 mg/dL [facility] AST 28 0 - 37 U/L [facility] ALT 18 0 - 40 U/L [facility] GLOBULIN 2.2 1 - 4.8 g/dL [facility] EGFR 84 >59 mL/min/1.7 3m2 [facility] Comment:Estimated glomerular filtration rate calculated using the CKD-EPI refit equation. ANION GAP 10 10 - 20 mmol/L [facility] Blood 07/03/2024 9:17 AM EST 07/03/2024 9:22 AM EST Krissy Willis MD LAB BLOOD ORDERABLES F inal Result Performing Organization Address City/State/[facility] Co de Phone Number [address] [address] from Last 3 Months or Most Recently Relevant to Health Maintenance Insurance [place]AC[place] P[place]UE [place] [address] [address] [place] [address] MEDICARE PPO [address]UE [place] [place] [address] MEDICARE PPO [address]UE [place] [address] [place] [address] MEDICARE PPO BLUE REPLACEMENT [employer] [place] [place] BLUE REPLACEMENT Care Teams Credit Director Relationship Specialty Start Date End Date Salbador Severino MD [address] [place] [address] PCP - General Internal Medicine 03/21/23 Additional Source Comments The information contained in this document represents components of the legal health record. It is not the complete legal health record.[facility]
== END 2025-04-30 13:11 | disposition home or self-care (01) ==
LOC: HO.HMGCLNP 13:10
PROVIDERS: Visit Provider Internal Medicine Gastroenterology
DX: Z00.00 Encounter for general adult medical examination without abnormal findings (principal); R60.0 Localized edema
CPT/HCPCS: 87086; 87088; 87186

== ENCOUNTER 2025-05-01 12:56 | Outpatient (REF) | payer MEDICARE, SELFPAY ==
[2025-05-01 14:11] LABS: Anion Gap 10 (12-20); Blood Urea Nitrogen 12 mg/dL (9-16); Calcium 8.2 mg/dL (8.4-10.2); Carbon Dioxide 33 mmol/L (22-29); Chloride 102 mmol/L (96-108); Estimated Glomerular Filt Rate > 60; Potassium 3.3 mmol/L (3.3-5.1); Sodium 142 mmol/L (135-145)
[2025-05-01 16:35] LABS: Appearance Urine Cloudy; Glucose Urine UA Negative (Negative); PH 6.5 (5.0-9.0); Specific Gravity - Urine 1.020 (1.005-1.025); UMIC TRIGGER UACC YES
[2025-05-01 16:41] LABS: UACC Culture Trigger YES
== END 2025-05-01 12:57 | disposition home or self-care (01) ==
LOC: HO.LAB 12:56
PROVIDERS: Internal Medicine Gastroenterology; PCP Internal Medicine; Visit Provider Physician Assistant Medical
DX: Z00.00 Encounter for general adult medical examination without abnormal findings (principal); R60.0 Localized edema
CPT/HCPCS: 36415; 80048; 81001; 83880; 87086; 87088; 87186

== ENCOUNTER 2025-05-05 10:53 | Outpatient (AMB) | payer MEDICARE, SELFPAY ==
--- NOTE | 2025-05-05 10:53 | A.OFFPC_ITS ---
Vital Signs 05/05/25 10:55 Height 5 ft 5.47 in Weight 90 lb BMI 14.8 BP 124/59 L Respiration 14 Pulse 60 Pulse Source Pulse Oximeter Temp 97.8 F Temp Source Temporal Artery Scan Pulse Oximetry (%) 99 Oxygen Delivery Method Room Air Intake Visit Reasons: Swollen feet/Leg Kiln Firer Helper Required: No Accompanied by: Daughter Allergies pregabalin (From LYRICA) Allergy (Severe, Verified 05/05/25 13:08) CONFUSION ciprofloxacin (From Cipro) Allergy (Intermediate, Verified 05/05/25 13:08) Itching gabapentin (GABAPENTIN) Allergy (Intermediate, Verified 05/05/25 13:08) NAUSEA/VOMITING amlodipine (From Norvasc) Allergy (Verified 05/05/25 13:08) Unknown clarithromycin (From BIAXIN) Adverse Reaction (Intermediate, Verified 05/05/25 13:08) NAUSEA & VOMITING codeine (CODEINE) Adverse Reaction (Intermediate, Verified 05/05/25 13:08) NAUSEA & VOMITING fentanyl (From DURAGESIC) Adverse Reaction (Intermediate, Verified 05/05/25 13:08) NAUSEA/VOMITING levofloxacin (From LEVAQUIN) Adverse Reaction (Intermediate, Verified 05/05/25 13:08) NAUSEA & VOMITING primidone (From Mysoline) Adverse Reaction (Verified 05/05/25 13:08) Nausea and Vomiting Medication List - Last Reconciled 05/05/25 by Miladis Moeller PA-C alendronate mg PO carbidopa-levodopa 25-100 mg 1 tab PO TID cyclobenzaprine 10 mg PO Q8H ferrous sulfate ER 65 mg PO DAILY hydrochlorothiazide 25 mg PO DAILY lorazepam 1 mg PO BEDTIME PRN nitrofurantoin macrocrystal 100 mg PO BID omeprazole 40 mg PO DAILY oxybutynin chloride ER 10 mg PO DAILY potassium chloride ER (Klor-Con M) 10 mEq PO DAILY propranolol 80 mg PO TID Tobacco use date assessed: 05/05/25 Dental Screening Dental Screen Date: 03/13/25 HPI Swollen feet/Leg HPI Details The patient is an 84-year-old female presenting with swelling in her legs. The swelling has persisted for the past month and has not improved despite elevation of the legs. The patient uses a recliner and an adjustable bed to elevate her legs, but the swelling remains, particularly in the feet and toes. The patient has a history of venous insufficiency, which is suspected to be contributing to the swelling. She has been evaluated by a vascular surgeon and has undergone an ultrasound of the lower legs, which showed no evidence of blood clots. The patient also has a history of peripheral vascular disease, diagnosed by Dr. Moore. The patient was recently diagnosed with Chronic Obstructive Pulmonary Disease (COPD) based on chest X-ray findings of stable scarring in the right upper lung and diffuse hyperinflation. She has never smoked, but her father was a smoker, suggesting secondhand smoke exposure as a possible cause. The patient denies any respiratory symptoms such as dyspnea or chest pain. The patient is also experiencing sciatica, which has not improved with physical therapy. She has completed three weeks of therapy, but the insurance requires six weeks before approving an MRI. The patient reports no relief from the therapy and is considering further evaluation by an account development specialist. Social History - Family Status: The patient is a grandm other. - Smoking Exposure: The patient was expo sed to secondhand smoke from her father. [facility] Medical History (Updated 05/05/25 @ 13:19 by Miladis Moeller PA-C) Peripheral vascular disease Sciatica COPD (chronic obstructive pulmonary disease) Venous (peripheral) insufficiency UTI (urinary tract infection) Pedal edema Hypokalemia GERD (gastroesophageal reflux disease) Chronic diarrhea Sciatica, right side History of mammogram (~05/2024) Right hip pain Right buttock pain Lower back pain NSTEMI (non-ST elevated myocardial infarction) SIRS (systemic inflammatory response syndrome) Guillain-Chocorua syndrome Fracture, wrist, open History of gastrectomy Parkinson disease High blood pressure Surgical History Hx of arthroscopic knee surgery Hx of hysterectomy H/O pyloroplasty H/O vagotomy Hx of cholecystectomy History of esophagogastroduodenoscopy (EGD) Hx of colonoscopy (~10/22/21) Family History Mother Breast cancer Congestive heart failure Arthritis Social History Household Members: None Housing: Condominium Do you presently have visiting nurse or other home services: No Alcohol intake: current Alcohol intake frequency: 0-2 drinks per day Alcohol type: wine Patient Tobacco Use Status: Never used Tobacco Advance Directives Date on File: 08/14/23 service: No Current occupational status: retired Cognitive needs: No Hearing needs: No Vision needs: Yes (rx glasses) Questionnaire PHQ-9 Over the last 2 weeks, how often have you been bothered by any of the following problems? 1. Little interest or pleasure in doing things: not at all 2. Feeling down, depressed, or hopeless: not at all 3. Trouble falling or staying asleep, or sleeping too much: not at all 4. Feeling tired or having little energy: not at all 5. Poor appetite or overeating: not at all 6. Feeling bad about yourself - or that you are a failure or have let yourself or your family down: not at all 7. Trouble concentrating on things, such as reading the newspaper or watching television: not at all 8. Moving or speaking so slowly that other people could have noticed. Or the opposite - being so fidgety or restless that you have been moving around a lot more than usual: not at all 9. Thoughts that you would be better off or of hurting yourself in some way: not at all Total score: 0 Depression Screening Interpretation: Negative Depression Screening Done: Yes 20856 - PHQ-9 Billing: Yes Source: Developed by Drs. Nikhil Henriquez, Mckenzie Bryson, Ben Eugene and colleagues, with an educational benny from [employer]. Thrive Questionnaire Date Thrive assessed: 03/20/25 I am a: Patient What is your living situation today?: I have a steady place to live Within the past 12 months, did the food you bought not last and you didn't have the money to get more?: Never true Within the past 12 months, did you worry whether your food would run out before you got money to buy more?: Never true Do you have trouble paying for medicines?: No Do you have trouble getting transportation to medical appointments?: No Do you have trouble paying your heating and electricity bill?: No Do you have trouble taking care of your child, family member or friend?: No Do you have trouble with day-to-day activities such as bathing, preparing meals, shopping, managing finances, etc.?: No Are you currently unemployed and looking for a job?: No Are you interested in more education?: No Please select the resources that you would like help with: None Currently or been in a relationship where the following occur: No concerns reported THRIVE Score: 0 AUDIT C Alcohol Use Questionnaire (AUDIT-C) 1. How often do you have a drink containing alcohol?: 4 or more times a week 2. How many drinks containing alcohol do you have on a typical day when you are drinking?: 1 or 2 3. How often do you have six or more drinks on one occasion?: Never Total Score: 4 Score Reviewed/Action Taken: No HEATHER-7 AMB Questionnaire HEATHER-7 Date HEATHER - 7 assessed: 03/20/25 Feeling nervous, anxious, or on edge: 0 = Not at all Not being able to stop or control worryin = Not at all Worrying too much about different things: 0 = Not at all Trouble relaxin = Not at all Being so restless that it is hard to sit still: 0 = Not at all Becoming easily annoyed or irritable: 0 = Not at all Feeling afraid as if something awful might happen: 0 = Not at all Total HEATHER-7 score (0-4 normal; 5-9 mild; 10-14 moderate; 15-21 severe): 0 Source: Developed by Drs. Nikhil Henriquez, Mckenzie Bryson, Ben Eugene and colleagues, with an educational benny from [employer]. HEATHER-7 Assessment Billing HEATHER-7 Assessment Tool: HEATHER-7 Assessment 50992 Review of Systems Const Details: - Cardiovascular: Reports swelling in the legs. Denies chest pain. - Respiratory: Denies dyspnea or respiratory distress. - Musculoskeletal: Reports persistent sciatica with no relief from physical therapy. All systems reviewed & are unremarkable except as noted in HPI and below Physical exam (Primary Care) Vital Signs: Last Vital Signs Temp 97.8 F 05/05/25 10:55 Pulse 60 05/05/25 10:55 Resp 14 05/05/25 10:55 BP 124/59 L 05/05/25 10:55 Pulse Ox 99 05/05/25 10:55 Oxygen Delivery Method Room Air 05/05/25 10:55 Care Plan Goal for BP management: <140/90 at Goal BMI result Body Mass Index 14.8 BMI Assessment/Plan discussion: Low BMI Low, Plan discussed: lifestyle, increase calorie intake, dietary and other Tobacco/Smoking Status: Tobacco use Status Tobacco use date assessed 05/05/25 05/05/25 11:08 Patient Tobacco Use Status Never used Tobacco 05/05/25 10:53 PHQ-9: PHQ-9 Score PHQ-9: Total score 0 05/05/25 11:08 Depression Screening Interpretation: Negative Thrive Assessment: Date of Thrive Assessment Date Thrive assessed 03/20/25 05/05/25 11:08 Currently or been in a relationship where the following occur: No concerns reported Const Other: Appearance: Alert. Oriented X3. No acute distress. Head: Normal external exam. Normocephalic. Atraumatic. Eyes: Pupils are equal, round, and reactive to light. Extraocular movements intact. Conjunctiva and sclera normal. Eyelids normal. Throat: Pharynx normal. Uvula midline. Moist mucous membranes. Neck: Normal inspection. Neck supple. Full range of motion. Cardiovascular: Normal heart rate and rhythm. Respiratory: No respiratory distress. Painless inspiration. Back: Full range of motion noted. Skin: Skin warm and dry. Normal skin color. Normal skin turgor. No rashes/lesions/lacerations noted. Extremities: Lower extremity edema present. Extremities exhibit normal range of motion. Neuro: Oriented X 3. No motor deficit. No sensory deficit. Reflexes normal. Results Reviewed Results Reviewed: - Imaging: Chest X-ray showed stable scarring in the right upper lung and diffuse hyperinflation, suggestive of COPD. - Imaging: Ultrasound of the lower legs showed no evidence of blood clots. Coding Level of Care Code Est Pt Level 4 (37585) Complex EM visit Add On G2211 Diagnoses UTI (urinary tract infection) N39.0 Pedal edema R60.0 Venous (peripheral) insufficiency I87.2 COPD (chronic obstructive pulmonary disease) J44.9 Sciatica M54.30 Peripheral vascular disease I73.9 Additional Codes HEATHER-7 Assessment Billing - HEATHER-7 Assessment Tool: HEATHER-7 Assessment 17267 ([id number]) PHQ-9 - 10622 - PHQ-9 Billing: Yes ([id number]) Assessment & Plan Assessment & Plan (1) UTI (urinary tract infection): Code(s): N39.0 - Urinary tract infection, site not specified Category: Medical Plan: The patient was prescribed Macrobid for the treatment of her urinary tract infection, but there was a delay in receiving the medication due to it being sent to a mail-order pharmacy. She is advised to contact the pharmacy to ensure prompt receipt of the medication. (2) Pedal edema: Code(s): R60.0 - Localized edema Category: Medical Plan: The patient is advised to elevate her legs above heart level to reduce swelling and consider alternative compression options that are less tight due to discomfort from nerve pain. (3) Venous (peripheral) insufficiency: Code(s): I87.2 - Venous insufficiency (chronic) (peripheral) Category: Medical Plan: The patient is advised to continue elevating her legs and consider using less restrictive compression stockings, with a follow-up recommended with a vascular surgeon to assess progression. (4) COPD (chronic obstructive pulmonary disease): Code(s): J44.9 - Chronic obstructive pulmonary disease, unspecified Category: Medical Plan: The patient was informed about the COPD diagnosis based on chest X-ray findings, with no immediate intervention required as she denies respiratory symptoms. A referral to pulmonology was offered but declined by the patient. (5) Sciatica: Code(s): M54.30 - Sciatica, unspecified side Category: Medical Plan: The patient has completed three weeks of physical therapy with no improvement, and insurance requires six weeks before approving an MRI. Further evaluation by an account development specialist is being considered to explore other treatment options. (6) Peripheral vascular disease: Code(s): I73.9 - Peripheral vascular disease, unspecified Category: Medical Plan: The patient is advised to continue monitoring her symptoms and follow up with her vascular surgeon as needed, with no new interventions discussed during this visit. Plan Plan Patient was informed and verbally consented to the use of an ambient scribe for clinic note documentation during this visit. 1. Urinary Tract Infection (Uti) The patient was prescribed Macrobid for the treatment of her urinary tract infection, but there was a delay in receiving the medication due to it being sent to a mail-order pharmacy. She is advised to contact the pharmacy to ensure prompt receipt of the medication. 2. Peripheral Edema The patient is advised to elevate her legs above heart level to reduce swelling and consider alternative compression options that are less tight due to discomfort from nerve pain. 3. Venous Insufficiency The patient is advised to continue elevating her legs and consider using less restrictive compression stockings, with a follow-up recommended with a vascular surgeon to assess progression. 4. Chronic Obstructive Pulmonary Disease (Copd) The patient was informed about the COPD diagnosis based on chest X-ray findings, with no immediate intervention required as she denies respiratory symptoms. A referral to pulmonology was offered but declined by the patient. 5. Sciatica The patient has completed three weeks of physical therapy with no improvement, and insurance requires six weeks before approving an MRI. Further evaluation by an account development specialist is being considered to explore other treatment options. 6. Peripheral Vascular Disease The patient is advised to continue monitoring her symptoms and follow up with her vascular surgeon as needed, with no new interventions discussed during this visit. During the visit, I discussed the patient's urinary tract infection and the delay in receiving her medication due to a mail-order pharmacy issue. I advised her to contact the pharmacy to ensure prompt delivery. We also reviewed her leg swelling, likely due to venous insufficiency, and recommended elevating her legs and considering less restrictive compression stockings. I informed her about the COPD diagnosis from her chest X-ray, and although she has no respiratory symptoms, I offered a pulmonology referral, which she declined. For her sciatica, we discussed the need for six weeks of physical therapy before insurance approval for an MRI, and she is considering further evaluation by an account development specialist. Lastly, we reviewed her peripheral vascular disease, advising continued monitoring and follow-up with her vascular surgeon. Patient Instructions: - Contact the pharmacy to ensure prompt receipt of Macrobid for UTI treatment. - Elevate legs above heart level to reduce swelling. - Consider using less restrictive compression stockings for leg swelling. - Monitor symptoms of peripheral vascular disease and follow up with the vascular surgeon as needed. - Complete six weeks of physical therapy for sciatica before pursuing an MRI.
[2025-05-05 10:55] VITALS: BP 124/59; PULSE 60; RESP 14; TEMP 36.6; O2SAT 99; BMI 14.8
--- OUTSIDE RECORDS SUMMARY | 2025-05-05 14:27 | XMS_ITS | Clinical Summary ---
Author Organization [facility] Address [address] [place] [address] Phone Care Team Providers Care Pipe Maker Name Role Phone Unavailable Primary Care Provider [...] 07/19/2022 Social Influencers of Health Screening 07/19/2022 Depression Screening 08/21/2024 COVID-19 Vaccine (1 - 2023-2 5 season) 2025 Influenza Vaccine (#1) 2025 Osteoporosis Screening (Bone [...] Procedure Name Priority Date/Time Associated Diagnosis Comments [facility] DEXA AXIAL SKELETON Routine 06/08/2023 10:23 AM EDT Encounter for screening for osteoporosis from Last 3 Months or Most Recently Relevant to Health Maintenance Results * [facility] DEXA AXIAL SKELETON (06/08/2023 10:23 AM EDT) Anatomical Region Laterality Modality Mammography 06/08/2023 9:55 AM EDT Narrative 06/08/2023 10:23 AM EDT [facility] Diagnostic Imaging Department [address] [place] [address] Patient: WALT CABELLO /Age/Sex: 1940 - 82 - F Unit#: [id number] Location/Status: SPDIMAM/REG CLI Mnemonic/Ordering [facility] Ordering Physician: SALBADOR SEVERINO MD [facility] Dexa Axial Skeleton - 06/08/23 [...] probability of hip fracture of 13.9%. Code 75433 Dictating Physician: APRYL BAILON MD Electronically Signed by: APRYL BAILON MD Dic Date/Time: 06/08/23 1022 Sign date/Time: 06/08/23 1023 Procedure Note Apryl Bailon MD - 09/26/2023 [facility] Diagnostic Imaging Department [address] [place] [address] Patient: WALT CABELLO/Age/Sex: 1940 - 82 - F Unit#: [id number] Location/Status: SPDIMA/REG CLI Mnemonic/[facility]ing [facility] Ordering Physician: SALBADOR SEVERINO MD Enrique [...] density of the femurs bilaterally is 0.649 gm/hc1ewhmg is 64% of that of young normals [...] probability of hip fracture of 13.9%. Code 93049 Dictating Physician: APRYL BAILON MD Electronically Signed by: APRYL BAILON MD [facility] Date/Time: 06/08/23 1022 Sign date/Time: 06/08/23 1023 Salbador Severino MD IMG BI PROCEDURES Final Result from Last 3 Months or Most Recently Relevant to Health Maintenance Insurance [employer] [place] MEDICARE ADVANTAGE
--- OUTSIDE RECORDS SUMMARY | 2025-05-05 14:28 | XMS_ITS | Encounter Summary ---
Author Organization [facility] Address [address] [place] [address] Phone Care Team Providers Care Construction Inspector Name Role Phone Salbador Severino MD Primary Care Provider [phone]- [phone] Encounter Details Date Type Department Care Team (Late Contact Info) Description 06/16/2023 Ancillary Orders [facility],Outside Imaging [address] [place] [address] System, Provider Not In, [place] [address] Social History Tobacco Use Types Packs/Day Years [...] AM EDT Office Visit [facility] [address] [place] [address] Krissy Willis MD [address] [facility] [address] [place] [address] 08/25/2025 8:00 AM EST Office Visit [facility] [address] [place] [address] Dmitri Srinivasan MD [address] [facility], [address] [place] [address] [email or web address] documented as of this [...] on filedocumented in this encounter Care Teams Construction Inspector Relationship Specialty Start Date End Date Salbador Severino MD [address] [place] [address] PCP - General Internal Medicine 03/21/23 documented as of this encounter Additional Source Comments The information contained in this document represents components of the legal health record. It is not the complete legal health record.[facility]
--- OUTSIDE RECORDS SUMMARY | 2025-05-05 14:28 | XMS_ITS | Patient Health Record ---
Author Organization [facility] Address [address] [place] [address] Care Team Providers Care Dip Stand Loader Name Role Phone Nikhil Mckeon Unavailable [phone] Reason For Referral No Information Plan Of Treatment No Information
--- OUTSIDE RECORDS SUMMARY | 2025-05-05 14:28 | XMS_ITS | Clinical Summary ---
Author Organization [facility] Address [address] [address] Phone Care Team Providers Care Computer Analyst Supervisor Name Role Phone Salbador Severino MD Primary Care Provider +1- [phone] Allergies Active Allergy Reactions Criticality Noted Date [...] 10:20 AM EDT Office Visit [facility] [address] [place] [address] [place] [address] Krissy Willis MD [address] [place] [address] 08/25/2025 8:00 AM EST Office Visit [facility] [address] [place] [address] Dmitri Srinivasan MD [address] [place] [address], [address] [place] [address] [email or web address] Health Maintenance Due Date Last Done Comments [...] EST) SODIUM 142 133 - 146 mmol/L [facility] POTASSIUM 3.5 3.3 - 5.1 mmol/L [facility] CHLORIDE 102 96 - 108 mmol/L [facility] CO2 34 21 - 35 mmol/L [facility] BUN 17 6 - 19 mg/dL [facility] CREATININE 0.70 0.5 - 1.5 mg/dL [facility] GLUCOSE 92 70 - 99 mg/dL [facility] ALBUMIN 3.8(L) 3.9 - 4.8 g/dL [facility] TOTAL PROTEIN 6.0(L) 6.5 - 8.0 g/dL [facility] CALCIUM 8.5 8.4 - 10.3 mg/dL [facility] ALKALINE PHOSPHATASE 50 39 - 117 U/L [facility] TOTAL BILIRUBIN 0.6 0.0 - 1.2 mg/dL [facility] AST 28 0 - 37 U/L [facility] ALT 18 0 - 40 U/L [facility] GLOBULIN 2.2 1 - 4.8 g/dL [facility] EGFR 84 >59 mL/min/1.7 3m2 [facility] Comment:Estimated glomerular filtration rate calculated using the CKD-EPI refit equation. ANION GAP 10 10 - 20 mmol/L [facility] Blood 07/03/2024 9:17 AM EST 07/03/2024 9:22 AM EST Krissy Willis MD LAB BLOOD ORDERABLES F inal Result Performing Organization Address City/State/[facility] Co de Phone Number [address] [address] from Last 3 Months or Most Recently Relevant to Health Maintenance Insurance [place] BLUE [place]AC[place] [address] [place] [id number] [address] [place] [address] [place] [id number] [address] [place] [address] [place] [id number] MEDICARE PPO BLUE REPLACEMENT [employer] [place] BLUE REPLACEMENT Care Teams Computer Analyst Supervisor Relationship Specialty Start Date End Date Salbador Severino MD [address] [place] [id number] PCP - General Internal Medicine 03/21/23 Additional Source Comments The information contained in this document represents components of the legal health record. It is not the complete legal health record.[facility]
== END 2025-05-05 11:30 | disposition home or self-care (01) ==
LOC: HO.HMCSH 10:53
PROVIDERS: PCP Internal Medicine; Visit Provider Physician Assistant Medical
DX: N39.0 Urinary tract infection, site not specified (principal); R60.0 Localized edema; I87.2 Venous insufficiency (chronic) (peripheral); J44.9 Chronic obstructive pulmonary disease, unspecified; M54.30 Sciatica, unspecified side; I73.9 Peripheral vascular disease, unspecified

== ENCOUNTER → 2025-05-05 10:53 | Outpatient (BNVA) | payer MEDICARE, SELFPAY | PROVIDERS: PCP Internal Medicine; Visit Provider Physician Assistant Medical | DX: I87.2 Venous insufficiency (chronic) (peripheral) (principal); I73.9 Peripheral vascular disease, unspecified; J44.9 Chronic obstructive pulmonary disease, unspecified; M54.30 Sciatica, unspecified side; N39.0 Urinary tract infection, site not specified; R60.0 Localized edema | CPT/HCPCS: 96127; 99212 ==

== ENCOUNTER → 2025-05-12 09:01 | Outpatient (REF) | payer MEDICARE, SELFPAY ==
--- NOTE | 2025-05-12 09:03 | CA_ITS ---
Transthoracic Echocardiogram Patient (Last, First, Middle): Mckenzie Cabello, Gender: F Date of : 1940 Age: 84 Procedure Date: 05/12/2025 Procedure Type: Transthoracic Echocardiogram Location: OP Height: 165. cm Weight: 38.1 kg BSA: 1.37 m2 Heart Rate: 52 bpm BP: 160 / 70 mmHg Fashion Coordinator: TAJ Referring MD: Miladis Moeller PA-C Symptoms: R60.0 - Localized edema Study Quality: Adequate ECG Rhythm: Sinus Conclusions: - The left ventricular systolic function is hyperdynamic. The visually estimated ejection fraction is >70%. - No obvious valvular pathology seen on this study. Findings Left Ventricle Normal left ventricular cavity size. The left ventricular systolic function is hyperdynamic. The visually estimated ejection fraction is >70%. There is no evidence of regional wall motion abnormalities. Diastolic function is normal for age. Right Ventricle Mildly increased right ventricular cavity size. There is normal right ventricular systolic function. Atria The left atrium is normal in size. The right atrium is mildly dilated. Aortic Valve There is a normal trileaflet aortic valve. There is mild calcification of the aortic valve. There is no aortic valve stenosis. There is no aortic valve regurgitation. Mitral Valve The mitral valve appears normal. There is trace mitral valve regurgitation. There is no mitral valve stenosis. Pulmonic Valve The pulmonic valve is likely normal. Tricuspid Valve There is mild tricuspid valve regurgitation. There is no evidence of pulmonary hypertension. Great Vessels The asc aorta and aortic arch are normal in size. Venous The inferior vena cava is normal in size and collapses greater than 50% with inspiration. Pericardium/Pleural There is no evidence of pericardial effusion. Prior Study Comparison No significant change compared to prior study dated: 08/15/2023. Recommendations, Care & Conclusions No obvious valvular pathology seen on this study. Measurements 2D Linear Measurements IVSd: 0.71 0.6-0.9/0.6-1.0 cm LVIDd: 3.52 3.9-5.3/4.2-5.9 cm LVIDd Index: 2.57 2.4-3.2/2.2-3.1 cm/m2 LVIDs: 1.85 2.0-3.6 cm LVPWd: 1.00 0.7-1.1 cm LA Diam: 2.70 2.7-3.8/3.0-4.0 cm LAIDs Index: 1.97 1.5-2.3 cm/m2 LV Mass: 103.76 67-162/88-224 g LV Mass Index: 75.74 43-95/49-115 g/m2 LVOT Diam: 1.80 3.0+(-)1.3 cm 2D Systolic Function EF 4C: 69.90 >55% EF 2C: 81.40 >55% EF BiP: 77.20 >55% Mitral Valve MV Pk E: 0.97 MV PK A: 0.66 MV Decel Time: 198.00 E/A: 1.50 E'Lateral: 7.65 E'Medial: 7.43 E/E' Med: 13.00 E/E' Lat: 12.70 PHT: 58.00 MVA PHT: 3.79 Decel [place]: 4.89 Aortic Valve AoV Pk Jah: 1.03 AoV Mn Jah: 0.73 AoV VTI: 0.29 AoV Pk Grad: 4.00 Aov Mn Grad: 2.00 JESSICA Cont.VTI: 1.93 LVOT LVOT Pk Jah: 0.80 LVOT Mn Jah: 0.54 LVOT VTI: 0.22 LVOT Pk Grad: 3.00 LVOT Mn Grad: 1.00 LVOT Diam: 1.80 LVOT Area: 2.54 Diastolic Function MV Pk E: 0.97 MV Pk A: 0.66 E/A: 1.50 E'Medial: 7.43 E/E' Med: 13.00 E' Laterial: 7.65 E/E' Lat: 12.70 Right Ventricle TAPSE (mm): 32.60 TVS' Jah: 10.50 Tricuspid Valve TR Pk Jah: 1.97 TR Pk Grad: 16.00 RA Press: 3.00 RVSP: 19.00 Great Vessels Aorta Sinus of Valsalva: 2.60 2.0-3.5 cm Ao Asc: 2.70 2.1-3.4 cm Ao Arch: 2.40 Pulmonary Veins Pulm Vein S/D 1.40 Pulmonary Valve PV Pk Jah: 0.79 Peak PV Grad: 2.00 Updated in Other Vendor System with Status of Final Lowell Melvin MD electronically signed on 05/12/2025 12:08:51 PM with status of Final
--- OUTSIDE RECORDS SUMMARY | 2025-05-12 10:33 | XMS_ITS | Clinical Summary ---
Author Organization [facility] Address [address] [place] [address] Phone Care Team Providers Care Boiler Plant Worker Name Role Phone Unavailable Primary Care Provider [...] Procedure Name Priority Date/Time Associated Diagnosis Comments [facility] DEXA AXIAL SKELETON Routine 06/08/2023 10:23 AM EDT Encounter for screening for osteoporosis from Last 3 Months or Most Recently Relevant to Health Maintenance Results * [facility] DEXA AXIAL SKELETON (06/08/2023 10:23 AM EDT) Anatomical Region Laterality Modality Mammography 06/08/2023 9:55 AM EDT Narrative 06/08/2023 10:23 AM EDT [facility] Diagnostic Imaging Department [address] [place] [address] Patient: WALT CABELLO /Age/Sex: 1940 - 82 - F Unit#: [id number] Location/Status: SPDIMAM/REG CLI Mnemonic[facility] Ordering Physician: SALBADOR SEVERINO MD [facility] Dexa Axial Skeleton - 06/08/23 - 1016 [...] probability of hip fracture of 13.9%. Code 46074 Dictating Physician: APRYL BAILON MD Electronically Signed by: APRYL BAILON MD Dic Date/Time: 06/08/23 1022 Sign date/Time: 06/08/23 1023 Procedure Note Apryl Bailon MD - 09/26/2023 [facility] Diagnostic Imaging Department [address] [place] [address] Patient: WALT CABELLO/Age/Sex: 1940 - 82 - F Unit#: [id number] Location/Status: SPDIMA/REG CLI Mnemonic[facility] Ordering Physician: SALBADOR SEVERINO MD [facility] Dexa [...] density of the femurs bilaterally is 0.649 gm/xn7shdqu is 64% of that of young normals [...] probability of hip fracture of 13.9%. Code 80845 Dictating Physician: APRYL BAILON MD Electronically Signed by: APRYL BAILON MD [facility] Date/Time: 06/08/23 1022 Sign date/Time: 06/08/23 1023 Salbador Severino MD IMG BI PROCEDURES Final Result from Last 3 Months or Most Recently Relevant to Health Maintenance Insurance [employer] [place] MEDICARE ADVANTAGE
--- OUTSIDE RECORDS SUMMARY | 2025-05-12 10:34 | XMS_ITS | Clinical Summary ---
Author Organization [facility] Address [address] [address] Phone Care Team Providers Care Chenille Machine Operator Name Role Phone Salbador Severino MD Primary Care Provider +1- [phone] Allergies Active Allergy Reactions Criticality Noted Date [...] 10:20 AM EDT Office Visit [facility] [address] [place] [address] [place] [address] Krissy Willis MD [address] [place] [address] 08/25/2025 8:00 AM EST Office Visit [facility] [address] [place] [address] Dmitri Srinivasan MD [address] [place] [address], [address] [place]SEFA [place]varado [address] [email or web address] Maintenance Due Date Last Done Comments [...] EST) SODIUM 142 133 - 146 mmol/L [facility] POTASSIUM 3.5 3.3 - 5.1 mmol/L [facility] CHLORIDE 102 96 - 108 mmol/L [facility] CO2 34 21 - 35 mmol/L [facility] BUN 17 6 - 19 mg/dL [facility] CREATININE 0.70 0.5 - 1.5 mg/dL [facility] GLUCOSE 92 70 - 99 mg/dL [facility] ALBUMIN 3.8(L) 3.9 - 4.8 g/dL [facility] TOTAL PROTEIN 6.0(L) 6.5 - 8.0 g/dL [facility] CALCIUM 8.5 8.4 - 10.3 mg/dL [facility] ALKALINE PHOSPHATASE 50 39 - 117 U/L [facility] TOTAL BILIRUBIN 0.6 0.0 - 1.2 mg/dL [facility] AST 28 0 - 37 U/L [facility] ALT 18 0 - 40 U/L [facility] GLOBULIN 2.2 1 - 4.8 g/dL [facility] EGFR 84 >59 mL/min/1.7 3m2 [facility] Comment:Estimated glomerular filtration rate calculated using the CKD-EPI refit equation. ANION GAP 10 10 - 20 mmol/L [facility] Blood 07/03/2024 9:17 AM EST 07/03/2024 9:22 AM EST Krissy Willis MD LAB BLOOD ORDERABLES F inal Result Performing Organization Address City/State/[facility] Co de Phone Number [address] [address] from Last 3 Months or Most Recently Relevant to Health Maintenance [place] BLUE RE[place]AC[place] BLUE [place] [address] [address] MEDICARE PPO BLUE REPLACEMENT [address] [place] [address] MEDICARE PPO BLUE [address]PLAC[place] [address] [address] MEDICARE PPO BLUE REPLACEMENT [place] BLUE REPLACEMENT Care Teams Chenille Machine Operator Relationship Specialty Start Date End Date Salbador Severino MD [address] [place] [address] PCP - General Internal Medicine 03/21/23 Additional Source Comments The information contained in this document represents components of the legal health record. It is not the complete legal health record.[facility]
--- OUTSIDE RECORDS SUMMARY | 2025-05-12 10:34 | XMS_ITS | Patient Health Record ---
Author Organization [facility] Address [address] [place] [address] Care Team Providers Care Ammonia Refrigeration Technician Name Role Phone Nikhil Mckeon Unavailable [phone] Reason For Referral No Information Plan Of Treatment No Information
--- OUTSIDE RECORDS SUMMARY | 2025-05-12 10:35 | XMS_ITS | Encounter Summary ---
Author Organization [facility] Address [address] [facility] [address] [place] [address] Phone Care Team Providers Care Assistant Analyst Name Role Phone Salbador Severino MD Primary Care Provider +1- [phone] Encounter Details Date Type Department Care Team (Late Contact Info) Description 06/16/2023 Ancillary Orders [facility],Outside Imaging [address] [place] [address] System, Provider [place] In, [place] [address] Social History Tobacco Use Types Packs/Day Years [...] AM EDT Office Visit [facility] [address] [place] [address] Krissy Willis MD [address] [facility] [address] [place] [address] 08/25/2025 8:00 AM EST Office Visit [facility] [address] [place] [address] Dmitri Srinivasan MD [address] [facility], [address] [place] [address] [email or web address] documented as of this encounter Results * [...] on filedocumented in this encounter Care Teams Assistant Analyst Relationship Specialty Start Date End Date Salbador Severino MD [address] [place] [address] PCP - General Internal Medicine 03/21/23 documented as of this encounter Additional Source Comments The information contained in this document represents components of the legal health record. It is not the complete legal health record.[facility]
== END ==
LOC: HO.CARD 09:01
PROVIDERS: Visit Provider Physician Assistant Medical
DX: R60.0 Localized edema (principal)
CPT/HCPCS: 93306

== ENCOUNTER → 2025-05-12 09:03 | Outpatient (BNV) | payer MEDICARE, SELFPAY | PROVIDERS: Visit Provider Internal Medicine | DX: I51.89 Other ill-defined heart diseases (principal); I51.7 Cardiomegaly; I35.8 Other nonrheumatic aortic valve disorders | CPT/HCPCS: 93306 ==

== ENCOUNTER 2025-05-15 08:56 | Outpatient (AMB) | payer MEDICARE, SELFPAY ==
--- NOTE | 2025-05-15 09:02 | MHC.OFFVIS ---
Vital Signs 05/15/25 09:08 Height 5 ft 4.7 in Weight 87 lb 8 oz BMI 14.7 BP 140/65 H Blood Pressure Location Rt brachial Position Sitting Pulse 54 Pulse Source Pulse Oximeter Pulse Oximetry (%) 97 Oxygen Delivery Method Room Air Intake Visit Reasons: Low back pain, unspecified Intake Note: Pain today 05/30 Financial Services Counselor Required: No Accompanied by: Self / Same As Patient Allergies pregabalin (From LYRICA) Allergy (Severe, Verified 05/05/25 13:08) CONFUSION ciprofloxacin (From Cipro) Allergy (Intermediate, Verified 05/05/25 13:08) Itching gabapentin (GABAPENTIN) Allergy (Intermediate, Verified 05/05/25 13:08) NAUSEA/VOMITING amlodipine (From Norvasc) Allergy (Verified 05/05/25 13:08) Unknown clarithromycin (From BIAXIN) Adverse Reaction (Intermediate, Verified 05/05/25 13:08) NAUSEA & VOMITING codeine (CODEINE) Adverse Reaction (Intermediate, Verified 05/05/25 13:08) NAUSEA & VOMITING fentanyl (From DURAGESIC) Adverse Reaction (Intermediate, Verified 05/05/25 13:08) NAUSEA/VOMITING levofloxacin (From LEVAQUIN) Adverse Reaction (Intermediate, Verified 05/05/25 13:08) NAUSEA & VOMITING primidone (From Mysoline) Adverse Reaction (Verified 05/05/25 13:08) Nausea and Vomiting HPI Comments Details: The patient is an 84-year-old female presenting with acute on chronic right-sided sciatica pain. The pain flare up approximately five months ago without any specific inciting event, noted upon getting out of bed one morning. The pain is described as throbbing, stabbing, and sharp, radiating from the right buttock down the back of the right leg to the toes, accompanied by numbness and pins and needles sensation. The patient has been undergoing physical therapy for one month, which has not resulted in significant improvement. Patient reports she discontinued PT after 3 weeks and daily home exercises due to increase in right buttock and right leg pain. She reports that sitting alleviates the pain, while activities such as bending and walking exacerbate it. The patient uses a topical CBD cream and Tylenol Extra Strength for pain relief, with some benefit noted. The patient also has moderate arthritis in the hip, with occasional moderate groin pain. Previous imaging revealed scoliosis at L2-L3 and advanced degenerative disc disease, but no fractures. Patient lives alone at home independently and reports good family support and frequent assistance from her daughter. She denies smoking, admits to consuming wine at night and 1 cup of coffee daily. - Onset: Approximately five months ago, without specific inciting event - Quality: Throbbing, stabbing, sharp, with numbness and pins and needles - Location: Right buttock, radiating down the back of the right leg to the toes - Exacerbating factors: Bending, walking - Relieving factors: Sitting, use of CBD cream, heat therapy and Tylenol Extra Strength - Interference: Limits walking duration, requires sitting for relief - Affect: Pain is constant and impacts daily activities - Analgesia: Uses CBD cream, heat therapy and Tylenol Extra Strength, with some relief - Adverse Effects: None reported - Activities of Daily Living: Pain limits walking and requires frequent sitting - Aberrant Drug Related Behaviors: None reported [facility] Medical History (Updated 05/15/25 @ 09:26 by COLBY Hagen) Peripheral vascular disease Sciatica COPD (chronic obstructive pulmonary disease) Venous (peripheral) insufficiency UTI (urinary tract infection) Pedal edema Hypokalemia GERD (gastroesophageal reflux disease) Chronic diarrhea Sciatica, right side History of mammogram (~05/2024) Right hip pain Right buttock pain Lower back pain NSTEMI (non-ST elevated myocardial infarction) SIRS (systemic inflammatory response syndrome) Guillain-[place] syndrome Fracture, wrist, open History of gastrectomy Parkinson disease High blood pressure Surgical History Hx of arthroscopic knee surgery Hx of hysterectomy H/O pyloroplasty H/O vagotomy Hx of cholecystectomy History of esophagogastroduodenoscopy (EGD) Hx of colonoscopy (~10/22/21) Family History Mother Breast cancer Congestive heart failure Arthritis Social History Household Members: None Housing: Condominium Do you presently have visiting nurse or other home services: No Alcohol intake: current Alcohol intake frequency: 0-2 drinks per day Alcohol type: wine Patient Tobacco Use Status: Never used Tobacco Advance Directives Date on File: 08/14/23 service: No Current occupational status: retired Cognitive needs: No Hearing needs: No Vision needs: Yes (rx glasses) Review of Systems Const Details: - Musculoskeletal: Reports chronic right-sided buttock and right sciatica pain, denies significant back pain - Neurological: Reports numbness and pins and needles in right leg, denies weakness, denies bladder or bowel dysfunction or saddle anesthesia. - Cardiovascular: Reports swelling in feet, denies chest pain, tightness, or pressure, dyspnea All systems reviewed & are unremarkable except as noted in HPI and below Physical Exam Vital Signs: Last Vital Signs Pulse 54 05/15/25 09:08 BP 140/65 H 05/15/25 09:08 Pulse Ox 97 05/15/25 09:08 Oxygen Delivery Method Room Air 05/15/25 09:08 BMI result Body Mass Index 14.7 General: Appears afebrile. Very thin and underweight. Alert and oriented. Mood and affect appropriate. Pleasant Follows and participates in conversation appropriately. Respiratory effort is unlabored. No cough. Able to transition from sit to stand unassisted. Ambulates with left normal heel strike and toe off, increase right leg pain with walking, heel and toes standing. General: Yes no CVA tenderness Back/Spine/Pelvis Other: Limited lumbar ROM due to pain. Lumbar flexion and bending reproduces [id number]-[id number] pain. Lumbar extension reproduces mild pain. Demonstrates 5/5 left and 4/5 right strength of quadriceps bilaterally as well as flexion/dorsiflexion of bilateral feet against resistance. 2+ pedal pulses bilaterally. Straight leg rise with dorsiflexion positive on the right. Diminished patellar and achilles reflexes bilaterally. Facet loading test positive bilaterally. Brittani sign, Ambrosio?s, Pelvic compression and Stinchfield tests are positive on the right. Moderate groin pain with right I/E hip rotations. Valsalva maneuver negative. Back: no CVA tenderness Cervical Spine: cervical ROM normal, No Cervical spine scars present and No Cervical spine tenderness Thoracic/Lumbar Spine: thoracic and lumbar spine normal to inspection, No Thoracic/lumbar spine scar(s), Lasegue's sign positive on the right and localized, pain with thoraco-lumbar ROM, paraspinal muscle tenderness on the right in the lower lumbar, thoraco-lumbar ROM limited, No thoracic spinal tenderness and lumbar spinal tenderness at L4 and at L5 Pelvis: buttock tenderness on the right and sciatic notch tenderness on the right Sacroiliac joints: on the right tender to palpation and on the left nontender Extrem General: Yes capillary refill normal, Yes no calf tenderness, No clubbing, No cyanosis and Yes pedal edema (bilateral non pitting edema with skin discolorations consistent with PVD) Results Reviewed Results Reviewed: XR HIP, RIGHT 03/10/25 CLINICAL INFORMATION: M25.551 - Pain in right hip COMPARISON: 08/18/2020 TECHNIQUE: Two views of the right hip. FINDINGS: No fracture, dislocation, or suspicious bone lesion. Normal joint alignment bilaterally. Mild to moderate right and mild left hip joint osteoarthrosis. Normal femoral head contours without evidence of AVN. Normal acetabular coverage bilaterally. No soft tissue abnormalities aside from vascular calcifications. IMPRESSION: Mild to moderate degenerative arthritis right hip joint. XR LUMBOSACRAL SPINE WITH OBLIQUES 08/16/23 CLINICAL INFORMATION: Lumbar spine pain COMPARISON: Lumbar spine x-rays on 06/29/2013 TECHNIQUE: AP and lateral views of the lumbar spine. Lateral view of the lumbosacral junction. FINDINGS: The visualized lumbar vertebrae are intact with mild L2-L3 dextroscoliosis. Intervertebral disc space is markedly decreased at L3-L4 level. IMPRESSION: 1. Persistent mild L2-L3 dextroscoliosis and interval development of advanced L3-L4 degenerative lumbar disc disease. 2. No fracture or dislocation of lumbar spine is seen. Assessment & Plan Assessment & Plan (1) Lumbar degenerative disc disease: Code(s): M51.369 - Other intervertebral disc degeneration, lumbar region without mention of lumbar back pain or lower extremity pain Category: Medical (2) Lumbosacral spondylosis: Code(s): M47.817 - Spondylosis without myelopathy or radiculopathy, lumbosacral region Category: Medical (3) Lumbar back pain with radiculopathy affecting right lower extremity: Code(s): M54.16 - Radiculopathy, lumbar region Category: Medical Plan The plan includes obtaining lumbar spine MRI to further evaluate right sided sciatica and to assess for neural integrity and compression. The patient has already tried various conservative measures, including physical therapy, topical CBD cream, and Tylenol, with limited success. Back pain has been resistant to these treatments. All questions and concerns have been answered and patient agreed with the treatment plan. Follow up for MRI results and sooner as needed. Patient was informed and verbally consented to the use of an ambient scribe for clinic note documentation during this visit. Orders: Orders MR lumbar spine wo con Today M47.817 - Spondylosis without myelopathy or radiculopathy, lumbosacral region, M51.369 - Other intervertebral disc degeneration, lumbar region without mention of lumbar back pain or lower extremity pain, M54.16 - Radiculopathy, lumbar region Coding Level of Care Code New Pt Level 4 (50510) Diagnoses Lumbar degenerative disc disease M51.369 Lumbosacral spondylosis M47.817 Lumbar back pain with radiculopathy affecting right lower extremity M54.16
[2025-05-15 09:08] VITALS: BP 140/65; PULSE 54; O2SAT 97; BMI 14.7
--- OUTSIDE RECORDS SUMMARY | 2025-05-15 09:39 | XMS_ITS | Patient Health Record ---
Author Organization [facility] Address [address] [place] [address] Care Team Providers Care Chucking Machine Set Up Operator Tool Name Role Phone Nikhil Mckeon Unavailable [phone] Reason For Referral No Information Plan Of Treatment No Information
--- OUTSIDE RECORDS SUMMARY | 2025-05-15 09:39 | XMS_ITS | Clinical Summary ---
Author Organization [facility] Address [address] [place] [address] Phone Care Team Providers Care Cooler Supervisor Name Role Phone Unavailable Primary Care Provider [...] Procedure Name Priority Date/Time Associated Diagnosis Comments [facility] DEXA AXIAL SKELETON Routine 06/08/2023 10:23 AM EDT Encounter for screening for osteoporosis from Last 3 Months or Most Recently Relevant to Health Maintenance Results * [facility] DEXA AXIAL SKELETON (06/08/2023 10:23 AM EDT) Anatomical Region Laterality Modality Mammography 06/08/2023 9:55 AM EDT Narrative 06/08/2023 10:23 AM EDT [facility] Diagnostic Imaging Department [address] [place] [address] Patient: WALT CABELLO /Age/Sex: 1940 - 82 - F Unit#: [id number] Location/Status: SPDIMAM/REG CLI Mnemonic[facility] Ordering Physician: SALBADOR SEVERINO MD [facility] Dexa Axial Skeleton - 06/08/23 [...] probability of hip fracture of 13.9%. Code 82962 Dictating Physician: APRYL BAILON MD Electronically Signed by: APRYL BAILON MD Dic Date/Time: 06/08/23 1022 Sign date/Time: 06/08/23 1023 Procedure Note Apryl Bailon MD - 09/26/2023 [facility] Diagnostic Imaging Department [address] [place] [address] Patient: WALT CABELLO/Age/Sex: 1940 - 82 - F Unit#: [id number] Location/Status: SPDIMA/REG CLI Mnemonic[facility] Ordering Physician: SALBADOR SEVERINO MD Enrique [...] density of the femurs bilaterally is 0.649 gm/mu6cmhmn is 64% of that of young normals [...] probability of hip fracture of 13.9%. Code 45082 Dictating Physician: APRYL BAILON MD Electronically Signed by: APRYL BAILON MD [facility] Date/Time: 06/08/23 1022 Sign date/Time: 06/08/23 1023 Salbador Severino MD IMG BI PROCEDURES Final Result from Last 3 Months or Most Recently Relevant to Health Maintenance Insurance [employer] - [place] MEDICARE AD[place]ANTAGE
--- OUTSIDE RECORDS SUMMARY | 2025-05-15 09:39 | XMS_ITS | Encounter Summary ---
Author Organization [facility] Address [address] [facility] [address] [place] [address] Phone Care Team Providers Care Decator Operator Name Role Phone Salbador Severino MD Primary Care Provider +1- [phone] Encounter Details Date Type Department Care Team (Late Contact Info) Description 06/16/2023 Ancillary Orders [facility],Outside Imaging [address] [place] [address] System, Provider [place] In, [place] [address] Social History Tobacco Use Types Packs/Day Years [...] AM EDT Office Visit [facility] [address] [place] [address] Krissy Willis MD [address] [facility] [address] [place] [address] 08/25/2025 8:00 AM EST Office Visit [facility] [address] [place] [address] Dmitri Srinivasan MD [address] [facility], [address] [place] [address] [email or web address] documented as of this encounter Results * [...] on filedocumented in this encounter Care Teams Decator Operator Relationship Specialty Start Date End Date Salbador Severino MD [address] [place] [address] PCP - General Internal Medicine 03/21/23 documented as of this encounter Additional Source Comments The information contained in this document represents components of the legal health record. It is not the complete legal health record.[facility]
--- OUTSIDE RECORDS SUMMARY | 2025-05-15 09:39 | XMS_ITS | Clinical Summary ---
Author Organization [facility] Address [address] [address] Phone Care Team Providers Care Courtroom Clerk Name Role Phone Salbador Severino MD Primary Care Provider +1- [phone] Allergies Active Allergy Reactions Criticality Noted Date [...] AM EDT Office Visit [facility] [address] [place] [address] [place] [address] Krissy Willis MD [address] [place] [address] 08/25/2025 8:00 AM EST Office Visit [facility] [address] [place] [address] Dmitri Srinivasan MD [address] [place] [address], [address] [place]varado [address] [email or web address] Health Maintenance Due Date Last Done Comments [...] EST) SODIUM 142 133 - 146 mmol/L [facility] POTASSIUM 3.5 3.3 - 5.1 mmol/L [facility] CHLORIDE 102 96 - 108 mmol/L [facility] CO2 34 21 - 35 mmol/L [facility] BUN 17 6 - 19 mg/dL [facility] CREATININE 0.70 0.5 - 1.5 mg/dL [facility] GLUCOSE 92 70 - 99 mg/dL [facility] ALBUMIN 3.8(L) 3.9 - 4.8 g/dL [facility] TOTAL PROTEIN 6.0(L) 6.5 - 8.0 g/dL [facility] CALCIUM 8.5 8.4 - 10.3 mg/dL [facility] ALKALINE PHOSPHATASE 50 39 - 117 U/L [facility] TOTAL BILIRUBIN 0.6 0.0 - 1.2 mg/dL [facility] AST 28 0 - 37 U/L [facility] ALT 18 0 - 40 U/L [facility] GLOBULIN 2.2 1 - 4.8 g/dL [facility] EGFR 84 >59 mL/min/1.7 3m2 [facility] Comment:Estimated glomerular filtration rate calculated using the CKD-EPI refit equation. ANION GAP 10 10 - 20 mmol/L [facility] Blood 07/03/2024 9:17 AM EST 07/03/2024 9:22 AM EST Krissy Willis MD LAB BLOOD ORDERABLES F inal Result Performing Organization Address City/State/[facility] Co de Phone Number [address] [address] from Last 3 Months or Most Recently Relevant to Health Maintenance [place] BL[place] [address] [place] [address] MEDICARE PPO [place] [place] [address] MEDICARE PPO BLUE [place] [address] [place] [address] MEDICARE PPO BLUE REPLAC[place] Care Teams Courtroom Clerk Relationship Specialty Start Date End Date Salbador Severino MD [address] [place] [address] PCP - General Internal Medicine 03/21/23 Additional Source Comments The information contained in this document represents components of the legal health record. It is not the complete legal health record.[facility]
== END 2025-05-15 09:32 | disposition home or self-care (01) ==
LOC: HO.PMC 08:56
PROVIDERS: PCP Internal Medicine; Visit Provider Nurse Practitioner Family
DX: M51.369 Other intervertebral disc degeneration, lumbar region without mention of lumbar back pain or lower extremity pain (principal); M47.817 Spondylosis without myelopathy or radiculopathy, lumbosacral region; M54.16 Radiculopathy, lumbar region
CPT/HCPCS: 99204

== ENCOUNTER → 2025-05-15 08:56 | Outpatient (BNVA) | payer MEDICARE, SELFPAY | PROVIDERS: PCP Internal Medicine; Visit Provider Nurse Practitioner Family | DX: M47.817 Spondylosis without myelopathy or radiculopathy, lumbosacral region (principal); M51.369 Other intervertebral disc degeneration, lumbar region without mention of lumbar back pain or lower extremity pain; M54.16 Radiculopathy, lumbar region | CPT/HCPCS: 99202 ==

== ENCOUNTER 2025-05-26 13:24 | Outpatient (REF) | payer MEDICARE, SELFPAY ==
--- OUTSIDE RECORDS SUMMARY | 2025-05-26 15:47 | XMS_ITS | Encounter Summary ---
Author Organization [facility] Address 399 [facility] [address] [place] [address] Phone Care Team Providers Care Pricing Consultant Name Role Phone Salbador Severino MD Primary Care Provider +1- [phone] Encounter Details Date Type Department Care Team (Late Contact Info) Description 06/16/2023 Ancillary Orders [facility],Outside Imaging 30 [place] [address] System, Provider [place] In, [place] [address] Social History Tobacco Use Types Packs/Day Years [...] AM EDT Office Visit [facility] [address] [place] [address] Krissy Willis MD 22 [facility] 3rd [place] [address] 08/25/2025 8:00 AM EST Office Visit [facility] [address] [place] [address] Dmitri Srinivasan MD 234 [facility], [address] [place] [address] [email or web address] documented as of this encounter Results * [...] on filedocumented in this encounter Care Teams Pricing Consultant Relationship Specialty Start Date End Date Salbador Severino MD [address] [place] [address] PCP - General Internal Medicine 03/21/23 documented as of this encounter Additional Source Comments The information contained in this document represents components of the legal health record. It is not the complete legal health record.[facility]
--- OUTSIDE RECORDS SUMMARY | 2025-05-26 15:47 | XMS_ITS | Patient Health Record ---
Author Organization [facility] Address [address] [place] [address] Care Team Providers Care Service Operator Name Role Phone Nikhil Mckeon Unavailable [phone] Reason For Referral No Information Plan Of Treatment No Information
--- OUTSIDE RECORDS SUMMARY | 2025-05-26 15:47 | XMS_ITS | Clinical Summary ---
Author Organization [facility] Address [address] [address] Phone Care Team Providers Care Plunger Machine Operator Name Role Phone Salbador Severino MD Primary Care Provider +1- [phone] Allergies Active Allergy Reactions Criticality Noted Date [...] 10:20 AM EDT Office Visit [facility] [address] [place] [address] [place] [address] Krissy Willis MD [address] [place] [address] 08/25/2025 8:00 AM EST Office Visit [facility] [address] [place] [address] Dmitri Srinivasan MD [address] [place] [address], [address] [place] [address] [email or web address] Health Maintenance Due Date Last Done Comments Adult Td,Tdap Booster 1940 DEPRESSION SCREENING 1950 PNEUMOCOCCAL VACCINES (50+ y ears) (1 of 1 - PCV) 1988 ZOSTER VACCINES (1 of 2) 1988 RSV VACCINE (1 - 1-dose 75+ series) 2013 INFLUENZA VACCINE (#1) 2025 COVID-19 VACCINE (1 - 2024-2 6 season) 2025 POTASSIUM LEVEL 07/03/2025 07/03/2024 OSTEOPOROSIS [...] EST) SODIUM 142 133 - 146 mmol/L [facility] POTASSIUM 3.5 3.3 - 5.1 mmol/L [facility] CHLORIDE 102 96 - 108 mmol/L [facility] CO2 34 21 - 35 mmol/L [facility] BUN 17 6 - 19 mg/dL [facility] CREATININE 0.70 0.5 - 1.5 mg/dL [facility] GLUCOSE 92 70 - 99 mg/dL [facility] ALBUMIN 3.8(L) 3.9 - 4.8 g/dL [facility] TOTAL PROTEIN 6.0(L) 6.5 - 8.0 g/dL [facility] CALCIUM 8.5 8.4 - 10.3 mg/dL [facility] ALKALINE PHOSPHATASE 50 39 - 117 U/L [facility] TOTAL BILIRUBIN 0.6 0.0 - 1.2 mg/dL [facility] AST 28 0 - 37 U/L [facility] ALT 18 0 - 40 U/L [facility] GLOBULIN 2.2 1 - 4.8 g/dL [facility] EGFR 84 >59 mL/min/1.7 3m2 [facility] Comment:Estimated glomerular filtration rate calculated using the CKD-EPI refit equation. ANION GAP 10 10 - 20 mmol/L [facility] Blood 07/03/2024 9:17 AM EST 07/03/2024 9:22 AM EST Krissy Willis MD LAB BLOOD ORDERABLES F inal Result Performing Organization Address City/State/[facility] Co de Phone Number [address] [address] from Last 3 Months or Most Recently Relevant to Health Maintenance [place] BL[place] BL[place] [address] [address] [place] [address] MEDICARE PPO [place]UE [place] [address] [place] [address] MEDICARE PPO [place]UE [place] [address] [address] [place] [address] MEDICARE PPO BLUE REPLACEMENT [place]AC[place] Care Teams Plunger Machine Operator Relationship Specialty Start Date End Date Salbador Severino MD [address] [place] [address] PCP - General Internal Medicine 03/21/23 Additional Source Comments The information contained in this document represents components of the legal health record. It is not the complete legal health record.[facility]
--- OUTSIDE RECORDS SUMMARY | 2025-05-26 15:47 | XMS_ITS | Clinical Summary ---
Author Organization [facility] Address [address] [place] [address] Phone Care Team Providers Care Parts Sales Advisor Name Role Phone Unavailable Primary Care Provider [...] Procedure Name Priority Date/Time Associated Diagnosis Comments [facility] DEXA AXIAL SKELETON Routine 06/08/2023 10:23 AM EDT Encounter for screening for osteoporosis from Last 3 Months or Most Recently Relevant to Health Maintenance Results * [facility] DEXA AXIAL SKELETON (06/08/2023 10:23 AM EDT) Anatomical Region Laterality Modality Mammography 06/08/2023 9:55 AM EDT Narrative 06/08/2023 10:23 AM EDT [facility] Diagnostic Imaging Department [address] [place] [address] Patient: WALT CABELLO /Age/Sex: 1940 - 82 - F Unit#: [id number] Location/Status: SPDIMAM/REG CLI Mnemonic[facility] Ordering Physician: SALBADOR SEVERINO MD [facility] Dexa Axial Skeleton - [...] probability of hip fracture of 13.9%. Code 89670 Dictating Physician: APRYL BAILON MD Electronically Signed by: APRYL BAILON MD Dic Date/Time: 06/08/23 1022 Sign date/Time: 06/08/23 1023 Procedure Note Apryl Bailon MD - 09/26/2023 [facility] Diagnostic Imaging Department [address] [place] [address] Patient: WALT CABELLO/Age/Sex: 1940 - 82 - F Unit#: [id number] Location/Status: SPDIMA/REG CLI Mnemonic[facility] Ordering Physician: SALBADOR SEVERINO MD Enrique [...] density of the femurs bilaterally is 0.649 gm/rg5rlwsr is 64% of that of young normals [...] probability of hip fracture of 13.9%. Code 99783 Dictating Physician: APRYL BAILON MD Electronically Signed by: APRYL BAILON MD [facility] Date/Time: 06/08/23 1022 Sign date/Time: 06/08/23 1023 Salbador Severino MD IMG BI PROCEDURES Final Result from Last 3 Months or Most Recently Relevant to Health Maintenance Insurance [place]ANTAGE
[2025-05-26 16:20] LABS: Hematocrit 36.1 % (37.0-47.0); Hemoglobin 12.0 g/dl (12.0-16.0); Mean Corpuscular HGB Conc 33.2 g/dl (31.0-35.0); Mean Corpuscular Hemoglobin 31.6 pg (27.0-33.0); Mean Corpuscular Volume 95.0 fL (80.0-98.0); NRBC Abs Auto 0.000 X10*3/uL (0.0-0.012); NRBC Pct Auto 0.0 /100WBC (0.0-0.2); Platelet Count 212 X10*3/uL (160-400); Red Blood Count 3.80 X10*6/uL (4.20-5.50); White Blood Count 6.2 X10*3/uL (4.8-10.8)
[2025-05-26 16:35] LABS: Alanine Aminotransferase < 6 U/L (0-31); Albumin Level 3.3 g/dL (3.5-5.0); Alkaline Phosphatase 46 U/L (39-117); Anion Gap 8 (12-20); Aspartate Amino Transferase 37 U/L (5-31); Blood Urea Nitrogen 18 mg/dL (9-16); Calcium 8.5 mg/dL (8.4-10.2); Carbon Dioxide 34 mmol/L (22-29); Chloride 102 mmol/L (96-108); Estimated Glomerular Filt Rate > 60; Potassium 3.1 mmol/L (3.3-5.1); Sodium 141 mmol/L (135-145); Total Protein 5.6 g/dL (6.5-8.0)
== END 2025-05-26 13:25 | disposition home or self-care (01) ==
LOC: HO.HMGCLDS 13:24
PROVIDERS: PCP Internal Medicine; Visit Provider Physician Assistant Medical
DX: Z00.00 Encounter for general adult medical examination without abnormal findings (principal); Z13.0 Encounter for screening for diseases of the blood and blood-forming organs and certain disorders involving the immune mechanism
CPT/HCPCS: 36415; 80053; 85027

== ENCOUNTER 2025-05-29 09:32 | Outpatient (REF) | payer MEDICARE, SELFPAY ==
--- NOTE | ~2025-05-29 | XR_ITS ---
EXAMINATION: XR CERVICAL SPINE CLINICAL INFORMATION: Z98.1 - Arthrodesis status COMPARISON: 04/10/2023 radiographs. TECHNIQUE: 3 views of the cervical spine were obtained. FINDINGS: There is a minimal levoconvex scoliosis. There is mild straightening of the normal lordosis. There has been prior anterior fusion of C3-C5 with plate and interbody screws, and associated carbon fiber disc prostheses. The hardware appears intact, well seated, without evidence of loosening. There is no bony fusion through the disc spaces at this time. There are no fractures, compression deformities, or suspicious bone lesions. Alignment is grossly anatomic. No significant subluxations. Severe disc space degeneration is present C5-6, and C6-7. Mild degeneration is present at C2-3. Facets are normally aligned. There are multilevel hypertrophic degenerative facet changes bilaterally. The C1-2 articulation and craniocervical junction are intact and aligned. No prevertebral or paravertebral soft tissue swelling. There is calcification of both carotid bulbs. Lung apices are clear. XR/XR cervical spine 3V IMPRESSION: 1. Intact anterior fusion and discectomy C3-C5 without evidence of complication. 2. Moderate to severe cervical spondylosis. Since the prior exam, significant progression of degenerative facet and disc disease particularly at C5-6 and C6-7. Electronically signed by: Bereket Melo MD 05/29/2025 10:19 AM EDT
== END 2025-05-29 09:33 | disposition home or self-care (01) ==
LOC: HO.HOSX 09:32
PROVIDERS: PCP Internal Medicine; Visit Provider Orthopaedic Surgery
DX: M17.0 Bilateral primary osteoarthritis of knee (principal); Z98.1 Arthrodesis status
CPT/HCPCS: 20610; 72040; 99212; J0665; J1100; J2003

== ENCOUNTER 2025-05-29 09:32 | Outpatient (AMB) | payer MEDICARE, SELFPAY ==
[2025-05-29 09:38] VITALS: BMI 14.3
--- NOTE | 2025-05-29 09:38 | MHC.OFFVIS ---
Vital Signs 05/29/25 09:38 Height 5 ft 4.7 in Weight 85 lb BMI 14.3 Intake Visit Reasons: INJ-Bilat Knee injection last 12/20/24 with AA Intake Note: Mckenzie is an 84 year old female who presents today for repeat bilateral knee injections, last administered by Michael Myles on 12/20/24. Patient reports that the last injections she had were helpful and she would like to repeat injections today. Allergies pregabalin (From LYRICA) Allergy (Severe, Verified 05/29/25 09:41) CONFUSION ciprofloxacin (From Cipro) Allergy (Intermediate, Verified 05/29/25 09:41) Itching gabapentin (GABAPENTIN) Allergy (Intermediate, Verified 05/29/25 09:41) NAUSEA/VOMITING amlodipine (From Norvasc) Allergy (Verified 05/29/25 09:41) Unknown clarithromycin (From BIAXIN) Adverse Reaction (Intermediate, Verified 05/29/25 09:41) NAUSEA & VOMITING codeine (CODEINE) Adverse Reaction (Intermediate, Verified 05/29/25 09:41) NAUSEA & VOMITING fentanyl (From DURAGESIC) Adverse Reaction (Intermediate, Verified 05/29/25 09:41) NAUSEA/VOMITING levofloxacin (From LEVAQUIN) Adverse Reaction (Intermediate, Verified 05/29/25 09:41) NAUSEA & VOMITING primidone (From Mysoline) Adverse Reaction (Verified 05/29/25 09:41) Nausea and Vomiting HPI HPI INJ-Bilat Knee injection last 12/20/24 with AA: Details: Mckenzie is an 84 year old female who presents today for repeat bilateral knee injections, last administered by Michael Myles on 12/20/24. Patient reports that the last injections she had were helpful and she would like to repeat injections today. [facility] Medical History Peripheral vascular disease Sciatica COPD (chronic obstructive pulmonary disease) Venous (peripheral) insufficiency UTI (urinary tract infection) Pedal edema Hypokalemia GERD (gastroesophageal reflux disease) Chronic diarrhea Sciatica, right side History of mammogram (~05/2024) Right hip pain Right buttock pain Lower back pain NSTEMI (non-ST elevated myocardial infarction) SIRS (systemic inflammatory response syndrome) Guillain-Addison syndrome Fracture, wrist, open History of gastrectomy Parkinson disease High blood pressure Surgical History Hx of arthroscopic knee surgery Hx of hysterectomy H/O pyloroplasty H/O vagotomy Hx of cholecystectomy History of esophagogastroduodenoscopy (EGD) Hx of colonoscopy (~10/22/21) Family History Mother Breast cancer Congestive heart failure Arthritis Social History Household Members: None Housing: Condominium Do you presently have visiting nurse or other home services: No Alcohol intake: current Alcohol intake frequency: 0-2 drinks per day Alcohol type: wine Patient Tobacco Use Status: Never used Tobacco Advance Directives Date on File: 08/14/23 service: No Current occupational status: retired Cognitive needs: No Hearing needs: No Vision needs: Yes (rx glasses) Physical Exam Exam Exam: NAD mild global ttp bilateral knees with no effusion Skin c/d/i Vital Signs: BMI result Body Mass Index 14.3 Office Procedures Joint Inj/Aspir; Non-Pain Clin Joint Injection/Drain Details: Injected 1 mL of Decadron and 3 mL 1% lidocaine and 3 mL of 0.25% Marcaine. Site was prepped using aseptic technique. Patient tolerated the procedure well. Shoulders, Hips, Knees, Knee Large Joint Injection : Bilateral Knee Coding Procedure code (CPT) selection complete Assessment & Plan Assessment & Plan (1) Bilateral primary osteoarthritis of knee: Code(s): M17.0 - Bilateral primary osteoarthritis of knee Category: Medical Plan: Bilateral knee OA. Injected bilateral knees Orders: Orders XR cervical spine 3V Today Z98.1 - Arthrodesis status Coding Level of Care Code Est Pt Level 3 (08166) Diagnoses Bilateral primary osteoarthritis of knee M17.0 CPT Codes Shoulders, Hips, Knees, - Knee Large Joint Injection : Bilateral Knee ([id number])
== END 2025-05-29 11:04 | disposition home or self-care (01) ==
LOC: HO.HOS 09:33
PROVIDERS: PCP Internal Medicine; Visit Provider Orthopaedic Surgery
DX: M17.0 Bilateral primary osteoarthritis of knee (principal)
CPT/HCPCS: 20610; 99213

== ENCOUNTER → 2025-05-29 10:00 | Outpatient (BNV) | payer MEDICARE, SELFPAY | PROVIDERS: PCP Internal Medicine; Visit Provider Radiology Diagnostic Radiology | DX: M43.02 Spondylolysis, cervical region (principal); M50.322 Other cervical disc degeneration at C5-C6 level; M50.323 Other cervical disc degeneration at C6-C7 level; Z98.1 Arthrodesis status | CPT/HCPCS: 72040 ==

== ENCOUNTER 2025-06-03 13:16 | Outpatient (REF) | payer MEDICARE, SELFPAY ==
--- OUTSIDE RECORDS SUMMARY | 2025-06-03 16:05 | XMS_ITS | Clinical Summary ---
Author Organization [facility] Address [address] [address] Phone Care Team Providers Care Plant Taxonomist Name Role Phone Salbador Severino MD Primary Care Provider +1- [phone] Allergies Active Allergy Reactions Criticality Noted Date [...] 10:20 AM EDT Office Visit [facility] [address] [place] [address] [place] [address] Krissy Willis MD [address] [place] [address] 08/25/2025 8:00 AM EST Office Visit [facility] [address] [place] [address] Dmitri Srinivasan MD [address] [place] [address], [address] [place] [address] [email or web address] Health Maintenance Due Date Last [...] EST) SODIUM 142 133 - 146 mmol/L [facility] POTASSIUM 3.5 3.3 - 5.1 mmol/L [facility] CHLORIDE 102 96 - 108 mmol/L [facility] CO2 34 21 - 35 mmol/L [facility] BUN 17 6 - 19 mg/dL [facility] CREATININE 0.70 0.5 - 1.5 mg/dL [facility] GLUCOSE 92 70 - 99 mg/dL [facility] ALBUMIN 3.8(L) 3.9 - 4.8 g/dL [facility] TOTAL PROTEIN 6.0(L) 6.5 - 8.0 g/dL [facility] CALCIUM 8.5 8.4 - 10.3 mg/dL [facility] ALKALINE PHOSPHATASE 50 39 - 117 U/L [facility] TOTAL BILIRUBIN 0.6 0.0 - 1.2 mg/dL [facility] AST 28 0 - 37 U/L [facility] ALT 18 0 - 40 U/L [facility] GLOBULIN 2.2 1 - 4.8 g/dL [facility] EGFR 84 >59 mL/min/1.7 3m2 [facility] Comment:Estimated glomerular filtration rate calculated using the CKD-EPI refit equation. ANION GAP 10 10 - 20 mmol/L [facility] Blood 07/03/2024 9:17 AM EST 07/03/2024 9:22 AM EST Krissy Willis MD LAB BLOOD ORDERABLES F inal Result Performing Organization Address City/State/[facility] Co de Phone Number [address] [address] from Last 3 Months or Most Recently Relevant to Health Maintenance [place] BL[place] BLUE [place]AC[place] [address] MEDICARE PPO BLUE [address]AC[place] [address] MEDICARE PPO BLUE [place]AC[place] [address] MEDICARE PPO BLUE REPLACEMENT [place] BL[place]ACEMENT Care Teams Plant Taxonomist Relationship Specialty Start Date End Date Salbador Severino MD [address] [place] [address] PCP - General Internal Medicine 03/21/23 Additional Source Comments The information contained in this document represents components of the legal health record. It is not the complete legal health record.[facility]
--- OUTSIDE RECORDS SUMMARY | 2025-06-03 16:05 | XMS_ITS | Encounter Summary ---
Author Organization [facility] Address [address] [facility] [address] [place] [address] Phone Care Team Providers Care Manager Professional Development Name Role Phone Salbador Severino MD Primary Care Provider +1- [phone] Encounter Details Date Type Department Care Team (Late Contact Info) Description 06/16/2023 Ancillary Orders [facility],Outside Imaging [address] [place] [address] System, Provider Not In, [place] [address] Social History Tobacco Use Types Packs/Day Years [...] AM EDT Office Visit [facility] [address] [place] [address] Krissy Willis MD 22 [facility] 3rd [place] [address] 08/25/2025 8:00 AM EST Office Visit [facility] Medicine [address] [place] [address] Dmitri Srinivasan MD 234 [facility], [address] [place] [address] [email or web address] documented as of this encounter Results * [...] on filedocumented in this encounter Care Teams Manager Professional Development Relationship Specialty Start Date End Date Salbador Severino MD [address] [place] [address] PCP - General Internal Medicine 03/21/23 documented as of this encounter Additional Source Comments The information contained in this document represents components of the legal health record. It is not the complete legal health record.[facility]
--- OUTSIDE RECORDS SUMMARY | 2025-06-03 16:05 | XMS_ITS | Patient Health Record ---
Author Organization [facility] Address [address] [place] [address] Care Team Providers Care Director Enterprise Sales Name Role Phone Nikhil Mckeon Unavailable [phone] Reason For Referral No Information Plan Of Treatment No Information
--- OUTSIDE RECORDS SUMMARY | 2025-06-03 16:05 | XMS_ITS | Clinical Summary ---
Author Organization [facility] Address [address] [place] [address] Phone Care Team Providers Care Oil Tester Name Role Phone Unavailable Primary Care Provider [...] Procedure Name Priority Date/Time Associated Diagnosis Comments [facility] DEXA AXIAL SKELETON Routine 06/08/2023 10:23 AM EDT Encounter for screening for osteoporosis from Last 3 Months or Most Recently Relevant to Health Maintenance Results * [facility] DEXA AXIAL SKELETON (06/08/2023 10:23 AM EDT) Anatomical Region Laterality Modality Mammography 06/08/2023 9:55 AM EDT Narrative 06/08/2023 10:23 AM EDT [facility] Diagnostic Imaging Department [address] [place] [address] Patient: WALT CABELLO /Age/Sex: 1940 - 82 - F Unit#: [id number] Location/Status: SPDIMAM/REG CLI Mnemonic/[facility]ing [facility] Ordering Physician: SALBADOR SEVERINO MD [facility] Dexa Axial Skeleton - 06/08/23 [...] probability of hip fracture of 13.9%. Code 78959 Dictating Physician: APRYL BAILON MD Electronically Signed by: APRYL BAILON MD Dic Date/Time: 06/08/23 1022 Sign date/Time: 06/08/23 1023 Procedure Note Apryl Bailon MD - 09/26/2023 [facility] Diagnostic Imaging Department [address] [place] [address] Patient: WALT CABELLO/Age/Sex: 1940 - 82 - F Unit#: [id number] Location/Status: SPDIMA/REG CLI Mnemonic[facility] Ordering Physician: SALBADOR SEVERINO MD [...] density of the femurs bilaterally is 0.649 gm/[id number] is 64% of that of young normals [...] probability of hip fracture of 13.9%. Code 57343 Dictating Physician: APRYL BAILON MD Electronically Signed by: APRYL BAILON MD [facility] Date/Time: 06/08/23 1022 Sign date/Time: 06/08/23 1023 Salbador Severino MD IMG BI PROCEDURES Final Result from Last 3 Months or Most Recently Relevant to Health Maintenance Insurance [place]
[2025-06-03 16:47] LABS: Anion Gap 13 (12-20); Blood Urea Nitrogen 16 mg/dL (9-16); Calcium 8.9 mg/dL (8.4-10.2); Carbon Dioxide 31 mmol/L (22-29); Chloride 104 mmol/L (96-108); Estimated Glomerular Filt Rate > 60; Potassium 3.6 mmol/L (3.3-5.1); Sodium 144 mmol/L (135-145)
== END 2025-06-03 13:17 | disposition home or self-care (01) ==
LOC: HO.HMGCLDS 13:16
PROVIDERS: PCP Internal Medicine; Visit Provider Physician Assistant Medical
DX: E87.6 Hypokalemia (principal)
CPT/HCPCS: 36415; 80048

== ENCOUNTER 2025-06-19 07:31 | Outpatient (REF) | payer MEDICARE, SELFPAY ==
--- NOTE | ~2025-06-19 | MR_ITS ---
EXAMINATION: MR LUMBAR SPINE WITHOUT CONTRAST CLINICAL INFORMATION: M 51.369. Other intervertebral disc degeneration, lumbar region COMPARISON: MRI dated July 02, 2013 is not available on PACS. TECHNIQUE: MRI of the lumbar spine was obtained using routine sequences without contrast. FINDINGS: Last rib-bearing vertebra labeled T12. Bone marrow STIR signal within the inferior endplate of L3 and superior endplate of L4. Bone marrow inhomogeneity throughout the axial skeleton. Multilevel marginal osteophyte formation and disc desiccation throughout the axial skeleton pronounced at L3-4. There is a dextroconvex rotoscoliosis apex at L2-3. Grade 1 anterolisthesis L3-4 and L4-5 likely degenerative. Conus medullaris ends at pedicle of L1 with normal signal. T12-L1: Broad-based disc bulging. Facet joint hypertrophy. No central spinal canal or neuroforamina stenosis. L1-2: Broad-based disc bulging. Facet joint hypertrophy. No central spinal canal or neuroforamina stenosis. L2-3: Broad-based disc bulging. Facet joint and ligamentum flavum hypertrophy. Reduced AP diameter of the thecal sac and neuroforamina. L3-4: Grade 1 anterolisthesis, uncovered disc, facet joint and ligamentum flavum hypertrophy resulting in central spinal canal and bilateral neuroforamina stenosis, left greater than the right likely encroaching the neural elements of the thecal sac and compressing the left L3 exiting nerve root. L4-5: Grade 1 anterolisthesis resulting in uncovered disc. Facet joint and ligamentum flavum hypertrophy causing central spinal canal and bilateral neuroforamina stenosis likely encroaching/compressing the neural elements. L5-S1: Broad-based disc bulging. Facet joint hypertrophy. No central spinal canal stenosis. Bilateral neuroforamina narrowing likely encroaching the L5 exiting roots. No prevertebral compartment hematoma, mass or fluid collection. There is a 2.5 cm fluid signal characteristic abnormality at the alistair hepatic region just anterior to the inferior vena cava. There is mild prominent intrahepatic and extrahepatic biliary ductal system. . MR/MR lumbar spine wo con IMPRESSION: Multilevel spondylosis and dextroconvex rotoscoliosis resulting in grade 1 anterolisthesis L3-4 and L4-5 causing central spinal canal stenosis at L4-5 and to a lesser extent L3-4 and bilateral neuroforamina stenosis from L3-4 to L5-S1 pronounced on the left L3-4 and L4-5 levels. Electronically signed by: Dean Arredondo MD 06/19/2025 08:50 AM EDT
--- OUTSIDE RECORDS SUMMARY | 2025-06-19 07:33 | XMS_ITS | Patient Health Record ---
Author Organization [facility] Address [address] [place] [address] Care Team Providers Care Storyboard Artist Name Role Phone Nikhil Mckeon Unavailable [phone] Reason For Referral No Information Plan Of Treatment No Information
--- OUTSIDE RECORDS SUMMARY | 2025-06-19 07:33 | XMS_ITS | Encounter Summary ---
Author Organization [facility] Address [address] [place] [address] [place] [address] Phone Care Team Providers Care Elementary Special Education Teacher Name Role Phone Salbador Severino MD Primary Care Provider +1- [phone] Encounter Details Date Type Department Care Team (Late st Contact Info) Description 06/16/2023 Ancillary Orders [facility],Outside Imaging [address] [place] [address] System, Provider Not In, PhD Partners [address] [address] Social History Tobacco Use Types Packs/Day Years [...] AM EDT Office Visit [facility] [address] [place] [address] Krissy Willis MD 22 [facility] 3rd [place] [address] 08/25/2025 8:00 AM EST Office Visit [facility] [address] [place] [address] Dmitri Srinivasan MD 234 [facility], [address] [place], [place] [id number] [email or web address] documented as of this encounter [...] on filedocumented in this encounter Care Teams Elementary Special Education Teacher Relationship Specialty Start Date End Date Salbador Severino MD [address] [place] [address] PCP - General Internal Medicine 03/21/23 documented as of this encounter Additional Source Comments The information contained in this document represents components of the legal health record. It is not the complete legal health record.[facility]
--- OUTSIDE RECORDS SUMMARY | 2025-06-19 07:33 | XMS_ITS | Clinical Summary ---
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 Overview (06/15/2023): S/p right [...] 10:20 AM EDT Office Visit [facility] [address] [place] [address] [place] [address] Krissy Willis MD [address] [place] [address] 08/25/2025 8:00 AM EST Office Visit [facility] [address] [facility] [place] [address] Dmitri Srinivasan MD [address] [facility], [address] [place] [address] [email or web address] Health Maintenance Due Date Last Done Comments [...] MD LAB BLOOD ORDERABLES F inal Result [facility] [address] [place] [address] from Last 3 Months or Most Recently Relevant to Health Maintenance Insurance [employer] [place] MEDICARE PPO BLUE [place] [place] [address] MEDICARE PPO [address] [place] [address] [place] [address] MEDICARE PPO [address] [place] [address] MEDICARE PPO BLUE REPLACEMENT MEDICARE PPO BLUE REPLACEMENT [facility] MEDICARE PPO BLUE REPLACEMENT Care Teams Bonding And Composite Fabricator Relationship Specialty Start Date End Date Salbador Severino MD [address] [place] [id number] PCP - General Internal Medicine 03/21/23 Additional Source Comments The information contained in this document represents components of the legal health record. It is not the complete legal health record.[facility]
--- OUTSIDE RECORDS SUMMARY | 2025-06-19 07:33 | XMS_ITS | Clinical Summary ---
Author Organization [facility] Address [address] [place] [address] Phone Care Team Providers Care Mold Repair Technician Name Role Phone Unavailable Primary Care Provider [...] Procedure Name Priority Date/Time Associated Diagnosis Comments [facility] DEXA AXIAL SKELETON Routine 06/08/2023 10:23 AM EDT Encounter for screening for osteoporosis from Last 3 Months or Most Recently Relevant to Health Maintenance Results * [facility] DEXA AXIAL SKELETON (06/08/2023 10:23 AM EDT) Anatomical Region Laterality Modality Mammography 06/08/2023 9:55 AM EDT Narrative 06/08/2023 10:23 AM EDT [facility] Diagnostic Imaging Department [address] [place] [address] Patient: WALT CABELLO /Age/Sex: 1940 - 82 - F Unit#: [id number] Location/Status: SPDIMAM/REG CLI Mnemonic[facility] Ordering Physician: SALBADOR SEVERINO MD [facility] Dexa Axial Skeleton - 06/08/23 - [...] probability of hip fracture of 13.9%. Code 62714 Dictating Physician: APRYL BAILON MD Electronically Signed by: APRYL BAILON MD Dic Date/Time: 06/08/23 1022 Sign date/Time: 06/08/23 1023 Procedure Note Apryl Bailon MD - 09/26/2023 [facility] Diagnostic Imaging Department [address] [place] [address] Patient: WALT CABELLO/Age/Sex: 1940 - 82 - F Unit#: [id number] Location/Status: SPDIMA/REG CLI Mnemonic[facility] Ordering Physician: SALBADOR SEVERINO MD Enrique [...] density of the femurs bilaterally is 0.649 gm/zz2xbaef is 64% of that of young normals [...] probability of hip fracture of 13.9%. Code 99640 Dictating Physician: APRYL BAILON MD Electronically Signed by: APRYL BAILON MD [facility] Date/Time: 06/08/23 1022 Sign date/Time: 06/08/23 1023 Salbador Severino MD IMG BI PROCEDURES Final Result from Last 3 Months or Most Recently Relevant to Health Maintenance Insurance [employer] [place]ICARE [place]ANTAGE
== END 2025-06-19 07:32 | disposition home or self-care (01) ==
LOC: HO.MRI 07:31
PROVIDERS: PCP Internal Medicine; Visit Provider Nurse Practitioner Family
DX: M51.369 Other intervertebral disc degeneration, lumbar region without mention of lumbar back pain or lower extremity pain (principal); M47.817 Spondylosis without myelopathy or radiculopathy, lumbosacral region; M54.16 Radiculopathy, lumbar region
CPT/HCPCS: 72148

== ENCOUNTER → 2025-06-19 07:38 | Outpatient (BNV) | payer MEDICARE, SELFPAY | PROVIDERS: PCP Internal Medicine; Visit Provider Radiology Diagnostic Radiology | DX: M51.369 Other intervertebral disc degeneration, lumbar region without mention of lumbar back pain or lower extremity pain (principal); M47.816 Spondylosis without myelopathy or radiculopathy, lumbar region; M41.86 Other forms of scoliosis, lumbar region | CPT/HCPCS: 72148 ==

== ENCOUNTER 2025-06-24 13:41 | Outpatient (AMB) | payer MEDICARE, SELFPAY ==
--- OUTSIDE RECORDS SUMMARY | 2025-06-20 09:20 | XMS_ITS | Encounter Summary ---
Author Organization [facility] Address [address] [place] [phone] Phone Care Team Providers Care Manager Money Name Role Phone Pcp, Unknown Primary Care Provider Unavailabl e Reason for Visit * Reason Comments Osteoporosis Encounter Details Date Type Department Care Team (Late st Contact Info) Description 06/20/2025 10:20 AM EDT Office Visit [facility] [address] [place] [address] [place] [address] Krissy Willis MD [address] [place] [id number] [email or web address] Multinodular goiter (Primary Dx); Age-related osteoporosis without current pathological fracture Social History Tobacco Use Types Packs/Day Years Used Date Smoking Tobacco: Never Passive Smoke Exposure: Never Smokeless Tobacco: Never Tobacco Cessation:Counseling Given: [...] on file documented as of this encounter Last Filed Vital Signs Vital Sign Reading Time Taken Comments Blood Pressure 110/64 06/20/2025 10:29 AM EDT Pulse 56 06/20/2025 10:29 AM EDT Temperature - - Respiratory Rate 20 06/20/2025 10:29 AM EDT Oxygen Saturation 99% 06/20/2025 10:29 AM EDT Inhaled Oxygen Concentration - - Weight 40.4 kg (89 lb) 06/20/2025 10:29 AM EDT Height - - Body Mass Index 14.94 06/20/2024 8:55 AM EDT documented in this encounter Patient Instructions * Patient Instructions* Krissy Willis MD - 06/20/2025 10:20 AM EDT Labs today. Will send order to [facility] for bone density, you can call to schedule that & mammogram - call if any issues getting scheduled Call when bone density is done. Increase calcium supplement to 2/day documented in this encounter Progress Notes * Krissy Willis MD - 06/20/2025 10:20 AM EDT Subjective: Patient ID: Mckenzie Cabello is a 84 y.o. female. HPI Had bad right sciatica, seems to have abated. Hasn't seen new PCP yet, scheduled. Review of [employer] - terrible. Sleeping - fine w/ 2 glasses of wine. Always cold. Weight - stable. No neck painor swelling, dysphagia. Voice is deeper/softer. No CP. + edema - intermittently, more so on the left. Breathing ok. No palpitations. Bowels - ongoing diarrhea. + knee pain, s/p injections 3 weeks agow/ relief. Emotionally - doing well. No falls. No fractures. Seeing dentist regularly. Activity limited w/ sciatica. Drinking plant-based boost, daily. [place] milk - not too much. Some yogurt, not daily. Cheese periodically. Taking supplement 1/day alternating with 2/day. Current Outpatient Medications Ordered in [facility] Medication Sig alendronate (FOSAMAX) 70 MG tablet TAKE 1 TABLET EVERY 7 DAYS; TAKE IN THE MORNING WITH A FULL GLASS OF WATER ON AN EMPTY STOMACH AND DO NO TAKE ANYTHING ELSE BY MOUTH OR LIE DOWN FOR THE NEXT 30 MINUTES calcium citrate 250 mg calcium Tab Take 1 tablet by mouth daily. carbidopa-levodopa (SINEMET) 25-100 mg per tablet Take 1 tablet by mouth 3 (three) times a day. cholecalciferol, vitamin D3, (VITAMIN D3) 25 mcg (1,000 unit) capsule Take 1,000 Units by mouth daily. hydroCHLOROthiazide (HYDRODIURIL) 25 MG tablet Take 1 tablet by mouth every morning. LORazepam (ATIVAN) 1 MG tablet Take 1 mg by mouth as needed. omeprazole (PRILOSEC) 40 MG capsule Take 40 mg by mouth daily. oxyBUTYnin (DITROPAN-XL) 10 MG 24 hr tablet Take 10 mg by mouth daily. potassium chloride (KLOR-CON) 10 MEQ ER tablet Take 10 mEq by mouth daily. propranoloL (INDERAL) 80 MG immediate release tablet Take 80 mg by mouth 3 (three) times a day. Objective: Physical Exam Vitals reviewed. Constitutional: General: She is not in acute distress. Eyes: Comments: No stare, lid lag, proptosis. Neck: Comments: Thyroid mildly full, firm, mobile, no focal nodule palpable Lymphadenopathy: Cervical: No cervical adenopathy. Skin: Comments: Normal texture, temperature, pigment. Neurological: Comments: + coarse tremor. DTRs normal without delay Assessment/Plan: Problem List Items Addressed This Visit Endocrine Multinodular goiter - Primary No compressive symptoms. Exam stable. Will check TFTs. Will continue to monitor exam. Relevant Orders TSH with reflex (Completed) Rheumatology Age-related osteoporosis without current pathological fracture Hx right wrist, shoulder fx. S/p > 10 yrs bisphosphonate, stopped 2012, resumed 2021. Clinicallystable. No interval falls or fractures. Getting calcium in via diet and supplements, had advised taking calcium bid last year, she has been alternating 1 vs 2x/day. Advised to increase to bid. Seeingdentist regularly. Last bone density showed some decline, but had not been on rx for most of the intervening time. Will repeat. To call when study is done so we can track down results. Relevant Orders Comprehensive metabolic panel (Completed) 25-OH vitamin D (Completed) Collagen type 1b-telopeptide, blood (Completed) Parathyroid hormone (PTH) (Completed) Phosphorus (Completed) DXA Monitoring (Completed) I have maintained a long-term, longitudinal relationship with this patient, overseeing care of chronic conditions, including osteoporosis, multinodular goiter. This care relationship has significantly influenced my decision-making and treatment plans during today's encounter. documented in this encounter Miscellaneous Notes * Assessment & Plan Note - Krissy Willis MD - 06/24/2025 1:12 PM EST Associated Problem(s): Multinodular goiter No compressive symptoms. Exam stable. Will check TFTs. Will continue to monitor exam. * Assessment & Plan Note - Krissy Willis MD - 06/24/2025 1:09 PM EST Associated Problem(s): Age-related osteoporosis without current pathological fracture Hx right wrist, shoulder fx. S/p > 10 yrs bisphosphonate, stopped 2012, resumed 2021. Clinicallystable. No interval falls or fractures. Getting calcium in via diet and supplements, had advised taking calcium bid last year, she has been alternating 1 vs 2x/day. Advised to increase to bid. Seeingdentist regularly. Last bone density showed some decline, but had not been on rx for most of the intervening time. Will repeat. To call when study is done so we can track down results. documented in this encounter Plan of Treatment Upcoming Encounters Date Type Department Care Team (Late st Contact Info) Description 08/25/2025 8:00 AM EST Office Visit [facility] [address] [place] [address] Dmitri Srinivasan MD [address] [facility] [address] [place] [address] [email or web address] 06/24/2026 8:20 AM EST Office Visit [facility] [address] [place] [address] Krissy Willis MD [address] [facility] [address] [place] [address] [email or web address] documented as of this encounter Procedures Procedure Name Priority Date/Time Associated Diagnosis Comments BD DXA MONITORING Routine 06/20/2025 10:50 AM EDT Age-related osteoporosis without current pathological fracture documented in this encounter Results * TSH with reflex (06/20/2025 11:41 AM EDT) TSH 0.83 0.27 - 4.20 uIU/mL [facility] Blood 06/20/2025 11:4 1 AM EDT 06/20/2025 11:53 AM EDT us Krissy Willis MD LAB BLOOD BKR ORDERABL ES Final Result Performing Organization Address [facility]/ZIP Co de Phone Number [address] [address] * Phosphorus (06/20/2025 11:41 AM EDT) PHOSPHORUS 3.3 2.7 - 4.5 mg/dL [facility] Blood 06/20/2025 11:4 1 AM EDT 06/20/2025 11:53 AM EDT us Krissy Willis MD LAB BLOOD BKR ORDERABL ES Final Result Performing Organization Address City/[facility]/ZIP Co de Phone Number [address] [address] * Parathyroid hormone (PTH) (06/20/2025 11:41 AM EDT) Pathologist [facility] PARATHYROID HORMONE 55 15 - 65 pg/mL [facility] Blood 06/20/2025 11:4 1 AM EDT 06/20/2025 11:54 AM EDT Krissy Willis MD LAB BLOOD BKR ORDERABL ES Final Result [facility] [address] [place] [address] * (ABNORMAL) Collagen type 1b-telopeptide, Blood (Non-MGB) (06/20/2025 11:41 AM EDT) [facility] Collagen CTx 97(L) pg/mL [facility] MED/[facility] Comment: (NOTE) REFERENCE VALUE [phone] (18-29 y) 150-635 (30-39 y) 131-670 (40-49 y) [phone] (50-59 y) 171-970 (60-69 y) 152-858 (>70 y) 136-689 (Premenopausal) [phone] (Postmenopausal) Flagging is based on the age-specific reference interval and not menopausal status. Blood 06/20/2025 11:4 1 AM EDT 06/20/2025 11:54 AM EDT Krissy Willis MD LAB BLOOD BKR ORDERABL ES Final Result [facility] LAB MED/[facility] [address] [place] [address] * 25-OH vitamin D (06/20/2025 11:41 AM EDT) Pathologist [facility] 25 OH VIT D (TOTAL) 43 30 - 60 ng/mL [facility] Blood 06/20/2025 11:4 1 AM EDT 06/20/2025 11:53 AM EDT us Krissy Willis MD LAB BLOOD BKR ORDERABL ES Final Result [address] [address] * (ABNORMAL) Comprehensive metabolic panel (06/20/2025 11:41 AM EDT) SODIUM 143 133 - 146 mmol/L [facility] POTASSIUM 3.0(L) 3.3 - 5.1 mmol/L [facility] CHLORIDE 103 96 - 108 mmol/L [facility] CO2 30 21 - 35 mmol/L [facility] BUN 15 6 - 19 mg/dL [facility] CREATININE 0.80 0.5 - 1.5 mg/dL [facility] GLUCOSE 100(H) 70 - 99 mg/dL [facility] ALBUMIN 3.4(L) 3.9 - 4.8 g/dL [facility] TOTAL PROTEIN 5.4(L) 6.5 - 8.0 g/dL [facility] CALCIUM 8.8 8.4 - 10.3 mg/dL [facility] ALKALINE PHOSPHATASE 44 39 - 117 U/L [facility] TOTAL BILIRUBIN 0.3 0.0 - 1.2 mg/dL [facility] AST 40(H) 0 - 37 U/L [facility] ALT <5 0 - 40 U/L [facility] GLOBULIN 2.0 1 - 4.8 g/dL [facility] EGFR 72 >59 mL/min/1.7 3m2 [facility] Comment:Estimated glomerular filtration rate calculated using the CKD-EPI refit equation. ANION GAP 13 10 - 20 mmol/L [facility] Blood 06/20/2025 11:4 1 AM EDT 06/20/2025 11:53 AM EDT us Krissy Willis MD LAB BLOOD BKR ORDERABL ES Final Result [facility] [address] [place] [address] documented in this encounter Visit Diagnoses Diagnosis Multinodular goiter- Primary Nontoxic multinodular goiter Age-related osteoporosis without current pathological fracture documented in this encounter Care Teams Manager Money Relationship Specialty Start Date End Date Pcp, Unknown PCP - General 06/20/25 06/22/25 documented as of this encounter Additional Source Comments The information contained in this document represents components of the legal health record. It is not the complete legal health record.[facility]
--- OUTSIDE RECORDS SUMMARY | 2025-06-20 10:07 | XMS_ITS | Encounter Summary ---
Author Organization [facility] Address [address] [place] [phone] Phone Care Team Providers Care Hospitality Ambassador Name Role Phone Pcp, Unknown Primary Care Provider Unavailabl e Encounter Details Date Type Department Care Team (Late st Contact Info) Description 06/20/2025 11:07 AM EDT - 06/20/2025 11:59 PM EDT Hospital Encounter [facility] [address] [place] [address] Krissy Willis MD [address] [place] [phone] [email or web address] Discharge Disposition: Home or Self Care Social History Tobacco Use Types Packs/Day Years Used Date Smoking Tobacco: Never Passive Smoke Exposure: Never Smokeless Tobacco: Never Alcohol Use Standard [...] on file documented as of this encounter Medications at Time of Discharge alendronate (FOSAMAX) 70 MG tabletIndications: Age-related osteoporosis without current pathological fracture TAKE 1 TABLET EVERY 7 DAYS; TAKE IN THE MORNING WITH A FULL GLASS OF WATER ON AN EMPTY STOMACH AND DO NO TAKE ANYTHING ELSE BY MOUTH OR LIE DOWN FOR THE NEXT 30 MINUTES 12 tablet 2 12/05/2024 calcium citrate 250 mg calcium Tab Take 1 tablet by mouth daily. carbidopa-levodopa (SINEMET) 25-100 mg per tablet Take 1 tablet by mouth 3 (three) times a day. 04/20/2023 cholecalciferol, vitamin D3, (VITAMIN D3) 25 mcg (1,000 unit) capsule Take 1,000 Units by mouth daily. hydroCHLOROthiazid e (HYDRODIURIL) 25 MG tablet Take 1 tablet by mouth every morning. 04/09/2023 LORazepam (ATIVAN) 1 MG tablet Take 1 mg by mouth as needed. 04/12/2023 omeprazole (PRILOSEC) 40 MG capsule Take 40 mg by mouth daily. 05/15/2025 oxyBUTYnin (DITROPAN-XL) 10 MG 24 hr tablet Take 10 mg by mouth daily. 04/27/2025 potassium chloride (KLOR-CON) 10 MEQ ER tablet Take 10 mEq by mouth daily. propranoloL (INDERAL) 80 MG immediate release tablet Take 80 mg by mouth 3 (three) times a day. 05/10/2023 documented as of this encounter Plan of Treatment Upcoming Encounters Date Type Department Care Team (Late st Contact Info) Description 08/25/2025 8:00 AM EST Office Visit [facility] [address] [place] [id number] Dmitri Srinivasan MD [address] [place] [address], [address] [place] [address] 06/24/2026 8:20 AM EST Office Visit [facility] [address] [place] [address] [place] [address] Krissy Willis MD [address] [place] [address] [address] [place] [address] [email or web address] documented as of this encounter Procedures Procedure Name Priority Date/Time Associated Diagnosis Comments COLLAGEN TYPE 1B-TELOPEPTIDE, BLOOD Routine 06/20/2025 11:41 AM EDT Age-related osteoporosis without current pathological fracture COMPREHENSIVE METABOLIC PANEL (CMP) Routine 06/20/2025 11:41 AM EDT Age-related osteoporosis without current pathological fracture TSH WITH REFLEX Routine 06/20/2025 11:41 AM EDT Multinodular goiter 25-OH VITAMIN D Routine 06/20/2025 11:41 AM EDT Age-related osteoporosis without current pathological fracture PHOSPHORUS Routine 06/20/2025 11:41 AM EDT Age-related osteoporosis without current pathological fracture PARATHYROID HORMONE (PTH) Routine 06/20/2025 11:41 AM EDT Age-related osteoporosis without current pathological fracture documented in this encounter Results * Phosphorus (06/20/2025 11:41 AM EDT) PHOSPHORUS 3.3 2.7 - 4.5 mg/dL [facility] Blood 06/20/2025 11:4 1 AM EDT 06/20/2025 11:53 AM EDT Krissy Willis MD LAB BLOOD BKR ORDERABL ES Final Result [address] [address] * Parathyroid hormone (PTH) (06/20/2025 11:41 AM EDT) PARATHYROID HORMONE 55 15 - 65 pg/mL [facility] Blood 06/20/2025 11:4 1 AM EDT 06/20/2025 11:54 AM EDT us Krissy Willis MD LAB BLOOD BKR ORDERABL ES Final Result Performing Organization Address [facility]/ZIP Co de Phone Number [address] [address] * (ABNORMAL) Collagen type 1b-telopeptide, Blood (Non-MGB) (06/20/2025 11:41 AM EDT) Pathologist [facility] Collagen CTx 97(L) pg/mL [facility]/PATH SUPERIOR Comment: (NOTE) REFERENCE VALUE [...] ORDERABL ES Final Result Performing Organization Address [facility] Co de Phone Number [facility] [address] [place] [address] * 25-OH vitamin D (06/20/2025 11:41 AM EDT) 25 OH VIT D (TOTAL) 43 30 - 60 ng/mL [facility] Blood 06/20/2025 11:4 1 AM EDT 06/20/2025 11:53 AM EDT Krissy Willis MD LAB BLOOD BKR ORDERABL ES Final Result Performing Organization Address City/[facility]/ZIP Co de Phone Number [address] [address] * (ABNORMAL) Comprehensive metabolic panel (06/20/2025 11:41 AM EDT) SODIUM 143 133 - 146 mmol/L [facility] POTASSIUM 3.0(L) 3.3 - 5.1 mmol/L [facility] CHLORIDE 103 96 - 108 mmol/L [facility] CO2 30 21 - 35 mmol/L [facility] BUN 15 6 - 19 mg/dL [facility] CREATININE 0.80 0.5 - 1.5 mg/dL [facility] GLUCOSE 100(H) 70 - 99 mg/dL [facility] ALBUMIN 3.4(L) 3.9 - 4.8 g/dL [facility] TOTAL PROTEIN 5.4(L) 6.5 - 8.0 g/dL [facility] CALCIUM 8.8 8.4 - 10.3 mg/dL [facility] ALKALINE PHOSPHATASE 44 39 - 117 U/L [facility] TOTAL BILIRUBIN 0.3 0.0 - 1.2 mg/dL [facility] AST 40(H) 0 - 37 U/L [facility] ALT <5 0 - 40 U/L [facility] GLOBULIN 2.0 1 - 4.8 g/dL [facility] EGFR 72 >59 mL/min/1.7 3m2 [facility] Comment:Estimated glomerular filtration rate calculated using the CKD-EPI refit equation. ANION GAP 13 10 - 20 mmol/L [facility] Blood 06/20/2025 11:4 1 AM EDT 06/20/2025 11:53 AM EDT us Krissy Willis MD LAB BLOOD BKR ORDERABL ES Final Result [facility] [address] [place] [address] * TSH with reflex (06/20/2025 11:41 AM EDT) TSH 0.83 0.27 - 4.20 uIU/mL [facility] Blood 06/20/2025 11:4 1 AM EDT 06/20/2025 11:53 AM EDT us Krissy Willis MD LAB BLOOD BKR ORDERABL ES Final Result [facility] [address] [place] [address] documented in this encounter Visit Diagnoses Diagnosis Multinodular goiter Nontoxic multinodular goiter Age-related osteoporosis without current pathological fracture documented in this encounter Care Teams Hospitality Ambassador Relationship Specialty Start Date End Date Pcp, Unknown PCP - General 06/20/25 06/22/25 documented as of this encounter Additional Source Comments The information contained in this document represents components of the legal health record. It is not the complete legal health record.[facility]
[2025-06-24 13:45] VITALS: BP 119/57; PULSE 68; RESP 14; TEMP 36.4; O2SAT 98; BMI 14.6
--- NOTE | 2025-06-24 13:45 | A.OFFPC_ITS ---
Vital Signs 06/24/25 13:45 Height 5 ft 5.47 in Weight 89 lb BMI 14.6 BP 119/57 L Blood Pressure Location Lt brachial Position Sitting Respiration 14 Pulse 68 Pulse Source Pulse Oximeter Temp 97.6 F Temp Source Temporal Artery Scan Pulse Oximetry (%) 98 Oxygen Delivery Method Room Air Intake Visit Reasons: follow up Engagement Specialist Required: No Accompanied by: Daughter Allergies pregabalin (From LYRICA) Allergy (Severe, Verified 06/24/25 13:46) CONFUSION ciprofloxacin (From Cipro) Allergy (Intermediate, Verified 06/24/25 13:46) Itching gabapentin (GABAPENTIN) Allergy (Intermediate, Verified 06/24/25 13:46) NAUSEA/VOMITING amlodipine (From Norvasc) Allergy (Verified 06/24/25 13:46) Unknown clarithromycin (From BIAXIN) Adverse Reaction (Intermediate, Verified 06/24/25 13:46) NAUSEA & VOMITING codeine (CODEINE) Adverse Reaction (Intermediate, Verified 06/24/25 13:46) NAUSEA & VOMITING fentanyl (From DURAGESIC) Adverse Reaction (Intermediate, Verified 06/24/25 13:46) NAUSEA/VOMITING levofloxacin (From LEVAQUIN) Adverse Reaction (Intermediate, Verified 06/24/25 13:46) NAUSEA & VOMITING primidone (From Mysoline) Adverse Reaction (Verified 06/24/25 13:46) Nausea and Vomiting Tobacco use date assessed: 05/05/25 Dental Screening Dental Screen Date: 03/13/25 [facility] Medical History Peripheral vascular disease Sciatica COPD (chronic obstructive pulmonary disease) Venous (peripheral) insufficiency UTI (urinary tract infection) Pedal edema Hypokalemia GERD (gastroesophageal reflux disease) Chronic diarrhea Sciatica, right side History of mammogram (~05/2024) Right hip pain Right buttock pain Lower back pain NSTEMI (non-ST elevated myocardial infarction) SIRS (systemic inflammatory response syndrome) Guillain-[place] syndrome Fracture, wrist, open History of gastrectomy Parkinson disease High blood pressure Surgical History Hx of arthroscopic knee surgery Hx of hysterectomy H/O pyloroplasty H/O vagotomy Hx of cholecystectomy History of esophagogastroduodenoscopy (EGD) Hx of colonoscopy (~10/22/21) Family History Mother Breast cancer Congestive heart failure Arthritis Social History Household Members: None Housing: Condominium Do you presently have visiting nurse or other home services: No Alcohol intake: current Alcohol intake frequency: 0-2 drinks per day Alcohol type: wine Patient Tobacco Use Status: Never used Tobacco Advance Directives Date on File: 08/14/23 service: No Current occupational status: retired Cognitive needs: No Hearing needs: No Vision needs: Yes (rx glasses) Questionnaire PHQ-9 Over the last 2 weeks, how often have you been bothered by any of the following problems? 1. Little interest or pleasure in doing things: not at all 2. Feeling down, depressed, or hopeless: not at all 3. Trouble falling or staying asleep, or sleeping too much: not at all 4. Feeling tired or having little energy: not at all 5. Poor appetite or overeating: not at all 6. Feeling bad about yourself - or that you are a failure or have let yourself or your family down: not at all 7. Trouble concentrating on things, such as reading the newspaper or watching television: not at all 8. Moving or speaking so slowly that other people could have noticed. Or the opposite - being so fidgety or restless that you have been moving around a lot more than usual: not at all 9. Thoughts that you would be better off or of hurting yourself in some way: not at all Total score: 0 Depression Screening Interpretation: Negative Depression Screening Done: Yes 23133 - PHQ-9 Billing: Yes Source: Developed by Drs. Nikhil Henriquez, Mckenzie Bryson, Ben Eugene and colleagues, with an educational benny from [employer]. Thrive Questionnaire Date Thrive assessed: 03/20/25 I am a: Patient What is your living situation today?: I have a steady place to live Within the past 12 months, did the food you bought not last and you didn't have the money to get more?: Never true Within the past 12 months, did you worry whether your food would run out before you got money to buy more?: Never true Do you have trouble paying for medicines?: No Do you have trouble getting transportation to medical appointments?: No Do you have trouble paying your heating and electricity bill?: No Do you have trouble taking care of your child, family member or friend?: No Do you have trouble with day-to-day activities such as bathing, preparing meals, shopping, managing finances, etc.?: No Are you currently unemployed and looking for a job?: No Are you interested in more education?: No Please select the resources that you would like help with: None Currently or been in a relationship where the following occur: No concerns reported THRIVE Score: 0 AUDIT C Alcohol Use Questionnaire (AUDIT-C) 1. How often do you have a drink containing alcohol?: 4 or more times a week 2. How many drinks containing alcohol do you have on a typical day when you are drinking?: 1 or 2 3. How often do you have six or more drinks on one occasion?: Never Total Score: 4 Score Reviewed/Action Taken: No HEATHER-7 AMB Questionnaire HEATHER-7 Date HEATHER - 7 assessed: 03/20/25 Feeling nervous, anxious, or on edge: 0 = Not at all Not being able to stop or control worryin = Not at all Worrying too much about different things: 0 = Not at all Trouble relaxin = Not at all Being so restless that it is hard to sit still: 0 = Not at all Becoming easily annoyed or irritable: 0 = Not at all Feeling afraid as if something awful might happen: 0 = Not at all Total HEATHER-7 score (0-4 normal; 5-9 mild; 10-14 moderate; 15-21 severe): 0 Source: Developed by Drs. Nikhil Henriquez, Mckenzie Bryson, Ben Eugene and colleagues, with an educational benny from [employer]. HEATHER-7 Assessment Billing HEATHER-7 Assessment Tool: HEATHER-7 Assessment 02289 Physical exam (Primary Care) Vital Signs: Last Vital Signs Temp 97.6 F 06/24/25 13:45 Pulse 68 06/24/25 13:45 Resp 14 06/24/25 13:45 BP 119/57 L 06/24/25 13:45 Pulse Ox 98 06/24/25 13:45 Oxygen Delivery Method Room Air 06/24/25 13:45 BMI result Body Mass Index 14.6 Tobacco/Smoking Status: Tobacco use Status Tobacco use date assessed 05/05/25 06/24/25 13:46 Patient Tobacco Use Status Never used Tobacco 06/24/25 13:46 PHQ-9: PHQ-9 Score PHQ-9: Total score 0 06/24/25 13:59 Depression Screening Interpretation: Negative Thrive Assessment: Date of Thrive Assessment Date Thrive assessed 03/20/25 06/24/25 13:46 Currently or been in a relationship where the following occur: No concerns rep orted Office Procedures Flu Questionnaire Does the patient have a severe egg allergy?: No Does the patient have severe life threatening allergies?: No Does the patient have a fever or illness today?: No Has the patient ever had Guillain-[place] Syndrome?: Yes Has the patient ever had any past reaction to a flu shot?: No Immunizations Fluarix 5650-2555 (PF) 45 mcg (15 mcg x 3)/0.5 mL IM syringe Performing Provider: Arpan Johansen MD [facility] Documented (not given) by: TIFFANIE Duncan on 06/24/25 13:59 Reason Not Given: Patient Exempt Coding Level of Care Code Est Pt Level 4 (20203) Complex EM visit Add On G2211 Diagnoses Hypokalemia E87.6 Additional Codes HEATHER-7 Assessment Billing - HEATHER-7 Assessment Tool: HEATHER-7 Assessment 69746 ([id number]) PHQ-9 - 24459 - PHQ-9 Billing: Yes ([id number]) Assessment & Plan Assessment & Plan (1) Hypokalemia: Code(s): E87.6 - Hypokalemia Category: Medical Plan: History of Present Illness - The patient is an 84-year-old female presenting to [facility] care following the intermediate of her previous primary care physician. - The patient has a history of Parkinson's disease, for which she sees a neurologist twice a year and is treated with carbidopa and propranolol three times daily. - She reports her symptoms have worsened slightly, but her neurologist wishes to maintain the current medication regimen. - She has osteoporosis, managed with weekly risedronate, and is followed by an manager regional sales. - A recent bone test reportedly showed improvement in her condition. - For hypertension, the patient has been taking hydrochlorothiazide, which has been associated with low potassium levels. - Her manager regional sales recently noted a potassium level of 3.0 and prescribed multiple short courses of potassium supplements, after which her level norm alized on June 03. - She reports her blood pressure is generally well-controlled. - The patient also reports a five-month history of bilateral lower extremity edema, which she states is due to peripheral vascular disease. - The swelling is described as congestive, does not improve with leg elevation, and is not painful. - Other medical history includes Raynaud's disease affecting her legs, arthritis in her hands, and a history of cancer, for which she requires routine mammograms. - She takes lorazepam 1 mg for sleep and reports her usage has decreased from three times a day to once or twice daily. Social History - The patient is retired. 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 Review of Systems - Neurological: Reports a slight worsening of Parkinson's symptoms. - Cardiovascular: Reports bilateral leg swelling for the past 5 months and has a history of Raynaud's disease in the legs. - Musculoskeletal: Reports arthritis in the hands. - Abdominal: Denies abdominal pain. - Psychiatric: Reports using lorazepam for sleep. Physical Exam General: Cooperative and healthy appearing Nutritional Appearance: Well nourished Orientation/consciousness: Patient oriented x3 Limitations: No limitations Head: Normal to inspection General: Appearance normal, both eyes and all related structures Neck: Normal visual inspection Chest: Normal palpation of entire chest wall Respiratory: N ormal respiratory effort Neurology: Patient oriented x3, Parkinson's disease stable with current medication regimen. Results - Labs: Recent potassium level was 3.0, and a level measured on June 03 was normal following supplementation. - Tests and diagnostics: A recent bone test showed improvement in bone density. Plan - Discontinue hydrochlorothiazide and potassium supplements to address medication-induced hypokalemia. - Order follow-up blood work next week to check potassium levels. - Schedule a follow-up visit in one month to reassess blood pressure and determine if a new antihypertensive medication is needed. - Continue carbidopa and propranolol for Parkinson's disease at the current stable dosage, with an upcoming neurology follow-up next week. - Provide a prescription for lorazepam 1 mg once daily at bedtime, sent to the patient's mail-order pharmacy. - Provide a printed order for a screening mammogram to be performed at [facility]. - Advise leg elevation for management of peripheral edema, noting that the condition is chronic and related to venous insufficiency. Discussion Notes I discussed with the patient that we would be establishing care since her long- time primary physician has retired. I explained that her low potassium is likely a side effect of the hydrochlorothiazide, so we will stop both that medication and the supplemental potassium. We will check her blood work in a week and follow up in a month to assess her blood pressure, at which point a different medication may be started if needed. I acknowledged that her Parkinson's is stable and will continue to be managed with her current medications, noting her upcoming appointment with her neurologist. Regarding her leg swelling, I explained it results from sluggish venous return and recommended elevating her legs when possible, though the condition is chronic. We discussed her lorazepam use, and I agreed to provide a prescription for once- daily use at bedtime to aid with sleep. Finally, I confirmed that I have ordered a mammogram for her, and she will receive a printed order to take to [facility]. Patient Instructions - Stop taking your hydrochlorothiazide and potassium pills. - Go to the lab next week for a blood test; you do not need to fast. - Continue your current medications for Parkinson's disease. - You will receive a printed order for a mammogram; please call [facility] to schedule it. - A new prescription for lorazepam has been sent to your pharmacy for once-daily use at bedtime. - Elevate your legs when possible to help with the swelling. - Please schedule a follow-up appointment in one month. Orders: Orders Influenza [id number] Immunization Today Z23 - Encounter for immunization Complete Blood Count no Diff Today E87.6 - Hypokalemia Basic Metabolic Panel Today E87.6 - Hypokalemia MM screening mammo BI Today Z12.31 - Encounter for screening mammogram for malignant neoplasm of breast Medications: Changed From lorazepam 1 mg PO BEDTIME PRN To lorazepam 1 mg PO DAILY PRN 30 tabs 3RF anxiety Discontinued potassium chloride ER Discontinued Reason: Doctor's Order 20 mEq PO DAILY 5 tabs 0RF
--- OUTSIDE RECORDS SUMMARY | 2025-06-24 16:48 | XMS_ITS | Clinical Summary ---
Author Organization [facility] Address [address] [place] [address] Phone Care Team Providers Care Water Quality Control Engineer Name Role Phone Arpan Johansen MD Primary Care Provider [phone] Social History Tobacco Use Types Packs/Day Years Used Date Smoking Tobacco: Never Assessed Comments Unknown Sex and Gender Information Value Date Recorded Sex Assigned at Female 06/24/2025 3:24 PM EST Legal Sex Female 1:16 PM EST Gender Identity Female 06/24/2025 3:24 PM EST Sexual Orientation Not on file Travel History Travel Start Travel End [place] 06/04/2025 06/18/2025 Plan of Treatment Upcoming Encounters Date Type Department Care Team (Late st Contact Info) Description 07/03/2025 8:30 AM EST [facility]ointment [facility] [address] [address] Health Maintenance Due Date Last Done Comments DTaP,Tdap,and Td Vaccines (1 - Tdap) 1959 Pneumococcal Vaccine: 50+ Years (1 of 1 - PCV) 1988 Zoster Vaccines (1 of 2) 1988 RSV Immunization Adult Patients (1 - 1-dose 75+ series) 2013 Falls Risk Assessment 07/19/2022 Medicare Annual Wellness Visit 07/19/2022 Social Influencers of Health Screening 07/19/2022 Depression Screening 08/21/2024 COVID-19 Vaccine ( - 2023-2 5 season) 2025 Influenza Vaccine [...] Name Priority Date/Time Associated Diagnosis Comments [facility] DEXA AXIAL SKELETON Routine 06/08/2023 10:23 AM EDT Encounter for screening for osteoporosis from Last 3 Months or Most Recently Relevant to Health Maintenance Results * [facility] DEXA AXIAL SKELETON (06/08/2023 10:23 AM EDT) Anatomical Region Laterality Modality Mammography 06/08/2023 9:55 AM EDT Narrative 06/08/2023 10:23 AM EDT [facility] Diagnostic Imaging Department [address] [place], [place] [id number] Patient: MCKENZIE CABELLO D.O.B./Age/Sex: 1940 - 82 - F Unit#: [id number] [facility] Order[facility] Physician: SALBADOR POLLARD MD Enrique Dexa Axial Skeleton - 06/08/23 [...] probability of hip fracture of 13.9%. Code 46241 Dictating Physician: APRYL BAILON MD Electronically Signed by: APRYL BAILON MD Dic Date/Time: 06/08/23 1022 Sign date/Time: 06/08/23 1023 Procedure Note Apryl Bailon MD - 09/26/2023 [facility] Diagnostic Imaging Department [address] [place] [address] Patient: MCKENZIE CABELLO Aaron Rowan./Age/Sex: 1940 - 82 - F Unit#: [id number] Location/Status: SPD[facility]AM/REG CLI Mnemonic[facility] Ordering Physician: SALBADOR POLLARD MD Enrique Dexa Axial Skeleton - 06/08/23 [...] density of the femurs bilaterally is 0.649 gm/ht6rcbew is 64% of that of young normals [...] probability of hip fracture of 13.9%. Code 31461 Dictating Physician: APRYL BAILON MD Electronically Signed by: APRYL BAILON MD Dic Date/Time: 06/08/23 1022 Sign date/Time: 06/08/23 1023 Salbador Pollard MD IMG BI PROCEDURES Final Result from Last 3 Months or Most Recently Relevant to Health Maintenance Insurance [employer] [place] MEDICARE ADVANTAGE Care Teams Water Quality Control Engineer Relationship Specialty Start Date End Date Arpan Johansen MD [address] [place] [address] PCP - General Internal Medicine 06/24/25
--- OUTSIDE RECORDS SUMMARY | 2025-06-24 16:48 | XMS_ITS | Patient Health Record ---
Author Organization [facility] Address [address] [place] [phone] Care Team Providers Care Floral Associate Name Role Phone Nikhil Mckeon Unavailable [phone] Reason For Referral No Information Plan Of Treatment No Information
--- OUTSIDE RECORDS SUMMARY | 2025-06-24 16:49 | XMS_ITS | Clinical Summary ---
Author Organization [facility] Address [address] [place] [phone] Phone Care Team Providers Care Shipsmith Name Role Phone Arpan Johansen MD Primary Care Provid er Nikhil Pantoja DO Unavailable [phone] Allergies Active Allergy Reactions Criticality Noted Date Comments Clarithromycin Nausea and/or Vomiting 3 Codeine Nausea and/or Vomiting 06/15/2023 Fentanyl Nausea and/or Vomiting 06/15/2023 Gabapentin Nausea and/or Vomiting 06/20/2025 Levofloxacin Nausea and/or Vomiting 06/15/2023 Pregabalin Nausea [...] 30 MINUTES 12 tablet 2 5 Active omeprazole (PRILOSEC) 40 MG capsule Take 40 mg by mouth daily. 5 Active oxyBUTYnin (DITROPAN-XL) 10 MG 24 hr tablet Take 10 mg by mouth daily. 5 Active Active Problems Problem Noted Date Diagnosed Date Age-related osteoporosis wit hout current pathological fracture Overview (06/15/2023): S/p right wrist fx. Bisphosphonate x > 10 yrs, d/c 2012, fx shoulder, resumed alendronate 2021 Assessment & Plan (06/24/2025 1:11 PM EST): Hx right wrist, shoulder fx. S/p > 10 yrs bisphosphonate, stopped 2012, resumed 2021. Clinically stable. No interval falls or fractures. Getting calcium in via diet and supplements, had advised taking calcium bid last year, she has been alternating 1 vs 2x/day. Advised to increase to bid. Seeing dentist regularly. Last bone density showed some decline, but had not been on rx for most of the intervening time. Will repeat. To call when study is done so we can track down results. Assessment & Plan (06/20/2024 4:20 PM EDT): [...] antibodies, stable u/s 2017 Assessment & Plan (06/24/2025 1:12 PM EST): No compressive symptoms. Exam stable. Will check TFTs. Will continue to monitor exam. Assessment & Plan (06/20/2024 4:20 PM EDT): [...] syndrome Osteoarthritis Vitamin B12 deficiency Iron deficiency Encounters Date Type Department Care Team Description 06/20/2025 11:07 AM EDT - 06/20/2025 11:59 PM EDT Hospital Encounter [facility] [address] [place] [address] Krissy Willis MD Discharge Disposition: Home or Self Care 06/20/2025 10:20 AM EDT Office Visit [place] [address] Krissy Willis MD Multinodular goiter (Primary Dx); Age-related osteoporosis without current pathological fracture 06/20/2025 Telephone [facility] [address] Krissy Willis MD from Last 3 Months Family History Medical History Relation Comments Breast [...] Pulse 56 06/20/2025 10:29 AM EDT Temperature 36.5 C (97.7 F) 06/15/2023 2:19 PM EDT Respiratory Rate 20 06/20/2025 10:29 AM EDT Oxygen Saturation 99% 06/20/2025 10:29 AM EDT Inhaled Oxygen Concentration - - Weight 40.4 kg (89 lb) 06/20/2025 10:29 AM EDT Height 164.4 cm (5' 4.72 ) 06/20/2024 8:55 AM ED T Body Mass Index 14.94 06/20/2024 8:55 AM EDT Plan of Treatment Upcoming Encounters Date Type Department Care Team (Late st Contact Info) Description 08/25/2025 8:00 AM EST Office Visit [facility] Medicine [address] [place] [address] Dmitri Srinivasan MD [address] [facility], [address] [place] [address] [email or web address] 06/24/2026 8:20 AM EST Office Visit [facility] [address] [place] [address] [place] [address] Krissy Willis MD [address] [place] [address] [address] [place] [address] [email or web address] Health Maintenance Due Date Last Done Comments Adult Td,Tdap Booster 1938 DEPRESSION SCREENING 1950 PNEUMOCOCCAL VACCINES (50+ years) (1 of 1 - PCV) 1988 ZOSTER VACCINES (1 of 2) 1988 RSV VACCINE (1 - 1-dose 75+ series) 2013 INFLUENZA VACCINE (#1) 2025 COVID-19 VACCINE (1 - 2024-2 6 season) 2025 POTASSIUM LEVEL 06/20/2026 06/20/2025, 07/03/2024 OSTEOPOROSIS SCREENING INITI AL (ONE-TIME) Completed 06/20/2025, 06/20/2024 HEPATITIS A VACCINES Aged Out No [...] Procedure Name Priority Date/Time Associated Diagnosis Comments PHOSPHORUS Routine 06/20/2025 11:41 AM EDT Age-related osteoporosis without current pathological fracture PARATHYROID HORMONE (PTH) Routine 06/20/2025 11:41 AM EDT Age-related osteoporosis without current pathological fracture COLLAGEN TYPE 1B-TELOPEPTIDE, BLOOD Routine 06/20/2025 11:41 AM EDT Age-related osteoporosis without current pathological fracture 25-OH VITAMIN D Routine 06/20/2025 11:41 AM EDT Age-related osteoporosis without current pathological fracture COMPREHENSIVE METABOLIC PANEL (CMP) Routine 06/20/2025 11:41 AM EDT Age-related osteoporosis without current pathological fracture TSH WITH REFLEX Routine 06/20/2025 11:41 AM EDT Multinodular goiter BD DXA MONITORING Routine 06/20/2025 10: 50 AM EDT Age-related osteoporosis without current pathological fracture from Last 3 Months Results * (ABNORMAL) Collagen type 1b-telopeptide, Blood (Non-MGB) (06/20/2025 11:41 AM EDT) [facility] Collagen CTx 97(L) pg/mL [facility] Comment: (NOTE) REFERENCE VALUE [phone] (18-29 y) 150-635 (30-39 y) 131-670 (40-49 y) 183-1060 (50-59 y) 171-970 (60-69 y) 152-858 (>70 y) 136-689 (Premenopausal) 177-1015 (Postmenopausal) Flagging is based on the age-specific reference interval and not menopausal status. Blood 06/20/2025 11:4 1 AM EDT 06/20/2025 11:54 AM EDT us Krissy Willis MD LAB BLOOD BKR ORDERABL ES Final Result [facility] [id number] [address] * (ABNORMAL) Comprehensive metabolic panel (06/20/2025 11:41 AM EDT) [facility] SODIUM 143 133 - 146 mmol/L [facility] POTASSIUM 3.0(L) 3.3 - 5.1 mmol/L [facility] CHLORIDE 103 96 - 108 mmol/L [facility] CO2 30 21 - 35 mmol/L [facility] BUN 15 6 - 19 mg/dL [facility] CREATININE 0.80 0.5 - 1.5 mg/dL [facility] GLUCOSE 100(H) 70 - 99 mg/dL [facility] ALBUMIN 3.4(L) 3.9 - 4.8 g/dL [facility] TOTAL PROTEIN 5.4(L) 6.5 - 8.0 g/dL [facility] CALCIUM 8.8 8.4 - 10.3 mg/dL [facility] ALKALINE PHOSPHATASE 44 39 - 117 U/L [facility] TOTAL BILIRUBIN 0.3 0.0 - 1.2 mg/dL [facility] AST 40(H) 0 - 37 U/L [facility] ALT <5 0 - 40 U/L [facility] GLOBULIN 2.0 1 - 4.8 g/dL [facility] EGFR 72 >59 mL/min/1.7 3m2 [facility] Comment:Estimated glomerular filtration rate calculated using the CKD-EPI refit equation. ANION GAP 13 10 - 20 mmol/L [facility] Blood 06/20/2025 11:4 1 AM EDT 06/20/2025 11:53 AM EDT Result Robert Willis MD LAB BLOOD BKR ORDERABL ES Final Result Performing Organization Address City/[facility]/ZIP Co de Phone Number [address] [address] * TSH with reflex (06/20/2025 11:41 AM EDT) TSH 0.83 0.27 - 4.20 uIU/mL [facility] Blood 06/20/2025 11:4 1 AM EDT 06/20/2025 11:53 AM EDT us Krissy Willis MD LAB BLOOD BKR ORDERABL ES Final Result [address] [address] * 25-OH vitamin D (06/20/2025 11:41 AM EDT) 25 OH VIT D (TOTAL) 43 30 - 60 ng/mL [facility] Blood 06/20/2025 11:4 1 AM EDT 06/20/2025 11:53 AM EDT us Krissy Willis MD LAB BLOOD BKR ORDERABL ES Final Result [address] [address] * Phosphorus (06/20/2025 11:41 AM EDT) PHOSPHORUS 3.3 2.7 - 4.5 mg/dL [facility] Blood 06/20/2025 11:4 1 AM EDT 06/20/2025 11:53 AM EDT Krissy Willis MD LAB BLOOD BKR ORDERABL ES Final Result Performing Organization Address City/[facility]/ZIP Co de Phone Number [address] [address] * Parathyroid hormone (PTH) (06/20/2025 11:41 AM EDT) PARATHYROID HORMONE 55 15 - 65 pg/mL [facility] Blood 06/20/2025 11:4 1 AM EDT 06/20/2025 11:54 AM EDT us Krissy Willis MD LAB BLOOD BKR ORDERABL ES Final Result Performing Organization Address City/[facility]/ZIP Co de Phone Number [address] [address] from Last 3 Months Insurance [facility] MEDICARE PPO BLUE REPLACEMENT MEDICARE PPO BLUE REPLACEMENT MEDICARE PPO BLUE [place] [address] [place] [address] MEDICARE PPO [place] [address] [place] [address] MEDICARE PPO [place]UE [place] [address] [place] [address] MEDICARE PPO BLUE REPLACEMENT Care Teams Shipsmith Relationship Specialty Start Date End Date Arpan Johansen MD [address] [place] [phone] PCP - General Internal Medicine 06/23/25 Nikhil Pantoja DO [address] [place] [address] Internal Medicine 06/23/25 Additional Source Comments The information contained in this document represents components of the legal health record. It is not the complete legal health record.[facility]
--- OUTSIDE RECORDS SUMMARY | 2025-06-24 16:49 | XMS_ITS | Encounter Summary ---
Author Organization [facility] Address [address] [place] [phone] Phone Care Team Providers Care Measurement Department Chief Clerk Name Role Phone Pcp, Unknown Primary Care Provider Unavailabl e Encounter Details Date Type Department Care Team (Late st Contact Info) Description 06/20/2025 Telephone [facility] [address] [place] [address] [place] [address] Krissy Willis MD [address] [place] [address] [email or web address] Social History Tobacco Use Types Packs/Day Years [...] on file documented as of this encounter Progress Notes * Danni Naranjo MA - 06/20/2025 11:34 AM EDT faxed * Krissy Willis MD - 06/20/2025 10:54 AM EDT Pls forward bone density order to [facility] documented in this encounter Plan of Treatment Upcoming Encounters Date Type Department Care Team (Late st Contact Info) Description 08/25/2025 8:00 AM EST Office Visit [facility] [address] [place] [address] Dmitri Srinivasan MD [address] [facility], [address] [place] [address] 06/24/2026 8:20 AM EST Office Visit [facility] [address] [place] [address] Krissy Willis MD [address] [facility] [address] [place] [address] documented as of this encounter Visit Diagnoses Not on filedocumented in this encounter Care Teams Measurement Department Chief Clerk Relationship Specialty Start Date End Date Pcp, Unknown PCP - General 06/20/25 06/22/25 documented as of this encounter Additional Source Comments The information contained in this document represents components of the legal health record. It is not the complete legal health record.[facility]
--- OUTSIDE RECORDS SUMMARY | 2025-06-24 16:49 | XMS_ITS | Encounter Summary ---
Author Organization [facility] Address [address] [place] [address] Phone Care Team Providers Care Chief Crna Name Role Phone Salbador Severino MD Primary Care Provider [phone] Pcp, Unknown Primary Care Provider Arpan Patterson MD Primary Care Provid er Nikhil Pantoja DO Unavailable [phone] Encounter Details Date Type Department Care Team (Late st Contact Info) Description 06/16/2023 Ancillary Orders [facility],Outside Imaging [address] [place], [place] [phone] System, Provider Not In, [facility] [address] [address] Social History Tobacco Use Types Packs/Day Years [...] Description 08/25/2025 8:00 AM EST Office Visit [facility] [address] [place] [address] Dmitri Srinivasan MD [address] [facility], [address] [place] [address] [email or web address] 06/24/2026 8:20 AM EST Office Visit [facility] [address] [place] [address] Krissy Willis MD [address] [facility] [address] [place] [address] [email or web address] documented as of this encounter Results * [...] on filedocumented in this encounter Care Teams Chief Crna Relationship Specialty Start Date End Date Salbador Severino MD [address] [place] [address] PCP - General Internal Medicine 03/21/23 06/19/25 Pcp, Unknown PCP - General 06/20/25 06/22/25 Arpan Johansen MD [address] [place] [address] PCP - General Internal Medicine 06/23/25 Nikhil Pantoja DO [address] [place] [address] Internal Medicine 06/23/25 documented as of this encounter Additional Source Comments The information contained in this document represents components of the legal health record. It is not the complete legal health record.[facility]
== END 2025-06-24 14:41 | disposition home or self-care (01) ==
LOC: HO.HMCSH 13:41
PROVIDERS: PCP Internal Medicine; Visit Provider Internal Medicine
DX: E87.6 Hypokalemia (principal); Z23 Encounter for immunization

== ENCOUNTER → 2025-06-24 13:41 | Outpatient (BNVA) | payer MEDICARE, SELFPAY | PROVIDERS: PCP Internal Medicine; Visit Provider Internal Medicine | DX: E87.6 Hypokalemia (principal); G20.A1 Parkinson's disease without dyskinesia, without mention of fluctuations; M81.0 Age-related osteoporosis without current pathological fracture; I10 Essential (primary) hypertension; R60.0 Localized edema; I73.00 Raynaud's syndrome without gangrene; Z28.89 Immunization not carried out for other reason; Z79.899 Other long term (current) drug therapy | CPT/HCPCS: 90471; 96127; 99212 ==

== ENCOUNTER 2025-06-26 10:43 | Outpatient (AMB) | payer MEDICARE, SELFPAY ==
--- NOTE | 2025-06-26 10:48 | A.OFFVIS_ITS ---
Vital Signs 06/26/25 10:56 Height 5 ft 5.47 in Weight 90 lb BMI 14.8 BP 140/74 H Blood Pressure Location Rt brachial Position Sitting Pulse 98 Pulse Source Pulse Oximeter Pulse Oximetry (%) 98 Oxygen Delivery Method Room Air Intake Visit Reasons: follow up MRI Allergies pregabalin (From LYRICA) Allergy (Severe, Verified 06/26/25 10:56) CONFUSION ciprofloxacin (From Cipro) Allergy (Intermediate, Verified 06/26/25 10:56) Itching gabapentin (GABAPENTIN) Allergy (Intermediate, Verified 06/26/25 10:56) NAUSEA/VOMITING amlodipine (From Norvasc) Allergy (Verified 06/26/25 10:56) Unknown clarithromycin (From BIAXIN) Adverse Reaction (Intermediate, Verified 06/26/25 10:56) NAUSEA & VOMITING codeine (CODEINE) Adverse Reaction (Intermediate, Verified 06/26/25 10:56) NAUSEA & VOMITING fentanyl (From DURAGESIC) Adverse Reaction (Intermediate, Verified 06/26/25 10:56) NAUSEA/VOMITING levofloxacin (From LEVAQUIN) Adverse Reaction (Intermediate, Verified 06/26/25 10:56) NAUSEA & VOMITING primidone (From Mysoline) Adverse Reaction (Verified 06/26/25 10:56) Nausea and Vomiting HPI Comments Details: The patient is an 84-year-old female presenting with chronic low back pain to discuss recent lumbar spine MRI results. The pain has been chronic and per MRI findings, it is associated with multilevel spondylosis and dextroconvex rotoscoliosis, resulting in grade 1 anterolisthesis at L3-L4 and L4-L5, causing central spinal canal stenosis at L4-L5. Additionally, there is bilateral neuroforaminal stenosis from L3-L4 to L5-S1, more pronounced on the left at L3- L4 and L4-L5 levels. The patient reports no current back or right leg pain and denies taking any medication for back pain since the last visit. She clarifies that the pain is primarily in the right buttock, occasionally radiating down the front of the right leg to the toes, with associated numbness and tingling. She experiences numbness in the right buttock when sitting for extended periods. The patient has a history of osteoporosis, which limits treatment options such as epidural steroid injections. She is interested in Neurosurgical evaluation for minimally invasive back surgery.. The patient also reports chronic diarrhea following a gastrectomy, which she has been informed will persist. She follows up with a laboratory animal care veterinarian, Dr. Moose arroyo, for this condition. Lumbar spine MRI also showed incidental findings of a 2.5 cm fluid signal characteristic abnormality at the alistair hepatic region just anterior to the inferior vena cava. There is mild prominent intrahepatic and extrahepatic biliary ductal system. Patient will follow up with her PCP and GI providers to further monitor this. Denies any recent cough, cold, infection, fever or any significant changes in medical history since last office visit. PRIOR: The patient is an 84-year-old female presenting with acute on chronic right- sided sciatica pain. The pain flare up approximately five months ago without any specific inciting event, noted upon getting out of bed one morning. The pain is described as throbbing, stabbing, and sharp, radiating from the right buttock down the back of the right leg to the toes, accompanied by numbness and pins and needles sensation. The patient has been undergoing physical therapy for one month, which has not resulted in significant improvement. Patient reports she discontinued PT after 3 weeks and daily home exercises due to increase in right buttock and right leg pain. She reports that sitting alleviates the pain, while activities such as bending and walking exacerbate it. The patient uses a topical CBD cream and Tylenol Extra Strength for pain relief, with some benefit noted. The patient also has moderate arthritis in the hip, with occasional moderate groin pain. Previous imaging revealed scoliosis at L2-L3 and advanced degenerative disc disease, but no fractures. Patient lives alone at home independently and reports good family support and frequent assistance from her daughter. She denies smoking, admits to consuming wine at night and 1 cup of coffee daily. - Onset: Approximately five months ago, without specific inciting event - Quality: Throbbing, stabbing, sharp, with numbness and pins and needles - Location: Right buttock, radiating down the back of the right leg to the toes - Exacerbating factors: Bending, walking - Relieving factors: Sitting, use of CBD cream, heat therapy and Tylenol Extra Strength - Interference: Limits walking duration, requires sitting for relief - Affect: Pain is constant and impacts daily activities - Analgesia: Uses CBD cream, heat therapy and Tylenol Extra Strength, with some relief - Adverse Effects: None reported - Activities of Daily Living: Pain limits walking and requires frequent sitting - Aberrant Drug Related Behaviors: None reported [facility] Medical History Peripheral vascular disease Sciatica COPD (chronic obstructive pulmonary disease) Venous (peripheral) insufficiency UTI (urinary tract infection) Pedal edema Hypokalemia GERD (gastroesophageal reflux disease) Chronic diarrhea Sciatica, right side History of mammogram (~05/2024) Right hip pain Right buttock pain Lower back pain NSTEMI (non-ST elevated myocardial infarction) SIRS (systemic inflammatory response syndrome) Guillain-[place] syndrome Fracture, wrist, open History of gastrectomy Parkinson disease High blood pressure Surgical History Hx of arthroscopic knee surgery Hx of hysterectomy H/O pyloroplasty H/O vagotomy Hx of cholecystectomy History of esophagogastroduodenoscopy (EGD) Hx of colonoscopy (~10/22/21) Family History Mother Breast cancer Congestive heart failure Arthritis Social History Household Members: None Housing: Condominium Do you presently have visiting nurse or other home services: No Alcohol intake: current Alcohol intake frequency: 0-2 drinks per day Alcohol type: wine Patient Tobacco Use Status: Never used Tobacco Advance Directives Date on File: 08/14/23 service: No Current occupational status: retired Cognitive needs: No Hearing needs: No Vision needs: Yes (rx glasses) Review of Systems Const Details: - Musculoskeletal: Reports right buttock pain radiating to right leg, denies back pain - Neurological: Reports numbness and tingling in right leg, denies instability when walking - Gastrointestinal: Reports chronic diarrhea, denies abdominal pain or digestive issues All systems reviewed & are unremarkable except as noted in HPI and below Physical Exam Vital Signs: Last Vital Signs Pulse 98 06/26/25 10:56 BP 140/74 H 06/26/25 10:56 Pulse Ox 98 06/26/25 10:56 Oxygen Delivery Method Room Air 06/26/25 10:56 BMI result Body Mass Index 14.8 General: Appears afebrile. Very thin and underweight. No acute distress. Alert and oriented. Mood and affect appropriate. Follows and participates in conversation appropriately. Respiratory effort is unlabored. No cough. Able to transition from sit to stand unassisted. Does not use assistive devices. Ambulates with left normal heel strike and toe off, increase right leg pain with walking, heel and toes standing. General: Yes no CVA tenderness Back/Spine/Pelvis Other: Lumbar flexion and bending reproduces mild pain. Lumbar extension reproduces mild pain. Demonstrates 5/5 left and 4/5 right strength of quadriceps bilaterally as well as flexion/dorsiflexion of bilateral feet against resistance. 2+ pedal pulses bilaterally. Straight leg rise with dorsiflexion positive on the right. Diminished patellar and achilles reflexes bilaterally. Facet loading test positive bilaterally. Brittani sign, Ambrosio?s, Pelvic compression and Stinchfield tests are positive on the right. Moderate groin pain with right I/E hip rotations. Valsalva maneuver negative. Back: no CVA tenderness Cervical Spine: cervical ROM normal, No Cervical spine scars present and No Cervical spine tenderness Thoracic/Lumbar Spine: thoracic and lumbar spine normal to inspection, No Thoracic/lumbar spine scar(s), Lasegue's sign positive on the right and localized, pain with thoraco-lumbar ROM, paraspinal muscle tenderness on the right in the lower lumbar, thoraco-lumbar ROM limited, No thoracic spinal tenderness and lumbar spinal tenderness at L4 and at L5 Pelvis: buttock tenderness on the right and sciatic notch tenderness on the right Sacroiliac joints: on the right tender to palpation and on the left nontender Extrem General: Yes capillary refill normal, Yes no clubbing, cyanosis or edema and Yes no calf tenderness Results Reviewed Results Reviewed: MR LUMBAR SPINE WITHOUT CONTRAST 06/19/25 CLINICAL INFORMATION: M 51.369. Other intervertebral disc degeneration, lumbar region COMPARISON: MRI dated July 02, 2013 is not available on PACS. TECHNIQUE: MRI of the lumbar spine was obtained using routine sequences without contrast. FINDINGS: Last rib-bearing vertebra labeled T12. Bone marrow STIR signal within the inferior endplate of L3 and superior endplate of L4. Bone marrow inhomogeneity throughout the axial skeleton. Multilevel marginal osteophyte formation and disc desiccation throughout the axial skeleton pronounced at L3-4. There is a dextroconvex rotoscoliosis apex at L2-3. Grade 1 anterolisthesis L3-4 and L4-5 likely degenerative. Conus medullaris ends at pedicle of L1 with normal signal. T12-L1: Broad-based disc bulging. Facet joint hypertrophy. No central spinal canal or neuroforamina stenosis. L1-2: Broad-based disc bulging. Facet joint hypertrophy. No central spinal canal or neuroforamina stenosis. L2-3: Broad-based disc bulging. Facet joint and ligamentum flavum hypertrophy. Reduced AP diameter of the thecal sac and neuroforamina. L3-4: Grade 1 anterolisthesis, uncovered disc, facet joint and ligamentum flavum hypertrophy resulting in central spinal canal and bilateral neuroforamina stenosis, left greater than the right likely encroaching the neural elements of the thecal sac and compressing the left L3 exiting nerve root. L4-5: Grade 1 anterolisthesis resulting in uncovered disc. Facet joint and ligamentum flavum hypertrophy causing central spinal canal and bilateral neuroforamina stenosis likely encroaching/compressing the neural elements. L5-S1: Broad-based disc bulging. Facet joint hypertrophy. No central spinal canal stenosis. Bilateral neuroforamina narrowing likely encroaching the L5 exiting roots. No prevertebral compartment hematoma, mass or fluid collection. There is a 2.5 cm fluid signal characteristic abnormality at the alistair hepatic region just anterior to the inferior vena cava. There is mild prominent intrahepatic and extrahepatic biliary ductal system. . IMPRESSION: Multilevel spondylosis and dextroconvex rotoscoliosis resulting in grade 1 anterolisthesis L3-4 and L4-5 causing central spinal canal stenosis at L4-5 and to a lesser extent L3-4 and bilateral neuroforamina stenosis from L3-4 to L5-S1 pronounced on the left L3-4 and L4-5 levels. Assessment & Plan Assessment & Plan (1) Lumbar degenerative disc disease: Code(s): M51.369 - Other intervertebral disc degeneration, lumbar region without mention of lumbar back pain or lower extremity pain Category: Medical (2) Lumbosacral spondylosis: Code(s): M47.817 - Spondylosis without myelopathy or radiculopathy, lumbosacral region Category: Medical (3) Lumbar back pain with radiculopathy affecting right lower extremity: Code(s): M54.16 - Radiculopathy, lumbar region Category: Medical (4) Lower back pain: Code(s): M54.50 - Low back pain, unspecified Category: Medical (5) Sciatica, right side: Code(s): M54.31 - Sciatica, right side Category: Medical (6) Lumbar spinal stenosis: Code(s): M48.061 - Spinal stenosis, lumbar region without neurogenic claudication Category: Medical Plan The plan includes monitoring the patient's symptoms and considering a Neurosurgi eboni evaluation for minimally invasive lumbar decompression if symptoms persist or worsen. Given the patient's osteoporosis, she is not a candidate for epidural steroid injections, and surgical options are limited. We also reviewed interventional treatments, patient emphasized that she does not have back pain and her main concern is right leg pain with activities or mobility which in turn will aggravate her lower back pain on the right side. The patient is advised to further follow up with her primary care physician and Missile Technician Dr. John for incidental findings on MRI for hepatic c ongestion. All questions and concerns have been answered and patient agreed with the treatment plan. Follow up as needed. Patient was informed and verbally consented to the use of an ambient scribe for clinic note documentation during this visit. Orders: Referrals Neuro Spine Referral M48.061 - Spinal stenosis, lumbar region without neurogenic claudication, M54.16 - Radiculopathy, lumbar region, M54.31 - Sciatica, right side Coding Level of Care Code Est Pt Level 4 (22072) Complex EM visit Add On G2211 Diagnoses Lumbar degenerative disc disease M51.369 Lumbosacral spondylosis M47.817 Lumbar back pain with radiculopathy affecting right lower extremity M54.16 Lower back pain M54.50 Sciatica, right side M54.31 Lumbar spinal stenosis M48.061
[2025-06-26 10:56] VITALS: BP 140/74; PULSE 98; O2SAT 98; BMI 14.8
--- NOTE | 2025-06-26 10:56 | MHC.OFFVIS ---
Vital Signs 06/26/25 10:56 Height 5 ft 5.47 in Weight 90 lb BMI 14.8 BP 140/74 H Blood Pressure Location Rt brachial Position Sitting Pulse 98 Pulse Source Pulse Oximeter Pulse Oximetry (%) 98 Oxygen Delivery Method Room Air Intake Visit Reasons: follow up MRI Intake Note: Pain today 0/10 Room Service Waiter/Waitress Required: No Accompanied by: Self / Same As Patient Allergies pregabalin (From LYRICA) Allergy (Severe, Verified 06/26/25 10:56) CONFUSION ciprofloxacin (From Cipro) Allergy (Intermediate, Verified 06/26/25 10:56) Itching gabapentin (GABAPENTIN) Allergy (Intermediate, Verified 06/26/25 10:56) NAUSEA/VOMITING amlodipine (From Norvasc) Allergy (Verified 06/26/25 10:56) Unknown clarithromycin (From BIAXIN) Adverse Reaction (Intermediate, Verified 06/26/25 10:56) NAUSEA & VOMITING codeine (CODEINE) Adverse Reaction (Intermediate, Verified 06/26/25 10:56) NAUSEA & VOMITING fentanyl (From DURAGESIC) Adverse Reaction (Intermediate, Verified 06/26/25 10:56) NAUSEA/VOMITING levofloxacin (From LEVAQUIN) Adverse Reaction (Intermediate, Verified 06/26/25 10:56) NAUSEA & VOMITING primidone (From Mysoline) Adverse Reaction (Verified 06/26/25 10:56) Nausea and Vomiting PFSH Medical History Peripheral vascular disease Sciatica COPD (chronic obstructive pulmonary disease) Venous (peripheral) insufficiency UTI (urinary tract infection) Pedal edema Hypokalemia GERD (gastroesophageal reflux disease) Chronic diarrhea Sciatica, right side History of mammogram (~05/2024) Right hip pain Right buttock pain Lower back pain NSTEMI (non-ST elevated myocardial infarction) SIRS (systemic inflammatory response syndrome) Guillain-[place] syndrome Fracture, wrist, open History of gastrectomy Parkinson disease High blood pressure Surgical History Hx of arthroscopic knee surgery Hx of hysterectomy H/O pyloroplasty H/O vagotomy Hx of cholecystectomy History of esophagogastroduodenoscopy (EGD) Hx of colonoscopy (~10/22/21) Family History Mother Breast cancer Congestive heart failure Arthritis Social History Household Members: None Housing: Condominium Do you presently have visiting nurse or other home services: No Alcohol intake: current Alcohol intake frequency: 0-2 drinks per day Alcohol type: wine Patient Tobacco Use Status: Never used Tobacco Advance Directives Date on File: 08/14/23 service: No Current occupational status: retired Cognitive needs: No Hearing needs: No Vision needs: Yes (rx glasses) Coding
--- OUTSIDE RECORDS SUMMARY | 2025-06-26 12:58 | XMS_ITS | Clinical Summary ---
Author Organization [facility] Address [address] [place] [address] Phone Care Team Providers Care Extrusion Line Operator Name Role Phone Arpan Johansen MD Primary Care Provider [phone] Social History Tobacco Use Types Packs/Day Years Used Date Smoking Tobacco: Never Assessed Comments Unknown Sex and Gender Information Value Date Recorded Sex Assigned at Female 06/24/2025 3:24 PM EST Legal Sex Female 1:16 PM EST Gender Identity Female 06/24/2025 3:24 PM EST Sexual Orientation Not on file Travel History Travel Start Travel End [place] 06/04/2025 06/18/2025 Plan of Treatment Upcoming Encounters Date Type Department Care Team (Late st Contact Info) Description 07/03/2025 8:30 AM EST [facility]ointment [facility] [address] [phone] Health Maintenance Due Date Last [...] Procedure Name Priority Date/Time Associated Diagnosis Comments [facility] DEXA AXIAL SKELETON Routine 06/08/2023 10:23 AM EDT Encounter for screening for osteoporosis from Last 3 Months or Most Recently Relevant to Health Maintenance Results * [facility] DEXA AXIAL SKELETON (06/08/2023 10:23 AM EDT) Anatomical Region Laterality Modality Mammography 06/08/2023 9:55 AM EDT Narrative 06/08/2023 10:23 AM EDT [facility] Diagnostic Imaging Department [address] [place], [place] [id number] Patient: MCKENZIE CABELLO D.O.B./Age/Sex: 1940 - 82 - F Unit#: [id number] [facility] Physician: SALBADOR POLLARD MD Enrique Dexa [...] probability of hip fracture of 13.9%. Code 46134 Dictating Physician: APRYL BAILON MD Electronically Signed by: APRYL BAILON MD Dic Date/Time: 06/08/23 1022 Sign date/Time: 06/08/23 1023 Procedure Note Apryl Bailon MD - 09/26/2023 [facility] Diagnostic Imaging Department [address] [place] [id number] Patient: MCKENZIE CABELLO Aaron Rowan./Age/Sex: 1940 - 82 - F Unit#: [id number] Location/Status: [facility]/REG CLI Mnemonic[facility] Ordering Physician: SALBADOR POLLARD MD Enrique [...] density of the femurs bilaterally is 0.649 gm/rc4sfbdl is 64% of that of young normals [...] probability of hip fracture of 13.9%. Code 01142 Dictating Physician: APRYL BAILON MD Electronically Signed by: APRYL BAILON MD Dic Date/Time: 06/08/23 1022 Sign date/Time: 06/08/23 1023 Salbador Pollard MD IMG BI PROCEDURES Final Result from Last 3 Months or Most Recently Relevant to Health Maintenance Insurance [employer] - [place] MEDICARE ADVANTAGE Care Teams Extrusion Line Operator Relationship Specialty Start Date End Date Arpan Johansen MD [address] [place] [address] PCP - General Internal Medicine 06/24/25
--- OUTSIDE RECORDS SUMMARY | 2025-06-26 12:58 | XMS_ITS | Patient Health Record ---
Author Organization [facility] Address [address] [place] [address] Care Team Providers Care Ultrasonic Hand Solderer Name Role Phone Nikhil Mckeon Unavailable [phone] Reason For Referral No Information Plan Of Treatment No Information
== END 2025-06-26 11:10 | disposition home or self-care (01) ==
LOC: HO.PMC 10:43
PROVIDERS: PCP Internal Medicine; Visit Provider Nurse Practitioner Family
DX: M51.369 Other intervertebral disc degeneration, lumbar region without mention of lumbar back pain or lower extremity pain (principal); M47.817 Spondylosis without myelopathy or radiculopathy, lumbosacral region; M54.16 Radiculopathy, lumbar region; M54.50 Low back pain, unspecified; M54.31 Sciatica, right side; M48.061 Spinal stenosis, lumbar region without neurogenic claudication
CPT/HCPCS: 99214; G2211

== ENCOUNTER → 2025-06-26 10:43 | Outpatient (BNVA) | payer MEDICARE, SELFPAY | PROVIDERS: PCP Internal Medicine; Visit Provider Nurse Practitioner Family | DX: M47.816 Spondylosis without myelopathy or radiculopathy, lumbar region (principal); M54.50 Low back pain, unspecified; M54.31 Sciatica, right side; M48.061 Spinal stenosis, lumbar region without neurogenic claudication; M51.369 Other intervertebral disc degeneration, lumbar region without mention of lumbar back pain or lower extremity pain; M54.16 Radiculopathy, lumbar region | CPT/HCPCS: 99212 ==

== ENCOUNTER 2025-06-30 11:30 | Outpatient (REF) | payer MEDICARE, SELFPAY ==
[2025-06-30 14:01] LABS: Appearance Urine Turbid; Glucose Urine UA Negative (Negative); PH 6.0 (5.0-9.0); Specific Gravity - Urine >= 1.030 (1.005-1.025); UMIC TRIGGER UACC YES
[2025-06-30 14:15] LABS: UACC Culture Trigger YES
--- OUTSIDE RECORDS SUMMARY | 2025-06-30 14:41 | XMS_ITS | Clinical Summary ---
Author Organization [facility] Address [address] [place] [address] Phone Care Team Providers Care Director Of Retention Name Role Phone Arpan Johansen MD Primary Care Provid er Nikhil Pantoja DO Unavailable [phone] Allergies Active Allergy Reactions Criticality Noted Date [...] 11:59 PM EDT Hospital Encounter [facility] [address] [place] [address] Krissy Willis MD Discharge Disposition: Home or Self Care 06/20/2025 10:20 AM EDT Office [place] [address] Krissy Willis MD Multinodular goiter (Primary Dx); Age-related osteoporosis without current pathological fracture 06/20/2025 Telephone [facility] [place] [address] Krissy Willis MD from Last 3 Months [...] Description 08/25/2025 8:00 AM EST Office Visit [facility] [address] [place] [address] Dmitri Srinivasan MD [address] [facility], [address] [place] [address] [email or web address] 06/24/2026 8:20 AM EST Office Visit [facility] [address] [place] [address] [place] [address] Krissy Willis MD [address] [place] [address] [address] [place] [address] [email or web address] Health Maintenance Due Date Last Done [...] patient's age to complete this topic IPV VACCINES Aged Out No longer eligi ble [...] Blood (Non-MGB) (06/20/2025 11:41 AM EDT) Pathologist [facility] Collagen CTx 97(L) pg/mL [facility] MED/[facility] Comment: (NOTE) REFERENCE VALUE 148-967 (18-29 y) 150-635 (30-39 y) 131-670 (40-49 y) 183-1060 (50-59 y) 171-970 (60-69 y) 152-858 (>70 y) 136-689 (Premenopausal) 177-1015 (Postmenopausal) Flagging is based on the age-specific reference interval and not menopausal status. Blood 06/20/2025 11:4 1 AM EDT 06/20/2025 11:54 AM EDT us Krissy Willis MD LAB BLOOD BKR ORDERABL ES Final Result [facility] MED/[facility] [address] [place] [address] * (ABNORMAL) Comprehensive metabolic panel (06/20/2025 11:41 AM EDT) SODIUM 143 133 - 146 mmol/L [facility] POTASSIUM 3.0(L) 3.3 - 5.1 mmol/L [facility] CHLORIDE 103 96 - 108 mmol/L [facility] CO2 30 21 - 35 mmol/L [facility] BUN 15 6 - 19 mg/dL [facility] CREATININE 0.80 0.5 - 1.5 mg/dL [facility] GLUCOSE 100(H) 70 - 99 mg/dL [facility] ALBUMIN 3.4(L) 3.9 - 4.8 g/dL [facility] TOTAL PROTEIN 5.4(L) 6.5 - 8.0 g/dL [facility] CALCIUM 8.8 8.4 - 10.3 mg/dL [facility] ALKALINE PHOSPHATASE 44 39 - 117 U/L [facility] TOTAL BILIRUBIN 0.3 0.0 - 1.2 mg/dL [facility] AST 40(H) 0 - 37 U/L [facility] ALT <5 0 - 40 U/L [facility] GLOBULIN 2.0 1 - 4.8 g/dL [facility] EGFR 72 >59 mL/min/1.7 3m2 [facility] Comment:Estimated glomerular filtration rate calculated using the CKD-EPI refit equation. ANION GAP 13 10 - 20 mmol/L [facility] Blood 06/20/2025 11:4 1 AM EDT 06/20/2025 11:53 AM EDT us Krissy Willis MD LAB BLOOD BKR ORDERABL ES Final Result [address] [address] * TSH with reflex (06/20/2025 11:41 AM EDT) TSH 0.83 0.27 - 4.20 uIU/mL [facility] Blood 06/20/2025 11:4 1 AM EDT 06/20/2025 11:53 AM EDT us Krissy Willis MD LAB BLOOD BKR ORDERABL ES Final Result [address] [address] * 25-OH vitamin D (06/20/2025 11:41 AM EDT) 25 OH VIT D (TOTAL) 43 30 - 60 ng/mL [facility] Blood 06/20/2025 11:4 1 AM EDT 06/20/2025 11:53 AM EDT us Krissy Willis MD LAB BLOOD BKR ORDERABL ES Final Result [address] [address] * Phosphorus (06/20/2025 11:41 AM EDT) PHOSPHORUS 3.3 2.7 - 4.5 mg/dL [facility] Blood 06/20/2025 11:4 1 AM EDT 06/20/2025 11:53 AM EDT us Krissy Willis MD LAB BLOOD BKR ORDERABL ES Final Result Performing Organization Address [facility]/ZIP Co de Phone Number [address] [address] * Parathyroid hormone (PTH) (06/20/2025 11:41 AM EDT) PARATHYROID HORMONE 55 15 - 65 pg/mL [facility] Blood 06/20/2025 11:4 1 AM EDT 06/20/2025 11:54 AM EDT us Krissy Willis MD LAB BLOOD BKR ORDERABL ES Final Result [address] [address] from Last 3 Months Insurance [employer] MEDIC[place] P[place] BLUE REPLACEMENT MEDICARE PPO [place] [address] [place] [address] MED[address]ARE [address]PO [address] [place] [address] [address] [place] [address] MEDICARE PPO BLUE REPLACEMENT [facility] MEDICARE PPO BLUE REPLACEMENT [facility] MEDICARE PPO BLUE REPLACEMENT Care Teams Director Of Retention Relationship Specialty Start Date End Date Arpan Johansen MD [address] [place] [phone] PCP - General Internal Medicine 06/23/25 Nikhil Pantoja DO [address] [place] [phone] Internal Medicine 06/23/25 Additional Source Comments The information contained in this document represents components of the legal health record. It is not the complete legal health record.[facility]
--- OUTSIDE RECORDS SUMMARY | 2025-06-30 14:41 | XMS_ITS | Clinical Summary ---
Author Organization [facility] Address [address] [place] [address] Phone Care Team Providers Care Cabin Worker Name Role Phone Arpan Johansen MD Primary Care Provider [phone]- [phone] Social History Tobacco Use Types Packs/Day Years [...] AM EST [facility]ment [facility] at [address] [address] Health Maintenance Due Date Last [...] AM EDT Narrative 06/08/2023 10:23 AM EDT [facility] Diagnostic Imaging Department [address] [place], [place] [id number] Patient: MCKENZIE CABELLO D.O.B./Age/Sex: 1940 - 82 - F Unit#: [id number] [facility] Order[facility] Physician: SALBADOR POLLARD MD Enrique Dexa [...] probability of hip fracture of 13.9%. Code 31107 Dictating Physician: APRYL BAILON MD Electronically Signed by: APRYL BAILON MD Dic Date/Time: 06/08/23 1022 Sign date/Time: 06/08/23 1023 Procedure Note Apryl Bailon MD - 09/26/2023 [facility] Diagnostic Imaging Department [address] [place] [address] Patient: MCKENZIE CABELLO Aaron Rowan./Age/Sex: 1940 - 82 - F Unit#: [id number] Location/Status: [facility]AM/REG CLI Mnemonic[facility] Ordering Physician: SALBADOR POLLARD MD Enrique Dexa [...] density of the femurs bilaterally is 0.649 gm/ci4datlo is 64% of that of young normals [...] probability of hip fracture of 13.9%. Code 96624 Dictating Physician: APRYL BAILON MD Electronically Signed by: APRYL BAILON MD Dic Date/Time: 06/08/23 1022 Sign date/Time: 06/08/23 1023 Salbador Pollard MD IMG BI PROCEDURES Final Result from Last 3 Months or Most Recently Relevant to Health Maintenance Insurance BLUE CROSS - [place] MEDIC[place] AD[place]ANT[place] Care Teams Cabin Worker Relationship Specialty Start Date End Date Arpan Johansen MD [address] [place] [address] PCP - General Internal Medicine 06/24/25
--- OUTSIDE RECORDS SUMMARY | 2025-06-30 14:41 | XMS_ITS | Encounter Summary ---
Author Organization [facility] Address [address] [place] [address] Phone Care Team Providers Care Control And Recovery Combat Rescue Name Role Phone Salbador Severino MD Primary Care Provider [phone]- [phone] Pcp, Unknown Primary Care Provider Arpan Patterson MD Primary Care Provid er Nikhil Panotja DO Unavailable [phone] Encounter Details Date Type Department Care Team (Late st Contact Info) Description 06/16/2023 Ancillary Orders [facility],Outside Imaging [address] [place], [place] [phone] System, Provider Not In, [facility] [address] [address] Social History Tobacco Use Types Packs/Day Years [...] Description 08/25/2025 8:00 AM EST Office Visit [facility] Medicine [address] [place] [address] Dmitri Srinivasan MD 234 [facility], [address] [place] [address] [email or web address] 06/24/2026 8:20 AM EST Office Visit [facility] [address] [place] [address] Krissy Willis MD 22 [facility] [address] [place] [address] [email or web address] documented as of this [...] on filedocumented in this encounter Care Teams Control And Recovery Combat Rescue Relationship Specialty Start Date End Date Salbador Severino MD [address] [place] [address] PCP - General Internal Medicine 03/21/23 06/19/25 Pcp, Unknown PCP - General 06/20/25 06/22/25 Arpan Johansen MD [address] [place] [address] PCP - General Internal Medicine 06/23/25 Nikhil Pantoja DO [address] [place] [address] Internal Medicine 06/23/25 documented as of this encounter Additional Source Comments The information contained in this document represents components of the legal health record. It is not the complete legal health record.[facility]
== END 2025-06-30 11:31 | disposition home or self-care (01) ==
LOC: HO.HMGCLNP 11:30
PROVIDERS: Visit Provider Physician Assistant Medical
DX: Z00.00 Encounter for general adult medical examination without abnormal findings (principal)
CPT/HCPCS: 81001; 81003; 87086

== ENCOUNTER 2025-07-02 09:59 | Outpatient (AMB) | payer MEDICARE, SELFPAY ==
--- NOTE | 2025-07-02 10:05 | MHC.OFFVIS ---
Intake Visit Reasons: 6m PD Allergies pregabalin (From LYRICA) Allergy (Severe, Verified 06/26/25 10:56) CONFUSION ciprofloxacin (From Cipro) Allergy (Intermediate, Verified 06/26/25 10:56) Itching gabapentin (GABAPENTIN) Allergy (Intermediate, Verified 06/26/25 10:56) NAUSEA/VOMITING amlodipine (From Norvasc) Allergy (Verified 06/26/25 10:56) Unknown clarithromycin (From BIAXIN) Adverse Reaction (Intermediate, Verified 06/26/25 10:56) NAUSEA & VOMITING codeine (CODEINE) Adverse Reaction (Intermediate, Verified 06/26/25 10:56) NAUSEA & VOMITING fentanyl (From DURAGESIC) Adverse Reaction (Intermediate, Verified 06/26/25 10:56) NAUSEA/VOMITING levofloxacin (From LEVAQUIN) Adverse Reaction (Intermediate, Verified 06/26/25 10:56) NAUSEA & VOMITING primidone (From Mysoline) Adverse Reaction (Verified 06/26/25 10:56) Nausea and Vomiting Medication List - Last Reconciled 07/02/25 by Darien Ridley MD alendronate mg PO carbidopa-levodopa 25-100 mg 1 tab PO TID cholecalciferol (vitamin D3) 125 mcg PO DAILY ferrous sulfate ER 65 mg PO DAILY hydrochlorothiazide 25 mg PO DAILY lorazepam 1 mg PO DAILY PRN nitrofurantoin monohyd/m-cryst 100 mg (Macrobid) 100 mg PO Q12H 7 days omeprazole 40 mg PO DAILY oxybutynin chloride ER 10 mg PO DAILY propranolol 80 mg PO TID HPI Comments Details: 85 yr old woman with PD, Essential tremor and peripheral neuropathy is here for 6 monthly f/u. Tremors may be very slightly worse but she can function ok. Sleeping well now. Voice is getting softer. Is constantly tired. Upper endoscopy showed gastritis and biliary reflux into stomach. Weight is 90 currently. She developed tremors in her hands around 2012-. Her tremor has been occurring intermittently at rest and has developed micrographia. Unable to tolerate even 25mg Primidone. Predominantly right hand tremor especially when trying to drink. No side effects. She has a family history of tremors in her sister. 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 She has a long history of pain and burning constantly in both lower extremities from the hips down related to peripheral neuropathy. In the past she has tried amitriptyline, Cymbalta and Lyrica in with some side effects. She has learned to deal with it so it is not a major factor at this point. 5 months of right sided sciatica which is getting better.. 06/19/25 MRI LS spine: Multilevel spondylosis and dextroconvex rotoscoliosis resulting in grade 1 anterolisthesis L3-4 and L4-5 causing central spinal canal stenosis at L4-5 and to a lesser extent L3-4 and bilateral neuroforamina stenosis from L3-4 to L5-S1 pronounced on the left L3-4 and L4-5 levels. [facility] Medical History Peripheral vascular disease Sciatica COPD (chronic obstructive pulmonary disease) Venous (peripheral) insufficiency UTI (urinary tract infection) Pedal edema Hypokalemia GERD (gastroesophageal reflux disease) Chronic diarrhea Sciatica, right side History of mammogram (~05/2024) Right hip pain Right buttock pain Lower back pain NSTEMI (non-ST elevated myocardial infarction) SIRS (systemic inflammatory response syndrome) Guillain-Hollywood syndrome Fracture, wrist, open History of gastrectomy Parkinson disease High blood pressure Surgical History Hx of arthroscopic knee surgery Hx of hysterectomy H/O pyloroplasty H/O vagotomy Hx of cholecystectomy History of esophagogastroduodenoscopy (EGD) Hx of colonoscopy (~10/22/21) Family History Mother Breast cancer Congestive heart failure Arthritis Social History Household Members: None Housing: Condominium Do you presently have visiting nurse or other home services: No Alcohol intake: current Alcohol intake frequency: 0-2 drinks per day Alcohol type: wine Patient Tobacco Use Status: Never used Tobacco Advance Directives Date on File: 08/14/23 service: No Current occupational status: retired Cognitive needs: No Hearing needs: No Vision needs: Yes (rx glasses) Review of Systems Const Details: Sleep:? Difficulty getting to sleepdenies.? Difficulty maintaining sleepadmits.? Urge to move legsdenies.? Teeth grindingdenies.? Shouting or Kicking during sleepdenies.? Abnormal behavior during sleepdenies.? Excessive sleepdenies.? Snoringdenies.? Daytime sleepinessdenies. ???General/Constitutional:? Change in appetitedenies.? Chillsdenies.? Fatiguedenies.? Feverdenies.? Weight gaindenies.? Weight lossdenies. ???Ophthalmologic:? Blurred visiondenies.? Diminished visual acuitydenies. ???ENT:? Stuffinessdenies.? Decreased hearingdenies.? Dry mouthdenies.? Ear paindenies.? Nosebleeddenies.? Ringing in the earsdenies.? Sinus paindenies.? Sore throatdenies.? Swollen glandsdenies. ???Endocrine:? Cold intolerancedenies.? Excessive thirstdenies.? Frequent urinationdenies.? Heat intolerancedenies. ???Respiratory:? Shortness of breathdenies.? Chest paindenies.? Coughdenies. ???Breast:? Breast lumpdenies.? Nipple dischargedenies. ???Cardiovascular:? Chest pain at restdenies.? Chest pain with exertiondenies.? Claudicationdenies.? Dizzinessdenies.? Fluid accumulation in the legsdenies.? Irregular heartbeatdenies.? Palpitationsdenies. ???Gastrointestinal:? Abdominal paindenies.? Constipationdenies.? Diarrheadenies.? Difficulty swallowingdenies.? Heartburnadmits.? Nauseadenies.? Rectal bleedingdenies. ???Hematology:? Easy bruisingdenies.? Prolonged bleedingdenies. ???Genitourinary:? Frequent urinationadmits.? Urgencydenies.? Incontinencedenies.? Erectile Dysfunctiondenies. ???Musculoskeletal:? Neck paindenies.? Back paindenies.? Muscle achesdenies.? Painful jointsStiffness.? Sciaticadenies.? Weaknessdenies. ???Podiatric:? Difficulty walkingdenies.? Foot numbnessdenies. ???Neurologic:? Difficulty swallowingdenies.? Balance difficultydenies.? Coordinationnormal.? Difficulty speakingdenies.? Dizzinessdenies.? Faintingdenies.? Gait abnormalitydenies.? Headachedenies.? Loss of strengthdenies.? Loss of use of extremitydenies.? Low back paindenies.? Memory lossdenies.? Seizuresdenies.? Ticsdenies.? Tingling/NumbnessBoth lower extremities.? Transient loss of visiondenies.? Tremoradmits. ???Psychiatric:? Anxietydenies.? Auditory/visual hallucinationsdenies.? Delusionsdenies.? Depressed mooddenies.? Stressorsdenies.? Substance abusedenies.? Suicidal thoughtsdenies. Musc Reports numbness Neuro Reports numbness and Reports tremor(s) Physical Exam Neuro Other: Mini Mental Status Exam: Level of Consciousness:??Alert.?Orientation:??Knows correct year, month, date, day and season,?Knows correct city, county and state. Knows correct location and floor.?Registration:??Able to register 3 objects.?Attention:??Serial 7's performed accurately.?Recall:??Able to recall 3 out of 3 objects.?Language:??Normal spontaneous speech, fluency, repetition,naming, comprehension, reading and writing.?Total Score:??30/30.? General Examination: GENERAL APPEARANCE:??normal,?in no acute distress.?HEAD:??normocephalic,?atraumatic.?EYES:??sclera non-icteric,?conjunctiva clear.?.?EXTREMITIES:??no edema.?PERIPHERAL PULSES:??normal.?PSYCH:??alert, oriented,?cognitive function intact,?cooperative with exam.? Neurological: Abnormal neurological findings:??Intermittent low amplitude resting tremor 4 Hz in RUE and micrographia .Minimal tremors of the outstretched upper extremities . Absent reflexes in the lower extremities with distal blunting of pinprick and vibration sensation.?Mental Status:??alert and oriented X 3,?Normal attention, orientation, memory and affect.?Cranial Nerves:??Pupils are equal, round and reactive to light. Fundoscopy shows normal disc bilaterally. External occular muscles are intact. Visual gomez are full, no ptosis. Face is symmetrical, no facial weakness or droop. Facial sensations are normal. Tongue protrudes in midline. Palate elevates symmetrically. Shoulder shrugging is normal..?Motor Examination:??Normal muscle tone, bulk and strength,?No atrophy or fasciculations,?No drift of the extended upper extremities,?Deep tendon reflexes are 2+?,?Plantars are flexor?.?Straight Leg Raising:??90 degrees.?Sensory Exam:??Distal blunting of pinprick and vibration sensation in the feet. Normal light touch, temperature, pinprick, vibration and joint-position sensations in the upper extremities?,?Rhomberg sign is absent.?Coordination:??no ataxia,?no titubation,?fuarrv-gr-ogza, nnzw-tmls-zjbv test and rapid alternating movements were normal.?Gait Exam:??Within normal limits.?Cerebellar Signs:??Dhrpuw-on-ponh and vmpc-gg-wxqk is normal,?no dysdiadochokinesia?.?Extrapyramidal System:??No rigidity with normal facial expressions,?No bradykinesia, no bradyphrenia. Normal arm swing and posture. No propulsion or retropulsion. Tremor as described above.?Speech:??Normal,?no dysphasia or dysarthria..? Assessment & Plan Assessment & Plan (1) Parkinson disease: Code(s): G20 - Parkinson's disease Category: Medical (2) Essential tremor: Code(s): G25.0 - Essential tremor Category: Medical (3) Peripheral neuropathy: Comment: stable chronic , idopathic Code(s): G62.9 - Polyneuropathy, unspecified Category: Medical Plan Continue current meds. Will undergo abdominal MRI for fluid collection around alistair hepatis. Coding Level of Care Code Est Pt Level 4 (56406) Diagnoses Parkinson disease G20 Essential tremor G25.0 Peripheral neuropathy G62.9
--- OUTSIDE RECORDS SUMMARY | 2025-07-02 11:42 | XMS_ITS | Encounter Summary ---
Author Organization [facility] Address [address] [place] [address] Phone Care Team Providers Care Hi Lo Driver Name Role Phone Salbador Severino MD Primary Care Provider [phone]- [phone] Pcp, Unknown Primary Care Provider Arpan Patterson MD Primary Care Provid er Nikhil Pantoja DO Unavailable [phone] Encounter Details Date Type Department Care Team (Late st Contact Info) Description 06/16/2023 Ancillary Orders [facility],Outside Imaging [address] [place], [place] [phone] System, Provider Not In, [facility] [address] [address] Social History Tobacco Use Types Packs/Day Years [...] Description 08/25/2025 8:00 AM EST Office Visit [facility] Medicine [address] [place] [address] Dmitri Srinivasan MD 234 [facility], [address] [place] [address] [email or web address] 06/24/2026 8:20 AM EST Office Visit [facility] [address] [place] [address] Krissy Willis MD 22 [facility] 3rd [place] [address] [email or web address] documented as of this encounter Results * [...] on filedocumented in this encounter Care Teams Hi Lo Driver Relationship Specialty Start Date End Date Salbador Severino MD [address] [place] [address] PCP - General Internal Medicine 03/21/23 06/19/25 Pcp, Unknown PCP - General 06/20/25 06/22/25 Arpan Johansen MD [address] [place] [address] PCP - General Internal Medicine 06/23/25 Nikhil Pantoja DO [address] [place] [address] Internal Medicine 06/23/25 documented as of this encounter Additional Source Comments The information contained in this document represents components of the legal health record. It is not the complete legal health record.[facility]
--- OUTSIDE RECORDS SUMMARY | 2025-07-02 11:42 | XMS_ITS | Clinical Summary ---
Author Organization [facility] Address [address] [place] [address] Phone Care Team Providers Care Vice President & General Manager [employer] Name Role Phone Arpan Johansen MD Primary Care Provid er Nikhil Pantoja DO Unavailable Allergies Active Allergy Reactions Criticality Noted Date [...] 11:59 PM EDT Hospital Encounter [facility] [address] [place] [address] Krissy Willis MD Discharge Disposition: Home or Self Care 06/20/2025 10:20 AM EDT Office [place] [address] Krissy Willis MD Multinodular goiter (Primary Dx); Age-related osteoporosis without current pathological fracture 06/20/2025 Telephone [facility] [place] [address] Krissy Willis MD from Last 3 Months [...] Description 08/25/2025 8:00 AM EST Office Visit [facility] Medicine [address] [place] [address] Dmitri Srinivasan MD 234 [facility], [address] [place] [address] [email or web address] 06/24/2026 8:20 AM EST Office Visit [facility] [address] [place] [address] [place] [address] Krissy Willis MD [address] [place] [address] [address] [place] [address] [email or web address] Health Maintenance Due Date [...] Blood (Non-MGB) (06/20/2025 11:41 AM EDT) Pathologist [facility] Collagen CTx 97(L) pg/mL [facility] MED/PATH SUPERIOR Comment: (NOTE) REFERENCE VALUE 148-967 (18-29 y) 150-635 (30-39 y) 131-670 (40-49 y) 183-1060 (50-59 y) 171-970 (60-69 y) 152-858 (>70 y) 136-689 (Premenopausal) 177-1015 (Postmenopausal) Flagging is based on the age-specific reference interval and not menopausal status. Blood 06/20/2025 11:4 1 AM EDT 06/20/2025 11:54 AM EDT us Krissy Willis MD LAB BLOOD BKR ORDERABL ES Final Result [facility] MED/PATH [address] [place] [address] * (ABNORMAL) Comprehensive metabolic panel (06/20/2025 11:41 AM EDT) SODIUM 143 133 - 146 mmol/L [facility] POTASSIUM 3.0(L) 3.3 - 5.1 mmol/L [facility] CHLORIDE 103 96 - 108 mmol/L [facility] CO2 30 21 - 35 mmol/L [facility] BUN 15 6 - 19 mg/dL [facility] CREATININE 0.80 0.5 - 1.5 mg/dL [facility] GLUCOSE 100(H) 70 - 99 mg/dL [facility] ALBUMIN 3.4(L) 3.9 - 4.8 g/dL [facility] TOTAL PROTEIN 5.4(L) 6.5 - 8.0 g/dL [facility] CALCIUM 8.8 8.4 - 10.3 mg/dL [facility] ALKALINE PHOSPHATASE 44 39 - 117 U/L [facility] TOTAL BILIRUBIN 0.3 0.0 - 1.2 mg/dL [facility] AST 40(H) 0 - 37 U/L [facility] ALT <5 0 - 40 U/L [facility] GLOBULIN 2.0 1 - 4.8 g/dL [facility] EGFR 72 >59 mL/min/1.7 3m2 [facility] Comment:Estimated glomerular filtration rate calculated using the CKD-EPI refit equation. ANION GAP 13 10 - 20 mmol/L [facility] Blood 06/20/2025 11:4 1 AM EDT 06/20/2025 11:53 AM EDT us Krissy Willis MD LAB BLOOD BKR ORDERABL ES Final Result [address] [address] * TSH with reflex (06/20/2025 11:41 AM EDT) TSH 0.83 0.27 - 4.20 uIU/mL [facility] Blood 06/20/2025 11:4 1 AM EDT 06/20/2025 11:53 AM EDT us Krissy Willis MD LAB BLOOD BKR ORDERABL ES Final Result [address] [address] * 25-OH vitamin D (06/20/2025 11:41 AM EDT) 25 OH VIT D (TOTAL) 43 30 - 60 ng/mL [facility] Blood 06/20/2025 11:4 1 AM EDT 06/20/2025 11:53 AM EDT us Krissy Willis MD LAB BLOOD BKR ORDERABL ES Final Result [address] [address] * Phosphorus (06/20/2025 11:41 AM EDT) PHOSPHORUS 3.3 2.7 - 4.5 mg/dL [facility] Blood 06/20/2025 11:4 1 AM EDT 06/20/2025 11:53 AM EDT us Krissy Willis MD LAB BLOOD BKR ORDERABL ES Final Result Performing Organization Address [facility]/ZIP Co de Phone Number [address] [address] * Parathyroid hormone (PTH) (06/20/2025 11:41 AM EDT) PARATHYROID HORMONE 55 15 - 65 pg/mL [facility] Blood 06/20/2025 11:4 1 AM EDT 06/20/2025 11:54 AM EDT us Krissy Willis MD LAB BLOOD BKR ORDERABL ES Final Result [address] [address] from Last 3 Months Insurance BLUE CROSS [place] MEDICARE PPO BLUE REPLACEMENT MEDICARE PPO BLUE [place] [address] MEDICARE PPO BLUE [address] [address] MEDICARE PPO BLUE REPLACEMENT [facility] MEDICARE PPO BLUE REPLACEMENT [facility] MEDICARE PPO BLUE REPLACEMENT Care Teams Vice President & General Manager [employer] Relationship Specialty Start Date End Date Arpan Johansen MD [address] [place] [address] PCP - General Internal Medicine 06/23/25 Nikhil Pantoja DO [address] [place] [address] Internal Medicine 06/23/25 Additional Source Comments The information contained in this document represents components of the legal health record. It is not the complete legal health record.[facility]
--- OUTSIDE RECORDS SUMMARY | 2025-07-02 11:42 | XMS_ITS | Patient Health Record ---
Author Organization [facility] Address [address] [place] [address] Care Team Providers Care Oil Field Operator Name Role Phone Nikhil Mckeon Unavailable [phone] Reason For Referral No Information Plan Of Treatment No Information
--- OUTSIDE RECORDS SUMMARY | 2025-07-02 11:42 | XMS_ITS | Clinical Summary ---
Author Organization [facility] Address [address] [place] [address] Phone Care Team Providers Care Distance Learning Administrator Name Role Phone Arpan Johansen MD Primary Care Provider [phone] Social History Tobacco Use Types Packs/Day Years Used Date Smoking Tobacco: Never Assessed Comments Unknown Sex and Gender Information Value Date Recorded Sex Assigned at Female 06/24/2025 3:24 PM EST Legal Sex Female 1:16 PM EST Gender Identity Female 06/24/2025 3:24 PM EST Sexual Orientation Not on file Travel History Travel Start Travel End [place] 06/04/2025 06/18/2025 Plan of Treatment Upcoming Encounters Date Type Department Care Team (Late st Contact Info) Description 07/03/2025 8:30 AM EST [facility]ointment [facility] at [address] [address] Health Maintenance Due Date Last [...] Depression Screening 08/21/2024 COVID-19 Vaccine ( - 2024-2 6 season) 2025 Influenza Vaccine (#1) 2025 Osteoporosis [...] Procedure Name Priority Date/Time Associated Diagnosis Comments [facility] DEXA AXIAL SKELETON Routine 06/08/2023 10:23 AM EDT Encounter for screening for osteoporosis from Last 3 Months or Most Recently Relevant to Health Maintenance Results * [facility] DEXA AXIAL SKELETON (06/08/2023 10:23 AM EDT) Anatomical Region Laterality Modality Mammography 06/08/2023 9:55 AM EDT Narrative 06/08/2023 10:23 AM EDT [facility] Diagnostic Imaging Department [address] [place], [place] [address] Patient: MCKENZIE CABELLO D.O.B./Age/Sex: 1940 - 82 - F Unit#: [id number] [facility]ing [facility] Ordering Physician: SALBADOR POLLARD MD Enrique Dexa [...] probability of hip fracture of 13.9%. Code 19981 Dictating Physician: APRYL BAILON MD Electronically Signed by: APRYL BAILON MD Dic Date/Time: 06/08/23 1022 Sign date/Time: 06/08/23 1023 Procedure Note Apryl Bailon MD - 09/26/2023 [facility] Diagnostic Imaging Department [address] [place] [address] Patient: MCKENZIE CABELLO Aaron Rowan./Age/Sex: 1940 - 82 - F Unit#: [id number] Location/Status: SPDIMAM/REG CLI Mnemonic[facility] Ordering Physician: SALBADOR POLLARD MD Enrique [...] density of the femurs bilaterally is 0.649 gm/ef1hqtin is 64% of that of young normals [...] probability of hip fracture of 13.9%. Code 71497 Dictating Physician: APRYL BAILON MD Electronically Signed by: APRYL BAILON MD Dic Date/Time: 06/08/23 1022 Sign date/Time: 06/08/23 1023 Salbador Pollard MD IMG BI PROCEDURES Final Result from Last 3 Months or Most Recently Relevant to Health Maintenance Insurance BLUE CROSS - [place] MEDICARE ADVANTAGE Care Teams Distance Learning Administrator Relationship Specialty Start Date End Date Arpan Johansen MD [address] [place] [address] PCP - General Internal Medicine 06/24/25
== END 2025-07-02 10:26 | disposition home or self-care (01) ==
LOC: HO.HSM 09:59
PROVIDERS: PCP Internal Medicine; Referring Provider Internal Medicine; Visit Provider Psychiatry & Neurology Neurology
DX: G20.C Parkinsonism, unspecified (principal); G25.0 Essential tremor; G62.9 Polyneuropathy, unspecified
CPT/HCPCS: 99214

== ENCOUNTER → 2025-07-02 09:59 | Outpatient (BNVA) | payer MEDICARE, SELFPAY | PROVIDERS: PCP Internal Medicine; Referring Provider Internal Medicine; Visit Provider Psychiatry & Neurology Neurology | DX: G20.A1 Parkinson's disease without dyskinesia, without mention of fluctuations (principal); G25.0 Essential tremor; G62.9 Polyneuropathy, unspecified | CPT/HCPCS: 99212 ==

== ENCOUNTER → 2025-07-11 13:35 | Outpatient (BNV) | payer MEDICARE, SELFPAY | PROVIDERS: Visit Provider Radiology Diagnostic Radiology | DX: K83.8 Other specified diseases of biliary tract (principal) | CPT/HCPCS: 74183 ==

== ENCOUNTER 2025-07-11 13:37 | Outpatient (REF) | payer MEDICARE, SELFPAY ==
--- NOTE | ~2025-07-11 | MR_ITS ---
EXAMINATION: MR ABDOMEN WITHOUT AND WITH CONTRAST CLINICAL INFORMATION: K 83.8. Other specified disease is of biliary tract. COMPARISON: Correlated to CT dated August 18, 2023. TECHNIQUE: MR abdomen was performed without and with use of 4.0 mL intravenous [(Gadavist) gadolinium contrast. Postcontrast images are performed in multiphase dynamic sequences. Imaging was performed in 3 planes. No reported immediate complications. FINDINGS: LUNG BASES: No signal abnormality or enhancing mass. LIVER, GALLBLADDER, AND BILIARY TREE: Liver measures 13 cm in maximum length. There are few scattered less than 2 mm nonenhancing or restricted diffusion fluid signal characteristic lesions throughout the parenchyma. Main portal veins, hepatic veins and intrahepatic portion of the IVC are patent. There is a mild intrahepatic biliary ductal dilatation. The common bile duct measures 11 mm in maximum diameter without gross intraluminal signal abnormality. There is a 2.3 x 1.7 cm nonenhancing fluid signal characteristic signal abnormality at the the alistair hepatic/gallbladder fossa region. PANCREAS: Main pancreatic duct measures 1.5 mm. No solid or cystic lesion. No peripancreatic fluid collection. SPLEEN: 8 cm. No solid or cystic lesion ADRENAL GLANDS: No nodular lesion. KIDNEYS AND URETERS: No enhancing mass. No hydronephrosis. Subcentimeter cyst. No perinephric edema pattern or fluid collections. GASTROINTESTINAL TRACT: Abundant stool. No intestinal obstruction pattern. ABDOMINAL WALL: No umbilical hernia. LYMPH NODES: No gross mesenteric or retroperitoneal lymphadenopathy. VASCULAR: No aneurysm or dissection, abdominal aorta. OSSEOUS STRUCTURES: Multilevel thoracolumbar spondylosis and grade 1 anterolisthesis L3-4 and L4-5 levels with a levoconvex curvature apex at L4-5 and dextroconvex curvature apex at L2-3. Bone marrow inhomogeneity. MR/MR abdomen wo/w con IMPRESSION: Intrahepatic and extrahepatic biliary ductal dilatation with associated 2.3 x 1.7 cm nonenhancing cystic abnormality probably at the cystic duct. Stenosis at the sphincter of Oddi cannot be excluded. Overall slightly larger since prior CT from August 18, 2023. No ascites. Electronically signed by: Dean Arredondo MD 07/11/2025 03:07 PM [facility]
--- OUTSIDE RECORDS SUMMARY | 2025-07-11 14:03 | XMS_ITS | Patient Health Record ---
Author Organization [facility] Address [address] [place] [id number] Care Team Providers Care Electric Distribution Checker Name Role Phone Nikhil Mckeon Unavailable [phone] Reason For Referral No Information Plan Of Treatment No Information
--- OUTSIDE RECORDS SUMMARY | 2025-07-11 14:03 | XMS_ITS | Clinical Summary ---
Author Organization [facility] Address [address] [place] [address] Phone Care Team Providers Care Commercial Helicopter Pilot Name Role Phone Arpan Johansen MD Primary Care Provid er Nikhil Pantoja DO Unavailable [phone] Allergies Active Allergy Reactions Criticality Noted Date [...] 11:59 PM EDT Hospital Encounter [facility] [address] [place] [address] Krissy Willis MD Discharge Disposition: Home or Self Care 06/20/2025 10:20 AM EDT Office [place] [address] Krissy Willis MD Multinodular goiter (Primary Dx); Age-related osteoporosis without current pathological fracture 06/20/2025 Telephone [facility] [address] Krissy Willis MD from Last 3 Months [...] Description 08/25/2025 8:00 AM EST Office Visit [facility] [address] [place] [address] Dmitri Srinivasan MD [address] [facility], [address] [place] [address] [email or web address] 06/24/2026 8:20 AM EST Office Visit [facility] [address] [place] [address] [place] [address] Krissy Willis MD [address] [place] [address] [address] [place] [address] [email or web address] Health Maintenance Due Date Last Done [...] 1b-telopeptide, Blood (Non-MGB) (06/20/2025 11:41 AM EDT) [facility] Collagen CTx 97(L) pg/mL [facility] LAB MED/PATH SUPERIOR Comment: (NOTE) [...] LAB BLOOD BKR ORDERABL ES Final Result [facility] LAB MED/PATH SUPERIOR [address] [place] [address] * (ABNORMAL) Comprehensive metabolic panel (06/20/2025 11:41 AM EDT) [facility] SODIUM 143 133 - 146 mmol/L [facility] POTASSIUM 3.0(L) 3.3 - 5.1 mmol/L [facility] CHLORIDE 103 96 - 108 mmol/L [facility] CO2 30 21 - 35 mmol/L [facility] BUN 15 6 - 19 mg/dL [facility] CREATININE 0.80 0.5 - 1.5 mg/dL [facility] GLUCOSE 100(H) 70 - 99 mg/dL [facility] ALBUMIN 3.4(L) 3.9 - 4.8 g/dL [facility] TOTAL PROTEIN 5.4(L) 6.5 - 8.0 g/dL [facility] CALCIUM 8.8 8.4 - 10.3 mg/dL [facility] ALKALINE PHOSPHATASE 44 39 - 117 U/L [facility] TOTAL BILIRUBIN 0.3 0.0 - 1.2 mg/dL [facility] AST 40(H) 0 - 37 U/L [facility] ALT <5 0 - 40 U/L [facility] GLOBULIN 2.0 1 - 4.8 g/dL [facility] EGFR 72 >59 mL/min/1.7 3m2 [facility] Comment:Estimated glomerular filtration rate calculated using the CKD-EPI refit equation. ANION GAP 13 10 - 20 mmol/L [facility] Blood 06/20/2025 11:4 1 AM EDT 06/20/2025 11:53 AM EDT Result Robert Willis MD LAB BLOOD BKR ORDERABL ES Final Result Performing Organization Address City/[facility]/ZIP Co de Phone Number [address] [address] * TSH with reflex (06/20/2025 11:41 AM EDT) TSH 0.83 0.27 - 4.20 uIU/mL [facility] Blood 06/20/2025 11:4 1 AM EDT 06/20/2025 11:53 AM EDT us Krissy Willis MD LAB BLOOD BKR ORDERABL ES Final Result [address] [address] * 25-OH vitamin D (06/20/2025 11:41 AM EDT) 25 OH VIT D (TOTAL) 43 30 - 60 ng/mL [facility] Blood 06/20/2025 11:4 1 AM EDT 06/20/2025 11:53 AM EDT us Krissy Willis MD LAB BLOOD BKR ORDERABL ES Final Result [address] [address] * Phosphorus (06/20/2025 11:41 AM EDT) PHOSPHORUS 3.3 2.7 - 4.5 mg/dL [facility] Blood 06/20/2025 11:4 1 AM EDT 06/20/2025 11:53 AM EDT Krissy Willis MD LAB BLOOD BKR ORDERABL ES Final Result Performing Organization Address City/[facility]/ZIP Co de Phone Number [address] [address] * Parathyroid hormone (PTH) (06/20/2025 11:41 AM EDT) PARATHYROID HORMONE 55 15 - 65 pg/mL [facility] Blood 06/20/2025 11:4 1 AM EDT 06/20/2025 11:54 AM EDT us Krissy Willis MD LAB BLOOD BKR ORDERABL ES Final Result Performing Organization Address City/[facility]/ZIP Co de Phone Number [address] [address] from Last 3 Months Insurance [facility] MEDICARE PPO BLUE REPLACEMENT MEDICARE PPO BLUE REPLACEMENT MEDICARE PPO [place] [address] [place] [address] [address] [place] [address] [place] [address] MEDICARE [address]PO [place] [address] [place] [address] MEDICARE PPO BLUE REPLACEMENT Care Teams Commercial Helicopter Pilot Relationship Specialty Start Date End Date Arpan Johansen MD [address] [place] [address] PCP - General Internal Medicine 06/23/25 Nikhil Pantoja DO [address] [place] [address] Internal Medicine 06/23/25 Additional Source Comments The information contained in this document represents components of the legal health record. It is not the complete legal health record.[facility]
--- OUTSIDE RECORDS SUMMARY | 2025-07-11 14:03 | XMS_ITS | Clinical Summary ---
Author Organization [facility] Address [address] [place] [address] Phone Care Team Providers Care Silk Spooler Name Role Phone Arpan Johansen MD Primary Care Provider [phone] Encounters Date Type Department Care Team Description 07/03/2025 8:21 AM EST - 07/03/2025 11:59 PM EST Hospital [facility] [address] [address] Encounter for screening mammogram for breast cancer Discharge Disposition: Home or Self Care from Last 3 Months Social History Tobacco Use Types Packs/Day Years Used Date Smoking Tobacco: Never Assessed Comments Unknown Sex and Gender Information Value Date Recorded Sex Assigned at Female 06/24/2025 3:24 PM EST Legal Sex Female 1:16 PM EST Gender Identity Female 06/24/2025 3:24 PM EST Sexual Orientation Not on file Travel History Travel Start Travel End [place] 06/04/2025 06/18/2025 Plan of Treatment Health Maintenance Due Date Last Done Comments DTaP,Tdap,and Td Vaccines (1 - Tdap) 1957 Pneumococcal Vaccine: 50+ Years (1 of 1 - PCV) 1988 Zoster Vaccines (1 of 2) 1988 Cholesterol Screening (Lipid Panel) 07/19/2022 Falls Risk Assessment 07/19/2022 Medicare Annual Wellness Visit 07/19/2022 Social Influencers of Health Screening 07/19/2022 Depression Screening 08/21/2024 COVID-19 Vaccine ( season) 2025 06/10/2023, 06/30/2022, 05/27/2021, Additional history exists Influenza Vaccine (#1) 2025 Hypertension/CHF/CAD Annual BMP Blood Test 06/20/2026 06/20/2025, 07/03/2024, 06/19/2023 Osteoporosis Screening (Bone Density Screening) 06/08/2033 06/08/2023, 05/20/2020, 12/01/2017 RSV Immunization Adult Patients Completed 06/16/2023 HIB Vaccines Aged Out No longer eligi [...] 20 months Aged Out No longer eligible based on patient's age to complete this topic Varicella Vaccines Aged Out No longer eligible based on patient's age to complete this topic Procedures Procedure Name Priority Date/Time Associated Diagnosis Comments MG MAMMO DIGITAL SCREENING W AROLDO BILAT Routine 07/03/2025 8:37 AM EST Encounter for screening mammogram for breast cancer ENRIQUE DEXA AXIAL SKELETON Routine 06/08/2023 10:23 AM EDT Encounter for screening for osteoporosis from Last 3 Months or Most Recently Relevant to Health Maintenance Results * MG Mammo Digital Screening w Aroldo bilat (07/03/2025 8:37 AM EST) Anatomical Region Laterality Modality Breast Bilateral Mammography 07/03/2025 8:36 AM EST Impressions 07/03/2025 4:18 PM EST No mammographic evidence of new or recurrent malignancy. No suspicious interval change. A negative mammogram in the presence of a clinically suspicious palpable abnormality does not preclude the possibility of malignancy or alter the indications for biopsy. ASSESSMENT: BI-RADS 2: BENIGN RECOMMENDATION(S): 1: Routine screening mammogram BILATERAL in 1 year. [facility] location[facility] [address], [address] -------- FINAL REPORT -------- Dictated By: Dariel Hou Dictated Date: 07/03/2025 08:36 ET Assigned Physician: Dariel Hou Reviewed and Electronically Signed By: Dariel Hou Signed Date: 07/03/2025 16:18 ET Workstation ID: [id number] Transcribed By: Self Edit Transcribed Date: 07/03/2025 08:38 ET Narrative 07/03/2025 4:18 PM EST EXAM: SCREENING MAMMOGRAPHY, BILATERAL HISTORY: SCREENING. Previous reports indicate personal history of right breast cancer diagnosed in 2001 treated with lumpectomy and radiation. Family history of breast cancer involving multiple first-degree relatives. COMPARISON: 06/13/24, 06/13/23, 06/08/23, 05/30/22, 05/24/21 TECHNIQUE: Synthesized CC and MLO projections of each breast. Tomosynthesis of each breast in the CC and MLO projections. ADDITIONAL IMAGING: None Computer-aided detection was employed with the iCAD ProFound AI 3-D. TISSUE DENSITY: The breasts are extremely dense, which lowers the sensitivity of mammography. (BI-RADS category D) FINDINGS: RIGHT BREAST: No suspicious mass. No suspicious calcification. There is no change in the distortion in the upper outer right breast. No additional suspicious right breast findings LEFT BREAST: No suspicious mass. No suspicious calcification. No distortion. No additional suspicious left breast findings Procedure Note Dariel Hou MD - 07/03/2025 EXAM: SCREENING MAMMOGRAPHY, BILATERAL HISTORY: SCREENING. Previous reports indicate personal history of rightbreast cancer diagnosed in 2001 treated with lumpectomy and radiation.Family history of breast cancer involving multiple first-degreerelatives. COMPARISON: 06/13/24, 06/13/23, 06/08/23, 05/30/22, 05/24/21 TECHNIQUE: Synthesized CC and MLO projections of each breast.Tomosynthesis of each breast in the CC and MLO projections. ADDITIONAL IMAGING: None Computer-aided detection was employed with the iCAD ProFound AI 3-D. TISSUE DENSITY: The breasts are extremely dense, which lowers thesensitivity of mammography. (BI-RADS category D) FINDINGS: RIGHT BREAST: No suspicious mass. No suspicious calcification. There is no change in the distortion in the upper outer right breast. No additional suspicious right breast findings LEFT BREAST: No suspicious mass. No suspicious calcification. No distortion. Noadditional suspicious left breast findings IMPRESSION: No mammographic evidence of new or recurrent malignancy. No suspicious interval change. A negative mammogram in the presence of a clinically suspicious palpableabnormality does not preclude the possibility of malignancy or alter theindications for biopsy. ASSESSMENT: BI-RADS 2: BENIGN RECOMMENDATION(S): 1: Routine screening mammogram BILATERAL in 1 year. [facility] location[facility] [address] [place], [address] -------- FINAL REPORT -------- Dictated By: Dariel Hou Dictated Date: 07/03/2025 08:36 ET Assigned Physician: Dariel Hou Reviewed and Electronically Signed By: Dariel Hou Signed Date: 07/03/2025 16:18 ET Workstation ID: [id number] Transcribed By: Self Edit Transcribed Date: 07/03/2025 08:38 ET us Self Referral Sppl IMG BI PROCEDURES Final Resul t * ENRIQUE DEXA AXIAL SKELETON (06/08/2023 10:23 AM EDT) Anatomical Region Laterality Modality Mammography 06/08/2023 9:55 AM EDT Narrative 06/08/2023 10:23 AM EDT [facility] Diagnostic Imaging Department [address] [place] [address] Patient: WALT CABELLO /Age/Sex: 1940 - 82 - F Unit#: [id number] Location/Status: SPDIMAM/REG CLI Mnemonic/Ordering Site: [facility]AMDEXAAX/SPMAM Ordering Physician: ZAFAR SEVERINO MD Enrique Dexa Axial Skeleton - [...] probability of hip fracture of 13.9%. Code 04013 Dictating Physician: APRYL BAILON MD Electronically Signed by: APRYL BAILON MD Dic Date/Time: 06/08/23 1022 Sign date/Time: 06/08/23 1023 Procedure Note Apryl Bailon MD - 09/26/2023 [facility] Diagnostic Imaging Department [address] [place] [address] Patient: WALT CABELLO Aaron Rowan./Age/Sex: 1940 - 82 - F Unit#: [id number] [facility] Ordering Physician: ZAFAR SEVERINO MD Enrique Dexa Axial Skeleton - [...] density of the femurs bilaterally is 0.649 gm/oa6cgryj is 64% of that of young normals [...] probability of hip fracture of 13.9%. Code 54281 Dictating Physician: APRYL BAILON MD Electronically Signed by: APRYL BAILON MD Dic Date/Time: 06/08/23 1022 Sign date/Time: 06/08/23 1023 Zafar Severino MD IMG BI PROCEDURES Final Result from Last 3 Months or Most Recently Relevant to Health Maintenance Insurance [employer] [place] MEDICARE ADVANTAGE Care Teams Silk Spooler Relationship Specialty Start Date End Date Arpan Johansen MD [address] [place] [phone] PCP - General Internal Medicine 06/24/25
--- OUTSIDE RECORDS SUMMARY | 2025-07-11 14:03 | XMS_ITS | Encounter Summary ---
Author Organization [facility] Address [address] [place] [address] Phone Care Team Providers Care Investigation Lieutenant Name Role Phone Salbador Severino MD Primary Care Provider [phone] Pcp, Unknown Primary Care Provider Arpan Patterson MD Primary Care Provid er Nikhil Pantoja DO Unavailable [phone] Encounter Details Date Type Department Care Team (Late st Contact Info) Description 06/16/2023 Ancillary Orders [facility],Outside Imaging [address] [place], [place] [phone] System, Provider Not In, [facility] [address] [address] Social History Tobacco Use Types Packs/Day Years [...] Description 08/25/2025 8:00 AM EST Office Visit [facility] [address] [place] [address] Dmitri Srinivasan MD [address] [facility], [address] [place] [address] [email or web address] 06/24/2026 8:20 AM EST Office Visit [facility] [address] [place] [address] Krissy Willis MD 22 [facility] [address] [place] [address] [email or web address] documented as of this encounter Results * [...] on filedocumented in this encounter Care Teams Investigation Lieutenant Relationship Specialty Start Date End Date Salbador Severino MD [address] [place] [address] PCP - General Internal Medicine 03/21/23 06/19/25 Pcp, Unknown PCP - General 06/20/25 06/22/25 Arpan Johansen MD [address] [place] [address] PCP - General Internal Medicine 06/23/25 Nikhil Pantoja DO [address] [place] [address] Internal Medicine 06/23/25 documented as of this encounter Additional Source Comments The information contained in this document represents components of the legal health record. It is not the complete legal health record.[facility]
== END 2025-07-11 13:38 | disposition home or self-care (01) ==
LOC: HO.MRI 13:37
PROVIDERS: Visit Provider Internal Medicine Gastroenterology
DX: K83.8 Other specified diseases of biliary tract (principal)
CPT/HCPCS: 74183; A9585

== ENCOUNTER 2025-07-21 11:41 | Outpatient (REF) | payer MEDICARE, SELFPAY ==
[2025-07-21 12:15] LABS: Hematocrit 40.1 % (37.0-47.0); Hemoglobin 13.1 g/dl (12.0-16.0); Mean Corpuscular HGB Conc 32.7 g/dl (31.0-35.0); Mean Corpuscular Hemoglobin 30.8 pg (27.0-33.0); Mean Corpuscular Volume 94.1 fL (80.0-98.0); NRBC Abs Auto 0.000 X10*3/uL (0.0-0.012); NRBC Pct Auto 0.0 /100WBC (0.0-0.2); Platelet Count 207 X10*3/uL (160-400); Red Blood Count 4.26 X10*6/uL (4.20-5.50); White Blood Count 5.5 X10*3/uL (4.8-10.8)
[2025-07-21 13:30] LABS: Alanine Aminotransferase < 6 U/L (0-31); Albumin Level 3.5 g/dL (3.5-5.0); Alkaline Phosphatase 58 U/L (39-117); Anion Gap 9 (12-20); Aspartate Amino Transferase 31 U/L (5-31); Blood Urea Nitrogen 15 mg/dL (9-16); Calcium 8.6 mg/dL (8.4-10.2); Carbon Dioxide 34 mmol/L (22-29); Chloride 104 mmol/L (96-108); Estimated Glomerular Filt Rate > 60; Magnesium 2.0 mg/dL (1.6-2.6); Potassium 2.9 mmol/L (3.3-5.1); Sodium 144 mmol/L (135-145); Total Protein 5.7 g/dL (6.5-8.0)
--- OUTSIDE RECORDS SUMMARY | 2025-07-21 15:25 | XMS_ITS | Clinical Summary ---
Author Organization [facility] Address [address] [place] [address] Phone Care Team Providers Care Help Desk Agent Name Role Phone Arpan Johansen MD Primary Care Provid er Nikhil Pantoja DO Unavailable [phone] Allergies Active Allergy Reactions Criticality Noted Date [...] 11:59 PM EDT Hospital Encounter [facility] [address] [place] [address] Krissy Willis MD Discharge Disposition: Home or Self Care 06/20/2025 10:20 AM EDT Office Visit [place] [address] Krissy Willis MD Multinodular goiter (Primary Dx); Age-related osteoporosis without current pathological fracture 06/20/2025 Telephone [facility] [address] Krissy Willis MD from Last 3 Months [...] Description 08/25/2025 8:00 AM EST Office Visit [facility] Medicine [address] [place] [address] Dmitri Srinivasan MD [address] [facility], [address] [place] [address] [email or web address] 06/24/2026 8:20 AM EST Office Visit [facility] [address] [place] [address] [place] [address] Krissy Willis MD [address] [place] [address] [address] [place] [address] [email or web address] Maintenance Due Date Last [...] 1b-telopeptide, Blood (Non-MGB) (06/20/2025 11:41 AM EDT) [facility] Collagen CTx 97(L) pg/mL [facility] MED/PATH SUPERIOR Comment: (NOTE) REFERENCE VALUE 148-967 (18-29 y) 150-635 (30-39 y) 131-670 (40-49 y) 183-1060 (50-59 y) 171-970 (60-69 y) 152-858 (>70 y) 136-689 (Premenopausal) 177-1015 (Postmenopausal) Flagging is based on the age-specific reference interval and not menopausal status. Blood 06/20/2025 11:4 1 AM EDT 06/20/2025 11:54 AM EDT us Krissy Willis MD LAB BLOOD BKR ORDERABL ES Final Result [facility] LAB MED/PATH SUPERIOR [address] [place] [address] * (ABNORMAL) Comprehensive metabolic panel (06/20/2025 11:41 AM EDT) [facility] SODIUM 143 133 - 146 mmol/L [facility] POTASSIUM 3.0(L) 3.3 - 5.1 mmol/L [facility] CHLORIDE 103 96 - 108 mmol/L [facility] CO2 30 21 - 35 mmol/L [facility] BUN 15 6 - 19 mg/dL [facility] CREATININE 0.80 0.5 - 1.5 mg/dL [facility] GLUCOSE 100(H) 70 - 99 mg/dL [facility] ALBUMIN 3.4(L) 3.9 - 4.8 g/dL [facility] TOTAL PROTEIN 5.4(L) 6.5 - 8.0 g/dL [facility] CALCIUM 8.8 8.4 - 10.3 mg/dL [facility] ALKALINE PHOSPHATASE 44 39 - 117 U/L [facility] TOTAL BILIRUBIN 0.3 0.0 - 1.2 mg/dL [facility] AST 40(H) 0 - 37 U/L [facility] ALT <5 0 - 40 U/L [facility] GLOBULIN 2.0 1 - 4.8 g/dL [facility] EGFR 72 >59 mL/min/1.7 3m2 [facility] Comment:Estimated glomerular filtration rate calculated using the CKD-EPI refit equation. ANION GAP 13 10 - 20 mmol/L [facility] Blood 06/20/2025 11:4 1 AM EDT 06/20/2025 11:53 AM EDT Result Robert Willis MD LAB BLOOD BKR ORDERABL ES Final Result Performing Organization Address City/[facility]/ZIP Co de Phone Number [address] [address] * TSH with reflex (06/20/2025 11:41 AM EDT) TSH 0.83 0.27 - 4.20 uIU/mL [facility] Blood 06/20/2025 11:4 1 AM EDT 06/20/2025 11:53 AM EDT us Krissy Willis MD LAB BLOOD BKR ORDERABL ES Final Result [address] [address] * 25-OH vitamin D (06/20/2025 11:41 AM EDT) 25 OH VIT D (TOTAL) 43 30 - 60 ng/mL [facility] Blood 06/20/2025 11:4 1 AM EDT 06/20/2025 11:53 AM EDT us Krissy Willis MD LAB BLOOD BKR ORDERABL ES Final Result [address] [address] * Phosphorus (06/20/2025 11:41 AM EDT) PHOSPHORUS 3.3 2.7 - 4.5 mg/dL [facility] Blood 06/20/2025 11:4 1 AM EDT 06/20/2025 11:53 AM EDT Krissy Willis MD LAB BLOOD BKR ORDERABL ES Final Result Performing Organization Address City/[facility]/ZIP Co de Phone Number [address] [address] * Parathyroid hormone (PTH) (06/20/2025 11:41 AM EDT) PARATHYROID HORMONE 55 15 - 65 pg/mL [facility] Blood 06/20/2025 11:4 1 AM EDT 06/20/2025 11:54 AM EDT us Krissy Willis MD LAB BLOOD BKR ORDERABL ES Final Result Performing Organization Address City/[facility]/ZIP Co de Phone Number [address] [address] from Last 3 Months Insurance [facility] MEDICARE PPO BLUE REPLACEMENT MEDICARE PPO BLUE REPLACEMENT MEDICARE PPO BLUE [place] [address] [address] MEDICARE PPO BLUE [place] [address] MEDICARE PPO BLUE [place] [place] [address] MEDICARE PPO BLUE REPLACEMENT Care Teams Help Desk Agent Relationship Specialty Start Date End Date Arpan Johansen MD [address] [place] [address] PCP - General Internal Medicine 06/23/25 Nikhil Pantoja DO [address] [place] [address] Internal Medicine 06/23/25 Additional Source Comments The information contained in this document represents components of the legal health record. It is not the complete legal health record.[facility]
--- OUTSIDE RECORDS SUMMARY | 2025-07-21 15:25 | XMS_ITS | Clinical Summary ---
Author Organization [facility] Address [address] [place] [address] Phone Care Team Providers Care Senior Patient Account Representative Name Role Phone Arpan Johansen MD Primary Care Provider [phone] Encounters Date Type Department Care Team Description 07/03/2025 8:21 AM EST - 07/03/2025 11:59 PM EST Hospital Encounter [facility] [address] [address] Encounter for screening mammogram for [...] PM EST Sexual Orientation Not on file Plan of [...] Encounter for screening mammogram for breast cancer [facility] DEXA AXIAL SKELETON Routine 06/08/2023 10:23 [...] year. 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 TISSUE DENSITY: The breasts are [...] year. [facility]ammography location: [facility] [address] [place], [address] -------- FINAL REPORT -------- Dictated By: Dariel Hou Dictated Date: 07/03/2025 08:36 ET Assigned Physician: Dariel Hou Reviewed and Electronically Signed By: Dariel Hou Signed Date: 07/03/2025 16:18 ET Workstation ID: [id number] Transcribed By: Self Edit Transcribed Date: 07/03/2025 08:38 ET us Self Referral Sppl IMG BI PROCEDURES Final Resul t * ENRIQUE DEXA AXIAL SKELETON (06/08/2023 10:23 AM EDT) Anatomical Region Laterality Modality Mammography 06/08/2023 9:55 AM EDT Narrative 06/08/2023 10:23 AM EDT [facility] Diagnostic Imaging Department [address] [place] [address] Patient: WALT CABELLO /Age/Sex: 1940 - 82 - F Unit#: [id number] Location/Status: SPDIMA/REG CLI Mnemonic[facility] Ordering Physician: ZAFAR SEVERINO MD [facility] Dexa Axial Skeleton - 06/08/23 - 1016 [...] probability of hip fracture of 13.9%. Code 51911 Dictating Physician: APRYL BAILON MD Electronically Signed by: APRYL BAILON MD Dic Date/Time: 06/08/23 1022 Sign date/Time: 06/08/23 1023 Procedure Note Apryl Bailon MD - 09/26/2023 [facility] Diagnostic Imaging Department [address] [place] [address] Patient: WALT CABELLO Aaron WallB./Age/Sex: 1940 - 82 - F Unit#: [id number] Location/Status: SPDIMA/[facility] CLI Mnemonic/Ordering Site: [facility] Ordering Physician: ZAFAR SEVERINO MD Enrique Dexa [...] density of the femurs bilaterally is 0.649 gm/pe4uaudc is 64% of that of young normals [...] probability of hip fracture of 13.9%. Code 85805 Dictating Physician: APRYL BAILON MD Electronically Signed by: APRYL BAILON MD Dic Date/Time: 06/08/23 1022 Sign date/Time: 06/08/23 1023 Zafar Severino MD IMG BI PROCEDURES Final Result from Last 3 Months or Most Recently Relevant to Health Maintenance Insurance [employer] [place] MEDICARE ADVANTAGE Care Teams Senior Patient Account Representative Relationship Specialty Start Date End Date Arpan Johansen MD [address] [place] [address] PCP - General Internal Medicine 06/24/25
--- OUTSIDE RECORDS SUMMARY | 2025-07-21 15:25 | XMS_ITS | Encounter Summary ---
Author Organization [facility] Address [address] [place] [address] Phone Care Team Providers Care Pesticide Use Medical Coordinator Name Role Phone Salbador Severino MD Primary Care Provider [phone] Pcp, Unknown Primary Care Provider Arpan Patterson MD Primary Care Provid er Nikhil Pantoja DO Unavailable [phone] Encounter Details Date Type Department Care Team (Late st Contact Info) Description 06/16/2023 Ancillary Orders [facility],Outside Imaging [address] [place], [place] [id number] System, Provider Not In, [facility] [address] [address] Social History Tobacco Use Types Packs/Day Years [...] Description 08/25/2025 8:00 AM EST Office Visit [facility] Medicine [address] [place] [address] Dmitri Srinivasan MD [address] [facility], [address] [place] [address] [email or web address] 06/24/2026 8:20 AM EST Office Visit [facility] [address] [place] [address] Krissy Willis MD [address] [facility] [address] [place] [address] [email or web address] [...] on filedocumented in this encounter Care Teams Pesticide Use Medical Coordinator Relationship Specialty Start Date End Date Salbador Severino MD [address] [place] [address] PCP - General Internal Medicine 03/21/23 06/19/25 Pcp, Unknown PCP - General 06/20/25 06/22/25 Arpan Johansen MD [address] [place] [address] PCP - General Internal Medicine 06/23/25 Nikhil Pantoja DO [address] [place] [address] Internal Medicine 06/23/25 documented as of this encounter Additional Source Comments The information contained in this document represents components of the legal health record. It is not the complete legal health record.[facility]
== END 2025-07-21 11:42 | disposition home or self-care (01) ==
LOC: HO.LAB 11:41
PROVIDERS: Absent Provider Physician Assistant Medical; PCP Internal Medicine; Visit Provider Internal Medicine
DX: K83.8 Other specified diseases of biliary tract (principal); E87.6 Hypokalemia
CPT/HCPCS: 36415; 80053; 83735; 85027; 99212

== ENCOUNTER 2025-07-21 11:58 | Outpatient (AMB) | payer MEDICARE, SELFPAY ==
--- NOTE | 2025-07-21 12:13 | MHC.OFFVIS ---
Vital Signs 07/21/25 12:40 Height 5 ft 5.47 in Weight 88 lb BMI 14.4 BP 126/56 L Blood Pressure Location Lt brachial Position Sitting Pulse 51 Intake Visit Reasons: 4m Intake Note: Mckenzie presents in 4 months follow up for weight loss and colitis. Grinder Set Up Operator Jig Required: No Allergies pregabalin (From LYRICA) Allergy (Severe, Verified 08/27/25 06:38) CONFUSION ciprofloxacin (From Cipro) Allergy (Intermediate, Verified 08/27/25 06:38) Itching gabapentin (GABAPENTIN) Allergy (Intermediate, Verified 08/27/25 06:38) NAUSEA/VOMITING amlodipine (From Norvasc) Allergy (Verified 08/27/25 06:38) Unknown clarithromycin (From BIAXIN) Adverse Reaction (Intermediate, Verified 08/27/25 06:38) NAUSEA & VOMITING codeine (CODEINE) Adverse Reaction (Intermediate, Verified 08/27/25 06:38) NAUSEA & VOMITING fentanyl (From DURAGESIC) Adverse Reaction (Intermediate, Verified 08/27/25 06:38) NAUSEA/VOMITING levofloxacin (From LEVAQUIN) Adverse Reaction (Intermediate, Verified 08/27/25 06:38) NAUSEA & VOMITING primidone (From Mysoline) Adverse Reaction (Verified 08/27/25 06:38) Nausea and Vomiting HPI HPI 4m: Details: 85 yr old f with hx of parkinsons and prior vagotomy, and partial gastrectomy 1974 who I am seeing for f/u for weight loss, colitis RECAP Since 10/2020 she has noted increasing weight loss had visited sister in [place] who had a stroke she has a restricted diet due to her prior surgeries, avoids fat foods she has lost about 10-15# she was having diarrhea for 40 yrs but started sinemet for PD 1 yr ago and since then the diarrhea has improved a lot she denies abdominal pain she says she otherwise feels good denies blood in stool no oil droplets or grease in stool, but can float takes ibuprofen prn once in a while CT scan ordered: 06/2021--liver cyst, mild dilated PD and CBC, stable, no acute findings or masses, degen spinal disease, atherosclerosis CXR: no acute pathology, or masses LABS: mild raised histamine, borderline HGB, WCC, histamine, raised fecal eboni, nml panc elastase, neg giardia, neg fecal fat, mild low IgG2, and 3, raised ferritin gastrin and calcitonin were nml rifaxmin never helped her neither did welchol or ursodiol she never felt benefit from ursodiol or welchol after eventually trying EGD/colonoscopy : 10/2021 Endoscopy Findings: gastritis--diffuse gastric polyp Colonoscopy Findings: internal hemorrhoids bx: neg for microscopic colitis GES: rapid emptying on study Fecal lactoferrin-- 04/2023--- 27--commenced on apriso --she did get short course of pred which she felt was very effective for her bowels and joints CTe: inflammatory arthritis hip possible left sided colonic inflammation Labs: neg PEMA, CCP and RF, CRP 3 fecal lactoferrin: elevated 01/12 she was on remicade but labs checked and she was changed to humira but too expensive, trying to get PAP interim she had imaging with MRI showing cystic lesion in GB fossa mild ductal dilation INTERIM: she has band like sensation across upper abdomen, usu after eating denies acid reflux no abdominal pain she still has soft stools, no blood appetite is fair weight low but stable EXAM: GENERAL: The patient is thin VITAL SIGNS:see workflow HEENT: Nonicteric sclerae, PERRLA, EOMI. Oropharynx clear. Moist mucous membranes. Conjunctivae appear well perfused. No thyroid mass. CHEST: Chest wall is nontender. HEART: Regular rate and rhythm without murmurs. LUNGS: Clear to auscultation bilaterally. ABDOMEN: Soft, positive bowel sounds, tender upper abdomen, no organomegaly.no flank tenderness SKIN: No rash, no excessive bruising, petechiae, or purpura. NEUROLOGIC: Cranial nerves II-XII intact without motor/sensory deficit. Psych: normal affect A/P: 1/ Weight loss, raised lactoferrin thought to be due to IBD, remicade with AB, unable to get humira, PAP was sent, 2/ Cyst in GB fossa and dilated bile duct but mild, ? related to IBD, no trauma and no fever PLAN: 1/sent mssg to RN recheck humira status 2/ trial of augmentin for 1 week with pred 40 gm for 1 week and rept US in 4 weeks, if ongoing fluid collction, then ?IR for drainage 3/ also discussed budesonide, she will consider [facility] Medical History (Updated 09/01/25 @ 00:01 by José Manuel Mohamud) Chronic anemia Inflammatory bowel disease Weight loss Peripheral vascular disease Sciatica COPD (chronic obstructive pulmonary disease) Venous (peripheral) insufficiency UTI (urinary tract infection) Pedal edema Hypokalemia GERD (gastroesophageal reflux disease) Chronic diarrhea Lower back pain NSTEMI (non-ST elevated myocardial infarction) Guillain-[place] syndrome Fracture, wrist, open History of gastrectomy Parkinson disease Surgical History (Updated 09/01/25 @ 00:01 by José Manuel Mohamud) Hx of arthroscopic knee surgery Hx of hysterectomy H/O pyloroplasty H/O vagotomy Hx of cholecystectomy History of esophagogastroduodenoscopy (EGD) Hx of colonoscopy (~10/22/21) Family History Mother Breast cancer Congestive heart failure Arthritis Social History Household Members: None Housing: Condominium Do you presently have visiting nurse or other home services: No Alcohol intake: current Alcohol intake frequency: does not drink Alcohol type: wine Patient Tobacco Use Status: Never used Tobacco Advance Directives Date on File: 08/14/23 service: No Current occupational status: retired Cognitive needs: No Hearing needs: No Vision needs: Yes (rx glasses) Physical Exam Vital Signs: Last Vital Signs Pulse 51 07/21/25 12:40 BP 126/56 L 07/21/25 12:40 BMI result Body Mass Index 14.4 Assessment & Plan Assessment & Plan (1) Dilated bile duct: Code(s): K83.8 - Other specified diseases of biliary tract Category: Medical Plan: as above Orders: Orders US abdomen complete 07/21/25 K83.8 - Other specified diseases of biliary tract US abdomen complete 07/21/25 K83.8 - Other specified diseases of biliary tract Medications: New prednisone 40 mg (2 x 20 mg) PO DAILY 14 tabs 0RF amoxicillin-pot clavulanate 500-125 mg (Augmentin) 1 tab PO TID 21 tabs 0RF Discontinued hydrochlorothiazide Discontinued Reason: Doctor's Order 25 mg PO DAILY 90 tabs 3RF Coding Level of Care Code Est Pt Level 3 (01838) Diagnoses Dilated bile duct K83.8
[2025-07-21 12:40] VITALS: BP 126/56; PULSE 51; BMI 14.4
== END 2025-07-21 14:42 | disposition home or self-care (01) ==
LOC: HO.HGI 11:59
PROVIDERS: PCP Internal Medicine; Visit Provider Internal Medicine Gastroenterology
DX: K83.8 Other specified diseases of biliary tract (principal)
CPT/HCPCS: 99213

== ENCOUNTER 2025-07-29 08:11 | Outpatient (AMB) | payer MEDICARE, SELFPAY ==
[2025-07-29 08:17] VITALS: BP 128/58; PULSE 60; RESP 14; TEMP 36.4; O2SAT 100; BMI 14.1
--- NOTE | 2025-07-29 08:17 | MHC.PC.OV ---
Vital Signs 07/29/25 08:17 Height 5 ft 5.47 in Weight 86 lb BMI 14.1 BP 128/58 L Blood Pressure Location Rt brachial Position Sitting Respiration 14 Pulse 60 Pulse Source Pulse Oximeter Temp 97.6 F Temp Source Temporal Artery Scan Pulse Oximetry (%) 100 Oxygen Delivery Method Room Air Intake Visit Reasons: 1 Month follow up Exterminator Helper Required: No Accompanied by: Self / Same As Patient Allergies pregabalin (From LYRICA) Allergy (Severe, Verified 07/29/25 08:17) CONFUSION ciprofloxacin (From Cipro) Allergy (Intermediate, Verified 07/29/25 08:17) Itching gabapentin (GABAPENTIN) Allergy (Intermediate, Verified 07/29/25 08:17) NAUSEA/VOMITING amlodipine (From Norvasc) Allergy (Verified 07/29/25 08:17) Unknown clarithromycin (From BIAXIN) Adverse Reaction (Intermediate, Verified 07/29/25 08:17) NAUSEA & VOMITING codeine (CODEINE) Adverse Reaction (Intermediate, Verified 07/29/25 08:17) NAUSEA & VOMITING fentanyl (From DURAGESIC) Adverse Reaction (Intermediate, Verified 07/29/25 08:17) NAUSEA/VOMITING levofloxacin (From LEVAQUIN) Adverse Reaction (Intermediate, Verified 07/29/25 08:17) NAUSEA & VOMITING primidone (From Mysoline) Adverse Reaction (Verified 07/29/25 08:17) Nausea and Vomiting Tobacco use date assessed: 05/05/25 Dental Screening Dental Screen Date: 03/13/25 HPI HPI Comments History of Present Illness Details History of Present Illness - The patient is an 85 year old female presenting with concerns regarding urinary incontinence. - The patient reports that despite being on oxybutynin for urinary leakage, she experiences episodes of urge incontinence where she cannot reach the bathroom in time. - She reports that this occurs all day long, with a sudden, overwhelming urge to urinate, sometimes occurring up to twice an hour. - At night, she wakes up once or twice and finds her pad is wet, suggesting she is leaking while sleeping. - The patient notes that oxybutynin previously worked for her. - The patient has a history of Parkinson's disease, for which she sees a neurologist and takes carbidopa and propranolol, with no recent dose changes. - She reports a slight worsening of her Parkinson's symptoms with more shaking. - She has a history of osteoporosis but is not taking weekly risedronate. - Her blood pressure is managed with medication, with a recent reading of 128/58 mmHg. - The patient has a history of edema in the feet, which was thought to be due to vascular disease; she reports that it has improved recently and is not as swollen as it has been. - Her potassium level is currently fine, but she needs to have it checked again. - She takes lorazepam once or twice a day. - She recently started Humira injections last Monday. Social History - Functional status: The patient is able to drive without problems. Results - Labs: Potassium level is fine. ON LICENSE OF [facility] Medical History Peripheral vascular disease Sciatica COPD (chronic obstructive pulmonary disease) Venous (peripheral) insufficiency UTI (urinary tract infection) Pedal edema Hypokalemia GERD (gastroesophageal reflux disease) Chronic diarrhea Sciatica, right side History of mammogram (~05/2024) Right hip pain Right buttock pain Lower back pain NSTEMI (non-ST elevated myocardial infarction) SIRS (systemic inflammatory response syndrome) Guillain-Darfur syndrome Fracture, wrist, open History of gastrectomy Parkinson disease High blood pressure Surgical History Hx of arthroscopic knee surgery Hx of hysterectomy H/O pyloroplasty H/O vagotomy Hx of cholecystectomy History of esophagogastroduodenoscopy (EGD) Hx of colonoscopy (~10/22/21) Family History Mother Breast cancer Congestive heart failure Arthritis Social History Household Members: None Housing: Condominium Do you presently have visiting nurse or other home services: No Alcohol intake: current Alcohol intake frequency: 0-2 drinks per day Alcohol type: wine Patient Tobacco Use Status: Never used Tobacco Advance Directives Date on File: 08/14/23 service: No Current occupational status: retired Cognitive needs: No Hearing needs: No Vision needs: Yes (rx glasses) Questionnaire PHQ-9 Over the last 2 weeks, how often have you been bothered by any of the following problems? 1. Little interest or pleasure in doing things: not at all 2. Feeling down, depressed, or hopeless: not at all 3. Trouble falling or staying asleep, or sleeping too much: not at all 4. Feeling tired or having little energy: not at all 5. Poor appetite or overeating: not at all 6. Feeling bad about yourself - or that you are a failure or have let yourself or your family down: not at all 7. Trouble concentrating on things, such as reading the newspaper or watching television: not at all 8. Moving or speaking so slowly that other people could have noticed. Or the opposite - being so fidgety or restless that you have been moving around a lot more than usual: not at all 9. Thoughts that you would be better off or of hurting yourself in some way: not at all Total score: 0 Depression Screening Interpretation: Negative Depression Screening Done: Yes 92217 - PHQ-9 Billing: Yes Source: Developed by Drs. Nikhil Henriquez, Mckenzie Bryson, Ben Eugene and colleagues, with an educational benny from [employer]. Thrive Questionnaire Date Thrive assessed: 03/20/25 I am a: Patient What is your living situation today?: I have a steady place to live Within the past 12 months, did the food you bought not last and you didn't have the money to get more?: Never true Within the past 12 months, did you worry whether your food would run out before you got money to buy more?: Never true Do you have trouble paying for medicines?: No Do you have trouble getting transportation to medical appointments?: No Do you have trouble paying your heating and electricity bill?: No Do you have trouble taking care of your child, family member or friend?: No Do you have trouble with day-to-day activities such as bathing, preparing meals, shopping, managing finances, etc.?: No Are you currently unemployed and looking for a job?: No Are you interested in more education?: No Please select the resources that you would like help with: None Currently or been in a relationship where the following occur: No concerns reported THRIVE Score: 0 AUDIT C Alcohol Use Questionnaire (AUDIT-C) 1. How often do you have a drink containing alcohol?: 4 or more times a week 2. How many drinks containing alcohol do you have on a typical day when you are drinking?: 1 or 2 3. How often do you have six or more drinks on one occasion?: Never Total Score: 4 Score Reviewed/Action Taken: No HEATHER-7 AMB Questionnaire HEATHER-7 Date HEATHER - 7 assessed: 03/20/25 Feeling nervous, anxious, or on edge: 0 = Not at all Not being able to stop or control worryin = Not at all Worrying too much about different things: 0 = Not at all Trouble relaxin = Not at all Being so restless that it is hard to sit still: 0 = Not at all Becoming easily annoyed or irritable: 0 = Not at all Feeling afraid as if something awful might happen: 0 = Not at all Total HEATHER-7 score (0-4 normal; 5-9 mild; 10-14 moderate; 15-21 severe): 0 Source: Developed by Drs. Nikhil Henriquez, Mckenzie Bryson, Ben Eugene and colleagues, with an educational benny from [employer]. HEATHER-7 Assessment Billing HEATHER-7 Assessment Tool: HEATHER-7 Assessment 03907 Review of Systems Narrative Review of Systems - Genitourinary: Reports urge incontinence all day, with urinary frequency of up to twice an hour during the day and nocturia once or twice a night. - Neurological: Reports worsening tremors associated with her Parkinson's disease. - Extremities: Reports persistent swelling in her feet, though it has recently improved slightly. Physical exam (Primary Care) Vital Signs: Last Vital Signs Temp 97.6 F 07/29/25 08:17 Pulse 60 07/29/25 08:17 Resp 14 07/29/25 08:17 BP 128/58 L 07/29/25 08:17 Pulse Ox 100 07/29/25 08:17 Oxygen Delivery Method Room Air 07/29/25 08:17 BMI result Body Mass Index 14.1 Tobacco/Smoking Status: Tobacco use Status Tobacco use date assessed 05/05/25 07/29/25 08:25 Patient Tobacco Use Status Never used Tobacco 07/29/25 08:25 PHQ-9: PHQ-9 Score PHQ-9: Total score 0 07/29/25 08:25 Depression Screening Interpretation: Negative Thrive Assessment: Date of Thrive Assessment Date Thrive assessed 03/20/25 07/29/25 08:25 Currently or been in a relationship where the following occur: No concerns reported Narrative Physical Exam General: Appearance normal, both eyes and all related structures Nutritional Appearance: Well nourished Orientation/consciousness: Patient oriented x3 Limitations: No limitations Head: Normal to inspection Neck: Normal visual inspection Chest: Normal palpation of entire chest wall Respiratory: Normal respiratory effort Neurology: Patient oriented x3, history of Parkinson's disease, symptoms have worsened slightly with more shaking Coding Level of Care Code Est Pt Level 4 (15979) Add On Problem Visit Only Diagnoses Peripheral artery disease I73.9 Additional Codes HEATHER-7 Assessment Billing - HEATHER-7 Assessment Tool: HEATHER-7 Assessment 25021 ([id number]) PHQ-9 - 78985 - PHQ-9 Billing: Yes ([id number]) Assessment & Plan Assessment & Plan (1) Peripheral artery disease: Code(s): I73.9 - Peripheral vascular disease, unspecified Category: Medical Plan Plan - Will stop the patient's current oxybutynin prescription and switch to a different medication within the same anticholinergic class for urinary incontinence. - Recommended behavioral modifications including timed voiding every one to two hours by the clock, rather than by urge, to prevent accidents. - Instructed the patient on performing pelvic muscle (Kegel) exercises three to four times a day to strengthen the pelvic floor. - Advised the patient to set an alarm to wake up and urinate twice during the night to manage nocturnal leakage, as she is able to fall back asleep easily. - Recommended continued leg elevation while sleeping to help with pedal edema. - Patient to have her potassium levels checked again. - Follow-up scheduled in three months. Discussion Notes I have discussed the management of the patient's urge incontinence. I explained that treatment involves a combination of medication, timed bladder evacuation, and pelvic muscle exercises. I advised that I will be switching her from oxybutynin to another medication in the same drug class. I informed her that medications in this class are anticholinergics and can cause side effects such as dry mouth and, if the dose is too high, urinary retention, so we must be careful. I strongly recommended non-pharmacological interventions, including setting a schedule to use the bathroom (e.g., every two hours by the clock) to prevent accidents, and performing Kegel exercises three to four times a day to strengthen her pelvic muscles. For nighttime leakage, I suggested setting an alarm to wake up and urinate twice during the night. The patient understood the plan, and we will follow up in three months. Patient Instructions - I am stopping your current oxybutynin and will prescribe a new medication for bladder control. - Please try to urinate on a schedule, for example, every hour or every two hours, even if you do not feel the urge to go. - Perform pelvic muscle exercises, also known as Kegel exercises, 3 to 4 times a day. - To do these exercises, tighten the muscles you would use to stop urination, hold the contraction, and then release. You can do this while sitting or standing. - To help with nighttime leakage, set an alarm to wake up and use the bathroom twice during the night. - Continue to keep your legs elevated when you are sleeping to help with the swelling in your feet. - You will need to get your potassium level checked again. - We will see you back in the office in three months. Medications: New solifenacin 5 mg PO DAILY 30 tabs 0RF
== END 2025-07-29 08:55 | disposition home or self-care (01) ==
LOC: HO.HMCSH 08:11
PROVIDERS: PCP Internal Medicine; Visit Provider Internal Medicine
DX: I73.9 Peripheral vascular disease, unspecified (principal)

== ENCOUNTER → 2025-07-29 08:11 | Outpatient (BNVA) | payer MEDICARE, SELFPAY | PROVIDERS: PCP Internal Medicine; Visit Provider Internal Medicine | DX: R32 Unspecified urinary incontinence (principal); R60.0 Localized edema; I73.9 Peripheral vascular disease, unspecified; I10 Essential (primary) hypertension; G20.A1 Parkinson's disease without dyskinesia, without mention of fluctuations; Z13.31 Encounter for screening for depression; Z13.39 Encounter for screening examination for other mental health and behavioral disorders | CPT/HCPCS: 96127; 99212 ==

== ENCOUNTER 2025-08-09 14:48 | Emergency (ER) | payer MEDICARE, SELFPAY ==
--- NOTE | ~2025-08-09 | CT_ITS ---
CLINICAL HISTORY: rlq pain CT abdomen and pelvis with contrast Comparison: MR/SR - MR ABDOMEN WITHOUT THEN WITH IV CONTRAST - 07/11/25 13:40 EST Findings: LIMITED CHEST: Lung bases are clear. LIVER: No focal liver lesion. BILIARY: Mild intrahepatic biliary ductal dilation similar prior exam. No significant change in low-attenuation cystic lesion measuring 2.5 cm presumed to be at the cystic duct. PANCREAS: No mass or ductal dilatation. Cystic lesion in the pancreatic head favored to represent IPMN. SPLEEN: No splenomegaly. KIDNEYS: No hydronephrosis or radiopaque stone. ADRENALS: No nodule. VASCULAR: No aneurysm. RETROPERITONEUM: No lymphadenopathy or mass. BOWEL/MESENTERY: No evidence of obstruction. No free fluid or air. Normal appendix. There is a wall thickening of the sigmoid colon and the rectum. ABDOMINAL WALL: No mass or significant abnormality. URINARY BLADDER: No focal wall thickening. PELVIC NODES: No pelvic lymphadenopathy. PELVIC ORGANS: Hysterectomy. BONES: No acute fracture. OTHER: Negative. IMPRESSION: Sigmoid and rectal wall thickening, may be seen in the setting of proctitis/proctocolitis. Normal appendix. This document has been electronically signed by: Camryn Diaz MD on 08/09/2025 21:56:31
[2025-08-09 15:57] VITALS: BP 141/78; PULSE 79; RESP 18; TEMP 36.9; O2SAT 100; BMI 14.0
--- NOTE | 2025-08-09 15:59 | ED.ABDPAIN ---
HPI - Abdominal Pain General Chief Complaint: Abdominal Pain Stated Complaint: ? appendicitis Time Seen by Provider: 08/09/25 17:09 History of Present Illness HPI narrative: Patient is an 85-year-old female with a history of Parkinson's. History of multiple abdominal surgery including gallbladder including part of the stomach being removed for ulcers including total abdominal hysterectomy. Presents today with having abdominal pain mainly over the right lower quadrant. There is no radiation it was very sudden in onset. There is no chest pain there is no shortness of breath there is no diaphoresis there is no change in bowel movements. There is no change in p.o. intake. Patient is from home. No pain on urination. Has a history of UTI in the past but she feels this is a little different. Related Data Home Medications ?Medication ?Instructions ?Recorded ?Confirmed carbidopa 25 mg-levodopa 100 mg 1 tab PO TID 07/27/21 07/02/25 tablet ferrous sulfate 325 mg (65 mg 65 mg PO DAILY 08/13/23 07/02/25 iron) capsule,extended release alendronate 70 mg tablet mg PO 06/28/24 07/02/25 propranolol 80 mg tablet 80 mg PO TID 03/13/25 07/02/25 cholecalciferol (vitamin D3) 125 125 mcg PO DAILY 06/24/25 07/02/25 mcg (5,000 unit) capsule adalimumab 80 mg/0.8 mL See Rx Instructions subcut .COMPLEX 07/29/25 subcutaneous pen kit (Humira(CF) Pen) Previous Rx's ?Medication ?Instructions ?Recorded omeprazole 40 mg capsule,delayed 40 mg PO DAILY #90 caps 05/13/25 release lorazepam 1 mg tablet 1 mg PO DAILY PRN anxiety #30 tabs 06/24/25 nitrofurantoin 100 mg PO Q12H 7 days #14 caps 06/30/25 monohydrate/macrocrystals 100 mg capsule (Macrobid) chlorthalidone 25 mg tablet 12.5 mg (1/2 x 25 mg) PO DAILY 90 07/21/25 days #45 tabs potassium chloride 20 mEq See Rx Instructions PO DAILY #5 07/21/25 tablet,extended release(part/cryst) tabs spironolactone 25 mg tablet 25 mg PO DAILY #90 tabs 07/21/25 solifenacin 5 mg tablet (Vesicare) 5 mg PO DAILY #30 tabs 07/30/25 Allergies Allergy/AdvReac Type Severity Reaction Status Date / Time pregabalin (From LYRICA) Allergy Severe CONFUSION Verified 08/09/25 15:59 ciprofloxacin (From Cipro) Allergy Intermediate Itching Verified 08/09/25 15:59 gabapentin (GABAPENTIN) Allergy Intermediate NAUSEA/VOMI Verified 08/09/25 15:59 TING amlodipine (From Norvasc) Allergy Unknown Verified 08/09/25 15:59 clarithromycin (From BIAXIN) AdvReac Intermediate NAUSEA & Verified 08/09/25 15:59 VOMITING codeine (CODEINE) AdvReac Intermediate NAUSEA & Verified 08/09/25 15:59 VOMITING fentanyl (From DURAGESIC) AdvReac Intermediate NAUSEA/VOMI Verified 08/09/25 15:59 TING levofloxacin (From LEVAQUIN) AdvReac Intermediate NAUSEA & Verified 08/09/25 15:59 VOMITING primidone (From Mysoline) AdvReac Nausea and Verified 08/09/25 15:59 Vomiting Review of Systems Review of Systems Positive abdominal pain Yes all other systems are reviewed and are negative PMFSH Past Medical History Attestation statement: The following information was validated with the patient. Medical History Peripheral vascular disease Sciatica COPD (chronic obstructive pulmonary disease) Venous (peripheral) insufficiency UTI (urinary tract infection) Pedal edema Hypokalemia GERD (gastroesophageal reflux disease) Chronic diarrhea Sciatica, right side History of mammogram (~05/2024) Right hip pain Right buttock pain Lower back pain NSTEMI (non-ST elevated myocardial infarction) SIRS (systemic inflammatory response syndrome) Guillain-[place] syndrome Fracture, wrist, open History of gastrectomy Parkinson disease High blood pressure Surgical History Hx of arthroscopic knee surgery Hx of hysterectomy H/O pyloroplasty H/O vagotomy Hx of cholecystectomy History of esophagogastroduodenoscopy (EGD) Hx of colonoscopy (~10/22/21) Family History Family History Mother Breast cancer Congestive heart failure Arthritis Social History Social History Household Members: None Housing: Condominium Do you presently have visiting nurse or other home services: No Alcohol intake: current Alcohol intake frequency: does not drink Alcohol type: wine Patient Tobacco Use Status: Never used Tobacco Smoked in Last 30 Days: No Use of substances other than those prescribed or required for medical reasons: No Advance Directives: Yes Advance Directives on File: Yes Advance Directives Date on File: 08/14/23 Do you have a plan to hurt others: No Plan service: No Current occupational status: retired Cognitive needs: No Hearing needs: No Vision needs: Yes (rx glasses) Physical Exam ED Exam Exam: Appearance: Alert. Oriented X3. No acute distress. Eyes: Pupils equal, round and reactive to light. ENT: Pharynx normal. Neck: Normal inspection. Neck supple. No lymph nodes noted. No crepitus CVS: Normal heart rate and rhythm. Pulses normal. Normal S1 and S2 Respiratory: No respiratory distress. Breath sounds normal. No Wheezing. No rales Abdomen: Soft positive mild right lower quadrant tenderness no rebound or guarding Skin: Skin warm and dry. Normal skin color. Normal skin turgor. Extremities: No lower extremity edema. Neurovascular intact to all extremities. No Lacerations. No Rash Neuro: Oriented X 3. No motor deficit. No sensory deficit. Moving all extermities. No slurred speech Vital Signs: Vital Signs - 24 hr 08/09/25 15:57 08/09/25 20:30 Temperature 98.4 F 98.0 F Pulse Rate 79 68 Respiratory Rate 18 18 Blood Pressure 141/78 H 128/46 L Pulse Oximetry 100 99 Oxygen Delivery Method Room Air Room Air BMI result Body Mass Index 14.0 Course Course Course Narrative: Haylie Tucker APRN this is a rapid medical exam. Defer additional HPI, ROS and PE to primary provider. 85-year-old female with history of parkinsons disease, IBD (on humira), hypothyroidism here with right lower quadrant abdominal pain since . Will obtain labs, UA VSS Medical Decision Making Medical Decision Making MDM Narrative: CT scan of the abdomen pelvis showed possible proctitis. Patient is has no evidence for appendicitis no kidney stone noted urine showed no signs of infection. White count is 6.9. Patient's electrolytes are normal. Urine showed no signs of infection. Will discharge patient home close follow-up on an outpatient basis no signs of kidney stone no signs of appendicitis. Differential Diagnosis Differential Diagnoses: The differential diagnosis associated with the presentation includes Diverticulitis, kidney stone, obstruction, appendicitis Admission/Observation Consideration of admission/observation: Escalation of care including admission/observation considered Lab Data MDM Lab Attestation statement: I reviewed the patient's lab results. 08/09/25 16:31 08/09/25 16:31 Labs: Lab Results 08/09/25 08/09/25 Range/Units 16:31 20:31 WBC 6.9 (4.8-10.8) X10*3/uL RBC 3.77 L (4.20-5.50) X10*6/uL Hgb 11.7 L (12.0-16.0) g/dl Hct 34.6 L (37.0-47.0) % MCV 91.8 (80.0-98.0) fL MCH 31.0 (27.0-33.0) pg MCHC 33.8 (31.0-35.0) g/dl RDW 13.1 (11.0-16.0) % Plt Count 122 L D (160-400) X10*3/uL MPV 11.0 (9.4-12.3) fL Immature Gran % (Auto) 0.4 (0.0-0.4) % Neut % (Auto) 73.8 H (45-73) % Lymph % (Auto) 16.0 L (20-40) % [place] % (Auto) 8.8 (2-11) % Eos % (Auto) 0.6 (0-4) % Baso % (Auto) 0.4 (0-2) % Lymph # (Auto) 1.1 L (1.2-4.9) X10*3/uL [place] # (Auto) 0.6 (0.1-1.2) X10*3/uL Eos # (Auto) 0.0 (0.0-0.4) X10*3/uL Baso # (Auto) 0.0 (0.0-0.2) X10*3/uL Abs Immat Gran (auto) 0.03 (0.00-0.03) X10*3/uL Absolute Neuts (auto) 5.1 (2.0-8.3) x10*3/uL Absolute Nucleated RBC 0.000 (0.0-0.012) X10*3/uL Nucleated RBC % (auto) 0.0 (0.0-0.2) /100WBC Smear Tech's Comments VERIFIED Sodium 143 (135-145) mmol/L Potassium 3.6 D (3.3-5.1) mmol/L Chloride 103 (96-108) mmol/L Carbon Dioxide 32 H (22-29) mmol/L Anion Gap 12 (12-20) BUN 19 H (9-16) mg/dL Creatinine 0.72 (0.5-1.4) mg/dL Estim Creat Clear Calc 33.2 Estimated GFR > 60 Random Glucose 93 (60-115) mg/dL Calcium 8.3 L (8.4-10.2) mg/dL Total Bilirubin 1.1 H (0.0-1.0) mg/dL Direct Bilirubin 0.3 (0.0-0.5) mg/dL AST 35 H (5-31) U/L ALT 25 (0-31) U/L Alkaline Phosphatase 67 (39-117) U/L Total Protein 5.5 L (6.5-8.0) g/dL Albumin 3.4 L (3.5-5.0) g/dL Lipase 17 (8-78) U/L Urine Color Yellow Urine Appearance Clear Urine pH 6.0 (5.0-9.0) Ur Specific [place] 1.020 (1.005-1.025) Urine Protein Trace (Neg-Trace) mg/dL Urine Glucose (UA) Negative (Negative) mg/dL Urine Ketones 15 (Negative) mg/dL Urine Blood Negative (Negative) Urine Nitrite Negative (Negative) Ur Leukocyte Esterase Negative (Negative) Radiology Impression Discussion of test interpretation with radiology: I have reviewed the radiologist's reading. External Record Review External record reviewed: Office record Social Determinants Patient?s care significantly limited by Social Determinants of Health including: Problems related to primary support group Medications Administered Discontinued Medications Generic Name Dose Route Start Last Admin Trade Name Freq PRN Reason Stop Dose Admin Sodium Chloride 1,000 mls @ 999 mls/hr 08/09/25 19:30 08/09/25 19:27 Ns IV 08/09/25 20:30 999 mls/hr .Q1H1M MARIA D Administration Iohexol 100 ml 08/09/25 20:35 08/09/25 20:36 Iohexol 350 Mg/Ml 100 Ml Infus..Btl IV 08/09/25 20:36 85 ml ONCE ONE Administration Ondansetron HCl 4 mg 08/09/25 19:20 08/09/25 19:29 Ondansetron Hcl 4 Mg/2 Ml Vial IVPUSH 08/09/25 19:21 4 mg ONCE ONE Administration Discharge Plan Discharge Clinical Impression: Abdominal pain, Acute proctitis Patient Disposition: Home, Self-Care Instructions: Abdominal Pain (ED) Prescriptions: No Action omeprazole 40 mg capsule,delayed release(DR/EC) 40 mg PO DAILY Qty: 90 3RF nitrofurantoin monohyd/m-cryst [Macrobid] 100 mg capsule 100 mg PO Q12H 7 Days Qty: 14 0RF Rx Instructions: must administer with a meal/food potassium chloride 20 mEq tablet,ER particles/crystals See Rx Instructions PO DAILY Qty: 5 0RF Rx Instructions: Take 40 mEq today then take 20 mEq for an additional 3 days chlorthalidone 25 mg tablet 12.5 mg PO DAILY 90 Days Qty: 45 3RF spironolactone 25 mg tablet 25 mg PO DAILY Qty: 90 3RF solifenacin [Vesicare] 5 mg tablet 5 mg PO DAILY Qty: 30 0RF ferrous sulfate 325 mg (65 mg iron) Capsule, Extended Release 65 mg PO DAILY propranolol 80 mg tablet 80 mg PO TID Rx Instructions: pt states prescribed TID carbidopa-levodopa 25-100 mg tablet 1 tab PO TID alendronate 70 mg tablet PO ketorolac 30 mg/mL (1 mL) solution 30 mg IM ONCE Qty: 1 0RF cholecalciferol (vitamin D3) 125 mcg (5,000 unit) capsule 125 mcg PO DAILY lorazepam 1 mg tablet 1 mg PO DAILY PRN (Reason: anxiety) Qty: 30 3RF ketorolac 30 mg/mL (1 mL) solution 30 mg IM ONCE Qty: 1 0RF Humira(CF) Pen 80 mg/0.8 mL pen injector kit See Rx Instructions subcut .COMPLEX Rx Instructions: inject two - 80 mg/0.8 mL pens on Day 1; inject one - 80 mg/0.8 mL pen on Day 15 of therapy subcut Referrals: Arpan Johansen MD [Primary Care Provider, Internal Medicine] - 08/11/25 Print Language: Cameroonian
[2025-08-09 16:47] LABS: Hematocrit 34.6 % (37.0-47.0); Hemoglobin 11.7 g/dl (12.0-16.0); Imm Gran Abs Auto 0.03 X10*3/uL (0.00-0.03); Imm Gran Pct Auto 0.4 % (0.0-0.4); Lymphocytes Absolute Auto 1.1 X10*3/uL (1.2-4.9); MANUAL DIFF FLAG SCAN; Mean Corpuscular HGB Conc 33.8 g/dl (31.0-35.0); Mean Corpuscular Hemoglobin 31.0 pg (27.0-33.0); Mean Corpuscular Volume 91.8 fL (80.0-98.0); NRBC Abs Auto 0.000 X10*3/uL (0.0-0.012); NRBC Pct Auto 0.0 /100WBC (0.0-0.2); PLT CLUMP 1; Red Blood Count 3.77 X10*6/uL (4.20-5.50); SCAN SMEAR FLAG 1
--- OUTSIDE RECORDS SUMMARY | 2025-08-09 17:12 | XMS_ITS | Encounter Summary ---
Author Organization [facility] Address [address] [place] [address] Phone Care Team Providers Care Power Project Manager Name Role Phone Salbador Severino MD Primary Care Provider [phone] Pcp, Unknown Primary Care Provider Arpan Patterson MD Primary Care Provid er Nikhil Pantoja DO Unavailable [phone] Encounter Details Date Type Department Care Team (Late st Contact Info) Description 06/16/2023 Ancillary Orders [facility],Outside Imaging [address] [place], [place] [id number] System, Provider Not In, [facility] [address] [address] Social History Tobacco Use Types Packs/Day Years [...] Description 08/25/2025 8:00 AM EST Office Visit [facility] [address] [place] [address] Dmitri Srinivasan MD [address] [facility], [address] [place] [address] 06/24/2026 8:20 AM EST Office Visit [facility] Endocrinology Clinic [address] [place] [address] Krissy Willis MD 22 [facility] [address] [place] [address] [email or web address] documented as of this encounter Results * [...] on filedocumented in this encounter Care Teams Power Project Manager Relationship Specialty Start Date End Date Mugg, Salbador Kurt, MD [address] [place] [address] PCP - General Internal Medicine 03/21/23 06/19/25 Pcp, Unknown PCP - General 06/20/25 06/22/25 Arpan Johansen MD [address] [place] [phone] PCP - General Internal Medicine 06/23/25 Nikhil Pantoja DO [address] [place] [address] Internal Medicine 06/23/25 documented as of this encounter Additional Source Comments The information contained in this document represents components of the legal health record. It is not the complete legal health record.[facility]
--- OUTSIDE RECORDS SUMMARY | 2025-08-09 17:12 | XMS_ITS | Clinical Summary ---
Author Organization [facility] Address [address] [place] [address] Phone Care Team Providers Care Pl Sql Developer Name Role Phone Arpan Johansen MD Primary Care Provid er Nikhil Pantoja DO Unavailable [phone] Allergies Active Allergy Reactions Criticality Noted Date [...] 11:59 PM EDT Hospital Encounter [facility] [address] [place] [address] Krissy Willis MD Discharge Disposition: Home or Self Care 06/20/2025 10:20 AM EDT Office Visit [facility] Endocrinology [address] [place] [address] Krissy Willis MD Multinodular goiter (Primary Dx); Age-related osteoporosis without current pathological fracture 06/20/2025 Telephone [facility] Endocrinology [address] [place] [address] Krissy Willis MD from Last 3 Months [...] Description 08/25/2025 8:00 AM EST Office Visit [facility] [address] [place] [address] Dmitri Srinivasan MD [address] [place] [address], [address] [place] [address] [email or web address] 06/24/2026 8:20 AM EST Office Visit [facility] Endocrinology Clinic [address] [place] [address] [place] [address] Krissy Willis MD [address] [address] [email or web address] Health Maintenance Due Date Last Done Comments [...] Blood (Non-MGB) (06/20/2025 11:41 AM EDT) Pathologist [facility] Collagen CTx 97(L) pg/mL [facility] LAB MED/PATH SUPERIOR Comment: (NOTE) [...] LAB BLOOD BKR ORDERABL ES Final Result [facility] LAB MED/PATH [address] [address] [place] [address] * (ABNORMAL) Comprehensive metabolic panel (06/20/2025 11:41 AM EDT) Pathologist [facility] SODIUM 143 133 - 146 mmol/L [facility] POTASSIUM 3.0(L) 3.3 - 5.1 mmol/L [facility] CHLORIDE 103 96 - 108 mmol/L [facility] CO2 30 21 - 35 mmol/L [facility] BUN 15 6 - 19 mg/dL [facility] CREATININE 0.80 0.5 - 1.5 mg/dL [facility] GLUCOSE 100(H) 70 - 99 mg/dL [facility] ALBUMIN 3.4(L) 3.9 - 4.8 g/dL [facility] TOTAL PROTEIN 5.4(L) 6.5 - 8.0 g/dL [facility] CALCIUM 8.8 8.4 - 10.3 mg/dL [facility] ALKALINE PHOSPHATASE 44 39 - 117 U/L [facility] TOTAL BILIRUBIN 0.3 0.0 - 1.2 mg/dL [facility] AST 40(H) 0 - 37 U/L [facility] ALT <5 0 - 40 U/L [facility] GLOBULIN 2.0 1 - 4.8 g/dL [facility] EGFR 72 >59 mL/min/1.7 3m2 [facility] Comment:Estimated glomerular filtration rate calculated using the CKD-EPI refit equation. ANION GAP 13 10 - 20 mmol/L [facility] Blood 06/20/2025 11:4 1 AM EDT 06/20/2025 11:53 AM EDT us Krissy Willis MD LAB BLOOD BKR ORDERABL ES Final Result [address] [address] * TSH with reflex (06/20/2025 11:41 AM EDT) TSH 0.83 0.27 - 4.20 uIU/mL [facility] Blood 06/20/2025 11:4 1 AM EDT 06/20/2025 11:53 AM EDT us Krissy Willis MD LAB BLOOD BKR ORDERABL ES Final Result [address] [address] * 25-OH vitamin D (06/20/2025 11:41 AM EDT) 25 OH VIT D (TOTAL) 43 30 - 60 ng/mL [facility] Blood 06/20/2025 11:4 1 AM EDT 06/20/2025 11:53 AM EDT us Krissy Willis MD LAB BLOOD BKR ORDERABL ES Final Result [address] [address] * Phosphorus (06/20/2025 11:41 AM EDT) PHOSPHORUS 3.3 2.7 - 4.5 mg/dL [facility] Blood 06/20/2025 11:4 1 AM EDT 06/20/2025 11:53 AM EDT us Krissy Willis MD LAB BLOOD BKR ORDERABL ES Final Result Performing Organization Address [facility]/ZIP Co de Phone Number [address] [address] * Parathyroid hormone (PTH) (06/20/2025 11:41 AM EDT) PARATHYROID HORMONE 55 15 - 65 pg/mL [facility] Blood 06/20/2025 11:4 1 AM EDT 06/20/2025 11:54 AM EDT us Krissy Willis MD LAB BLOOD BKR ORDERABL ES Final Result [address] [address] from Last 3 Months Insurance [employer] [place] MEDICARE PPO BLUE REPLACEMENT MEDICARE PPO BL[place] [address] [place] [id number] MED[address] PPO [address] [place] [address] [place] [address] MEDICARE PPO BLUE REPLACEMENT [facility] MEDICARE PPO BLUE REPLACEMENT [facility] MEDICARE PPO BLUE REPLACEMENT Care Teams Pl Sql Developer Relationship Specialty Start Date End Date Arpan Johansen MD [address] [place] [id number] PCP - General Internal Medicine 06/23/25 Nikhil Pantoja DO [address] [place] [address] Internal Medicine 06/23/25 Additional Source Comments The information contained in this document represents components of the legal health record. It is not the complete legal health record.[facility]
--- OUTSIDE RECORDS SUMMARY | 2025-08-09 17:12 | XMS_ITS | Clinical Summary ---
Author Organization [facility] Address [address] [place] [address] Phone Care Team Providers Care Law Firm Partner Name Role Phone Arpan Johansen MD Primary Care Provider [phone] Encounters Date Type Department Care Team Description 07/03/2025 8:21 AM EST - 07/03/2025 11:59 PM EST Hospital Encounter [facility] [address] [address] Encounter for screening mammogram for [...] Encounter for screening mammogram for breast cancer [facility] DEXA AXIAL SKELETON Routine 06/08/2023 10:23 [...] year. Mammography location: [facility] at [address], [address] -------- FINAL REPORT -------- Dictated By: Dariel Hou Dictated Date: 07/03/2025 08:36 ET Assigned Physician: Dariel Hou Reviewed and Electronically Signed By: Dariel Hou Signed Date: 07/03/2025 16:18 ET Workstation ID: [id number] Transcribed By: Self Edit Transcribed Date: 07/03/2025 [...] None Computer-aided detection was employed with the [employer] AI 3-D. TISSUE DENSITY: The breasts are [...] Computer-aided detection was employed with the [employer] AI 3-D. TISSUE DENSITY: The breasts are [...] year. Mammography location: [facility] [address] [place], [address] -------- FINAL REPORT -------- Dictated By: Dariel Hou Dictated Date: 07/03/2025 08:36 ET Assigned Physician: Dariel Hou Reviewed and Electronically Signed By: Dariel Hou Signed Date: 07/03/2025 16:18 ET Workstation ID: [id number] Transcribed By: Self Edit Transcribed Date: 07/03/2025 08:38 ET us Self Referral Sppl IMG BI PROCEDURES Final Resul t * [facility] DEXA AXIAL SKELETON (06/08/2023 10:23 AM EDT) Anatomical Region Laterality Modality Mammography 06/08/2023 9:55 AM EDT Narrative 06/08/2023 10:23 AM EDT [facility] Diagnostic Imaging Department [address] [place] [address] Patient: WALT CABELLO /Age/Sex: 1940 - 82 - F Unit#: [id number] Location/Status: SPDIMA/REG CLI Mnemonic[facility] Ordering Physician: ZAFAR SEVERINO MD [facility] Dexa Axial Skeleton - 06/08/23 - 1016 [...] probability of hip fracture of 13.9%. Code 86186 Dictating Physician: APRYL BAILON MD Electronically Signed by: APRYL BAILON MD Dic Date/Time: 06/08/23 1022 Sign date/Time: 06/08/23 1023 Procedure Note Apryl Bailon MD - 09/26/2023 [facility] Diagnostic Imaging Department [address] [place] [address] Patient: WALT CABELLO Aaron WallB./Age/Sex: 1940 - 82 - F Unit#: [id number] Location/Status: SPDIMA/[facility] CLI Mnemonic/Ordering Site: [facility] Ordering Physician: ZAFAR SEVERINO MD Enrique Dexa [...] density of the femurs bilaterally is 0.649 gm/nk9paxle is 64% of that of young normals [...] probability of hip fracture of 13.9%. Code 87706 Dictating Physician: APRYL BAILON MD Electronically Signed by: APRYL BAILON MD Dic Date/Time: 06/08/23 1022 Sign date/Time: 06/08/23 1023 Zafar Severino MD IMG BI PROCEDURES Final Result from Last 3 Months or Most Recently Relevant to Health Maintenance Insurance [employer] - [place] MEDICARE ADVANTAGE Care Teams Law Firm Partner Relationship Specialty Start Date End Date Arpan Johansen MD [address] [place] [address] PCP - General Internal Medicine 06/24/25
--- OUTSIDE RECORDS SUMMARY | 2025-08-09 17:12 | XMS_ITS | Patient Health Record ---
Author Organization [facility] Address [address] [place] [address] Care Team Providers Care Electrophysiology Tech Name Role Phone Nikhil Mckeon Unavailable [phone] Reason For Referral No Information Plan Of Treatment No Information
[2025-08-09 17:13] LABS: Alanine Aminotransferase 25 U/L (0-31); Albumin Level 3.4 g/dL (3.5-5.0); Alkaline Phosphatase 67 U/L (39-117); Anion Gap 12 (12-20); Aspartate Amino Transferase 35 U/L (5-31); Blood Urea Nitrogen 19 mg/dL (9-16); Calcium 8.3 mg/dL (8.4-10.2); Carbon Dioxide 32 mmol/L (22-29); Chloride 103 mmol/L (96-108); Creatinine Clr Calc Pharmacy 33.2; Estimated Glomerular Filt Rate > 60; Lipase 17 U/L (8-78); Potassium 3.6 mmol/L (3.3-5.1); Sodium 143 mmol/L (135-145); Total Protein 5.5 g/dL (6.5-8.0)
[2025-08-09 17:46] LABS: Platelet Count 122 X10*3/uL (160-400); White Blood Count 6.9 X10*3/uL (4.8-10.8)
[2025-08-09 20:30] VITALS: BP 128/46; PULSE 68; RESP 18; TEMP 36.7; O2SAT 99
[2025-08-09] MEDS: iohexoL 350 MG/ML 100 ML INFUS..BTL IV (20:36)
[2025-08-09 20:40] LABS: Appearance Urine Clear; Glucose Urine UA Negative (Negative); PH 6.0 (5.0-9.0); Specific Gravity - Urine 1.020 (1.005-1.025)
[2025-08-09 22:51] VITALS: BP 128/46; PULSE 68; RESP 18; TEMP 36.7; O2SAT 99
== END 2025-08-09 22:51 | disposition home or self-care (01) ==
PROVIDERS: Nurse Practitioner Family; Emergency Provider Emergency Medicine Emergency Medical Services; PCP Internal Medicine
DX: R10.31 Right lower quadrant pain (principal); K58.0 Irritable bowel syndrome with diarrhea; K62.89 Other specified diseases of anus and rectum; J44.9 Chronic obstructive pulmonary disease, unspecified; Z87.440 Personal history of urinary (tract) infections; Z86.79 Personal history of other diseases of the circulatory system; Z79.899 Other long term (current) drug therapy
CPT/HCPCS: 36415; 74177; 80048; 80076; 81003; 83690; 85025; 96361; 96374; 99284; 99285; J2405; Q9967

== ENCOUNTER 2025-08-11 14:21 | Outpatient (AMB) | payer MEDICARE, SELFPAY ==
[2025-08-11 14:12] VITALS: BP 111/51; PULSE 68; RESP 14; TEMP 36.4; O2SAT 98; BMI 14.3
--- NOTE | 2025-08-11 14:12 | A.OFFPC_ITS ---
Vital Signs 08/11/25 14:12 Height 5 ft 5.47 in Weight 87 lb BMI 14.3 BP 111/51 L Blood Pressure Location Rt brachial Position Sitting Respiration 14 Pulse 68 Pulse Source Pulse Oximeter Temp 97.6 F Temp Source Temporal Artery Scan Pulse Oximetry (%) 98 Oxygen Delivery Method Room Air Intake Visit Reasons: Right lower abdomen and back pain Music Rehabilitation Therapist Required: No Accompanied by: Daughter Allergies pregabalin (From LYRICA) Allergy (Severe, Verified 08/11/25 15:35) CONFUSION ciprofloxacin (From Cipro) Allergy (Intermediate, Verified 08/11/25 15:35) Itching gabapentin (GABAPENTIN) Allergy (Intermediate, Verified 08/11/25 15:35) NAUSEA/VOMITING amlodipine (From Norvasc) Allergy (Verified 08/11/25 15:35) Unknown clarithromycin (From BIAXIN) Adverse Reaction (Intermediate, Verified 08/11/25 15:35) NAUSEA & VOMITING codeine (CODEINE) Adverse Reaction (Intermediate, Verified 08/11/25 15:35) NAUSEA & VOMITING fentanyl (From DURAGESIC) Adverse Reaction (Intermediate, Verified 08/11/25 15:35) NAUSEA/VOMITING levofloxacin (From LEVAQUIN) Adverse Reaction (Intermediate, Verified 08/11/25 15:35) NAUSEA & VOMITING primidone (From Mysoline) Adverse Reaction (Verified 08/11/25 15:35) Nausea and Vomiting Medication List - Last Reconciled 08/11/25 by Arpan Johansen MD adalimumab (Humira(CF) Pen) inject two - 80 mg/0.8 mL pens on Day 1; inject one - 80 mg/0.8 mL pen on Day 15 of therapy subcut alendronate mg PO carbidopa-levodopa 25-100 mg 1 tab PO TID chlorthalidone 12.5 mg (1/2 x 25 mg) PO DAILY 90 days cholecalciferol (vitamin D3) 125 mcg PO DAILY ferrous sulfate ER 65 mg PO DAILY lorazepam 1 mg PO DAILY PRN nitrofurantoin monohyd/m-cryst 100 mg (Macrobid) 100 mg PO Q12H 7 days omeprazole 40 mg PO DAILY potassium chloride ER Take 40 mEq today then take 20 mEq for an additional 3 days prednisone 40 mg (2 x 20 mg) PO DAILY propranolol 80 mg PO TID solifenacin (Vesicare) 5 mg PO DAILY spironolactone 25 mg PO DAILY Tobacco use date assessed: 05/05/25 Dental Screening Dental Screen Date: 03/13/25 HPI HPI Comments History of Present Illness Details History of Present Illness - The patient is an 85 year old female p resenting with worsening abdominal pain. - The patient's symptoms began on with an episode of severe, buckling lower right quadrant abdominal pain. - The episodes became more frequent, hector edward, and stronger through Monday and Monday, prompting a visit to the [facility] emergency room. 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 - Since the ER visit, she has continued to experience episodes of lower right quadrant pain, with new-onset back pain and radiation of pain to the left side. - She also reports new symptoms of dizzi ness and nausea after eating, even with small amounts of food like dry toast or soup. - She has a history of an inflammatory b owel condition, with symptoms similar to ulcerative colitis or Crohn's disease, for which she sees a specialist. - Prior treatment with Remicade was inef fective due to antibodies, and she has had three doses of Humira injections. - She was also recently on prednisone ab out a week ago. - She reports no pain with bowel movemen ts, which are soft, and no change in bowel frequency. - An MRI of her abdomen in June show ed fluid around her liver and pancreas, and a subsequent MRI was scheduled for August. - Her gallbladder has been removed, and her bile ducts are noted to be dilated. - She also has a history of sciatica, fo r which she has had a lower back MRI. - Regarding her bladder, she was switche d to Vesicare for urinary urgency and incontinence, but reports no improvement after one week of use. Social History - Nutrition: The patient's oral intake i s poor; she feels sick and dizzy after eating and is unable to eat much. - Family: She has a small family and is having a get-together for Reba. Results - CT Abdomen (last weekend): Showed infl ammation in the rectum and sigmoid colon (proctosigmoiditis). Negative for kidney stone, appendicitis, or blockage. Bloodwork at the time was fine. - MRI Abdomen (June): Showed fluid a round the liver and pancreas, and a spasm in one of the bile ducts. - Stool studies (prior): Showed elevated inflammation markers, described as a bowel infection. - Bloodwork (prior): Showed antibodies t hat interfere with Remicade. [facility] Medical History Peripheral vascular disease Sciatica COPD (chronic obstructive pulmonary disease) Venous (peripheral) insufficiency UTI (urinary tract infection) Pedal edema Hypokalemia GERD (gastroesophageal reflux disease) Chronic diarrhea Sciatica, right side History of mammogram (~05/2024) Right hip pain Right buttock pain Lower back pain NSTEMI (non-ST elevated myocardial infarction) SIRS (systemic inflammatory response syndrome) Guillain-Holbrook syndrome Fracture, wrist, open History of gastrectomy Parkinson disease High blood pressure Surgical History Hx of arthroscopic knee surgery Hx of hysterectomy H/O pyloroplasty H/O vagotomy Hx of cholecystectomy History of esophagogastroduodenoscopy (EGD) Hx of colonoscopy (~10/22/21) Family History Mother Breast cancer Congestive heart failure Arthritis Social History Household Members: None Housing: Condominium Do you presently have visiting nurse or other home services: No Alcohol intake: current Alcohol intake frequency: does not drink Alcohol type: wine Patient Tobacco Use Status: Never used Tobacco Advance Directives Date on File: 08/14/23 service: No Current occupational status: retired Cognitive needs: No Hearing needs: No Vision needs: Yes (rx glasses) Questionnaire PHQ-9 Over the last 2 weeks, how often have you been bothered by any of the following problems? 1. Little interest or pleasure in doing things: not at all 2. Feeling down, depressed, or hopeless: not at all 3. Trouble falling or staying asleep, or sleeping too much: not at all 4. Feeling tired or having little energy: not at all 5. Poor appetite or overeating: not at all 6. Feeling bad about yourself - or that you are a failure or have let yourself or your family down: not at all 7. Trouble concentrating on things, such as reading the newspaper or watching television: not at all 8. Moving or speaking so slowly that other people could have noticed. Or the opposite - being so fidgety or restless that you have been moving around a lot more than usual: not at all 9. Thoughts that you would be better off or of hurting yourself in some way: not at all Total score: 0 Depression Screening Interpretation: Negative Depression Screening Done: Yes 06577 - PHQ-9 Billing: Yes Source: Developed by Drs. Nikhil Henriquez, Mckenzie Bryson, Ben Eugnee and colleagues, with an educational benny from [employer]. Thrive Questionnaire Date Thrive assessed: 03/20/25 I am a: Patient What is your living situation today?: I have a steady place to live Within the past 12 months, did the food you bought not last and you didn't have the money to get more?: Never true Within the past 12 months, did you worry whether your food would run out before you got money to buy more?: Never true Do you have trouble paying for medicines?: No Do you have trouble getting transportation to medical appointments?: No Do you have trouble paying your heating and electricity bill?: No Do you have trouble taking care of your child, family member or friend?: No Do you have trouble with day-to-day activities such as bathing, preparing meals, shopping, managing finances, etc.?: No Are you currently unemployed and looking for a job?: No Are you interested in more education?: No Please select the resources that you would like help with: None Currently or been in a relationship where the following occur: No concerns reported THRIVE Score: 0 AUDIT C Alcohol Use Questionnaire (AUDIT-C) 1. How often do you have a drink containing alcohol?: 4 or more times a week 2. How many drinks containing alcohol do you have on a typical day when you are drinking?: 1 or 2 3. How often do you have six or more drinks on one occasion?: Never Total Score: 4 Score Reviewed/Action Taken: No HEATHER-7 AMB Questionnaire HEATHER-7 Date HEATHER - 7 assessed: 03/20/25 Feeling nervous, anxious, or on edge: 0 = Not at all Not being able to stop or control worryin = Not at all Worrying too much about different things: 0 = Not at all Trouble relaxin = Not at all Being so restless that it is hard to sit still: 0 = Not at all Becoming easily annoyed or irritable: 0 = Not at all Feeling afraid as if something awful might happen: 0 = Not at all Total HEATHER-7 score (0-4 normal; 5-9 mild; 10-14 moderate; 15-21 severe): 0 Source: Developed by Drs. Nikhil Henriquez, Mckenzie Bryson, Ben Eugene and colleagues, with an educational benny from [employer]. HEATHER-7 Assessment Billing HEATHER-7 Assessment Tool: HEATHER-7 Assessment 41882 Review of Systems Narrative Review of Systems - Constitutional: Reports not feeling well. Denies fever. - GI: Reports intermittent, severe right lower quadrant abdominal pain which can radiate to the left side. Reports nausea, dizziness, and feeling ill after eating. Reports history of chronic diarrhea. She denies pain with bowel movements or increased frequency. - Musculoskeletal: Reports new back pain and ongoing sciatica. - Neurological: Reports dizziness, particularly after eating. - Genitourinary: Reports persistent urinary urgency and incontinence despite recent medication change. Physical exam (Primary Care) Vital Signs: Last Vital Signs Temp 97.6 F 08/11/25 14:12 Pulse 68 08/11/25 14:12 Resp 14 08/11/25 14:12 BP 111/51 L 08/11/25 14:12 Pulse Ox 98 08/11/25 14:12 Oxygen Delivery Method Room Air 08/11/25 14:12 BMI result Body Mass Index 14.3 Tobacco/Smoking Status: Tobacco use Status Tobacco use date assessed 05/05/25 08/11/25 14:14 Patient Tobacco Use Status Never used Tobacco 08/11/25 14:14 PHQ-9: PHQ-9 Score PHQ-9: Total score 0 08/11/25 14:14 Depression Screening Interpretation: Negative Thrive Assessment: Date of Thrive Assessment Date Thrive assessed 03/20/25 08/11/25 14:14 Currently or been in a relationship where the following occur: No concerns reported Narrative Physical Exam General: Cooperative and healthy appearing Nutritional Appearance: Well nourished Orientation/consciousness: Patient oriented x3 Limitations: No limitations Head: Normal to inspection General: Appearance normal, both eyes and all related structures Neck: Normal visual inspection Chest: Normal palpation of entire chest wall Respiratory: Normal respiratory effort Neurology: Patient oriented x3 Coding Level of Care Code Est Pt Level 4 (03936) Add On Problem Visit Only Diagnoses IBD (inflammatory bowel disease) K52.9 Additional Codes HEATHER-7 Assessment Billing - HEATHER-7 Assessment Tool: HEATHER-7 Assessment 26894 ([id number]) PHQ-9 - 75251 - PHQ-9 Billing: Yes ([id number]) Assessment & Plan Assessment & Plan (1) IBD (inflammatory bowel disease): Code(s): K52.9 - Noninfective gastroenteritis and colitis, unspecified Category: Medical Plan: Spoke to the covering MD for Gastro, Dr Bowling. Started the patient on 40 mg of Prednisone for a week. Will repeat LFT and Ca 19-9 levels next week Plan Plan - The patient's pain is felt to be from the proctitis identified on the recent CT scan. - I will contact her specialist, Dr. John, to discuss her current symptoms. - I will specifically ask about initiating a trial of prednisone for the pain and whether her inability to eat is related to her underlying inflammatory bowel condition. - I will speak with the patient again after consulting with the specialist. Discussion Notes I have reviewed the patient's recent history, including her visit to the emergen cy room and the results of her recent CT scan, which showed proctosigmoiditis. I believe her current abdominal pain and inability to eat are likely manifestations of this inflammatory process. Given her complex history and management by a specialist, I will contact Dr. John to coordinate care. I will discuss the possibility of starting a course of prednisone for her pain and will get his input on her other symptoms. I have informed the patient that I will be in touch with them after this consultation. Patient Instructions - I am going to contact your specialist, Dr. John, to discuss your current symptoms and decide on the best treatment plan. - This may involve starting a medication called prednisone to help with the pain and inflammation. - Please wait here, and I will come back to talk with you after I have spoken with him, which should be in about 20 minutes. Orders: Orders Liver Panel Today K52.9 - Noninfective gastroenteritis and colitis, unspecified Carbohydrate Antigen 19-9 Today K52.9 - Noninfective gastroenteritis and colitis, unspecified Medications: New prednisone 40 mg (2 x 20 mg) PO DAILY 8 tabs 0RF
--- OUTSIDE RECORDS SUMMARY | 2025-08-11 17:48 | XMS_ITS | Patient Health Record ---
[facility] Organization [facility] Address [address] [place] [id number] Care Team Providers Care Email Marketing Intern Name Role Phone Nikhil Mckeon Unavailable [phone] Reason For Referral No Information Plan Of Treatment No Information
--- OUTSIDE RECORDS SUMMARY | 2025-08-11 17:48 | XMS_ITS | Clinical Summary ---
Author Organization [facility] Address [address] [place] [address] Phone Care Team Providers Care Pallet Assembler Name Role Phone Arpan Johansen MD Primary Care Provider [phone] Encounters Date Type Department Care Team Description 07/03/2025 8:21 AM EST - 07/03/2025 11:59 PM EST Hospital [facility] [address] [address] Encounter for screening mammogram for [...] Encounter for screening mammogram for breast cancer [facility] DEXA AXIAL SKELETON Routine 06/08/2023 [...] year. 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 TISSUE DENSITY: The breasts are [...] Computer-aided detection was employed with the [employer] AI 3-D. TISSUE DENSITY: The breasts are [...] Mammography at [facility] [address] [place], [address] -------- FINAL REPORT -------- Dictated By: Dariel Hou Dictated Date: 07/03/2025 08:36 ET Assigned Physician: Dariel Hou Reviewed and Electronically Signed By: Dariel Hou Signed Date: 07/03/2025 16:18 ET Workstation ID: [id number] Transcribed By: Self Edit Transcribed Date: 07/03/2025 08:38 ET us Self Referral Sppl IMG BI PROCEDURES Final Resul t * [facility] DEXA AXIAL SKELETON (06/08/2023 10:23 AM EDT) Anatomical Region Laterality Modality Mammography 06/08/2023 9:55 AM EDT Narrative 06/08/2023 10:23 AM EDT [facility] Diagnostic Imaging Department [address] [place] [id number] Patient: WALT CABELLO /Age/Sex: 1940 - 82 - F Unit#: [id number] Location/Status: SPDIMA/REG CLI [facility] Ordering Physician: ZAFAR SEVERINO MD [facility] Dexa Axial Skeleton - 06/08/23 [...] probability of hip fracture of 13.9%. Code 96098 Dictating Physician: APRYL BAILON MD Electronically Signed by: APRYL BAILON MD Dic Date/Time: 06/08/23 1022 Sign date/Time: 06/08/23 1023 Procedure Note Apryl Bailon MD - 09/26/2023 [facility] Diagnostic Imaging Department [address] [place] [id number] Patient: WALT CABELLO Aaron WallB./Age/Sex: 1940 - 82 - F Unit#: [id number] Location/Status: SPDIMA/[facility] CLI Mnemonic/Ordering Site: [facility] Ordering Physician: ZAFAR SEVERINO MD Enrique [...] density of the femurs bilaterally is 0.649 gm/lm7oolhr is 64% of that of young normals [...] probability of hip fracture of 13.9%. Code 48005 Dictating Physician: APRYL BAILON MD Electronically Signed by: APRYL BAILON MD Dic Date/Time: 06/08/23 1022 Sign date/Time: 06/08/23 1023 Zafar Severino MD IMG BI PROCEDURES Final Result from Last 3 Months or Most Recently Relevant to Health Maintenance Insurance [employer] - [place] MEDICARE ADVANTAGE Care Teams Pallet Assembler Relationship Specialty Start Date End Date Arpan Johansen MD [address] [place] [address] PCP - General Internal Medicine 06/24/25
== END 2025-08-11 15:17 | disposition home or self-care (01) ==
LOC: HO.HMCSH 14:21
PROVIDERS: PCP Internal Medicine; Visit Provider Internal Medicine
DX: K52.9 Noninfective gastroenteritis and colitis, unspecified (principal)

== ENCOUNTER → 2025-08-11 14:21 | Outpatient (BNVA) | payer MEDICARE, SELFPAY | PROVIDERS: PCP Internal Medicine; Visit Provider Internal Medicine | DX: K52.9 Noninfective gastroenteritis and colitis, unspecified (principal); G20.A1 Parkinson's disease without dyskinesia, without mention of fluctuations; Z13.31 Encounter for screening for depression; Z13.39 Encounter for screening examination for other mental health and behavioral disorders | CPT/HCPCS: 96127; 99212 ==